=== PATIENT | male | born 1990 | race African-American/Black ===

== ENCOUNTER 2024-07-08 12:42 | Inpatient (IN) | payer OTHER, SELFPAY ==
[2024-07-08] VITALS (9 sets, daily range): BP systolic 115–151; BP diastolic 83–105; PULSE 86–126; RESP 15–19; TEMP 36.4; O2SAT 96–100
--- NOTE | ~2024-07-08 | XR_ITS ---
Supine and upright views of the abdomen Clinical history: Fecal impaction Findings: Bowel gas pattern is nonspecific. No evidence for obstruction or free air. No abnormal mass lesion or calcification is seen. Osseous structures are intact. Impression: No significant abnormality is seen. Reviewed, dictated and finalized at [facility]. SITE SPECIALIST Impression: No significant abnormality is seen.
--- NOTE | ~2024-07-08 | XR_ITS ---
CHEST RADIOGRAPH CLINICAL HISTORY: Epigastric pain . COMPARISON: None available TECHNIQUE: Single portable view of the chest. FINDINGS Elevation of the right hemidiaphragm with adjacent compressive atelectasis. The lungs are otherwise clear. Cardiac mediastinal silhouette is unremarkable. IMPRESSION: No focal infiltrate or effusion. Reviewed, dictated and finalized at location A. RITY INSPECTOR
--- NOTE | ~2024-07-08 | CT_ITS ---
CLINICAL INDICATION: Left-sided abdominal pain and nausea COMPARISON: None. TECHNIQUE: Multiple contiguous axial images of the abdomen and pelvis were performed following the ad ministration of with 100 mL Omnipaque-350 intravenous contrast The dose-length product (DLP) was 1560.34 mGy-cm. Automated exposure control and iterative reconstruction technique were employed. FINDINGS/OBSERVATIONS: Visualized lower thorax: Patchy groundglass opacification of the bilateral lung bases with a small right-sided pleural effusio n. The heart is of enlarged, without pericardial effusion. Liver: The liver is not enlarged measuring 15 cm in longitudinal dimension. Gallbladder and biliary system: The gallbladder is only minimally distended, and otherwise unremarkable. Pancreas: The pancreas enhances homogeneously without ductal dilatation. Spleen: The spleen enhances homogeneously and is not enlarged measuring 8 cm in longitudinal dimension. Kidneys: The bilateral kidneys enhance symmetrically without hydronephrosis or renal calculi. Adrenal glands: Unremarkable. Gastrointestinal tract: Significant fecal stasis distending the rectum and extending to the proximal sigmoid colon. Just proximal to the initial focus of dilated stool filled colon are several loops of air distended b owel, likely the source of patient's discomfort. No free air is identified. Appendix: The air-filled appendix is of normal caliber (axial series, image 143) Vasculature: The inferior vena cava is slit like, suggesting hypovolemia. The abdominal aorta is unremarkable. No aneurysmal dilatation or significant stenosis. Lymph nodes: No pathologically enlarged or morphologically suspicious lymph nodes within the retroperitoneum or at the root of the mesentery. Pelvic structures: The bladder is distended, and otherwise unremarkable. The prostate gland is not enlarged. Body wall and musculoskeletal: No significant degenerative disease within the lower thoracic or lumbosacral spine. IMPRESSION: Significant fecal stasis distending the rectum extending to the proximal sigmoid colon. Chest proximal to the initial focus of dilated stool filled colon are several loops of air distended bowel, likely the source of patient's discomfort. Reviewed, dictated and finalized at location A. AL CONTROL OFFICER IMPRESSION: Significant fecal stasis distending the rectum extending to the proximal sigmoi d colon. Chest proximal to the initial focus of dilated stool filled colon are several l oops of air distended bowel, likely the source of patient's discomfort.
--- NOTE | 2024-07-08 13:50 | ED.ABDPAIN ---
HPI - Abdominal Pain General Chief Complaint: Abdominal Pain <Priscilla Moraes APRN - Last Filed: 07/08/24 13:54> Stated Complaint: abd pain <Priscilla Moraes APRN - Last Filed: 07/08/24 13:54> Time Seen by Provider: 07/08/24 13:40 <Priscilla Moraes APRN - Last Filed: 07/08/24 13:54> Focused HPI: Patient is a 34-year-old male who presents to the ER with abdominal pain. He has a history of paraplegia and lives in a long term. Patient reports he has left upper and left lower quadrant abdominal pain that started yesterday. He reports his last bowel movement was yesterday and it was normal. Patient has history COPD, tracheostomy, and CHF. He denies any urinary symptoms, swelling, chest pain, shortness of breath. GENERAL: Well-appearing, well-nourished, and in no acute distress. HEAD: Normocephalic, atraumatic. CHEST: Clear to auscultation. ?No respiratory distress. HEART: Regular rate and rhythm.? NEURO: ?Alert and oriented x3. Patient screened in triage and initial orders placed.? ?Additional care and disposition to be based upon?diagnostic testing and treatment. <Priscilla Moraes APRN - Last Filed: 07/08/24 13:54> History of Present Illness HPI narrative: patient 34-year-old gentleman who presents emergency department with chief complaint of epigastric pain. Patient is resident of a local nursing facility is a paraplegic and has history of congestive heart failure. Patient also reports he has history of COPD patient reports since last night he has been having pain in the epigastric region the patient states that is not improved by anything but has slowly improved on its own since he has arrived to the emergency department. Patient denies chest pain denies diaphoresis denies shortness of breath. <Matt Kumar MD - Last Filed: 07/08/24 17:11> Related Data Home Medications: Home Medications Medication Instructions Recorded Confirmed acetaminophen 650 mg tablet 650 mg PO Q6H PRN Pain 07/09/24 07/09/24 amlodipine 5 mg tablet 5 mg PO DAILY 07/09/24 07/09/24 apixaban 5 mg tablet (Eliquis) 5 mg PO BID 07/09/24 07/09/24 atorvastatin 40 mg tablet 40 mg PO HS 07/09/24 07/09/24 carvedilol 25 mg tablet 25 mg PO Q12H 07/09/24 07/09/24 divalproex 500 mg tablet,delayed 500 mg PO Q12H 07/09/24 07/09/24 release risperidone 2 mg tablet 2 mg PO Q12H 07/09/24 07/09/24 tizanidine 4 mg tablet 4 mg PO Q8H PRN Muscle Spasm 07/09/24 07/09/24 <Priscilla Moraes APRN - Last Filed: 07/08/24 13:54> Allergies/Adverse Reactions: Allergies Allergy/AdvReac Type Severity Reaction Status Date / Time lisinopril Allergy Swelling Verified 07/09/24 00:30 of Lip/Tongue/Throat <Priscilla Moraes APRN - Last Filed: 07/08/24 13:54> Review of Systems Review of Systems: A 10 system review of systems was completed on the patient and is negative except for what is stated in the HPI. Nursing and ancillary documentation was reviewed. <Matt Kumar MD - Last Filed: 07/08/24 17:11> [facility] Family History Family History: Family History (Updated 07/09/24 @ 00:20 by Mirtha Judge RN) Mother Hypertension Diabetes mellitus Father Hypertension Sibling Hypertension <Priscilla Moraes APRN - Last Filed: 07/08/24 13:54> Social History Social History: Social History Smoking status: Former smoker Alcohol intake: never Substance use: never Do You Feel Safe in your Home?: Yes Lack of Transportation: No Lack of Food: Never True Current Housing: I Have Housing Concerned About Future Housing: No Difficulty Paying Gas/Electric Bills: No Difficulty Paying for Meds: No Currently Unemployed: No Education: Decline to Answer Difficulty w/ Childcare or Family Care: No Spiritual care concerns: No <Priscilla Moraes APRN - Last Filed: 07/08/24 13:54> Comments CHF, paraplegia, COPD <Matt Kumar MD - Last Filed: 07/08/24 17:11> Exam Narrative: GENERAL: Well-appearing, well-nourished, and in no acute distress. HEAD: Normocephalic, atraumatic. EYES: PERRLA and EOMI. ENT: Nares clear, no rhinorrhea or epistaxis. Mucous membranes moist. NECK: Supple. CHEST: Clear to auscultation. No respiratory distress. HEART: Regular rate and rhythm. No murmur heard. Normal peripheral pulses. ABDOMEN: Soft, nontender, nondistended, normal active bowel sounds. EXTREMITIES: Normal range of motion to upper extremities, paraplegic lower extremities. No edema. SKIN: Warm, dry, no rash. NEURO: No focal deficits. Alert and oriented x3. PSYCH: Normal mood and affect. <Matt Kumar MD - Last Filed: 07/08/24 17:11> Course Course Emergency Course: 19:00 - This patient was signed out to me by previous ED physician, Dr. Kumar pending CT abdomen pelvis results and anticipated admission. 21:21 - CT abdomen pelvis has not yet been read. My review does not demonstrate any obvious intra-abdominal process. I discussed the patient with hospitalist, Dr. James. Pending CT results, will admit. 22:10 - CT abdomen pelvis interpretation significantly delayed due to technical difficulties experience by the radiologist. CT demonstrates an increased stool burden but is not concerning for obstruction. I discussed the findings with Dr. James who accepts admission. <Mayco Escudero MD - Last Filed: 07/09/24 06:21> Vital Signs Vital signs: Vital Signs Temperature 97.6 F 07/08/24 12:47 Pulse Rate 100 07/08/24 12:47 Respiratory Rate 16 07/08/24 12:47 Blood Pressure 130/105 H 07/08/24 12:47 Pulse Oximetry 96 07/08/24 12:47 Temperature 97.5 F L 07/09/24 03:49 Pulse Rate 75 07/09/24 05:45 Respiratory Rate 18 07/09/24 03:49 Blood Pressure 123/78 07/09/24 03:49 Pulse Oximetry 99 07/09/24 03:49 Oxygen Delivery Room Air 07/09/24 03:44 <Priscilla Moraes APRN - Last Filed: 07/08/24 13:54> Vital Signs Temperature 97.6 F 07/08/24 12:47 Pulse Rate 100 07/08/24 12:47 Respiratory Rate 16 07/08/24 12:47 Blood Pressure 130/105 H 07/08/24 12:47 Pulse Oximetry 96 07/08/24 12:47 Temperature 97.5 F L 07/09/24 03:49 Pulse Rate 75 07/09/24 05:45 Respiratory Rate 18 07/09/24 03:49 Blood Pressure 123/78 07/09/24 03:49 Pulse Oximetry 99 07/09/24 03:49 Oxygen Delivery Room Air 07/09/24 03:44 <Matt Kumar MD - Last Filed: 07/08/24 17:11> Vital Signs Temperature 97.6 F 07/08/24 12:47 Pulse Rate 100 07/08/24 12:47 Respiratory Rate 16 07/08/24 12:47 Blood Pressure 130/105 H 07/08/24 12:47 Pulse Oximetry 96 07/08/24 12:47 Temperature 97.5 F L 07/09/24 03:49 Pulse Rate 75 07/09/24 05:45 Respiratory Rate 18 07/09/24 03:49 Blood Pressure 123/78 07/09/24 03:49 Pulse Oximetry 99 07/09/24 03:49 Oxygen Delivery Room Air 07/09/24 03:44 <Mayco Escudero MD - Last Filed: 07/09/24 06:21> MDM - Abdominal Pain MDM Narrative Medical decision making narrative: differential diagnosis includes ACS, CHF, renal failure NSTEMI, renal insufficiency EKG showed atrial fibrillation troponin was elevated at 0.101 creatinine is 1.4 <Matt Kumar MD - Last Filed: 07/08/24 17:11> Lab Data Result diagrams: 07/08/24 14:58 07/08/24 14:58 <Priscilla Moraes APRN - Last Filed: 07/08/24 13:54> Labs: Lab Results 07/08/24 07/08/24 07/08/24 Range/Units 14:52 14:57 14:58 WBC 8.9 (4.5-10.0) K/mm3 RBC 5.90 (4.6-6.20) M/mm3 Hgb 17.5 (14.0-18.0) g/dL Hct 52.5 H (42.0-52.0) % MCV 89.0 (80-100) fl MCH 29.7 (26-34) pg MCHC 33.3 (32-36) g/dl RDW 14.1 (11.5-14.5) % Plt Count 353 (150-375) k/mm3 MPV 11.9 H (7.4-10.4) fl Immature Gran % (Auto) 0.3 (0-0.5) % Neut % (Auto) 62.2 (45.5-73.1) % Lymph % (Auto) 27.8 (18.3-44.2) % [place] % (Auto) 7.8 (2.6-8.5) % Eos % (Auto) 1.6 (0-4.4) % Baso % (Auto) 0.3 (0.2-1.2) % Lymph # (Auto) 2.48 (0.9-3.2) K/mm3 [place] # (Auto) 0.7 H (0.1-0.6) K/mm3 Eos # (Auto) 0.1 (0-0.3) K/mm3 Baso # (Auto) 0.0 (0.0-0.1) K/mm3 Abs Immat Gran (auto) 0.03 (0.00-0.031) K/mm3 Absolute Neuts (auto) 5.5 (1.3-6.7) K/mm3 Absolute Nucleated RBC 0.000 (0.0-0.012) K/mm3 Nucleated RBC % 0.0 (0.0-0.2) % Sodium 140 (137-145) mmol/L Potassium 4.3 (3.4-5.0) mmol/L Chloride 110 H (98-107) mmol/L Carbon Dioxide 20 L (22-30) mmol/L Anion Gap 10 (4-12) mmol/L BUN 20 (9-20) mg/dL Creatinine 1.50 1.40 H (0.8-1.5) mg/dL Estim Creat Clear Calc Not Reportable Not Reportable Estimated GFR > 60 > 60 (59 - ) Glucose 93 (65-110) mg/dL Calcium 9.0 (8.4-10.2) mg/dL Total Bilirubin 0.8 (0.2-1.3) mg/dL AST 19 (17-59) U/L ALT 14 (6-50) U/L Alkaline Phosphatase 126 (38-126) U/L Troponin I 0.101 H* (0.000-0.034) ng/mL NT-Pro-B Natriuret Pep 5180 H (19.9-100) pg/mL Total Protein 8.0 (6.3-8.2) g/dL Albumin 4.0 (3.5-5.1) g/dL Lipase 48 (23-300) U/L Urine Color (Yellow) Urine Appearance (Clear) Urine pH (5.0-9.0) Ur Specific [place] (1.001-1.035) Urine Protein (Negative) mg/dL Urine Glucose (UA) (Negative) mg/dL Urine Ketones (Negative) mg/dL Ur Blood (Man) (Negative) Urine Nitrate (Negative) Urine Bilirubin (Negative) Urine Urobilinogen (<2.0) mg/dL Add Ur Microanalysis Leukocyte Esterase Rfl (Negative) SUZANNE/UL Urine RBC (0-2) /hpf Urine WBC (0-3) /hpf Ur Squamous Epith Cells (Few) /hpf Urine Bacteria /hpf Urine Casts Influenza A (RT-PCR) (Negative) Influenza B (RT-PCR) (Negative) RSV (RT-PCR) (Negative) SARS-CoV-2 RNA (RT-PCR) (Negative) 07/08/24 07/08/24 07/08/24 Range/Units 16:41 18:03 20:47 WBC (4.5-10.0) K/mm3 RBC (4.6-6.20) M/mm3 Hgb (14.0-18.0) g/dL Hct (42.0-52.0) % MCV (80-100) fl MCH (26-34) pg MCHC (32-36) g/dl RDW (11.5-14.5) % Plt Count (150-375) k/mm3 MPV (7.4-10.4) fl Immature Gran % (Auto) (0-0.5) % Neut % (Auto) (45.5-73.1) % Lymph % (Auto) (18.3-44.2) % [place] % (Auto) (2.6-8.5) % Eos % (Auto) (0-4.4) % Baso % (Auto) (0.2-1.2) % Lymph # (Auto) (0.9-3.2) K/mm3 [place] # (Auto) (0.1-0.6) K/mm3 Eos # (Auto) (0-0.3) K/mm3 Baso # (Auto) (0.0-0.1) K/mm3 Abs Immat Gran (auto) (0.00-0.031) K/mm3 Absolute Neuts (auto) (1.3-6.7) K/mm3 Absolute Nucleated RBC (0.0-0.012) K/mm3 Nucleated RBC % (0.0-0.2) % Sodium (137-145) mmol/L Potassium (3.4-5.0) mmol/L Chloride (98-107) mmol/L Carbon Dioxide (22-30) mmol/L Anion Gap (4-12) mmol/L BUN (9-20) mg/dL Creatinine (0.8-1.5) mg/dL Estim Creat Clear Calc Estimated GFR (59 - ) Glucose (65-110) mg/dL Calcium (8.4-10.2) mg/dL Total Bilirubin (0.2-1.3) mg/dL AST (17-59) U/L ALT (6-50) U/L Alkaline Phosphatase (38-126) U/L Troponin I 0.104 H* (0.000-0.034) ng/mL NT-Pro-B Natriuret Pep (19.9-100) pg/mL Total Protein (6.3-8.2) g/dL Albumin (3.5-5.1) g/dL Lipase (23-300) U/L Urine Color Yellow (Yellow) Urine Appearance Clear (Clear) Urine pH 5.5 (5.0-9.0) Ur Specific [place] > 1.045 H (1.001-1.035) Urine Protein 4+ H (Negative) mg/dL Urine Glucose (UA) Negative (Negative) mg/dL Urine Ketones Trace H (Negative) mg/dL Ur Blood (Man) Trace (Negative) Urine Nitrate Positive H (Negative) Urine Bilirubin Negative (Negative) Urine Urobilinogen 0.2 (<2.0) mg/dL Add Ur Microanalysis Reviewed Leukocyte Esterase Rfl Trace H (Negative) SUZANNE/UL Urine RBC 0-2 (0-2) /hpf Urine WBC 21-50 H (0-3) /hpf Ur Squamous Epith Cells None seen (Few) /hpf Urine Bacteria 4+ H /hpf Urine Casts 3-5 Influenza A (RT-PCR) Negative (Negative) Influenza B (RT-PCR) Negative (Negative) RSV (RT-PCR) Negative (Negative) SARS-CoV-2 RNA (RT-PCR) Negative (Negative) 07/08/24 Range/Units 21:18 WBC (4.5-10.0) K/mm3 RBC (4.6-6.20) M/mm3 Hgb (14.0-18.0) g/dL Hct (42.0-52.0) % MCV (80-100) fl MCH (26-34) pg MCHC (32-36) g/dl RDW (11.5-14.5) % Plt Count (150-375) k/mm3 MPV (7.4-10.4) fl Immature Gran % (Auto) (0-0.5) % Neut % (Auto) (45.5-73.1) % Lymph % (Auto) (18.3-44.2) % [place] % (Auto) (2.6-8.5) % Eos % (Auto) (0-4.4) % Baso % (Auto) (0.2-1.2) % Lymph # (Auto) (0.9-3.2) K/mm3 [place] # (Auto) (0.1-0.6) K/mm3 Eos # (Auto) (0-0.3) K/mm3 Baso # (Auto) (0.0-0.1) K/mm3 Abs Immat Gran (auto) (0.00-0.031) K/mm3 Absolute Neuts (auto) (1.3-6.7) K/mm3 Absolute Nucleated RBC (0.0-0.012) K/mm3 Nucleated RBC % (0.0-0.2) % Sodium (137-145) mmol/L Potassium (3.4-5.0) mmol/L Chloride (98-107) mmol/L Carbon Dioxide (22-30) mmol/L Anion Gap (4-12) mmol/L BUN (9-20) mg/dL Creatinine (0.8-1.5) mg/dL Estim Creat Clear Calc Estimated GFR (59 - ) Glucose (65-110) mg/dL Calcium (8.4-10.2) mg/dL Total Bilirubin (0.2-1.3) mg/dL AST (17-59) U/L ALT (6-50) U/L Alkaline Phosphatase (38-126) U/L Troponin I 0.090 H* (0.000-0.034) ng/mL NT-Pro-B Natriuret Pep (19.9-100) pg/mL Total Protein (6.3-8.2) g/dL Albumin (3.5-5.1) g/dL Lipase (23-300) U/L Urine Color (Yellow) Urine Appearance (Clear) Urine pH (5.0-9.0) Ur Specific [place] (1.001-1.035) Urine Protein (Negative) mg/dL Urine Glucose (UA) (Negative) mg/dL Urine Ketones (Negative) mg/dL Ur Blood (Man) (Negative) Urine Nitrate (Negative) Urine Bilirubin (Negative) Urine Urobilinogen (<2.0) mg/dL Add Ur Microanalysis Leukocyte Esterase Rfl (Negative) SUZANNE/UL Urine RBC (0-2) /hpf Urine WBC (0-3) /hpf Ur Squamous Epith Cells (Few) /hpf Urine Bacteria /hpf Urine Casts Influenza A (RT-PCR) (Negative) Influenza B (RT-PCR) (Negative) RSV (RT-PCR) (Negative) SARS-CoV-2 RNA (RT-PCR) (Negative) <Priscilla Moraes, RUNNING SPECIALIST - Last Filed: 07/08/24 13:54> Lab Results 07/08/24 07/08/24 07/08/24 Range/Units 14:52 14:57 14:58 WBC 8.9 (4.5-10.0) K/mm3 RBC 5.90 (4.6-6.20) M/mm3 Hgb 17.5 (14.0-18.0) g/dL Hct 52.5 H (42.0-52.0) % MCV 89.0 (80-100) fl MCH 29.7 (26-34) pg MCHC 33.3 (32-36) g/dl RDW 14.1 (11.5-14.5) % Plt Count 353 (150-375) k/mm3 MPV 11.9 H (7.4-10.4) fl Immature Gran % (Auto) 0.3 (0-0.5) % Neut % (Auto) 62.2 (45.5-73.1) % Lymph % (Auto) 27.8 (18.3-44.2) % [place] % (Auto) 7.8 (2.6-8.5) % Eos % (Auto) 1.6 (0-4.4) % Baso % (Auto) 0.3 (0.2-1.2) % Lymph # (Auto) 2.48 (0.9-3.2) K/mm3 [place] # (Auto) 0.7 H (0.1-0.6) K/mm3 Eos # (Auto) 0.1 (0-0.3) K/mm3 Baso # (Auto) 0.0 (0.0-0.1) K/mm3 Abs Immat Gran (auto) 0.03 (0.00-0.031) K/mm3 Absolute Neuts (auto) 5.5 (1.3-6.7) K/mm3 Absolute Nucleated RBC 0.000 (0.0-0.012) K/mm3 Nucleated RBC % 0.0 (0.0-0.2) % Sodium 140 (137-145) mmol/L Potassium 4.3 (3.4-5.0) mmol/L Chloride 110 H (98-107) mmol/L Carbon Dioxide 20 L (22-30) mmol/L Anion Gap 10 (4-12) mmol/L BUN 20 (9-20) mg/dL Creatinine 1.50 1.40 H (0.8-1.5) mg/dL Estim Creat Clear Calc Not Reportable Not Reportable Estimated GFR > 60 > 60 (59 - ) Glucose 93 (65-110) mg/dL Calcium 9.0 (8.4-10.2) mg/dL Total Bilirubin 0.8 (0.2-1.3) mg/dL AST 19 (17-59) U/L ALT 14 (6-50) U/L Alkaline Phosphatase 126 (38-126) U/L Troponin I 0.101 H* (0.000-0.034) ng/mL NT-Pro-B Natriuret Pep 5180 H (19.9-100) pg/mL Total Protein 8.0 (6.3-8.2) g/dL Albumin 4.0 (3.5-5.1) g/dL Lipase 48 (23-300) U/L Urine Color (Yellow) Urine Appearance (Clear) Urine pH (5.0-9.0) Ur Specific [place] (1.001-1.035) Urine Protein (Negative) mg/dL Urine Glucose (UA) (Negative) mg/dL Urine Ketones (Negative) mg/dL Ur Blood (Man) (Negative) Urine Nitrate (Negative) Urine Bilirubin (Negative) Urine Urobilinogen (<2.0) mg/dL Add Ur Microanalysis Leukocyte Esterase Rfl (Negative) SUZANNE/UL Urine RBC (0-2) /hpf Urine WBC (0-3) /hpf Ur Squamous Epith Cells (Few) /hpf Urine Bacteria /hpf Urine Casts Influenza A (RT-PCR) (Negative) Influenza B (RT-PCR) (Negative) RSV (RT-PCR) (Negative) SARS-CoV-2 RNA (RT-PCR) (Negative) 07/08/24 07/08/24 07/08/24 Range/Units 16:41 18:03 20:47 WBC (4.5-10.0) K/mm3 RBC (4.6-6.20) M/mm3 Hgb (14.0-18.0) g/dL Hct (42.0-52.0) % MCV (80-100) fl MCH (26-34) pg MCHC (32-36) g/dl RDW (11.5-14.5) % Plt Count (150-375) k/mm3 MPV (7.4-10.4) fl Immature Gran % (Auto) (0-0.5) % Neut % (Auto) (45.5-73.1) % Lymph % (Auto) (18.3-44.2) % [place] % (Auto) (2.6-8.5) % Eos % (Auto) (0-4.4) % Baso % (Auto) (0.2-1.2) % Lymph # (Auto) (0.9-3.2) K/mm3 [place] # (Auto) (0.1-0.6) K/mm3 Eos # (Auto) (0-0.3) K/mm3 Baso # (Auto) (0.0-0.1) K/mm3 Abs Immat Gran (auto) (0.00-0.031) K/mm3 Absolute Neuts (auto) (1.3-6.7) K/mm3 Absolute Nucleated RBC (0.0-0.012) K/mm3 Nucleated RBC % (0.0-0.2) % Sodium (137-145) mmol/L Potassium (3.4-5.0) mmol/L Chloride (98-107) mmol/L Carbon Dioxide (22-30) mmol/L Anion Gap (4-12) mmol/L BUN (9-20) mg/dL Creatinine (0.8-1.5) mg/dL Estim Creat Clear Calc Estimated GFR (59 - ) Glucose (65-110) mg/dL Calcium (8.4-10.2) mg/dL Total Bilirubin (0.2-1.3) mg/dL AST (17-59) U/L ALT (6-50) U/L Alkaline Phosphatase (38-126) U/L Troponin I 0.104 H* (0.000-0.034) ng/mL NT-Pro-B Natriuret Pep (19.9-100) pg/mL Total Protein (6.3-8.2) g/dL Albumin (3.5-5.1) g/dL Lipase (23-300) U/L Urine Color Yellow (Yellow) Urine Appearance Clear (Clear) Urine pH 5.5 (5.0-9.0) Ur Specific [place] > 1.045 H (1.001-1.035) Urine Protein 4+ H (Negative) mg/dL Urine Glucose (UA) Negative (Negative) mg/dL Urine Ketones Trace H (Negative) mg/dL Ur Blood (Man) Trace (Negative) Urine Nitrate Positive H (Negative) Urine Bilirubin Negative (Negative) Urine Urobilinogen 0.2 (<2.0) mg/dL Add Ur Microanalysis Reviewed Leukocyte Esterase Rfl Trace H (Negative) SUZANNE/UL Urine RBC 0-2 (0-2) /hpf Urine WBC 21-50 H (0-3) /hpf Ur Squamous Epith Cells None seen (Few) /hpf Urine Bacteria 4+ H /hpf Urine Casts 3-5 Influenza A (RT-PCR) Negative (Negative) Influenza B (RT-PCR) Negative (Negative) RSV (RT-PCR) Negative (Negative) SARS-CoV-2 RNA (RT-PCR) Negative (Negative) 07/08/24 Range/Units 21:18 WBC (4.5-10.0) K/mm3 RBC (4.6-6.20) M/mm3 Hgb (14.0-18.0) g/dL Hct (42.0-52.0) % MCV (80-100) fl MCH (26-34) pg MCHC (32-36) g/dl RDW (11.5-14.5) % Plt Count (150-375) k/mm3 MPV (7.4-10.4) fl Immature Gran % (Auto) (0-0.5) % Neut % (Auto) (45.5-73.1) % Lymph % (Auto) (18.3-44.2) % [place] % (Auto) (2.6-8.5) % Eos % (Auto) (0-4.4) % Baso % (Auto) (0.2-1.2) % Lymph # (Auto) (0.9-3.2) K/mm3 [place] # (Auto) (0.1-0.6) K/mm3 Eos # (Auto) (0-0.3) K/mm3 Baso # (Auto) (0.0-0.1) K/mm3 Abs Immat Gran (auto) (0.00-0.031) K/mm3 Absolute Neuts (auto) (1.3-6.7) K/mm3 Absolute Nucleated RBC (0.0-0.012) K/mm3 Nucleated RBC % (0.0-0.2) % Sodium (137-145) mmol/L Potassium (3.4-5.0) mmol/L Chloride (98-107) mmol/L Carbon Dioxide (22-30) mmol/L Anion Gap (4-12) mmol/L BUN (9-20) mg/dL Creatinine (0.8-1.5) mg/dL Estim Creat Clear Calc Estimated GFR (59 - ) Glucose (65-110) mg/dL Calcium (8.4-10.2) mg/dL Total Bilirubin (0.2-1.3) mg/dL AST (17-59) U/L ALT (6-50) U/L Alkaline Phosphatase (38-126) U/L Troponin I 0.090 H* (0.000-0.034) ng/mL NT-Pro-B Natriuret Pep (19.9-100) pg/mL Total Protein (6.3-8.2) g/dL Albumin (3.5-5.1) g/dL Lipase (23-300) U/L Urine Color (Yellow) Urine Appearance (Clear) Urine pH (5.0-9.0) Ur Specific [place] (1.001-1.035) Urine Protein (Negative) mg/dL Urine Glucose (UA) (Negative) mg/dL Urine Ketones (Negative) mg/dL Ur Blood (Man) (Negative) Urine Nitrate (Negative) Urine Bilirubin (Negative) Urine Urobilinogen (<2.0) mg/dL Add Ur Microanalysis Leukocyte Esterase Rfl (Negative) SUZANNE/UL Urine RBC (0-2) /hpf Urine WBC (0-3) /hpf Ur Squamous Epith Cells (Few) /hpf Urine Bacteria /hpf Urine Casts Influenza A (RT-PCR) (Negative) Influenza B (RT-PCR) (Negative) RSV (RT-PCR) (Negative) SARS-CoV-2 RNA (RT-PCR) (Negative) <Matt Kumar MD - Last Filed: 07/08/24 17:11> Lab Results 07/08/24 07/08/24 07/08/24 Range/Units 14:52 14:57 14:58 WBC 8.9 (4.5-10.0) K/mm3 RBC 5.90 (4.6-6.20) M/mm3 Hgb 17.5 (14.0-18.0) g/dL Hct 52.5 H (42.0-52.0) % MCV 89.0 (80-100) fl MCH 29.7 (26-34) pg MCHC 33.3 (32-36) g/dl RDW 14.1 (11.5-14.5) % Plt Count 353 (150-375) k/mm3 MPV 11.9 H (7.4-10.4) fl Immature Gran % (Auto) 0.3 (0-0.5) % Neut % (Auto) 62.2 (45.5-73.1) % Lymph % (Auto) 27.8 (18.3-44.2) % [place] % (Auto) 7.8 (2.6-8.5) % Eos % (Auto) 1.6 (0-4.4) % Baso % (Auto) 0.3 (0.2-1.2) % Lymph # (Auto) 2.48 (0.9-3.2) K/mm3 [place] # (Auto) 0.7 H (0.1-0.6) K/mm3 Eos # (Auto) 0.1 (0-0.3) K/mm3 Baso # (Auto) 0.0 (0.0-0.1) K/mm3 Abs Immat Gran (auto) 0.03 (0.00-0.031) K/mm3 Absolute Neuts (auto) 5.5 (1.3-6.7) K/mm3 Absolute Nucleated RBC 0.000 (0.0-0.012) K/mm3 Nucleated RBC % 0.0 (0.0-0.2) % Sodium 140 (137-145) mmol/L Potassium 4.3 (3.4-5.0) mmol/L Chloride 110 H (98-107) mmol/L Carbon Dioxide 20 L (22-30) mmol/L Anion Gap 10 (4-12) mmol/L BUN 20 (9-20) mg/dL Creatinine 1.50 1.40 H (0.8-1.5) mg/dL Estim Creat Clear Calc Not Reportable Not Reportable Estimated GFR > 60 > 60 (59 - ) Glucose 93 (65-110) mg/dL Calcium 9.0 (8.4-10.2) mg/dL Total Bilirubin 0.8 (0.2-1.3) mg/dL AST 19 (17-59) U/L ALT 14 (6-50) U/L Alkaline Phosphatase 126 (38-126) U/L Troponin I 0.101 H* (0.000-0.034) ng/mL NT-Pro-B Natriuret Pep 5180 H (19.9-100) pg/mL Total Protein 8.0 (6.3-8.2) g/dL Albumin 4.0 (3.5-5.1) g/dL Lipase 48 (23-300) U/L Urine Color (Yellow) Urine Appearance (Clear) Urine pH (5.0-9.0) Ur Specific [place] (1.001-1.035) Urine Protein (Negative) mg/dL Urine Glucose (UA) (Negative) mg/dL Urine Ketones (Negative) mg/dL Ur Blood (Man) (Negative) Urine Nitrate (Negative) Urine Bilirubin (Negative) Urine Urobilinogen (<2.0) mg/dL Add Ur Microanalysis Leukocyte Esterase Rfl (Negative) SUZANNE/UL Urine RBC (0-2) /hpf Urine WBC (0-3) /hpf Ur Squamous Epith Cells (Few) /hpf Urine Bacteria /hpf Urine Casts Influenza A (RT-PCR) (Negative) Influenza B (RT-PCR) (Negative) RSV (RT-PCR) (Negative) SARS-CoV-2 RNA (RT-PCR) (Negative) 07/08/24 07/08/24 07/08/24 Range/Units 16:41 18:03 20:47 WBC (4.5-10.0) K/mm3 RBC (4.6-6.20) M/mm3 Hgb (14.0-18.0) g/dL Hct (42.0-52.0) % MCV (80-100) fl MCH (26-34) pg MCHC (32-36) g/dl RDW (11.5-14.5) % Plt Count (150-375) k/mm3 MPV (7.4-10.4) fl Immature Gran % (Auto) (0-0.5) % Neut % (Auto) (45.5-73.1) % Lymph % (Auto) (18.3-44.2) % [place] % (Auto) (2.6-8.5) % Eos % (Auto) (0-4.4) % Baso % (Auto) (0.2-1.2) % Lymph # (Auto) (0.9-3.2) K/mm3 [place] # (Auto) (0.1-0.6) K/mm3 Eos # (Auto) (0-0.3) K/mm3 Baso # (Auto) (0.0-0.1) K/mm3 Abs Immat Gran (auto) (0.00-0.031) K/mm3 Absolute Neuts (auto) (1.3-6.7) K/mm3 Absolute Nucleated RBC (0.0-0.012) K/mm3 Nucleated RBC % (0.0-0.2) % Sodium (137-145) mmol/L Potassium (3.4-5.0) mmol/L Chloride (98-107) mmol/L Carbon Dioxide (22-30) mmol/L Anion Gap (4-12) mmol/L BUN (9-20) mg/dL Creatinine (0.8-1.5) mg/dL Estim Creat Clear Calc Estimated GFR (59 - ) Glucose (65-110) mg/dL Calcium (8.4-10.2) mg/dL Total Bilirubin (0.2-1.3) mg/dL AST (17-59) U/L ALT (6-50) U/L Alkaline Phosphatase (38-126) U/L Troponin I 0.104 H* (0.000-0.034) ng/mL NT-Pro-B Natriuret Pep (19.9-100) pg/mL Total Protein (6.3-8.2) g/dL Albumin (3.5-5.1) g/dL Lipase (23-300) U/L Urine Color Yellow (Yellow) Urine Appearance Clear (Clear) Urine pH 5.5 (5.0-9.0) Ur Specific [place] > 1.045 H (1.001-1.035) Urine Protein 4+ H (Negative) mg/dL Urine Glucose (UA) Negative (Negative) mg/dL Urine Ketones Trace H (Negative) mg/dL Ur Blood (Man) Trace (Negative) Urine Nitrate Positive H (Negative) Urine Bilirubin Negative (Negative) Urine Urobilinogen 0.2 (<2.0) mg/dL Add Ur Microanalysis Reviewed Leukocyte Esterase Rfl Trace H (Negative) SUZANNE/UL Urine RBC 0-2 (0-2) /hpf Urine WBC 21-50 H (0-3) /hpf Ur Squamous Epith Cells None seen (Few) /hpf Urine Bacteria 4+ H /hpf Urine Casts 3-5 Influenza A (RT-PCR) Negative (Negative) Influenza B (RT-PCR) Negative (Negative) RSV (RT-PCR) Negative (Negative) SARS-CoV-2 RNA (RT-PCR) Negative (Negative) 07/08/24 Range/Units 21:18 WBC (4.5-10.0) K/mm3 RBC (4.6-6.20) M/mm3 Hgb (14.0-18.0) g/dL Hct (42.0-52.0) % MCV (80-100) fl MCH (26-34) pg MCHC (32-36) g/dl RDW (11.5-14.5) % Plt Count (150-375) k/mm3 MPV (7.4-10.4) fl Immature Gran % (Auto) (0-0.5) % Neut % (Auto) (45.5-73.1) % Lymph % (Auto) (18.3-44.2) % [place] % (Auto) (2.6-8.5) % Eos % (Auto) (0-4.4) % Baso % (Auto) (0.2-1.2) % Lymph # (Auto) (0.9-3.2) K/mm3 [place] # (Auto) (0.1-0.6) K/mm3 Eos # (Auto) (0-0.3) K/mm3 Baso # (Auto) (0.0-0.1) K/mm3 Abs Immat Gran (auto) (0.00-0.031) K/mm3 Absolute Neuts (auto) (1.3-6.7) K/mm3 Absolute Nucleated RBC (0.0-0.012) K/mm3 Nucleated RBC % (0.0-0.2) % Sodium (137-145) mmol/L Potassium (3.4-5.0) mmol/L Chloride (98-107) mmol/L Carbon Dioxide (22-30) mmol/L Anion Gap (4-12) mmol/L BUN (9-20) mg/dL Creatinine (0.8-1.5) mg/dL Estim Creat Clear Calc Estimated GFR (59 - ) Glucose (65-110) mg/dL Calcium (8.4-10.2) mg/dL Total Bilirubin (0.2-1.3) mg/dL AST (17-59) U/L ALT (6-50) U/L Alkaline Phosphatase (38-126) U/L Troponin I 0.090 H* (0.000-0.034) ng/mL NT-Pro-B Natriuret Pep (19.9-100) pg/mL Total Protein (6.3-8.2) g/dL Albumin (3.5-5.1) g/dL Lipase (23-300) U/L Urine Color (Yellow) Urine Appearance (Clear) Urine pH (5.0-9.0) Ur Specific [place] (1.001-1.035) Urine Protein (Negative) mg/dL Urine Glucose (UA) (Negative) mg/dL Urine Ketones (Negative) mg/dL Ur Blood (Man) (Negative) Urine Nitrate (Negative) Urine Bilirubin (Negative) Urine Urobilinogen (<2.0) mg/dL Add Ur Microanalysis Leukocyte Esterase Rfl (Negative) SUZANNE/UL Urine RBC (0-2) /hpf Urine WBC (0-3) /hpf Ur Squamous Epith Cells (Few) /hpf Urine Bacteria /hpf Urine Casts Influenza A (RT-PCR) (Negative) Influenza B (RT-PCR) (Negative) RSV (RT-PCR) (Negative) SARS-CoV-2 RNA (RT-PCR) (Negative) <Mayco Escudero MD - Last Filed: 07/09/24 06:21> Imaging Data Radiologist's impression: ITS Impressions Chest X-Ray 07/08/24 17:13 IMPRESSION: No focal infiltrate or effusion. Abdomen/Pelvis CT 07/08/24 20:07 IMPRESSION: Significant fecal stasis distending the rectum extending to the proximal sigmoid colon. Chest proximal to the initial focus of dilated stool filled colon are several loops of air distended bowel, likely the source of patient's discomfort. <Priscilla Moraes APRN - Last Filed: 07/08/24 13:54> ITS Impressions Chest X-Ray 07/08/24 17:13 IMPRESSION: No focal infiltrate or effusion. Abdomen/Pelvis CT 07/08/24 20:07 IMPRESSION: Significant fecal stasis distending the rectum extending to the proximal sigmoid colon. Chest proximal to the initial focus of dilated stool filled colon are several loops of air distended bowel, likely the source of patient's discomfort. <Matt Kumar MD - Last Filed: 07/08/24 17:11> ITS Impressions Chest X-Ray 07/08/24 17:13 IMPRESSION: No focal infiltrate or effusion. Abdomen/Pelvis CT 07/08/24 20:07 IMPRESSION: Significant fecal stasis distending the rectum extending to the proximal sigmoid colon. Chest proximal to the initial focus of dilated stool filled colon are several loops of air distended bowel, likely the source of patient's discomfort. <Mayco Escudero MD - Last Filed: 07/09/24 06:21> ECG Data EKG #1: Attestation: I personally reviewed and interpreted this ECG as follows: <Mayco Escudero MD - Last Filed: 07/09/24 06:21> ECG completion date: 07/08/24 <Mayco Escudero MD - Last Filed: 07/09/24 06:21> ECG completion time: 16:44 <Mayco Escudero MD - Last Filed: 07/09/24 06:21> Prior ECG tracings: not available for review <Mayco Escudero MD - Last Filed: 07/09/24 06:21> Interpretation: AFib, rate 109, left axis deviation, patient no ST segment elevations concerning for ischemia, T-wave inversions in lead 1 and aVL with otherwise normal intervals QTC of 435. <Mayco Escudero MD - Last Filed: 07/09/24 06:21> EKG #2: Attestation: I personally reviewed and interpreted this ECG as follows: <Mayco Escudero MD - Last Filed: 07/09/24 06:21> ECG completion date: 07/08/24 <Mayco Escudero MD - Last Filed: 07/09/24 06:21> ECG completion time: 18:02 <Mayco Escudero MD - Last Filed: 07/09/24 06:21> Prior ECG tracings: available for review <Mayco Escudero MD - Last Filed: 07/09/24 06:21> Interpretation: AFib, rate 99, no ST segment elevations concerning for ischemia, T-wave inversions in lead 1 and aVL with otherwise normal intervals is QTC of 435. Compared to EKG done earlier, there are no significant changes. <Mayco Escudero MD - Last Filed: 07/09/24 06:21> EKG #3: Attestation: I personally reviewed and interpreted this ECG as follows: <Mayco Escudero MD - Last Filed: 07/09/24 06:21> ECG completion date: 07/08/24 <Mayco Escudero MD - Last Filed: 07/09/24 06:21> ECG completion time: 21:17 <Mayco Escudero MD - Last Filed: 07/09/24 06:21> Prior ECG tracings: available for review <Mayco Escudero MD - Last Filed: 07/09/24 06:21> Interpretation: AFib, rate 110, left axis deviation, no ST segment elevations concerning for ischemia, T-wave inversions in lead 1 and aVL. Otherwise normal intervals with QTC of 405. <Mayco Escudero MD - Last Filed: 07/09/24 06:21> Discharge Plan Discharge Clinical Impression: Elevated troponin, Acute epigastric pain, Constipation, A-fib <Priscilla Moraes APRN - Last Filed: 07/08/24 13:54> Patient Disposition: Still a Patient <Priscilla Moraes APRN - Last Filed: 07/08/24 13:54> Condition: Stable <Priscilla Moraes APRN - Last Filed: 07/08/24 13:54> Time of Disposition: 17:11 <Priscilla Moraes APRN - Last Filed: 07/08/24 13:54> 17:11 <Matt Kumar MD - Last Filed: 07/08/24 17:11> 17:11 <Mayco Escudero MD - Last Filed: 07/09/24 06:21> Sign Out Sign Out Data: Patient Sign Out occurred on 07/08/24 at 19:00. Patient's care was discussed, and care was transferred from Matt Kumar MD to Mayco Escudero MD. <Priscilla Moraes APRN - Last Filed: 07/08/24 13:54>
[2024-07-08 14:53] LABS: Estimated Glomerular Filt Rate > 60
[2024-07-08 15:04] LABS: Basophils Percent Auto 0.3 % (0.2-1.2); Eosinophils Absolute Auto 0.1 K/mm3 (0-0.3); Eosinophils Percent Auto 1.6 % (0-4.4); Hematocrit 52.5 % (42.0-52.0); Hemoglobin 17.5 g/dL (14.0-18.0); Immature Granulocyte Absolute 0.03 K/mm3 (0.00-0.031); Immature Granulocyte Percent A 0.3 % (0-0.5); Lymphocytes Absolute Auto 2.48 K/mm3 (0.9-3.2); Lymphocytes Percent Auto 27.8 % (18.3-44.2); Mean Corpuscular HGB Conc 33.3 g/dl (32-36); Mean Corpuscular Hemoglobin 29.7 pg (26-34); Mean Platelet Volume 11.9 fl (7.4-10.4); Monocytes Absolute Auto 0.7 K/mm3 (0.1-0.6); Monocytes Percent Auto 7.8 % (2.6-8.5); Neutrophils Absolute Auto 5.5 K/mm3 (1.3-6.7); Neutrophils Percent Auto 62.2 % (45.5-73.1); Platelet Count Result 353 k/mm3 (150-375); Red Cell Distribution Width 14.1 % (11.5-14.5); White Blood Count 8.9 K/mm3 (4.5-10.0)
[2024-07-08 15:17] LABS: Alanine Aminotransferase 14 U/L (6-50); Alkaline Phosphatase 126 U/L (38-126); Anion Gap 10 mmol/L (4-12); Aspartate Amino Transferase 19 U/L (17-59); Bilirubin,Total 0.8 mg/dL (0.2-1.3); Blood Urea Nitrogen 20 mg/dL (9-20); Carbon Dioxide 20 mmol/L (22-30); Chloride 110 mmol/L (98-107); Estimated Glomerular Filt Rate > 60; Glucose 93 mg/dL (65-110); Lipase 48 U/L (23-300); Potassium 4.3 mmol/L (3.4-5.0); Sodium 140 mmol/L (137-145)
[2024-07-08 15:31] LABS: Troponin I 0.101 ng/mL (0.000-0.034)
--- NOTE | 2024-07-08 15:32 | ECG_ITS ---
Test Date: 2024-07-08 16:44:22 Measurements Intervals Duncan Rate: 109 P: 0 FL: 0 QRS: -3 QRSD: 110 T: 165 QT: 345 QTc: 465 Interpretive Statements ATRIAL FIBRILLATION WITH RAPID VENTRICULAR RESPONSE INTRAVENTRICULAR CONDUCTION DELAY MINIMAL Q WAVES- HIGH LATERAL LEADS ST DEVIATION AND MODERATE T-WAVE ABNORMALITY, CONSIDER HIGH LATERAL ISCHEMIA BASELINE ARTIFACT- I, II, III, AVL, AVF ABNORMAL ECG No previous ECG available for comparison Electronically Signed On 07-08-2024 18:10:13 RAILROAD FIRER/FIREMAN by Jovani Rhoades D.O.
[2024-07-08] MEDS: DICYCLOMINE HCL 10 MG CAPSULE PO (16:39)
[2024-07-08] MEDS: ONDANSETRON HCL ODT 4 MG TABLET PO (16:39)
[2024-07-08 17:20] LABS: Influenza A QL RT-PCR Negative (Negative); Influenza B QL RT-PCR Negative (Negative); RSV RNA, RT-PCR Negative (Negative); SARS-CoV-2 RNA PCR Negative (Negative)
--- NOTE | 2024-07-08 17:49 | ECG_ITS ---
Test Date: 2024-07-08 18:02:46 Measurements Intervals Osprey Rate: 99 P: 0 CT: 0 QRS: -11 QRSD: 99 T: 162 QT: 338 QTc: 435 Interpretive Statements ATRIAL FIBRILLATION INTRAVENTRICULAR CONDUCTION DELAY DELAYED PRECORDIAL R/S TRANSITION ST DEVIATION AND MODERATE T-WAVE ABNORMALITY, CONSIDER HIGH LATERAL ISCHEMIA BASELINE ARTIFACT- I, II, III, AVR, AL, AVF ABNORMAL ECG Compared to ECG 07/08/2024 16:44:22 HEART RATE HAS DECREASED Electronically Signed On 07-08-2024 18:26:00 ASSISTANT OFFICE MANAGER by Jovani Rhoades D.O.
[2024-07-08 18:06] LABS: NT Pro B Type Natriuretic Pept 5180 pg/mL (19.9-100)
[2024-07-08 18:35] LABS: Troponin I 0.104 ng/mL (0.000-0.034)
--- NOTE | 2024-07-08 21:11 | ECG_ITS ---
Test Date: 2024-07-08 21:17:38 Measurements Intervals Venus Rate: 110 P: 0 [place]: 0 QRS: 6 QRSD: 109 T: 157 QT: 340 QTc: 461 Interpretive Statements ATRIAL FIBRILLATION WITH RAPID VENTRICULAR RESPONSE DELAYED PRECORDIAL R/S TRANSITION ST DEVIATION AND MODERATE T-WAVE ABNORMALITY, CONSIDER HIGH LATERAL ISCHEMIA BASELINE ARTIFACT- I, III, AVL, AVF ABNORMAL ECG Compared to ECG 07/08/2024 18:02:46 HEART RATE HAS INCREASED Electronically Signed On 07-09-2024 06:56:06 SLOT EDITOR by Jovani Rhoades D.O.
--- NOTE | 2024-07-08 21:16 | P.HP_ITS ---
H&P: HPI History of Present Illness Date/Time: 07/08/24 21:16 Chief Complaint: Abdominal pain Narrative: This is a 34-year-old male with past medical history significant for paraplegia, retirement resident, patient was brought to the emergency room for evaluation due to epigastric pain with nausea and vomiting. Preliminary workup was significant for CT of abdomen and pelvis with fecal stasis. Troponins x3 slightly elevated brain natriuretic peptide 5180. CHEST RADIOGRAPH CLINICAL HISTORY: Epigastric pain . COMPARISON: None available TECHNIQUE: Single portable view of the chest. FINDINGS Elevation of the right hemidiaphragm with adjacent compressive atelectasis. The lungs are otherwise clear. Cardiac mediastinal silhouette is unremarkable. IMPRESSION: No focal infiltrate or effusion. CLINICAL INDICATION: Left-sided abdominal pain and nausea COMPARISON: None. TECHNIQUE: Multiple contiguous axial images of the abdomen and pelvis were performed following the administration of with 100 mL Omnipaque-350 intravenous contrast The dose-length product (DLP) was 1560.34 mGy-cm. Automated exposure control and iterative reconstruction technique were employed. FINDINGS/OBSERVATIONS: Visualized lower thorax: Patchy groundglass opacification of the bilateral lung bases with a small right- sided pleural effusion. The heart is of enlarged, without pericardial effusion. Liver: The liver is not enlarged measuring 15 cm in longitudinal dimension. Gallbladder and biliary system: The gallbladder is only minimally distended, and otherwise unremarkable. Pancreas: The pancreas enhances homogeneously without ductal dilatation. Spleen: The spleen enhances homogeneously and is not enlarged measuring 8 cm in longitudinal dimension. Kidneys: The bilateral kidneys enhance symmetrically without hydronephrosis or renal calculi. Adrenal glands: Unremarkable. Gastrointestinal tract: Significant fecal stasis distending the rectum and extending to the proximal sigmoid colon. Just proximal to the initial focus of dilated stool filled colon are several loops of air distended bowel, likely the source of patient's discomfort. No free air is identified. Appendix: The air-filled appendix is of normal caliber (axial series, image 143) Vasculature: The inferior vena cava is slit like, suggesting hypovolemia. The abdominal aorta is unremarkable. No aneurysmal dilatation or significant stenosis. Lymph nodes: No pathologically enlarged or morphologically suspicious lymph nodes within the retroperitoneum or at the root of the mesentery. Pelvic structures: The bladder is distended, and otherwise unremarkable. The prostate gland is not enlarged. Body wall and musculoskeletal: No significant degenerative disease within the lower thoracic or lumbosacral spine. IMPRESSION: Significant fecal stasis distending the rectum extending to the proximal sigmoid colon. Chest proximal to the initial focus of dilated stool filled colon are several loops of air distended bowel, likely the source of patient's discomfort. Review of Systems Review of Systems: abdominal pain, nausea, vomiting PMFSH Family History Family History (Updated 07/09/24 @ 00:20 by Mirtha Judge RN) Mother Hypertension Diabetes mellitus Father Hypertension Sibling Hypertension Social History Social History Smoking status: Former smoker Alcohol intake: never Substance use: never Do You Feel Safe in your Home?: Yes Lack of Transportation: No Lack of Food: Never True Current Housing: I Have Housing Concerned About Future Housing: No Difficulty Paying Gas/Electric Bills: No Difficulty Paying for Meds: No Currently Unemployed: No Education: Decline to Answer Difficulty w/ Childcare or Family Care: No Spiritual care concerns: No Meds Home Medications and Allergies Home Medications Medication Instructions Recorded Confirmed Type acetaminophen 650 mg tablet 650 mg PO Q6H PRN Pain 07/09/24 07/09/24 History amlodipine 5 mg tablet 5 mg PO DAILY 07/09/24 07/09/24 History apixaban 5 mg tablet (Eliquis) 5 mg PO BID 07/09/24 07/09/24 History atorvastatin 40 mg tablet 40 mg PO HS 07/09/24 07/09/24 History carvedilol 25 mg tablet 25 mg PO Q12H 07/09/24 07/09/24 History divalproex 500 mg tablet,delayed 500 mg PO Q12H 07/09/24 07/09/24 History release risperidone 2 mg tablet 2 mg PO Q12H 07/09/24 07/09/24 History tizanidine 4 mg tablet 4 mg PO Q8H PRN Muscle Spasm 07/09/24 07/09/24 History Allergies Allergy/AdvReac Type Severity Reaction Status Date / Time lisinopril Allergy Swelling Verified 07/09/24 00:30 of Lip/Tongue/Throat Vital Signs Vital Signs - 24 hr 07/08/24 12:47 07/08/24 16:29 07/08/24 16:31 Temperature 97.6 F 97.6 F Pulse Rate 100 105 H 109 H Respiratory Rate 16 18 18 Blood Pressure 130/105 H 115/85 115/85 Pulse Oximetry 96 99 97 07/08/24 17:44 07/08/24 19:36 07/08/24 20:56 Temperature Pulse Rate 106 H 99 126 H Respiratory Rate 19 19 18 Blood Pressure 132/89 116/83 151/97 H Pulse Oximetry 100 100 98 07/08/24 16:28 Temperature Pulse Rate 126 H Respiratory Rate Blood Pressure Pulse Oximetry Exam Narrative: lying in stretcher Const: General: comfortable, no acute distress, well developed, alert, awake and obese Nutritional Appearance: obese Orientation/consciousness: patient oriented x3 HENMT: Head: normal to inspection, normocephalic and atraumatic Ears: heari ng grossly normal bilaterally Face/Nose/Sinus: normal facial exam Face and sinus: normal facial exam Eyes: General: appearance normal, both eyes and all related structures Pupils: Equal, round and reactive pupils present EOM: EOMs intact bilaterally Neck: Neck: full ROM, no lymphadenopathy and no JVD Thyroid: thyroid normal Lymphatic: no lymphadenopathy noted Resp: Effort & Inspection: normal respiratory effort and able to speak in complete sentences Auscultation: clear to auscultation bilaterally Cardio: Jugular venous distension: no JVD Rate: regular rate Rhythm: regular rhythm Heart sounds: S1 normal heart sound present and S2 normal heart sound present GI: GI Palp: Yes Soft to palpation and Yes No hepatosplenomegaly present : General: Yes deferred Skin: Rashes: no rashes Wounds: no wounds Neuro: General: patient oriented x3 and CN's II-XI intact bilaterally Cranial nerves: Yes CN's II-XII intact bilaterally and Yes Equal, round and reactive pupils present Cognition (Neuro): normal cognition Speech: normal speech Gait exam (Neuro): Normal gait present Motor exam (neuro): 5/5 motor strength present throughout Extrem: General: normal to inspection, full ROM, no joint enlargement and no pedal edema H&P: Results Labs Labs: Short CBC 07/08/24 Range/Units 14:58 WBC 8.9 (4.5-10.0) K/mm3 Hgb 17.5 (14.0-18.0) g/dL Hct 52.5 H (42.0-52.0) % Plt Count 353 (150-375) k/mm3 [facility] 07/08/24 07/08/24 14:52 14:58 Sodium 140 Potassium 4.3 Chloride 110 H Carbon Dioxide 20 L BUN 20 Creatinine 1.50 1.40 H Glucose 93 Calcium 9.0 Cardiac Enzymes 07/08/24 07/08/24 Range/Units 14:58 18:03 Troponin I 0.101 H* 0.104 H* (0.000-0.034) ng/mL Liver Function 07/08/24 Range/Units 14:58 Total Bilirubin 0.8 (0.2-1.3) mg/dL AST 19 (17-59) U/L ALT 14 (6-50) U/L Alkaline Phosphatase 126 (38-126) U/L Albumin 4.0 (3.5-5.1) g/dL Assessment and Plan Assessment and plan (1) Elevated troponin: Code(s): R79.89 - Other specified abnormal findings of blood chemistry Status: Acute Assessment and Plan: admit to IMU slightly abnormal troponin doubtful of acute coronary syndrome (2) Acute epigastric pain: Code(s): R10.13 - Epigastric pain Status: Acute Assessment and Plan: patient with large amount of stools present according to CT of abdomen and pelvis likely secondary to constipation (3) Constipation: Code(s): K59.00 - Constipation, unspecified Status: Acute Assessment and Plan: patient started on a bowel regimen soap rachel enemas (4) Obesity: Code(s): E66.9 - Obesity, unspecified Status: Acute Assessment and Plan: 1800 calorie restricted diet (5) UTI (urinary tract infection): Code(s): N39.0 - Urinary tract infection, site not specified Status: Acute Assessment and Plan: started on antibiotics (6) Paraplegia: Code(s): G82.20 - Paraplegia, unspecified Status: Acute Assessment and Plan: supportive care Hospitalist MIPS Advance Care Plan I have confirmed that the patient's Advanced Care Plan is present, code status is documented, or surrogate decision maker is listed in patient medical record.: Yes Medication Reconciliation I have utilized all available resources to obtain, update and review the patients current medications (includes all prescriptions, OTC, herbals, cannabis, and nutritional supplements).: Yes
[2024-07-08 21:17] LABS: Add Urine Microscopic? YES; Appearance Urine Clear (Clear); Bacteria Urine 4+ /hpf; Bilirubin Urine Negative (Negative); Blood Urine Trace (Negative); Color Urine Yellow (Yellow); Glucose Urine UA Negative (Negative); Ketones Urine Trace mg/dL (Negative); Leukocyte Esterase Ur Trace LEU/UL (Negative); Need Manual Microscopic Reviewed; Nitrate Urine Positive (Negative); Protein Urine 4+ mg/dL (Negative); RBC Urine 0-2 /hpf (0-2); Specific Grav Ur > 1.045 (1.001-1.035); Squamous Epithelial Cell Urine None Seen /hpf (Few); Urobilinogen Urine 0.2 mg/dL (<2.0); WBC Urine 21-50 /hpf (0-3); pH Urine 5.5 (5.0-9.0)
--- NOTE | 2024-07-08 22:36 | PC.NURSE ---
pt mother called and wanted an update. this RN checked with the pt to get consent so I could discuss his care with her. mother was called at this time and informed that the [facility]. pt mother requested she be called when he gets transferred back to the [facility] or with any updates pt mother, Za
--- NOTE | 2024-07-08 23:33 | PC.NURSE ---
This patient, Danie Jonas, was admitted to IMU Room 201-01. Patient/family oriented to hospital policies and general routines including ID bracelet, bed and alarms, visiting hours, pain management, procedures, bathroom and other care routines, personal items, smoking policy, room service/diet, and visiting hours. Information on how to activate the Rapid Response Team has been discussed. Patient/Family are encouraged to report perceived risks to care and to ask questions if they do not understand what they are told or what they should do.
[2024-07-09] VITALS (16 sets, daily range): BP systolic 123–151; BP diastolic 78–99; PULSE 52–90; RESP 16–24; TEMP 36.1–36.7; O2SAT 96–100; BMI 39.3
--- NOTE | 2024-07-09 | ECHO_ITS ---
Patient Info Name: Danie Jonas Age: 34 years : 1990 Gender: Male Ht: 75 in Wt: 307 lbs BSA: 2.76 m2 HR: 70 bpm BP: 132 / 98 mmHg Heart Rhythm: Sinus Rhythm Technical Quality: Fair Exam Date: 07/09/2024 8:35 AM Exam Location: Echo Lab Patient Status: Inpatient Admit Date: 07/08/2024 Staff Ordering Physician: Luiza James MD Button Maker And Installer: Mary Rubio RDCS Attending Provider: Luiza James MD Referring Physician: Jacob PECK; Exam Type: CA echo dop color flow w con Study Info Indications - elevated troponin Complete two-dimensional, color flow and Doppler transthoracic echocardiogram is performed with contrast to opacify the left ventricle and to improve the deliniation of the left ventricle endocardial borders. Summary 1. Left ventricular systolic function is normal, estimated at >70%. 2. There is severely increased left ventricular wall thickness. 3. The left ventricular diastolic function is grade II diastolic dysfunction. 4. Right ventricular chamber dimension is normal. 5. Right ventricular systolic function is normal. Left Ventricle Left ventricular chamber dimension is normal. Left ventricular systolic function is normal, estimated at >70%. There is severely increased left ventricular wall thickness. Left ventricular septal wall motion is normal. The left ventricular diastolic function is grade II diastolic dysfunction. Right Ventricle Right ventricular chamber dimension is normal. Right ventricular systolic function is normal. Left Atria Left atrial chamber dimension is normal. Right Atria Right atrial chamber dimension is normal. Aortic Valve The aortic valve is trileaflet. There is no aortic valve sclerosis. There is no aortic valve stenosis. There is no aortic valve regurgitation. Pulmonic Valve The pulmonic valve is normal. There is no pulmonic valve stenosis. There is no pulmonic regurgitation. Mitral Valve The mitral valve has normal leaflets. There is no mitral valve stenosis. There is no mitral valve regurgitation. Tricuspid Valve The tricuspid valve leaflets are normal. There is no significant tricuspid valve stenosis. There is no tricuspid valve regurgitation. Pericardium/Pleural The pericardium appears normal. There is no pericardial effusion. Inferior Vena Cava Normal inferior vena cava with >50% collapse upon inspiration consistent with normal right atrial pressure, 10 mmHg. Aorta The aortic root size at the sinus of Valsalva is normal. The prox ascending aorta size is normal. Left Ventricular Outflow Tract Name Value Normal LVOT 2D LVOT Diameter 2.24 cm LVOT Doppler LVOT Peak Gradient 1 mmHg LVOT Mean Gradient 1 mmHg LVOT VTI 10.18 cm LVOT VTI/AV VTI Ratio 0.70 LVOT Stroke Volume 40.07 ml LVOT CO 3.32 l/min LVOT CI 1.20 L/min/m2 Pulmonic Valve Name Value Normal PV 2D RVOT Diameter (2D) 3.38 cm 1.70-2.70 Mitral Valve Name Value Normal MV Doppler MV Decel Navarro 462.24 cm/s2 MV PHT 0 s MV Area (PHT) 7.14 cm2 4.00-5.00 MV Diastolic Function MV E Peak Velocity 49.13 cm/s MV A Peak Velocity 46.22 cm/s MV E/A 1.06 MV Decel Time 0 s MV Annular TDI MV E/e' (Septal) 6.57 <=8.00 MV E/e' (Lateral) 6.92 <=8.00 MV E/e' (Average) 6.74 Tricuspid Valve Name Value Normal TV Regurgitation Doppler TR Peak Velocity 148.93 cm/s TR Peak Gradient 6 mmHg Estimated PAP/RSVP RA Pressure 10 mmHg <=5 PA Systolic Pressure 19 mmHg <36 RV Systolic Pressure 19 mmHg <36 Aortic Valve Name Value Normal AV Doppler AV Peak Velocity 114.40 cm/s AV Peak Gradient 5 mmHg AV Mean Gradient 3 mmHg AV VTI 14.54 cm AV Area (Cont Eq VTI) 2.76 cm2 >=3.00 AV Area (Cont Eq Keith) 2.09 cm2 AV Regurgitation 2D LVOT Area 3.94 cm2 Ventricles Name Value Normal LV Dimensions 2D/MM IVS Diastolic Thickness (2D) 2.13 cm 0.60-1.00 LVID Diastole (2D) 4.47 cm 4.20-5.80 LVIW Diastolic Thickness (2D) 1.97 cm 0.60-1.00 LVID Systole (2D) 2.69 cm 2.50-4.00 LVOT Diameter 2.24 cm LV Mass (2D Cubed) 451.02 g 88.00-224.00 LV Mass Index (2D Cubed) 0.02 g/cm2 0.00-0.01 Relative Wall Thickness (2D) 0.88 LV Fractional Shortening/Ejection Fraction 2D/MM LV Fractional Shortening (2D) 40 % 25-43 LV EF (2D Teichkathyz) 71 % 52-72 LV Diastolic Volume (4C MOD) 244.62 ml LV EF (4C MOD) 58 % LV Diastolic Volume (2C MOD) 167.26 ml LV EF (2C MOD) 65 % LV Diastolic Volume (BP MOD) 206.05 ml 62.00-150.00 LV Diastolic Volume Index (BP MOD) 0.07 l/m2 0.03-0.07 LV Systolic Volume (BP MOD) 80.30 ml 21.00-61.00 LV Systolic Volume Index (BP MOD) 0.03 l/m2 0.01-0.03 LV EF (BP MOD) 61 % 52-72 LV Diastolic Length (4C) 10.79 cm LV Systolic Length (4C) 8.10 cm LV Stroke Volume (4C MOD) 141.54 ml Atria Name Value Normal LA Dimensions LA Volume (4C A-L) 72.97 ml LA Volume (BP A-L) 59.99 ml RA Dimensions RA Area (4C) 20.89 cm2 <=18.00 Report Signatures
[2024-07-09] MEDS: polyethylene glycoL 3350 17 GM POWD.PACK PO ×2 (00:04→09:55)
[2024-07-09] MEDS: polyethylene glycoL 3350 238 GM BOTTLE PO (00:16)
[2024-07-09] MEDS: DIVALPROEX SODIUM DR 250 MG TABEC 500 MG PO ×3 (02:05→20:49)
[2024-07-09] MEDS: PERFLUTREN LIPID MICROSPHERES 1.5 ML VIAL DILUTED TO 10 ML TOTAL VOLUME IV PUSH (08:55)
--- NOTE | 2024-07-09 09:20 | IVDEFINITY ---
Prior to administration of IV Definity the patient was educated on the risks and benefits of the imaging enhancing agent including potential adverse side effects. The patient verbalized understanding. Allergies were verified. No exclusion criteria were identified and at least one of the following inclusion criteria were met: 1) physician request, 2) patient technically difficult to image (per the [place] [employer] guidelines of two or more segments not discernable within the apical view), or 3) questionable left ventricular function. ?
[2024-07-09] MEDS: carvediloL 25 MG TABLET PO ×2 (09:52→20:49)
[2024-07-09] MEDS: APIXABAN 5 MG TABLET PO ×2 (09:52→20:50)
[2024-07-09] MEDS: amLODIPine BESYLATE 5 MG TABLET PO (09:52)
[2024-07-09] MEDS: risperiDONE 1 MG TABLET 2 MG PO ×2 (09:53→20:49)
--- NOTE | 2024-07-09 11:22 | P.PNIM_ITS ---
Progress Note: A&P Assessment and Plan (1) Acute epigastric pain: Code(s): R10.13 - Epigastric pain Status: Acute Assessment and Plan: Patient brought in from his skilled nursing for abdominal pain. CT abd/pelvis showing significant fecal stasis distending the rectum and extending into the proximal sigmoid colon. Also with several loops of air distended bowel just proximal to the large amount of stool. Bentyl and Zofran given in the ED. Patient given Miralax 238gm dose overnight. No n/v. Tolerating clear liquids. Soap suds enema ordered. Advance diet to full liquids. Schedule miralax. (2) A-fib: Qualifiers: Atrial fibrillation type: unspecified Qualified Code(s): I48.91 - Unspecified atrial fibrillation Code(s): I48.91 - Unspecified atrial fibrillation Status: Acute Assessment and Plan: Patient with known AFib. EKG showing AFib with RVR (109) with IVCD, minimal Q waves in the high lateral leads and ST-T wave changes in the high lateral leads. Repeat EKG showing similar findings. Echo showing EF >70% with severely increased LV wall thickness and grade III diastolic dysfxn. RV size and fxn normal. No significant valvular disease and PASP 19mmHg. Troponin elevated at 0.1 and flat on repeat. No complaints of chest pain. HR was elevated on admission to 120 range. Coreg resumed with benefit. Eliquis also resumed. Suspect mildly elevated Trop related to AFib with RVR. Monitor rate on tele (3) Elevated troponin: Code(s): R79.89 - Other specified abnormal findings of blood chemistry Status: Acute Assessment and Plan: As above (4) UTI (urinary tract infection): Code(s): N39.0 - Urinary tract infection, site not specified Status: Acute Assessment and Plan: UA is consistent with UTI. UCx collected. Rocephin started. UCx pending. Follow up on UCx results. (5) Paraplegia: Code(s): G82.20 - Paraplegia, unspecified Status: Acute Assessment and Plan: Continue routine skin care and frequent re-positioning to avoid pressure ulcers. (6) Constipation: Qualifiers: Constipation type: unspecified constipation type Qualified Code(s): K59.00 - Constipation, unspecified Code(s): K59.00 - Constipation, unspecified Status: Acute Assessment and Plan: As above. (7) Obesity: Code(s): E66.9 - Obesity, unspecified Status: Acute Assessment and Plan: Advance to low fat diet when able. Discuss benefits of weight loss. Plan DVT prophylaxis - Yuridia Code status - full Subjective Date/time seen: 07/09/24 11:22 Interval history: 34yo male with paraplegia, hx of trach, CHF, COPD and AFib here for epigastric pain. No BM since admission. No n/v. Abd pain better and tolerating clear liquid diet. Asking for more food. No CP or SOB. Chart review: patient was admitted to [facility] on 04/15/24. Exam Narrative: AF 97.6 132/96 70 24 98% ra Gen - NARD Neck - old trach site noted. Chest - clear anteriorly and in the flanks. CV - RRR S1/S2. 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 Psych - Nml mood and affect Skin - Warm and dry Objective Data Vital Signs Vital Signs: Vital Signs - 24 hr 07/08/24 12:47 07/08/24 16:29 07/08/24 16:31 Temperature 97.6 F 97.6 F Pulse Rate 100 105 H 109 H Respiratory Rate 16 18 18 Blood Pressure 130/105 H 115/85 115/85 Pulse Oximetry 96 99 97 Oxygen Delivery 07/08/24 17:44 07/08/24 19:36 07/08/24 20:56 Temperature Pulse Rate 106 H 99 126 H Respiratory Rate 19 19 18 Blood Pressure 132/89 116/83 151/97 H Pulse Oximetry 100 100 98 Oxygen Delivery 07/08/24 16:28 07/08/24 23:08 07/09/24 00:00 Temperature 98.0 F Pulse Rate 126 H 86 90 Respiratory Rate 15 20 Blood Pressure 145/97 H 151/99 H Pulse Oximetry 98 100 Oxygen Delivery 07/09/24 00:00 07/09/24 00:00 07/08/24 23:44 Temperature Pulse Rate 84 90 Respiratory Rate Blood Pressure Pulse Oximetry Oxygen Delivery Room Air 07/09/24 02:00 07/09/24 03:44 07/09/24 03:49 Temperature 97.5 F L Pulse Rate 79 80 Respiratory Rate 18 Blood Pressure 123/78 Pulse Oximetry 99 Oxygen Delivery Room Air 07/09/24 04:00 07/09/24 05:45 07/09/24 07:52 Temperature 97.6 F Pulse Rate 79 75 70 Respiratory Rate 24 H Blood Pressure 132/96 H Pulse Oximetry 98 Oxygen Delivery Intake/Output Intake/Output: Intake & Output 07/06/24 07/07/24 07/08/24 07/09/24 23:59 23:59 23:59 23:59 Intake Total 760 Output Total 300 Balance 460 Meds/Results Medications: Active Medications Generic Name Dose Route Start Last Admin Trade Name Freq PRN Reason Stop Dose Admin Acetaminophen 650 mg 07/09/24 01:47 Acetaminophen 325 Mg Tablet BY MOUTH Q6H PRN Pain 1-3 Amlodipine Besylate 5 mg 07/09/24 09:00 07/09/24 09:52 Amlodipine Besylate 5 Mg Tablet PO 5 mg DAILY WOOD Administration Apixaban 5 mg 07/09/24 09:00 07/09/24 09:52 Apixaban 5 Mg Tablet PO 5 mg Q12HR WOOD Administration Atorvastatin Calcium 40 mg 07/09/24 21:00 Atorvastatin 40 Mg Tablet PO HS WOOD Carvedilol 25 mg 07/09/24 09:00 07/09/24 09:52 Carvedilol 25 Mg Tablet PO 25 mg Q12HR WOOD Administration Divalproex Sodium 500 mg 07/09/24 09:00 07/09/24 09:[address] 250 Mg Tabec PO 500 mg Q12HR WOOD Administration Ceftriaxone Sodium 1 gm in 50 mls @ 100 mls/hr 07/09/24 08:00 Rocephin 1 Gm/Ns 50 Ml IVPB Q24H WOOD Polyethylene Glycol 17 gm 07/08/24 22:39 07/09/24 09:55 Polyethylene Glycol 3350 17 Gm Powd.Pack PO 17 gm QAM PRN Administration Constipation Risperidone 2 mg 07/09/24 09:00 07/09/24 09:53 Risperidone 1 Mg Tablet PO 2 mg Q12HR WOOD Administration Tizanidine HCl 4 mg 07/09/24 01:44 Tizanidine Hcl 4 Mg Tablet PO Q8H PRN Muscle Spasm Radiology Results: ITS Impressions Chest X-Ray 07/08/24 17:13 IMPRESSION: No focal infiltrate or effusion. Abdomen/Pelvis CT 07/08/24 20:07 IMPRESSION: Significant fecal stasis distending the rectum extending to the proximal sigmoid colon. Chest proximal to the initial focus of dilated stool filled colon are several loops of air distended bowel, likely the source of patient's discomfort. Labs Labs: Laboratory Results - last 24 hr 07/08/24 07/08/24 07/08/24 14:52 14:57 14:58 WBC 8.9 RBC 5.90 Hgb 17.5 Hct 52.5 H MCV 89.0 MCH 29.7 MCHC 33.3 RDW 14.1 Plt Count 353 MPV 11.9 H Immature Gran % (Auto) 0.3 Neut % (Auto) 62.2 Lymph % (Auto) 27.8 [place] % (Auto) 7.8 Eos % (Auto) 1.6 Baso % (Auto) 0.3 Lymph # (Auto) 2.48 [place] # (Auto) 0.7 H Eos # (Auto) 0.1 Baso # (Auto) 0.0 Abs Immat Gran (auto) 0.03 Absolute Neuts (auto) 5.5 Absolute Nucleated RBC 0.000 Nucleated RBC % 0.0 Sodium 140 Potassium 4.3 Chloride 110 H Carbon Dioxide 20 L Anion Gap 10 BUN 20 Creatinine 1.50 1.40 H Estim Creat Clear Calc Not Reportable Not Reportable Estimated GFR > 60 > 60 Glucose 93 Calcium 9.0 Total Bilirubin 0.8 AST 19 ALT 14 Alkaline Phosphatase 126 Troponin I 0.101 H* NT-Pro-B Natriuret Pep 5180 H Total Protein 8.0 Albumin 4.0 Lipase 48 Urine Color Urine Appearance Urine pH Ur Specific [place] Urine Protein Urine Glucose (UA) Urine Ketones Ur Blood (Man) Urine Nitrate Urine Bilirubin Urine Urobilinogen Add Ur Microanalysis Leukocyte Esterase Rfl Urine RBC Urine WBC Ur Squamous Epith Cells Urine Bacteria Urine Casts Influenza A (RT-PCR) Influenza B (RT-PCR) RSV (RT-PCR) SARS-CoV-2 RNA (RT-PCR) 07/08/24 07/08/24 07/08/24 16:41 18:03 20:47 WBC RBC Hgb Hct MCV MCH MCHC RDW Plt Count MPV Immature Gran % (Auto) Neut % (Auto) Lymph % (Auto) [place] % (Auto) Eos % (Auto) Baso % (Auto) Lymph # (Auto) [place] # (Auto) Eos # (Auto) Baso # (Auto) Abs Immat Gran (auto) Absolute Neuts (auto) Absolute Nucleated RBC Nucleated RBC % Sodium Potassium Chloride Carbon Dioxide Anion Gap BUN Creatinine Estim Creat Clear Calc Estimated GFR Glucose Calcium Total Bilirubin AST ALT Alkaline Phosphatase Troponin I 0.104 H* NT-Pro-B Natriuret Pep Total Protein Albumin Lipase Urine Color Yellow Urine Appearance Clear Urine pH 5.5 Ur Specific [place] > 1.045 H Urine Protein 4+ H Urine Glucose (UA) Negative Urine Ketones Trace H Ur Blood (Man) Trace Urine Nitrate Positive H Urine Bilirubin Negative Urine Urobilinogen 0.2 Add Ur Microanalysis Reviewed Leukocyte Esterase Rfl Trace H Urine RBC 0-2 Urine WBC 21-50 H Ur Squamous Epith Cells None seen Urine Bacteria 4+ H Urine Casts 3-5 Influenza A (RT-PCR) Negative Influenza B (RT-PCR) Negative RSV (RT-PCR) Negative SARS-CoV-2 RNA (RT-PCR) Negative 07/08/24 21:18 WBC RBC Hgb Hct MCV MCH MCHC RDW Plt Count MPV Immature Gran % (Auto) Neut % (Auto) Lymph % (Auto) [place] % (Auto) Eos % (Auto) Baso % (Auto) Lymph # (Auto) [place] # (Auto) Eos # (Auto) Baso # (Auto) Abs Immat Gran (auto) Absolute Neuts (auto) Absolute Nucleated RBC Nucleated RBC % Sodium Potassium Chloride Carbon Dioxide Anion Gap BUN Creatinine Estim Creat Clear Calc Estimated GFR Glucose Calcium Total Bilirubin AST ALT Alkaline Phosphatase Troponin I 0.090 H* NT-Pro-B Natriuret Pep Total Protein Albumin Lipase Urine Color Urine Appearance Urine pH Ur Specific [place] Urine Protein Urine Glucose (UA) Urine Ketones Ur Blood (Man) Urine Nitrate Urine Bilirubin Urine Urobilinogen Add Ur Microanalysis Leukocyte Esterase Rfl Urine RBC Urine WBC Ur Squamous Epith Cells Urine Bacteria Urine Casts Influenza A (RT-PCR) Influenza B (RT-PCR) RSV (RT-PCR) SARS-CoV-2 RNA (RT-PCR)
[2024-07-09 15:19] LABS: Basophils Percent Auto 0.2 % (0.2-1.2); Eosinophils Absolute Auto 0.2 K/mm3 (0-0.3); Eosinophils Percent Auto 1.9 % (0-4.4); Hematocrit 51.2 % (42.0-52.0); Hemoglobin 16.5 g/dL (14.0-18.0); Immature Granulocyte Absolute 0.04 K/mm3 (0.00-0.031); Immature Granulocyte Percent A 0.5 % (0-0.5); Lymphocytes Absolute Auto 1.84 K/mm3 (0.9-3.2); Lymphocytes Percent Auto 21.1 % (18.3-44.2); Mean Corpuscular HGB Conc 32.2 g/dl (32-36); Mean Corpuscular Hemoglobin 29.6 pg (26-34); Mean Corpuscular Volume 91.9 fl (80-100); Mean Platelet Volume 11.8 fl (7.4-10.4); Monocytes Absolute Auto 0.8 K/mm3 (0.1-0.6); Monocytes Percent Auto 8.9 % (2.6-8.5); Neutrophils Absolute Auto 5.9 K/mm3 (1.3-6.7); Neutrophils Percent Auto 67.4 % (45.5-73.1); Platelet Count Result 284 k/mm3 (150-375); Red Blood Count 5.57 M/mm3 (4.6-6.20); White Blood Count 8.7 K/mm3 (4.5-10.0)
[2024-07-09 15:35] LABS: Anion Gap 11 mmol/L (4-12); Blood Urea Nitrogen 20 mg/dL (9-20); Calcium 9.1 mg/dL (8.4-10.2); Carbon Dioxide 21 mmol/L (22-30); Chloride 103 mmol/L (98-107); Estimated CRCL calculation 108 ml/min; Estimated Glomerular Filt Rate > 60; Glucose 86 mg/dL (65-110); Potassium 4.4 mmol/L (3.4-5.0); Sodium 135 mmol/L (137-145)
--- NOTE | 2024-07-09 18:14 | PC.NURSE ---
pt transferred in to room 347 via bed, telemetry placed per MD order, oriented to new room and environment
[2024-07-09] MEDS: ATORVASTATIN 40 MG TABLET PO (20:50)
[2024-07-10] VITALS (10 sets, daily range): BP systolic 138–149; BP diastolic 79–94; PULSE 73–92; RESP 16–20; TEMP 36.2–36.6; O2SAT 98–100
[2024-07-10] MEDS: carvediloL 25 MG TABLET PO ×2 (08:45→20:26)
[2024-07-10] MEDS: risperiDONE 1 MG TABLET 2 MG PO ×2 (08:45→20:25)
[2024-07-10] MEDS: polyethylene glycoL 3350 17 GM POWD.PACK PO ×2 (08:45→17:08)
[2024-07-10] MEDS: DIVALPROEX SODIUM DR 250 MG TABEC 500 MG PO ×2 (08:45→20:26)
[2024-07-10] MEDS: amLODIPine BESYLATE 5 MG TABLET PO (08:45)
[2024-07-10] MEDS: APIXABAN 5 MG TABLET PO ×2 (08:45→20:26)
--- NOTE | 2024-07-10 11:04 | PC.NURSE ---
Patient off of unit to XRAY
--- NOTE | 2024-07-10 12:25 | P.PNIM_ITS ---
Progress Note: A&P Assessment and Plan (1) Acute epigastric pain: Code(s): R10.13 - Epigastric pain Status: Acute Assessment and Plan: Patient brought in from his assisted for abdominal pain. CT abd/pelvis showing significant fecal stasis distending the rectum and extending into the proximal sigmoid colon. Also with several loops of air distended bowel just proximal to the large amount of stool. Also with UTI. Suspect pain related to bowel distention from fecal impaction and/or UTI. Bentyl and Zofran given in the ED. Patient given Miralax 238gm dose x1 and soap suds enema x1. No n/v. Tolerating clear liquids. +BMs now. KUB showing normal bowel gas pattern Continue scheduled Miralax. Advance diet to regular (2) A-fib: Qualifiers: Atrial fibrillation type: unspecified Qualified Code(s): I48.91 - Unspecified atrial fibrillation Code(s): I48.91 - Unspecified atrial fibrillation Status: Acute Assessment and Plan: Patient with known AFib. EKG showing AFib with RVR (109) with IVCD, minimal Q waves in the high lateral leads and ST-T wave changes in the high lateral leads. Repeat EKG showing similar findings. Echo showing EF >70% with severely increased LV wall thickness and grade III diastolic dysfxn. RV size and fxn normal. No significant valvular disease and PASP 19mmHg. Troponin elevated at 0.1 and flat on repeat. No complaints of chest pain. HR was elevated on admission to 120 range. Coreg resumed with benefit. Eliquis also resumed. Suspect mildly elevated Trop related to AFib with RVR. Monitor rate on tele (3) Elevated troponin: Code(s): R79.89 - Other specified abnormal findings of blood chemistry Status: Acute Assessment and Plan: As above (4) UTI (urinary tract infection): Code(s): N39.0 - Urinary tract infection, site not specified Status: Acute Assessment and Plan: UA is consistent with UTI. UCx collected. Rocephin started. BCx pending UCx growing EColi. Follow up on UCx results. (5) Paraplegia: Code(s): G82.20 - Paraplegia, unspecified Status: Acute Assessment and Plan: Continue routine skin care and frequent re-positioning to avoid pressure ulcers. (6) Constipation: Qualifiers: Constipation type: unspecified constipation type Qualified Code(s): K59.00 - Constipation, unspecified Code(s): K59.00 - Constipation, unspecified Status: Acute Assessment and Plan: As above. Plan DVT prophylaxis - Eliquis Code status - full Subjective Date/time seen: 07/10/24 12:25 Interval history: 34yo male with paraplegia, hx of trach, CHF, COPD and AFib here for epigastric pain. Slept well. No CP or SOB. +Flatus. BM today. Exam Narrative: AF 97.8 149/85 85 18 98% ra Gen - NARD Neck - old trach site noted. Chest - distant breath sounds. nml RR CV - RRR S1/S2. 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 Psych - Nml mood and affect Skin - Warm and dry Objective Data Vital Signs Vital Signs: Vital Signs - 24 hr 07/09/24 14:00 07/09/24 16:00 07/09/24 16:00 Temperature 97.7 F Pulse Rate 84 78 75 Respiratory Rate 20 Blood Pressure 136/99 H Pulse Oximetry 99 Oxygen Delivery 07/09/24 17:55 07/09/24 18:30 07/09/24 20:00 Temperature 97 F L Pulse Rate 52 L 81 69 Respiratory Rate 18 Blood Pressure 143/91 H Pulse Oximetry 98 Oxygen Delivery 07/09/24 20:49 07/09/24 20:58 07/10/24 00:00 Temperature 97.6 F Pulse Rate 66 77 Respiratory Rate 16 Blood Pressure 138/94 H Pulse Oximetry 100 Oxygen Delivery Room Air 07/09/24 20:00 07/10/24 00:00 07/10/24 04:00 Temperature Pulse Rate 78 76 73 Respiratory Rate Blood Pressure Pulse Oximetry Oxygen Delivery 07/10/24 05:55 07/10/24 08:45 07/10/24 08:45 Temperature 97.8 F Pulse Rate 92 78 Respiratory Rate 18 Blood Pressure 149/85 H Pulse Oximetry 98 Oxygen Delivery Room Air 07/10/24 08:45 Temperature Pulse Rate 85 Respiratory Rate Blood Pressure Pulse Oximetry Oxygen Delivery Intake/Output Intake/Output: Intake & Output 07/07/24 07/08/24 07/09/2424 23:59 23:59 23:59 23:59 Intake Total 1300 590 Output Total 600 1600 Balance 700 -1010 Meds/Results Medications: Active Medications Generic Name Dose Route Start Last Admin Trade Name Freq PRN Reason Stop Dose Admin Acetaminophen 650 mg 07/09/24 01:47 Acetaminophen 325 Mg Tablet BY MOUTH Q6H PRN Pain 1-3 Amlodipine Besylate 5 mg 07/09/24 09:00 07/10/24 08:45 Amlodipine Besylate 5 Mg Tablet PO 5 mg DAILY WOOD Administration Apixaban 5 mg 07/09/24 09:00 07/10/24 08:45 Apixaban 5 Mg Tablet PO 5 mg Q12HR WOOD Administration Atorvastatin Calcium 40 mg 07/09/24 21:00 07/09/24 20:50 Atorvastatin 40 Mg Tablet PO 40 mg HS WOOD Administration Carvedilol 25 mg 07/09/24 09:00 07/10/24 08:45 Carvedilol 25 Mg Tablet PO 25 mg Q12HR WOOD Administration Divalproex Sodium 500 mg 07/09/24 09:00 07/10/24 08:[address] 250 Mg Tabec PO 500 mg Q12HR WOOD Administration Ceftriaxone Sodium 1 gm in 50 mls @ 100 mls/hr 07/09/24 08:00 07/10/24 08:44 Rocephin 1 Gm/Ns 50 Ml IVPB 100 mls/hr Q24H WOOD Administration Polyethylene Glycol 17 gm 07/08/24 22:39 07/09/24 09:55 Polyethylene Glycol 3350 17 Gm Powd.Pack PO 17 gm QAM PRN Administration Constipation Polyethylene Glycol 17 gm 07/09/24 17:00 07/10/24 08:45 Polyethylene Glycol 3350 17 Gm Powd.Pack PO 17 gm BID WOOD Administration Risperidone 2 mg 07/09/24 09:00 07/10/24 08:45 Risperidone 1 Mg Tablet PO 2 mg Q12HR WOOD Administration Tizanidine HCl 4 mg 07/09/24 01:44 Tizanidine Hcl 4 Mg Tablet PO Q8H PRN Muscle Spasm Radiology Results: ITS Impressions Chest X-Ray 07/08/24 17:13 IMPRESSION: No focal infiltrate or effusion. Abdomen/Pelvis CT 07/08/24 20:07 IMPRESSION: Significant fecal stasis distending the rectum extending to the proximal sigmoid colon. Chest proximal to the initial focus of dilated stool filled colon are several loops of air distended bowel, likely the source of patient's discomfort. Abdomen X-Ray 07/10/24 11:38 Impression: No significant abnormality is seen. Labs Labs: Laboratory Results - last 24 hr 07/09/24 15:06 WBC 8.7 RBC 5.57 Hgb 16.5 Hct 51.2 MCV 91.9 MCH 29.6 MCHC 32.2 RDW 14.0 Plt Count 284 MPV 11.8 H Immature Gran % (Auto) 0.5 Neut % (Auto) 67.4 Lymph % (Auto) 21.1 [place] % (Auto) 8.9 H Eos % (Auto) 1.9 Baso % (Auto) 0.2 Lymph # (Auto) 1.84 [place] # (Auto) 0.8 H Eos # (Auto) 0.2 Baso # (Auto) 0.0 Abs Immat Gran (auto) 0.04 H Absolute Neuts (auto) 5.9 Absolute Nucleated RBC 0.000 Nucleated RBC % 0.0 Sodium 135 L Potassium 4.4 Chloride 103 Carbon Dioxide 21 L Anion Gap 11 BUN 20 Creatinine 1.30 Estim Creat Clear Calc 108 Estimated GFR > 60 Glucose 86 Calcium 9.1
[2024-07-10] MEDS: ATORVASTATIN 40 MG TABLET PO (20:26)
[2024-07-11] VITALS (8 sets, daily range): BP systolic 134–140; BP diastolic 86–93; PULSE 75–89; RESP 18–20; TEMP 36.2–36.7; O2SAT 97–100; BMI 39.2
--- NOTE | 2024-07-11 07:15 | PC.NURSE ---
Refused IV placement by ultrasound.
[2024-07-11] MEDS: amLODIPine BESYLATE 5 MG TABLET PO (08:59)
[2024-07-11] MEDS: carvediloL 25 MG TABLET PO (08:59)
[2024-07-11] MEDS: polyethylene glycoL 3350 17 GM POWD.PACK PO (08:59)
[2024-07-11] MEDS: APIXABAN 5 MG TABLET PO (09:00)
[2024-07-11] MEDS: DIVALPROEX SODIUM DR 250 MG TABEC 500 MG PO (09:00)
[2024-07-11] MEDS: risperiDONE 1 MG TABLET 2 MG PO (09:00)
[2024-07-11] MEDS: CEPHALEXIN 500 MG CAPSULE PO (12:42)
--- NOTE | 2024-07-11 13:17 | P.DS_ITS ---
DS: Admitting Diagnosis Discharge Date 07/11/24 Admitting Diagnosis Abdominal pain DS: Discharge Diagnosis Discharge Diagnosis (1) Acute epigastric pain: Code(s): R10.13 - Epigastric pain Status: Acute (2) A-fib: Qualifiers: Atrial fibrillation type: unspecified Qualified Code(s): I48.91 - Unspecified atrial fibrillation Code(s): I48.91 - Unspecified atrial fibrillation Status: Acute (3) Elevated troponin: Code(s): R79.89 - Other specified abnormal findings of blood chemistry Status: Acute (4) UTI (urinary tract infection): Code(s): N39.0 - Urinary tract infection, site not specified Status: Acute (5) Paraplegia: Code(s): G82.20 - Paraplegia, unspecified Status: Acute (6) Constipation: Qualifiers: Constipation type: unspecified constipation type Qualified Code(s): K59.00 - Constipation, unspecified Code(s): K59.00 - Constipation, unspecified Status: Acute DS: Summary Hospital Course Reason for hospitalization: 34yo male with paraplegia, hx of trach, CHF, COPD and AFib here for epigastric pain. Please see H&P for details. Hospital Course: Patient brought in from his skilled nursing for abdominal pain. CT abd/pelvis showing significant fecal stasis distending the rectum and extending into the proximal sigmoid colon. Also with several loops of air distended bowel just proximal to the large amount of stool. UA was consistent with UTI. UCx collected. Rocephin started. BCx NGTD. UCx growing EColi sensitive to Rocephin. Suspect pain related to bowel distention from fecal impaction and/or UTI. Bentyl and Zofran given in the ED. Patient given Miralax 238gm dose x1 and soap suds enema x1. He was started on scheduled Miralax. No n/v. He tolerated clear liquids and diet was able to be advanced. +BMs now. KUB showing normal bowel g as pattern. Patient with known AFib. EKG showing AFib with RVR (109) with IVCD, minimal Q waves in the high lateral leads and ST-T wave changes in the high lateral leads. Repeat EKG showing similar findings. Echo showing EF >70% with severely increased LV wall thickness and grade III diastolic dysfxn. RV size and fxn normal. No significant valvular disease and PASP 19mmHg. Troponin elevated at 0.1 and flat on repeat. No complaints of chest pain. HR was elevated on admission to 120 range. Coreg resumed with benefit. Eliquis also resumed. Suspect mildly elevated Trop related to AFib with RVR. He overall did well and was able to be discharged on 07/11/24. Status at Discharge Cognitive/behavioral status at discharge: stable Time Spent with Patient Time attestation: Total time spent providing and/or coordinating discharge services: 34 minutes Time spent: Greater than 30 minutes Exam Narrative: AF 97.4 134/93 82 18 100% ra Gen - NARD Neck - old trach site noted. Chest - clear anteriorly CV - RRR S1/S2. 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 Record for the doctor's review. Take precautions to avoid falls. Contact the doctor if the patient has any type of trauma or other worrisome symptoms. Avoid NSAIDs (ibuprofen, naproxen, Aleve). Tylenol is safe to take. Follow-up with the provider at the facility. Thank you for using [facility] for your health care needs. Patient Instructions: Antibiotic Form, Apixaban (By mouth), Heart Failure (DC) Stand Alone Forms: General Discharge Information Follow-up/Referrals: UNKNOWN,DOCTOR [Primary Care Provider] - Other Discharge Medications: New polyethylene glycol 3350 [Miralax] 17 gram Powder In Packet 17 g PO DAILY Qty: 30 0RF cephalexin 500 mg Capsule 500 mg PO Q12HR Qty: 9 0RF Continued atorvastatin 40 mg tablet 40 mg PO HS carvedilol 25 mg tablet 25 mg PO Q12H tizanidine 4 mg tablet 4 mg PO Q8H PRN (Reason: Muscle Spasm) amlodipine 5 mg tablet 5 mg PO DAILY divalproex 500 mg tablet,delayed release (DR/EC) 500 mg PO Q12H acetaminophen 650 mg Tablet 650 mg PO Q6H PRN (Reason: Pain) risperidone 2 mg tablet 2 mg PO Q12H Eliquis 5 mg tablet 5 mg PO BID Date of admission: 07/10/24 13:25 Primary Care Provider: UNKNOWN,DOCTOR Admitting Provider: Luiza James V. Attending physician on admission: Luiza James V. Condition: Stable Hospitalist MIPS Heart Failure (Exclusion) Patient has history of Heart Transplant or Left Ventricular Assistive Device?: No IF YES, STOP HERE Heart Failure (Qualifier) Patient has current or prior documentation of LVEF less than or equal to 40%, or mod/servere depressed LVSF?: No IF NO, STOP HERE
--- NOTE | 2024-07-11 14:20 | PC.NURSE ---
Telephone report given to Baron Bermudez RN.
--- NOTE | 2024-07-18 09:01 | PC.NURSE ---
Blood cx are negative. Dr. Olivier khalil.
== END 2024-07-11 16:10 | DRG 201 ==
LOC: ANHED 19:00 → ANHIMU 22:55 → ANH3MED 07-09 18:04
PROVIDERS: Emergency Medicine; Registered Nurse; Admitting Provider Internal Medicine; Emergency Provider Preventive Medicine Aerospace Medicine; Visit Provider Internal Medicine
DX: I48.91 Unspecified atrial fibrillation (principal); N39.0 Urinary tract infection, site not specified; B96.20 Unspecified Escherichia coli [E. coli] as the cause of diseases classified elsewhere; G82.20 Paraplegia, unspecified; K59.00 Constipation, unspecified; J44.9 Chronic obstructive pulmonary disease, unspecified; R79.89 Other specified abnormal findings of blood chemistry; E66.9 Obesity, unspecified; Z68.39 Body mass index [BMI] 39.0-39.9, adult
CPT/HCPCS: 36415; 71045; 74018; 74177; 80048; 80053; 81001; 83690; 83880; 84484; 85025; 87040; 87086; 87186; 87637; 93005; 96365; 96375; 99285; A9270; C8929; G0378; G0379; J0696; Q9957; Q9967

== ENCOUNTER 2024-08-26 15:58 | Emergency (ER) | payer OTHER, SELFPAY ==
[2024-08-26] VITALS (15 sets, daily range): BP systolic 143–176; BP diastolic 93–128; PULSE 72–91; RESP 12–22; TEMP 36.6; O2SAT 98–100
--- NOTE | ~2024-08-26 | XR_ITS ---
XR chest 1V portable Ordering provider: Damian Monaco MD History: 34 years Male with . HTN . Comparison: July 08, 2024 FINDINGS: MEDIASTINUM: The cardiac silhouette is slightly enlarged. Congestive ramy. LUNGS: No effusions or pneumothorax. Bibasilar opacification. Bilateral interstitial thickening sugge stive of pneumonitis. OTHER: No free air under the diaphragm. IMPRESSION: Bilateral basal pneumonia. Interstitial thickening bilaterally suggestive of pulmonary edema versus pneumonitis. Reviewed, dictated and finalized at location A. [facility]ICIAN IMPRESSION: Bilateral basal pneumonia. Interstitial thickening bilaterally suggestive of pulmonary edema versus pneumo nitis.
--- NOTE | 2024-08-26 16:23 | ECG_ITS ---
Test Date: 2024-08-26 16:43:52 Measurements Intervals [place] Rate: 83 P: 60 TN: 191 QRS: -1 QRSD: 121 T: 119 QT: 393 QTc: 463 Interpretive Statements SINUS RHYTHM WITH OCCASIONAL SUPRAVENTRICULAR PREMATURE COMPLEXES POSSIBLE LEFT ATRIAL ENLARGEMENT [-0.1mV P-WAVE IN V1/V2] ST AND T-WAVE ABNORMALITY, CONSIDER LATERAL ISCHEMIA ABNORMAL ECG Electronically Signed On 08-26-2024 17:28:40 ARCHITECTURAL ASSOCIATE by Juan Antonio Briones M.D.
[2024-08-26 17:14] LABS: Basophils Percent Auto 0.3 % (0.2-1.2); Eosinophils Absolute Auto 0.1 K/mm3 (0-0.3); Eosinophils Percent Auto 1.6 % (0-4.4); Hematocrit 47.4 % (42.0-52.0); Hemoglobin 15.5 g/dL (14.0-18.0); Immature Granulocyte Absolute 0.01 K/mm3 (0.00-0.031); Immature Granulocyte Percent A 0.1 % (0-0.5); Lymphocytes Absolute Auto 1.98 K/mm3 (0.9-3.2); Lymphocytes Percent Auto 25.6 % (18.3-44.2); Mean Corpuscular HGB Conc 32.7 g/dl (32-36); Mean Corpuscular Hemoglobin 29.2 pg (26-34); Mean Corpuscular Volume 89.3 fl (80-100); Monocytes Absolute Auto 0.6 K/mm3 (0.1-0.6); Monocytes Percent Auto 7.5 % (2.6-8.5); Neutrophils Percent Auto 64.9 % (45.5-73.1); Platelet Count Result 247 k/mm3 (150-375); Red Blood Count 5.31 M/mm3 (4.6-6.20); Red Cell Distribution Width 14.2 % (11.5-14.5); White Blood Count 7.7 K/mm3 (4.5-10.0)
[2024-08-26 17:28] LABS: Alanine Aminotransferase 13 U/L (6-50); Albumin Level 3.7 g/dL (3.5-5.1); Alkaline Phosphatase 117 U/L (38-126); Anion Gap 4 mmol/L (4-12); Aspartate Amino Transferase 18 U/L (17-59); Bilirubin,Total 0.6 mg/dL (0.2-1.3); Blood Urea Nitrogen 17 mg/dL (9-20); Calcium 8.6 mg/dL (8.4-10.2); Carbon Dioxide 24 mmol/L (22-30); Chloride 110 mmol/L (98-107); Estimated Glomerular Filt Rate > 60; Glucose 82 mg/dL (65-110); Potassium 3.7 mmol/L (3.4-5.0); Sodium 138 mmol/L (137-145)
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
[2024-08-26] MEDS: hydrALAZINE HCL 20 MG/ML VIAL 10 MG IV PUSH (18:51)
--- NOTE | 2024-08-26 19:30 | PC.NURSE ---
attempting to call NH to find out what home patient is at.
--- NOTE | 2024-08-26 19:33 | PC.NURSE ---
Patient is from [facility].
[2024-08-26] MEDS: amLODIPine BESYLATE 5 MG TABLET PO (19:41)
--- NOTE | 2024-08-26 21:20 | PC.NURSE ---
patient cleaned and new chucks placed under patient.
[2024-08-27] VITALS (11 sets, daily range): BP systolic 163–170; BP diastolic 98–127; PULSE 80–97; RESP 13–20; TEMP 36.4; O2SAT 97
[2024-08-27] MEDS: HYDROcodone/acetaminophen (*CRX) 5-325 MG TABLET 1 TAB PO (06:43)
[2024-08-27] MEDS: hydrALAZINE HCL 20 MG/ML VIAL 10 MG IV PUSH (08:04)
== END 2024-08-27 08:21 | disposition home or self-care (01) ==
PROVIDERS: Emergency Provider Family Medicine
DX: I13.0 Hypertensive heart and chronic kidney disease with heart failure and stage 1 through stage 4 chronic kidney disease, or unspecified chronic kidney disease (principal); G82.20 Paraplegia, unspecified; K21.9 Gastro-esophageal reflux disease without esophagitis; N18.9 Chronic kidney disease, unspecified; I69.354 Hemiplegia and hemiparesis following cerebral infarction affecting left non-dominant side; I48.91 Unspecified atrial fibrillation; I50.22 Chronic systolic (congestive) heart failure
CPT/HCPCS: 36415; 71045; 80053; 85025; 93005; 96374; 96376; 99284; A9270; J0360

== ENCOUNTER 2024-08-27 20:36 | Inpatient (IN) | payer OTHER, SELFPAY ==
[2024-08-27] VITALS (12 sets, daily range): BP systolic 137–158; BP diastolic 94–113; PULSE 83–103; RESP 18–101; TEMP 36.9; O2SAT 97–100
--- NOTE | ~2024-08-27 | CT_ITS ---
CTA chest PE abdomen pel Ordering provider: Matt Kumar MD History: . chest pain, weakness, elevated troponin, . Comparison: None. Technique: CT angiogram chest was performed following timed intravenous injection of contrast. Thin s lice axial images and reformatted coronal images were obtained. Three dimensional reformatted images of the chest were also obtained using a [employer] workstation. Also, CT of the abdomen and pelvis was pe rformed with IV contrast. . Automated exposure control and iterative reconstruction technique were e mployed. The dose-length product was 2755.04 mGy-cm. 100 mL Omnipaque 350 was given IV. FINDINGS: CHEST: --PULMONARY ARTERIES: No pulmonary embolus. --VISUALIZED THORACIC INLET: Normal. --MEDIASTINUM: Aorta/coronary arteries: The thoracic aorta is normal. Heart/other: The heart is slightly enlarged. Lymph nodes: No mediastinal or hilar adenopathy. --LUNGS: No pulmonary nodules or masses. No effusions. No pneumothorax. Pneumonia in the right lower lobe is s een. --MUSCULOSKELETAL: Bones: Normal spine. Superficial soft tissues: The superficial soft tissues are normal. ABDOMEN/PELVIS: --MUSCULOSKELETAL: Superficial soft tissues: Normal Spine: Normal.. Old fracture with ossification is seen adjacent to the left acetabulum. --UPPER ABDOMINAL ORGANS: Liver: Normal. Gallbladder: Normal. Spleen: Normal. Small soft tissue density seen adjacent to the spleen medially most likely an enlarge d splenule. Stomach/duodenum: Normal. Pancreas: Normal. Adrenals: Normal. Kidneys: Scarring in the right kidney upper pole and the left kidney lower pole.. --PELVIC ORGANS: The bladder is underfilled with thickened wall. Evaluation for cystitis advised. No bladder stones. --BOWEL AND MESENTERY: Colon: No evidence of diverticulitis. Fecal material is seen in the rectum.. Normal appendix. Small Bowel: Normal. No obstruction. Peritoneum/mesentery: No free air or free fluid. No mesenteric lymphadenopathy. --RETROPERITONEUM: Normal aorta. No retroperitoneal lymphadenopathy. IMPRESSION: CHEST: 1. No pulmonary embolism. 2. No evidence of aortic dissection. 3. Right basal pneumonia. ABDOMEN/PELVIS: 1. No acute abdominal process with no evidence of appendicitis, diverticulitis or intestinal obstruc tion. Reviewed, dictated and finalized at location A. GRAM MACHINE OPERATOR IMPRESSION: CHEST: 1. No pulmonary embolism. 2. No evidence of aortic dissection. 3. Right basal pneumonia. ABDOMEN/PELVIS: 1. No acute abdominal process with no evidence of appendicitis, diverticulitis or intestinal obstruction.
--- NOTE | ~2024-08-27 | XR_ITS ---
XR chest 1V portable Ordering provider: Matt Kumar MD History: 34 years Male with . cough . Comparison: 08/26/2024 FINDINGS: MEDIASTINUM: The cardiac silhouette is slightly enlarged. Congestive ramy. LUNGS: No effusions or pneumothorax. Opacification the left lung base seen. Bilateral interstitial ch anges are noted. OTHER: No free air under the diaphragm. IMPRESSION: Cardiomegaly with cardiac decompensation and pulmonary edema. Superimposed pneumonitis is marked excl uded. Left basilar atelectasis versus pneumonia. Reviewed, dictated and finalized at location A. L ENGINEERING PROJECT DESIGNER IMPRESSION: Cardiomegaly with cardiac decompensation and pulmonary edema. Superimposed pneu monitis is marked excluded. Left basilar atelectasis versus pneumonia.
--- NOTE | ~2024-08-27 | MR_ITS ---
EXAMINATION: MR brain/brain stem wo con DATE: 08/28/2024 14:15 INDICATION: Stroke TECHNIQUE: Magnetic resonance imaging (MRI) of the brain and brainstem was performed without intraven ous contrast. Sequences included sagittal and axial T1-weighted SE, axial diffusion-weighted FS SE, a xial 3D SWAN, axial T2-weighted FLAIR, and axial T2-weighted FSE. Apparent diffusion coefficient (ADC ) maps were created. COMPARISON: Head CT dated 08/27/2024 FINDINGS: Small regions of encephalomalacia, the largest in the left parietal lobe with a couple additional sma ller regions in the right frontal and parietal lobes consistent with chronic infarcts. There is also a small old lacunar infarct at the right basal ganglia. There are no areas of restricted diffusion to suggest acute infarction. There are multiple small foci of susceptibility artifact most numerous in the irwin and bilateral thalami and basal ganglia consistent with sequela of chronic microhemorrhage m ost likely related to hypertension. No abnormal intracranial mass lesion. There are a few additional scattered foci of nonspecific increased T2-weighted signal intensity in the cerebral white matter, pr edominantly involving the deep and periventricular white matter. The ventricles are symmetric and nor mal in size. There are no abnormal extra-axial fluid collections. Flow voids are seen in the cerebral arteries on the T2-weighted sequences consistent with their expected patency. Visualized orbits and soft tissues are unremarkable. IMPRESSION: 1. Small old infarcts at the right basal ganglia, right frontal and parietal lobes and left parietal lobe. No acute intracranial process. 2. Multiple scattered small foci of susceptibility artifact consistent with chronic microhemorrhage t he majority in the irwin and bilateral basal ganglia and thalami most likely related to chronic hypert ension. Reviewed, dictated and finalized at location A. HOUSE SUPERVISOR IMPRESSION: 1. Small old infarcts at the right basal ganglia, right frontal and parietal lo bes and left parietal lobe. No acute intracranial process. 2. Multiple scattered small foci of susceptibility artifact consistent with chr onic microhemorrhage the majority in the irwin and bilateral basal ganglia and t halami most likely related to chronic hypertension.
--- NOTE | ~2024-08-27 | CT_ITS ---
CT brain wo con Ordering provider: Matt Kumar MD History: 34 years Male with . headache . Comparison: October 31, 2015 Technique: CT of the head without contrast. Radiation reduction technique utilized. The dose-length product was 756.67 mGy-cm. FINDINGS: BRAIN PARENCHYMA AND CSF SPACES: Hypodensity seen in the left parietal area with linear densities are a. No midline shift, mass effect or hemorrhage. The brain parenchyma and CSF spaces are otherwise no rmal. VISUALIZED PARANASAL SINUSES: Well aerated. MASTOIDS: Well aerated. BONES: On the fracture in the medial wall of the left orbit. The bones appear intact. SOFT TISSUES: Visualized nasopharynx is normal. Superficial soft tissues are normal. IMPRESSION: Hypodensity in the left parietal area with linear increased densities which is highly suggestive of a n infarct with vascular calcifications. Bleeding is less likely. Low-grade mass cannot be excluded al though less likely. MRI evaluation is advised. Reviewed, dictated and finalized at location A. ND BUNCHER FINE WIRE IMPRESSION: Hypodensity in the left parietal area with linear increased densities which is highly suggestive of an infarct with vascular calcifications. Bleeding is less likely. Low-grade mass cannot be excluded although less likely. MRI evaluation is advised.
--- NOTE | 2024-08-27 20:50 | ECG_ITS ---
Test Date: 2024-08-27 20:58:11 Measurements Intervals [place] Rate: 85 P: 49 MA: 212 QRS: -5 QRSD: 107 T: 132 QT: 372 QTc: 443 Interpretive Statements SINUS RHYTHM WITH FIRST DEGREE AV BLOCK ST DEVIATION AND MODERATE T-WAVE ABNORMALITY, CONSIDER LATERAL ISCHEMIA [-0.1+ mV T WAVE IN I/aVL/V5/V6] ABNORMAL ECG Electronically Signed On 08-28-2024 08:59:59 RESPIRATORY PRACTITIONER by Juan Antonio Briones M.D.
[2024-08-27 21:00] LABS: Basophils Percent Auto 0.3 % (0.2-1.2); Eosinophils Absolute Auto 0.2 K/mm3 (0-0.3); Hematocrit 48.7 % (42.0-52.0); Hemoglobin 16.5 g/dL (14.0-18.0); Immature Granulocyte Absolute 0.02 K/mm3 (0.00-0.031); Immature Granulocyte Percent A 0.2 % (0-0.5); Lymphocytes Absolute Auto 1.61 K/mm3 (0.9-3.2); Lymphocytes Percent Auto 18.6 % (18.3-44.2); Mean Corpuscular HGB Conc 33.9 g/dl (32-36); Mean Corpuscular Hemoglobin 29.6 pg (26-34); Mean Corpuscular Volume 87.4 fl (80-100); Mean Platelet Volume 12.2 fl (7.4-10.4); Monocytes Absolute Auto 0.7 K/mm3 (0.1-0.6); Monocytes Percent Auto 7.9 % (2.6-8.5); Neutrophils Absolute Auto 6.2 K/mm3 (1.3-6.7); Platelet Count Result 245 k/mm3 (150-375); Red Blood Count 5.57 M/mm3 (4.6-6.20); Red Cell Distribution Width 14.2 % (11.5-14.5); White Blood Count 8.7 K/mm3 (4.5-10.0)
[2024-08-27 21:10] LABS: Lactic Acid Reflex 0.9 mmol/L (0.7-2.0)
[2024-08-27 21:12] LABS: Alanine Aminotransferase 14 U/L (6-50); Alkaline Phosphatase 115 U/L (38-126); Anion Gap 5 mmol/L (4-12); Aspartate Amino Transferase 20 U/L (17-59); Bilirubin,Total 0.8 mg/dL (0.2-1.3); Blood Urea Nitrogen 19 mg/dL (9-20); Carbon Dioxide 23 mmol/L (22-30); Chloride 108 mmol/L (98-107); Estimated CRCL calculation 127 ml/min; Estimated Glomerular Filt Rate > 60; Glucose 112 mg/dL (65-110); Lipase 39 U/L (23-300); Magnesium 1.7 mg/dL (1.6-2.3); Potassium 3.5 mmol/L (3.4-5.0); Sodium 136 mmol/L (137-145)
[2024-08-27 21:25] LABS: INR 1.2
[2024-08-27 21:26] LABS: Partial Thromboplastin Time 37.8 Seconds (22.3-36.8); Troponin I 0.117 ng/mL (0.000-0.034)
[2024-08-27 21:32] LABS: Procalcitonin 0.1 ng/mL
[2024-08-27 21:37] LABS: Influenza A QL RT-PCR Negative (Negative); Influenza B QL RT-PCR Negative (Negative); RSV RNA, RT-PCR Negative (Negative); SARS-CoV-2 RNA PCR Negative (Negative)
[2024-08-27 21:37] LABS: Add Urine Microscopic? YES; Appearance Urine Clear (Clear); Bacteria Urine None Seen /hpf; Bilirubin Urine Negative (Negative); Blood Urine Negative (Negative); Color Urine Yellow (Yellow); Glucose Urine UA Negative (Negative); Ketones Urine Trace mg/dL (Negative); Leukocyte Esterase Ur Negative LEU/UL (Negative); Need Manual Microscopic Reviewed; Nitrate Urine Negative (Negative); Protein Urine 4+ mg/dL (Negative); RBC Urine 0-2 /hpf (0-2); Specific Grav Ur 1.021 (1.001-1.035); Squamous Epithelial Cell Urine None Seen /hpf (Few); WBC Urine 0-5 /hpf (0-3); pH Urine 5.5 (5.0-9.0)
--- NOTE | 2024-08-27 21:43 | PC.NURSE ---
Patient in CT at this time.
[2024-08-27 21:56] LABS: NT Pro B Type Natriuretic Pept 439 pg/mL (19.9-100)
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
[2024-08-27] MEDS: CEFEPIME 2 GM/NS 50 ML 2 GM/50 ML BAG IVPB (23:17)
[2024-08-27] MEDS: VANCOMYCIN 1,250 MG/NS 250 ML 1,250 MG/250 ML BAG 166.67 MG IVPB (23:51)
[2024-08-28] VITALS (36 sets, daily range): BP systolic 136–173; BP diastolic 68–101; PULSE 71–96; RESP 15–37; TEMP 36.2–36.6; O2SAT 96–100; BMI 39.1
[2024-08-28 00:40] LABS: MRSA (PCR) NOT DETECTED (NOT DETECTE)
--- NOTE | 2024-08-28 00:58 | ECG_ITS ---
Test Date: 2024-08-28 01:12:55 Measurements Intervals Cameron Rate: 88 P: 61 GA: 201 QRS: 0 QRSD: 108 T: 121 QT: 368 QTc: 445 Interpretive Statements SINUS RHYTHM WITH OCCASIONAL SUPRAVENTRICULAR PREMATURE COMPLEXES MODERATE T-WAVE ABNORMALITY, CONSIDER LATERAL ISCHEMIA [-0.1+ mV T WAVE IN I/aVL/V5/V6] ABNORMAL ECG Electronically Signed On 08-28-2024 09:03:11 SPORTS FITNESS AND WELLNESS DIRECTOR by Juan Antonio Briones M.D.
[2024-08-28] MEDS: VANCOMYCIN 1,250 MG/NS 250 ML 1,250 MG/250 ML BAG 166.67 MG IVPB (01:28)
--- NOTE | 2024-08-28 02:53 | PC.NURSE ---
0250 Antoni, patients caregiver and nurse at [facility] calls to get update on patient. This RN informed her of patients admission diagnosis as well as his plan of care, his meds he received for his symptoms. Call back number for [place] is [phone].
--- NOTE | 2024-08-28 07:33 | P.PNIM_ITS ---
Progress Note: A&P Assessment and Plan (1) Pneumonia: Code(s): J18.9 - Pneumonia, unspecified organism Status: Acute Assessment and Plan: * Chest x-ray shown cardiomegaly with cardiac decompensation and pulmonary edema, left basilar atelectasis versus pneumonia * CTA of chest/abdomen/pelvis was negative for PE or aortic dissection, shown a right basal pneumonia, no acute abdominopelvic process seen * Started on Vancomycin and Cefepime * MRSA was negative * Blood cultures obtained and pending * Vancomycin was discontinued * procal 0.1, WBC 8.7 * Respiratory panel negative for Influenza A and B, RSV, COVID * Will check mycoplasma, urine strep, urine legionella * Sputum culture ordered * Continue Duonebs * Oxygen ordered as needed to keep O2 saturation >92%, patient currently on room air and tachypneic (2) Abnormal head CT: Code(s): R93.0 - Abnormal findings on diagnostic imaging of skull and head, not elsewhere classified Status: Acute Assessment and Plan: * Head CT revealed a hypodensity in the left parietal area with linear increased densities which is highly suggestive of an infarct with vascular calcifications, low grade mass cannot be excluded--recommending MRI * MRI of the brain and brain stem without contrast ordered (3) Elevated troponin: Code(s): R79.89 - Other specified abnormal findings of blood chemistry Status: Acute Assessment and Plan: * Troponin 0.117>0.095 * Likely demand ischemia * continue to monitor for now * Can go to regular med/surg floor, IMU cancelled (4) Chronic systolic (congestive) heart failure: Code(s): I50.22 - Chronic systolic (congestive) heart failure Status: Acute Assessment and Plan: * Last echo reviewed from 07/09/24 revealed normal LV systolic function with an estimated EF of >70%, grade II diastolic dysfunction, severely increased left ventricular wall thickness * CXR- showing cardiomegaly * Continue Coreg * ProBNP 439 (5) A-fib: Qualifiers: Atrial fibrillation type: unspecified Qualified Code(s): I48.91 - Unspecified atrial fibrillation Code(s): I48.91 - Unspecified atrial fibrillation Status: Acute Assessment and Plan: * Continue Eliquis * Continue carvedilol (6) Essential hypertension: Code(s): I10 - Essential (primary) hypertension Status: Acute Assessment and Plan: * Blood pressure ranging 136/87-173/91 * Continue amlodipine (7) Gastro-esophageal reflux disease without esophagitis: Code(s): K21.9 - Gastro-esophageal reflux disease without esophagitis Status: Acute Assessment and Plan: * start protonix (8) COPD (chronic obstructive pulmonary disease): Code(s): J44.9 - Chronic obstructive pulmonary disease, unspecified Status: Acute Assessment and Plan: * continue Duoneb treatments (9) Paraplegia: Code(s): G82.20 - Paraplegia, unspecified Status: Acute Assessment and Plan: * Patient is wheelchair-bound (10) Obesity: Code(s): E66.9 - Obesity, unspecified Status: Acute Assessment and Plan: * heart healthy diet * 1800 calorie restricted diet Time Spent With Patient Time with patient: Greater than 35 minutes Subjective Date/time seen: 08/28/24 07:33 Interval history: Interval history: This is a 34-year-old male with a significant past medical history of stroke with left-sided weakness, paraplegia, congestive heart failure, hypertension, chronic kidney disease, COPD,A-fib, obesity who presented to the hospital with nausea, vomiting, and chest discomfort. He was seen in the ED yesterday and was sent back to the [place] [facility] and was diagnosed with Pneumonia. He was started on Keflex at that time. Work up in the hospital included a chest x-ray that shown cardiomegaly with cardiac decompensation and pulmonary edema, left basilar atelectasis versus pneumonia. Head CT shown hypodensity in the left parietal area with linear increased densities which is highly suggestive of an infarct with vascular calcifications. CTA of the Chest/abdomen/pelvis was negative for PE or aortic dissection, right basal pneumonia, no acute abdominal process. Initial labs shown a normal WBC count of 8.7, Na+ 136, Troponin 0.117>0.095, proBNP 439, procalcitonin 0.1. UA shown 4+ urine protein, trace ketones, otherwise negative. MRSA negative. Respiratory panel negative for influenza A and B, RSV, and COVID. Blood cultures obtained and pending. EKG showing NSR with first degree AV block with a rate of 85, QTc 443. Patient was started on Cefepime and Vancomycin in the ER. Vancomycin was discontinued due to negative MRSA. Subjective: Patient denies any fever, chills, nausea, vomiting, diarrhea, abdominal pain, chest pain or shortness of breath. Patient endorses headache and overall not feeling well. Labs and imaging reviewed. Review of Systems Review of Systems: All systems reviewed & are unremarkable except as noted in HPI and below Constitutional: Constitutional: Reports as per HPI and Reports no additional constitutional complaints Eyes: Eyes: Reports as per HPI and Reports no additional eye complaints ENT: Reports system reviewed and no additional complaints, except as documented and Reports as per HPI Cardiovascular: Cardiovascular: Reports as per HPI and Reports no additional cardiovascular complaints Respiratory: Respiratory: Reports as per HPI and Reports no additional respiratory complaints Gastrointestinal: Gastrointestinal: Reports as per HPI and Reports no additional gastrointestinal complaints Genitourinary: Genitourinary: Reports no additional male genitourinary complaints and Reports as per HPI Musculoskeletal: Musculoskeletal: Reports no additional musculoskeletal complaints and Reports as per HPI Integumentary/Breasts: Skin/Breast: Reports system reviewed and no additional complaints, except as docu and Reports as per HPI Neurologic: Reports system reviewed and no additional complaints, except as documented and Reports as per HPI Psychiatric: Psychiatric: Reports no additional psychiatric complaints and Reports as per HPI Exam Narrative: General: In no acute distress, well nourished Head: atraumatic, no encephalopathy Eyes: PERRLA, sclera clear ENT: moist mucous membranes, nasal passages clear Neck: supple, no JVD, no adenopathy, trachea midline Cardiac: Normal S1 and S2. No murmur, gallops or friction rubs, peripheral pulses intact. Respiratory: Lungs clear with diminished breath sound bilateral bases, no adventitious lung sounds, currently on room air Gastrointestinal: soft, non-distended, non-tender, normoactive bowel sounds. : voiding without difficulty--straight cath as needed Extremities: paraplegic and left sided weakness. Gross motor ability in left hand, ROM in right UE normal, foot drop bilaterally, pedal edema Skin: clean, dry, intact. No wounds or lesions. Neuro: Alert and oriented x4, cranial nerves intact, no neuro deficits. Psych: normal mood, normal affect, interactive Objective Data Vital Signs Vital Signs: Vital Signs - 24 hr 08/27/24 20:33 08/27/24 20:42 08/27/24 20:43 Temperature 98.4 F Pulse Rate 89 98 Respiratory Rate 25 H 25 H Blood Pressure Pulse Oximetry 100 Oxygen Delivery Room Air 08/27/24 20:46 08/27/24 21:51 08/27/24 21:51 Temperature Pulse Rate 92 96 Respiratory Rate 25 H 22 H 25 H Blood Pressure 152/113 H 158/96 H 158/96 H Pulse Oximetry 99 97 Oxygen Delivery 08/27/24 21:52 08/27/24 22:00 08/27/24 22:18 Temperature Pulse Rate 86 86 103 H Respiratory Rate 21 H 23 H 37 H Blood Pressure Pulse Oximetry 98 Oxygen Delivery 08/27/24 22:30 08/27/24 22:53 08/27/24 23:15 Temperature Pulse Rate 97 88 83 Respiratory Rate 40 H 20 18 Blood Pressure Pulse Oximetry 97 Oxygen Delivery 08/27/24 23:30 08/28/24 00:06 08/28/24 00:31 Temperature Pulse Rate 83 75 84 Respiratory Rate 101 H 19 18 Blood Pressure 137/94 H Pulse Oximetry Oxygen Delivery 08/28/24 00:42 08/28/24 00:45 08/28/24 01:00 Temperature Pulse Rate 79 78 77 Respiratory Rate 17 20 21 H Blood Pressure 157/68 H Pulse Oximetry Oxygen Delivery 08/28/24 01:02 08/28/24 01:15 08/28/24 01:22 Temperature Pulse Rate 77 87 95 Respiratory Rate 18 23 H 23 H Blood Pressure 173/91 H 162/84 H Pulse Oximetry Oxygen Delivery 08/28/24 01:30 08/28/24 02:02 08/28/24 02:21 Temperature Pulse Rate 96 86 Respiratory Rate 31 H 27 H Blood Pressure 166/90 H Pulse Oximetry 100 Oxygen Delivery 08/28/24 02:31 08/28/24 02:45 08/28/24 03:00 Temperature Pulse Rate 73 71 71 Respiratory Rate 19 16 17 Blood Pressure Pulse Oximetry Oxygen Delivery 08/28/24 03:02 08/28/24 03:17 08/28/24 03:32 Temperature Pulse Rate 78 83 71 Respiratory Rate 18 20 18 Blood Pressure 136/87 Pulse Oximetry Oxygen Delivery 08/28/24 03:45 08/28/24 04:00 08/28/24 04:01 Temperature Pulse Rate 73 76 82 Respiratory Rate 22 H 20 19 Blood Pressure 138/93 H Pulse Oximetry 98 Oxygen Delivery 08/28/24 04:45 08/28/24 05:09 08/28/24 05:15 Temperature Pulse Rate 84 82 86 Respiratory Rate 21 H 17 18 Blood Pressure Pulse Oximetry 97 98 Oxygen Delivery 08/28/24 05:38 08/28/24 05:45 Temperature Pulse Rate 85 90 Respiratory Rate 19 37 H Blood Pressure Pulse Oximetry 96 97 Oxygen Delivery Intake/Output Intake/Output: Intake & Output 08/25/24 08/26/24 08/27/24 08/28/24 23:59 23:59 23:59 23:59 Intake Total 50 500 Output Total 75 300 Balance -25 200 Meds/Results Medications: Active Medications Generic Name Dose Route Start Last Admin Trade Name Freq PRN Reason Stop Dose Admin Cefepime HCl 2 gm in 50 mls @ 100 mls/hr 08/28/24 09:00 Maxipime 2 Gm/Ns 50 Ml IVPB Q12HR WOOD Vancomycin HCl 1,500 mg in 500 mls @ 250 mls/hr 08/28/24 12:00 Vancomycin 1,500 Mg/Ns 500 Ml IVPB Q12H WOOD Radiology Results: ITS Impressions Chest X-Ray 08/27/24 21:25 IMPRESSION: Cardiomegaly with cardiac decompensation and pulmonary edema. Superimposed pneumonitis is marked excluded. Left basilar atelectasis versus pneumonia. Head CT 08/27/24 21:54 IMPRESSION: Hypodensity in the left parietal area with linear increased densities which is highly suggestive of an infarct with vascular calcifications. Bleeding is less likely. Low-grade mass cannot be excluded although less likely. MRI evaluation is advised. Chest/Abdomen/Pelvis CTA 08/27/24 22:02 IMPRESSION: CHEST: 1. No pulmonary embolism. 2. No evidence of aortic dissection. 3. Right basal pneumonia. ABDOMEN/PELVIS: 1. No acute abdominal process with no evidence of appendicitis, diverticulitis or intestinal obstruction. Labs Labs: Laboratory Results - last 24 hr 08/27/24 08/27/24 08/27/24 20:54 20:55 21:22 WBC 8.7 RBC 5.57 Hgb 16.5 Hct 48.7 MCV 87.4 MCH 29.6 MCHC 33.9 RDW 14.2 Plt Count 245 MPV 12.2 H Immature Gran % (Auto) 0.2 Neut % (Auto) 71.0 Lymph % (Auto) 18.6 [place] % (Auto) 7.9 Eos % (Auto) 2.0 Baso % (Auto) 0.3 Lymph # (Auto) 1.61 [place] # (Auto) 0.7 H Eos # (Auto) 0.2 Baso # (Auto) 0.0 Abs Immat Gran (auto) 0.02 Absolute Neuts (auto) 6.2 Absolute Nucleated RBC 0.000 Nucleated RBC % 0.0 PT 15.0 H INR 1.2 APTT 37.8 H Sodium 136 L Potassium 3.5 Chloride 108 H Carbon Dioxide 23 Anion Gap 5 BUN 19 Creatinine 1.10 Estim Creat Clear Calc 127 Estimated GFR > 60 Glucose 112 H Lactic Acid 0.9 Calcium 9.0 Magnesium 1.7 Total Bilirubin 0.8 AST 20 ALT 14 Alkaline Phosphatase 115 Troponin I 0.117 H* NT-Pro-B Natriuret Pep 439 H Total Protein 8.0 Albumin 4.0 Lipase 39 Procalcitonin 0.1 Urine Color Yellow Urine Appearance Clear Urine pH 5.5 Ur Specific [place] 1.021 Urine Protein 4+ H Urine Glucose (UA) Negative Urine Ketones Trace H Ur Blood (Man) Negative Urine Nitrate Negative Urine Bilirubin Negative Urine Urobilinogen 1.0 Add Ur Microanalysis Reviewed Leukocyte Esterase Rfl Negative Urine RBC 0-2 Urine WBC 0-5 Ur Squamous Epith Cells None seen Urine Bacteria None seen Urine Casts 3-5 Nasal MRSA (PCR) Influenza A (RT-PCR) Negative Influenza B (RT-PCR) Negative RSV (RT-PCR) Negative SARS-CoV-2 RNA (RT-PCR) Negative 08/27/24 08/28/24 23:16 01:09 WBC RBC Hgb Hct MCV MCH MCHC RDW Plt Count MPV Immature Gran % (Auto) Neut % (Auto) Lymph % (Auto) [place] % (Auto) Eos % (Auto) Baso % (Auto) Lymph # (Auto) [place] # (Auto) Eos # (Auto) Baso # (Auto) Abs Immat Gran (auto) Absolute Neuts (auto) Absolute Nucleated RBC Nucleated RBC % PT INR APTT Sodium Potassium Chloride Carbon Dioxide Anion Gap BUN Creatinine Estim Creat Clear Calc Estimated GFR Glucose Lactic Acid Calcium Magnesium Total Bilirubin AST ALT Alkaline Phosphatase Troponin I 0.110 H* NT-Pro-B Natriuret Pep Total Protein Albumin Lipase Procalcitonin Urine Color Urine Appearance Urine pH Ur Specific [place] Urine Protein Urine Glucose (UA) Urine Ketones Ur Blood (Man) Urine Nitrate Urine Bilirubin Urine Urobilinogen Add Ur Microanalysis Leukocyte Esterase Rfl Urine RBC Urine WBC Ur Squamous Epith Cells Urine Bacteria Urine Casts Nasal MRSA (PCR) Not detected Influenza A (RT-PCR) Influenza B (RT-PCR) RSV (RT-PCR) SARS-CoV-2 RNA (RT-PCR) Imaging Radiologist's impression: XR chest 1V portable Ordering provider: Matt Kumar MD History: 34 years Male with . cough . Comparison: 08/26/2024 FINDINGS: MEDIASTINUM: The cardiac silhouette is slightly enlarged. Congestive ramy. LUNGS: No effusions or pneumothorax. Opacification the left lung base seen. Bilateral interstitial changes are noted. OTHER: No free air under the diaphragm. IMPRESSION: Cardiomegaly with cardiac decompensation and pulmonary edema. Superimposed pneumonitis is marked excluded. Left basilar atelectasis versus pneumonia. Reviewed, dictated and finalized at location A. [facility] TYPE DISK QUALITY CONTROL CT brain wo con Ordering provider: Matt Kumar MD History: 34 years Male with . headache . Comparison: October 31, 2015 Technique: CT of the head without contrast. Radiation reduction technique utilized. The dose-length product was 756.67 mGy-cm. FINDINGS: BRAIN PARENCHYMA AND CSF SPACES: Hypodensity seen in the left parietal area with linear densities area. No midline shift, mass effect or hemorrhage. The brain parenchyma and CSF spaces are otherwise normal. VISUALIZED PARANASAL SINUSES: Well aerated. MASTOIDS: Well aerated. BONES: On the fracture in the medial wall of the left orbit. The bones appear intact. SOFT TISSUES: Visualized nasopharynx is normal. Superficial soft tissues are normal. IMPRESSION: Hypodensity in the left parietal area with linear increased densities which is highly suggestive of an infarct with vascular calcifications. Bleeding is less likely. Low-grade mass cannot be excluded although less likely. MRI evaluation is advised. Reviewed, dictated and finalized at location A. [employer] TYPE DISK QUALITY CONTROL CTA chest PE abdomen pel Ordering provider: Matt Kumar MD History: . chest pain, weakness, elevated troponin, . Comparison: None. Technique: CT angiogram chest was performed following timed intravenous injection of contrast. Thin slice axial images and reformatted coronal images were obtained. Three dimensional reformatted images of the chest were also obtained using a [employer] workstation. Also, CT of the abdomen and pelvis was performed with IV contrast. . Automated exposure control and iterative reconstruction technique were employed. The dose-length product was 2755.04 mGy- cm. 100 mL Omnipaque 350 was given IV. FINDINGS: CHEST: --PULMONARY ARTERIES: No pulmonary embolus. --VISUALIZED THORACIC INLET: Normal. --MEDIASTINUM: Aorta/coronary arteries: The thoracic aorta is normal. Heart/other: The heart is slightly enlarged. Lymph nodes: No mediastinal or hilar adenopathy. --LUNGS: No pulmonary nodules or masses. No effusions. No pneumothorax. Pneumonia in the right lower lobe is seen. --MUSCULOSKELETAL: Bones: Normal spine. Superficial soft tissues: The superficial soft tissues are normal. ABDOMEN/PELVIS: --MUSCULOSKELETAL: Superficial soft tissues: Normal Spine: Normal.. Old fracture with ossification is seen adjacent to the left acetabulum. --UPPER ABDOMINAL ORGANS: Liver: Normal. Gallbladder: Normal. Spleen: Normal. Small soft tissue density seen adjacent to the spleen medially most likely an enlarged splenule. Stomach/duodenum: Normal. Pancreas: Normal. Adrenals: Normal. Kidneys: Scarring in the right kidney upper pole and the left kidney lower pole.. --PELVIC ORGANS: The bladder is underfilled with thickened wall. Evaluation for cystitis advised. No bladder stones. --BOWEL AND MESENTERY: Colon: No evidence of diverticulitis. Fecal material is seen in the rectum.. Normal appendix. Small Bowel: Normal. No obstruction. Peritoneum/mesentery: No free air or free fluid. No mesenteric lymphadenopathy. --RETROPERITONEUM: Normal aorta. No retroperitoneal lymphadenopathy. IMPRESSION: CHEST: 1. No pulmonary embolism. 2. No evidence of aortic dissection. 3. Right basal pneumonia. ABDOMEN/PELVIS: 1. No acute abdominal process with no evidence of appendicitis, diverticulitis or intestinal obstruction. Reviewed, dictated and finalized at location A. [facility] TYPE DISK QUALITY CONTROL
[2024-08-28 08:33] LABS: Basophils Percent Auto 0.2 % (0.2-1.2); Eosinophils Absolute Auto 0.1 K/mm3 (0-0.3); Eosinophils Percent Auto 1.7 % (0-4.4); Hemoglobin 16.5 g/dL (14.0-18.0); Immature Granulocyte Absolute 0.02 K/mm3 (0.00-0.031); Immature Granulocyte Percent A 0.2 % (0-0.5); Lymphocytes Absolute Auto 1.18 K/mm3 (0.9-3.2); Lymphocytes Percent Auto 14.3 % (18.3-44.2); Mean Corpuscular HGB Conc 33.7 g/dl (32-36); Mean Corpuscular Hemoglobin 29.8 pg (26-34); Mean Corpuscular Volume 88.6 fl (80-100); Mean Platelet Volume 12.2 fl (7.4-10.4); Monocytes Absolute Auto 0.7 K/mm3 (0.1-0.6); Neutrophils Absolute Auto 6.1 K/mm3 (1.3-6.7); Neutrophils Percent Auto 74.6 % (45.5-73.1); Platelet Count Result 229 k/mm3 (150-375); Red Blood Count 5.53 M/mm3 (4.6-6.20); Red Cell Distribution Width 14.4 % (11.5-14.5); White Blood Count 8.2 K/mm3 (4.5-10.0)
[2024-08-28 08:46] LABS: Magnesium 1.8 mg/dL (1.6-2.3)
[2024-08-28 08:48] LABS: Alanine Aminotransferase 14 U/L (6-50); Albumin Level 3.8 g/dL (3.5-5.1); Alkaline Phosphatase 113 U/L (38-126); Anion Gap 5 mmol/L (4-12); Aspartate Amino Transferase 20 U/L (17-59); Blood Urea Nitrogen 19 mg/dL (9-20); Carbon Dioxide 23 mmol/L (22-30); Chloride 109 mmol/L (98-107); Estimated CRCL calculation 127 ml/min; Estimated Glomerular Filt Rate > 60; Glucose 91 mg/dL (65-110); Sodium 137 mmol/L (137-145)
[2024-08-28 08:59] LABS: Troponin I 0.095 ng/mL (0.000-0.034)
[2024-08-28] MEDS: PANTOPRAZOLE 40 MG TABLET PO (10:01)
[2024-08-28] MEDS: CEFEPIME 2 GM/NS 50 ML 2 GM/50 ML BAG IVPB ×2 (10:01→20:30)
[2024-08-28] MEDS: polyethylene glycoL 3350 17 GM POWD.PACK PO (10:01)
[2024-08-28] MEDS: ENOXAPARIN 40 MG/0.4 ML SYRINGE SUB-Q (10:02)
[2024-08-28] MEDS: amLODIPine BESYLATE 5 MG TABLET PO (10:02)
[2024-08-28] MEDS: DIVALPROEX SODIUM DR 250 MG TABEC 500 MG PO ×2 (10:02→20:29)
[2024-08-28] MEDS: carvediloL 25 MG TABLET PO ×2 (10:03→20:29)
[2024-08-28] MEDS: APIXABAN 5 MG TABLET PO ×2 (10:03→20:29)
--- NOTE | 2024-08-28 11:39 | PC.NURSE ---
This patient, Danie Jonas, was admitted to [facility] Surg Room 321-01. Patient/family oriented to hospital policies and general routines including ID bracelet, bed and alarms, visiting hours, pain management, procedures, bathroom and other care routines, personal items, smoking policy, room service/diet, and visiting hours. Information on how to activate the Rapid Response Team has been discussed. Patient/Family are encouraged to report perceived risks to care and to ask questions if they do not understand what they are told or what they should do.
[2024-08-28] MEDS: ACETAMINOPHEN 325 MG TABLET 650 MG PO (19:00)
[2024-08-28] MEDS: ATORVASTATIN 40 MG TABLET PO (20:29)
[2024-08-29 06:00] VITALS: BP 145/94; PULSE 73; RESP 16; TEMP 36.2; O2SAT 100
[2024-08-29 07:04] LABS: Basophils Percent Auto 0.4 % (0.2-1.2); Eosinophils Absolute Auto 0.2 K/mm3 (0-0.3); Eosinophils Percent Auto 3.2 % (0-4.4); Hematocrit 47.8 % (42.0-52.0); Hemoglobin 15.1 g/dL (14.0-18.0); Immature Granulocyte Absolute 0.01 K/mm3 (0.00-0.031); Immature Granulocyte Percent A 0.1 % (0-0.5); Lymphocytes Absolute Auto 1.23 K/mm3 (0.9-3.2); Lymphocytes Percent Auto 17.3 % (18.3-44.2); Mean Corpuscular HGB Conc 31.6 g/dl (32-36); Mean Corpuscular Hemoglobin 28.9 pg (26-34); Mean Corpuscular Volume 91.6 fl (80-100); Mean Platelet Volume 12.5 fl (7.4-10.4); Monocytes Absolute Auto 0.7 K/mm3 (0.1-0.6); Monocytes Percent Auto 9.7 % (2.6-8.5); Neutrophils Absolute Auto 4.9 K/mm3 (1.3-6.7); Neutrophils Percent Auto 69.3 % (45.5-73.1); Platelet Count Result 219 k/mm3 (150-375); Red Blood Count 5.22 M/mm3 (4.6-6.20); Red Cell Distribution Width 14.3 % (11.5-14.5); White Blood Count 7.1 K/mm3 (4.5-10.0)
[2024-08-29 07:39] LABS: Alanine Aminotransferase 13 U/L (6-50); Albumin Level 3.5 g/dL (3.5-5.1); Alkaline Phosphatase 100 U/L (38-126); Anion Gap 5 mmol/L (4-12); Aspartate Amino Transferase 17 U/L (17-59); Blood Urea Nitrogen 20 mg/dL (9-20); Calcium 9.1 mg/dL (8.4-10.2); Carbon Dioxide 22 mmol/L (22-30); Chloride 110 mmol/L (98-107); Estimated CRCL calculation 127 ml/min; Estimated Glomerular Filt Rate > 60; Glucose 84 mg/dL (65-110); Potassium 4.2 mmol/L (3.4-5.0); Sodium 137 mmol/L (137-145)
[2024-08-29] MEDS: PANTOPRAZOLE 40 MG TABLET PO (09:22)
[2024-08-29] MEDS: amLODIPine BESYLATE 5 MG TABLET PO ×2 (09:22→11:13)
[2024-08-29] MEDS: carvediloL 25 MG TABLET PO ×2 (09:22→21:31)
[2024-08-29] MEDS: CEFEPIME 2 GM/NS 50 ML 2 GM/50 ML BAG IVPB ×2 (09:22→21:31)
[2024-08-29] MEDS: APIXABAN 5 MG TABLET PO ×2 (09:22→21:31)
[2024-08-29] MEDS: DIVALPROEX SODIUM DR 250 MG TABEC 500 MG PO ×2 (09:22→21:31)
[2024-08-29] MEDS: polyethylene glycoL 3350 17 GM POWD.PACK PO (09:23)
[2024-08-29] MEDS: ENOXAPARIN 40 MG/0.4 ML SYRINGE SUB-Q (09:23)
--- NOTE | 2024-08-29 10:18 | P.PNIM_ITS ---
Progress Note: A&P Assessment and Plan (1) Pneumonia: Code(s): J18.9 - Pneumonia, unspecified organism Status: Acute Assessment and Plan: * Chest x-ray shown cardiomegaly with cardiac decompensation and pulmonary edema, left basilar atelectasis versus pneumonia * CTA of chest/abdomen/pelvis was negative for PE or aortic dissection, shown a right basal pneumonia, no acute abdominopelvic process seen * Started on Vancomycin and Cefepime * MRSA was negative * Blood cultures obtained and pending * Vancomycin was discontinued * procal 0.1, WBC 8.7 * Respiratory panel negative for Influenza A and B, RSV, COVID * Will check mycoplasma, urine strep, urine legionella * Sputum culture ordered * Continue Duonebs * Oxygen ordered as needed to keep O2 saturation >92%, patient currently on room air and tachypneic 08/29 * continue Cefepime (2) Abnormal head CT: Code(s): R93.0 - Abnormal findings on diagnostic imaging of skull and head, not elsewhere classified Status: Acute Assessment and Plan: * Head CT revealed a hypodensity in the left parietal area with linear increased densities which is highly suggestive of an infarct with vascular calcifications, low grade mass cannot be excluded--recommending MRI * MRI of the brain and brain stem without contrast ordered 08/29 * Showed small old infarcts at the right basal ganglia, right frontal and parietal lobes and left parietal lobe, no acute intracranial process, multiple scattered small foci of artifact consistent with chronic microhemorrhage the majority in the [place] and bilateral basal ganglia and the thalami most likely related to chronic hypertension (3) Elevated troponin: Code(s): R79.89 - Other specified abnormal findings of blood chemistry Status: Acute Assessment and Plan: * Troponin 0.117>0.095 * Likely demand ischemia * continue to monitor for now * Can go to regular med/surg floor, IMU cancelled (4) Chronic systolic (congestive) heart failure: Code(s): I50.22 - Chronic systolic (congestive) heart failure Status: Acute Assessment and Plan: * Last echo reviewed from 07/09/24 revealed normal LV systolic function with an estimated EF of >70%, grade II diastolic dysfunction, severely increased left ventricular wall thickness * CXR- showing cardiomegaly * Continue Coreg * ProBNP 439 (5) A-fib: Qualifiers: Atrial fibrillation type: unspecified Qualified Code(s): I48.91 - Unspecified atrial fibrillation Code(s): I48.91 - Unspecified atrial fibrillation Status: Acute Assessment and Plan: * Continue Eliquis * Continue carvedilol (6) Essential hypertension: Code(s): I10 - Essential (primary) hypertension Status: Acute Assessment and Plan: * Blood pressure ranging 136/87-173/91 * continue Coreg * Start amlodipine 5 mg daily (7) Gastro-esophageal reflux disease without esophagitis: Code(s): K21.9 - Gastro-esophageal reflux disease without esophagitis Status: Acute Assessment and Plan: * start protonix (8) COPD (chronic obstructive pulmonary disease): Code(s): J44.9 - Chronic obstructive pulmonary disease, unspecified Status: Acute Assessment and Plan: * continue Duoneb treatments (9) Paraplegia: Code(s): G82.20 - Paraplegia, unspecified Status: Acute Assessment and Plan: * Patient is wheelchair-bound (10) Obesity: Code(s): E66.9 - Obesity, unspecified Status: Acute Assessment and Plan: * heart healthy diet * 1800 calorie restricted diet Time Spent With Patient Time with patient: 15 - 25 minutes Subjective Date/time seen: 08/29/24 10:18 Interval history: Interval history: This is a 34-year-old male with a significant past medical history of stroke with left-sided weakness, paraplegia, congestive heart failure, hypertension, chronic kidney disease, COPD,A-fib, obesity who presented to the hospital with nausea, vomiting, and chest discomfort. He was seen in the ED yesterday and was sent back to the shelter and was diagnosed with Pneumonia. He was started on Keflex at that time. Work up in the hospital included a chest x-ray that shown cardiomegaly with cardiac decompensation and pulmonary edema, left basilar atelectasis versus pneumonia. Head CT shown hypodensity in the left parietal area with linear increased densities which is highly suggestive of an infarct with vascular calcifications. CTA of the Chest/abdomen/pelvis was negative for PE or aortic dissection, right basal pneumonia, no acute abdominal process. Initial labs shown a normal WBC count of 8.7, Na+ 136, Troponin 0.117>0.095, proBNP 439, procalcitonin 0.1. UA shown 4+ urine protein, trace ketones, otherwise negative. MRSA negative. Respiratory panel negative for influenza A and B, RSV, and COVID. Blood cultures obtained and pending. EKG showing NSR with first degree AV block with a rate of 85, QTc 443. Patient was started on Cefepime and Vancomycin in the ER. Vancomycin was discontinued due to negative MRSA. Subjective: Patient denies any new complaints today. He states he is feeling better than when he first came in. Labs reviewed. Review of Systems Review of Systems: All systems reviewed & are unremarkable except as noted in HPI and below Constitutional: Constitutional: Reports as per HPI and Reports no additional constitutional complaints Eyes: Eyes: Reports as per HPI and Reports no additional eye complaints ENT: Reports system reviewed and no additional complaints, except as documented and Reports as per HPI Cardiovascular: Cardiovascular: Reports as per HPI and Reports no additional cardiovascular complaints Respiratory: Respiratory: Reports as per HPI and Reports no additional respiratory complaints Gastrointestinal: Gastrointestinal: Reports as per HPI and Reports no additional gastrointestinal complaints Genitourinary: Genitourinary: Reports no additional male genitourinary complaints and Reports as per HPI Musculoskeletal: Musculoskeletal: Reports no additional musculoskeletal complaints and Reports as per HPI Integumentary/Breasts: Skin/Breast: Reports system reviewed and no additional complaints, except as docu and Reports as per HPI Neurologic: Reports system reviewed and no additional complaints, except as documented and Reports as per HPI Psychiatric: Psychiatric: Reports no additional psychiatric complaints and Reports as per HPI Exam Narrative: General: In no acute distress, well nourished Cardiac: Normal S1 and S2. No murmur, gallops or friction rubs, peripheral pulses intact. Respiratory: Lungs clear with diminished breath sound bilateral bases, no adventitious lung sounds, currently on room air Gastrointestinal: soft, non-distended, non-tender, normoactive bowel sounds. : voiding without difficulty--straight cath as needed Extremities: paraplegic and left sided weakness. Gross motor ability in left hand, ROM in right UE normal, foot drop bilaterally, pedal edema Neuro: alert and oriented x3 Objective Data Vital Signs Vital Signs: Vital Signs - 24 hr 08/28/24 10:59 08/28/24 12:00 08/28/24 14:00 Temperature 97.9 F 97.7 F Pulse Rate 80 80 87 Respiratory Rate 16 16 20 Blood Pressure 164/101 H 150/98 H Pulse Oximetry 98 98 98 Oxygen Delivery Room Air 08/28/24 20:29 08/28/24 20:30 08/28/24 21:16 Temperature 97.2 F L Pulse Rate 72 86 86 Respiratory Rate 16 16 Blood Pressure 142/96 H Pulse Oximetry 99 99 Oxygen Delivery Room Air 08/29/24 06:00 Temperature 97.2 F L Pulse Rate 73 Respiratory Rate 16 Blood Pressure 145/94 H Pulse Oximetry 100 Oxygen Delivery Intake/Output Intake/Output: Intake & Output 08/26/24 08/27/24 08/28/24 08/29/24 23:59 23:59 23:59 23:59 Intake Total 50 1580 0 Output Total 75 300 550 Balance -25 1280 -550 Meds/Results Medications: Active Medications Generic Name Dose Route Start Last Admin Trade Name Freq PRN Reason Stop Dose Admin Acetaminophen 650 mg 08/28/24 08:13 08/28/24 19:00 Acetaminophen 325 Mg Tablet PO 650 mg Q4H PRN Administration Mild Pain (1-3) or Fever Amlodipine Besylate 5 mg 08/28/24 09:00 08/29/24 09:22 Amlodipine Besylate 5 Mg Tablet PO 5 mg DAILY WOOD Administration Amlodipine Besylate 5 mg 08/29/24 10:20 Amlodipine Besylate 5 Mg Tablet PO DAILY WOOD Apixaban 5 mg 08/28/24 09:00 08/29/24 09:22 Apixaban 5 Mg Tablet PO 5 mg Q12HR WOOD Administration Atorvastatin Calcium 40 mg 08/28/24 21:00 08/28/24 20:29 Atorvastatin 40 Mg Tablet PO 40 mg HS WOOD Administration Bisacodyl 10 mg 08/28/24 08:13 Bisacodyl 10 Mg Suppository RECTAL ONCE PRN Constipation Bisacodyl 5 mg 08/28/24 08:13 Bisacodyl 5 Mg Tablet Ec PO DAILY PRN Constipation Carvedilol 25 mg 08/28/24 09:00 08/29/24 09:22 Carvedilol 25 Mg Tablet PO 25 mg Q12H WOOD Administration Divalproex Sodium 500 mg 08/28/24 09:00 08/29/24 09:[address] 250 Mg Tabec PO 500 mg Q12H WOOD Administration Enoxaparin Sodium 40 mg 08/28/24 09:00 08/29/24 09:23 Enoxaparin 40 Mg/0.4 Ml Syringe SUB-Q 40 mg DAILY WOOD Administration Cefepime HCl 2 gm in 50 mls @ 100 mls/hr 08/28/24 09:00 08/29/24 09:22 Maxipime 2 Gm/Ns 50 Ml IVPB 100 mls/hr Q12HR WOOD Administration Ondansetron HCl 4 mg 08/28/24 08:13 Ondansetron Inj 4 Mg/2 Ml Vial IV PUSH Q6H PRN Nausea And Vomiting Pantoprazole Sodium 40 mg 08/28/24 09:00 08/29/24 09:22 Pantoprazole 40 Mg Tablet PO 40 mg QAM WOOD Administration Polyethylene Glycol 17 gm 08/28/24 09:00 08/29/24 09:23 Polyethylene Glycol 3350 17 Gm Powd.Pack PO 17 gm DAILY WOOD Administration Tizanidine HCl 4 mg 08/28/24 08:28 Tizanidine Hcl 4 Mg Tablet PO Q8H PRN Muscle Spasm Radiology Results: ITS Impressions Chest X-Ray 08/27/24 21:25 IMPRESSION: Cardiomegaly with cardiac decompensation and pulmonary edema. Superimposed pneumonitis is marked excluded. Left basilar atelectasis versus pneumonia. Head CT 08/27/24 21:54 IMPRESSION: Hypodensity in the left parietal area with linear increased densities which is highly suggestive of an infarct with vascular calcifications. Bleeding is less likely. Low-grade mass cannot be excluded although less likely. MRI evaluation is advised. Chest/Abdomen/Pelvis CTA 08/27/24 22:02 IMPRESSION: CHEST: 1. No pulmonary embolism. 2. No evidence of aortic dissection. 3. Right basal pneumonia. ABDOMEN/PELVIS: 1. No acute abdominal process with no evidence of appendicitis, diverticulitis or intestinal obstruction. Brain MRI 08/28/24 14:17 IMPRESSION: 1. Small old infarcts at the right basal ganglia, right frontal and parietal lobes and left parietal lobe. No acute intracranial process. 2. Multiple scattered small foci of susceptibility artifact consistent with chronic microhemorrhage the majority in the irwin and bilateral basal ganglia and thalami most likely related to chronic hypertension. Labs Labs: Laboratory Results - last 24 hr 08/29/24 06:45 WBC 7.1 RBC 5.22 Hgb 15.1 Hct 47.8 MCV 91.6 MCH 28.9 MCHC 31.6 L RDW 14.3 Plt Count 219 MPV 12.5 H Immature Gran % (Auto) 0.1 Neut % (Auto) 69.3 Lymph % (Auto) 17.3 L [place] % (Auto) 9.7 H Eos % (Auto) 3.2 Baso % (Auto) 0.4 Lymph # (Auto) 1.23 [place] # (Auto) 0.7 H Eos # (Auto) 0.2 Baso # (Auto) 0.0 Abs Immat Gran (auto) 0.01 Absolute Neuts (auto) 4.9 Absolute Nucleated RBC 0.000 Nucleated RBC % 0.0 Sodium 137 Potassium 4.2 Chloride 110 H Carbon Dioxide 22 Anion Gap 5 BUN 20 Creatinine 1.10 Estim Creat Clear Calc 127 Estimated GFR > 60 Glucose 84 Calcium 9.1 Total Bilirubin 1.0 AST 17 ALT 13 Alkaline Phosphatase 100 Total Protein 6.0 L Albumin 3.5
[2024-08-29 14:00] VITALS: BP 140/86; PULSE 79; RESP 20; TEMP 36.9; O2SAT 95
[2024-08-29 21:13] VITALS: BP 133/95; PULSE 66; RESP 18; TEMP 36.7; O2SAT 100
[2024-08-29 21:31] VITALS: PULSE 66
[2024-08-29] MEDS: ATORVASTATIN 40 MG TABLET PO (21:31)
[2024-08-30] VITALS (7 sets, daily range): BP systolic 115–150; BP diastolic 83–97; PULSE 64–74; RESP 18–20; TEMP 36.4–36.8; O2SAT 98–100
[2024-08-30 07:32] LABS: Basophils Percent Auto 0.5 % (0.2-1.2); Eosinophils Absolute Auto 0.2 K/mm3 (0-0.3); Eosinophils Percent Auto 2.6 % (0-4.4); Hematocrit 46.2 % (42.0-52.0); Hemoglobin 14.9 g/dL (14.0-18.0); Immature Granulocyte Absolute 0.03 K/mm3 (0.00-0.031); Immature Granulocyte Percent A 0.5 % (0-0.5); Lymphocytes Percent Auto 20.5 % (18.3-44.2); Mean Corpuscular HGB Conc 32.3 g/dl (32-36); Mean Corpuscular Hemoglobin 29.3 pg (26-34); Mean Corpuscular Volume 90.8 fl (80-100); Monocytes Absolute Auto 0.5 K/mm3 (0.1-0.6); Monocytes Percent Auto 8.7 % (2.6-8.5); Neutrophils Absolute Auto 3.9 K/mm3 (1.3-6.7); Neutrophils Percent Auto 67.2 % (45.5-73.1); Platelet Count Result 177 k/mm3 (150-375); Red Blood Count 5.09 M/mm3 (4.6-6.20); Red Cell Distribution Width 14.2 % (11.5-14.5); White Blood Count 5.8 K/mm3 (4.5-10.0)
[2024-08-30 07:55] LABS: Alanine Aminotransferase 12 U/L (6-50); Albumin Level 3.4 g/dL (3.5-5.1); Alkaline Phosphatase 99 U/L (38-126); Anion Gap 4 mmol/L (4-12); Aspartate Amino Transferase 17 U/L (17-59); Bilirubin,Total 0.9 mg/dL (0.2-1.3); Blood Urea Nitrogen 17 mg/dL (9-20); Carbon Dioxide 21 mmol/L (22-30); Chloride 112 mmol/L (98-107); Estimated CRCL calculation 127 ml/min; Estimated Glomerular Filt Rate > 60; Glucose 80 mg/dL (65-110); Potassium 4.2 mmol/L (3.4-5.0); Sodium 137 mmol/L (137-145)
[2024-08-30] MEDS: PANTOPRAZOLE 40 MG TABLET PO (09:00)
[2024-08-30] MEDS: APIXABAN 5 MG TABLET PO ×2 (09:00→20:34)
[2024-08-30] MEDS: DIVALPROEX SODIUM DR 250 MG TABEC 500 MG PO ×2 (09:00→20:34)
[2024-08-30] MEDS: CEFEPIME 2 GM/NS 50 ML 2 GM/50 ML BAG IVPB (09:00)
[2024-08-30] MEDS: carvediloL 25 MG TABLET PO ×2 (09:00→20:34)
[2024-08-30] MEDS: amLODIPine BESYLATE 5 MG TABLET PO (09:00)
[2024-08-30] MEDS: polyethylene glycoL 3350 17 GM POWD.PACK PO (09:01)
[2024-08-30] MEDS: ENOXAPARIN 40 MG/0.4 ML SYRINGE SUB-Q (09:01)
--- NOTE | 2024-08-30 09:17 | PM.DS ---
DS: Admitting Diagnosis Discharge Date 08/30/24 Admitting Diagnosis Pneumonia Essential hypertension A fib CKD GERD COPD Paraplegia Obesity DS: Discharge Diagnosis Discharge Diagnosis (1) Pneumonia: Code(s): J18.9 - Pneumonia, unspecified organism Status: Acute (2) Abnormal head CT: Code(s): R93.0 - Abnormal findings on diagnostic imaging of skull and head, not elsewhere classified Status: Acute (3) Elevated troponin: Code(s): R79.89 - Other specified abnormal findings of blood chemistry Status: Acute (4) Chronic systolic (congestive) heart failure: Code(s): I50.22 - Chronic systolic (congestive) heart failure Status: Acute (5) A-fib: Qualifiers: Atrial fibrillation type: unspecified Qualified Code(s): I48.91 - Unspecified atrial fibrillation Code(s): I48.91 - Unspecified atrial fibrillation Status: Acute (6) Essential hypertension: Code(s): I10 - Essential (primary) hypertension Status: Acute (7) Gastro-esophageal reflux disease without esophagitis: Code(s): K21.9 - Gastro-esophageal reflux disease without esophagitis Status: Acute (8) COPD (chronic obstructive pulmonary disease): Code(s): J44.9 - Chronic obstructive pulmonary disease, unspecified Status: Acute (9) Paraplegia: Code(s): G82.20 - Paraplegia, unspecified Status: Acute (10) Obesity: Code(s): E66.9 - Obesity, unspecified Status: Acute DS: Summary Hospital Course Reason for hospitalization: Pneumonia Essential hypertension A fib CKD GERD COPD Paraplegia Obesity Hospital Course: This is a 34-year-old male with a significant past medical history of stroke with left-sided weakness, paraplegia, congestive heart failure, hypertension, chronic kidney disease, COPD,A-fib, obesity who presented to the hospital with nausea, vomiting, and chest discomfort. He was seen in the ED yesterday and was sent back to the intermediate and was diagnosed with Pneumonia. He was started on Keflex at that time. Work up in the hospital included a chest x-ray that shown cardiomegaly with cardiac decompensation and pulmonary edema, left basilar atelectasis versus pneumonia. Head CT shown hypodensity in the left parietal area with linear increased densities which is highly suggestive of an infarct with vascular calcifications. CTA of the Chest/abdomen/pelvis was negative for PE or aortic dissection, right basal pneumonia, no acute abdominal process. Initial labs shown a normal WBC count of 8.7, Na+ 136, Troponin 0.117>0.095, proBNP 439, procalcitonin 0.1. UA shown 4+ urine protein, trace ketones, otherwise negative. MRSA negative. Respiratory panel negative for influenza A and B, RSV, and COVID. Blood cultures obtained and pending. EKG showing NSR with first degree AV block with a rate of 85, QTc 443. Patient was started on Cefepime and Vancomycin in the ER. Vancomycin was discontinued due to negative MRSA. Brain MRI showed small old infarcts at the right basal ganglia, right frontal and parietal lobes and left parietal lobe, no acute intracranial process, multiple scattered small foci of susceptibility artifact consistent with chronic microhemorrhage the majority in the [place]win and bilateral basal ganglia and thalami most likely related to chronic hypertension. his echocardiogram shows grade 2 diastolic dysfunction with normal LV systolic function. he was started on 20 mg of Lasix daily. It also looked like he was not taking his nifedipine 60 mg daily and a prescription for this was sent with him. His vital signs are stable, he is afebrile, he is currently on room air. We transitioned his antibiotic over to Levaquin. He will need to finish the full course and then follow up with his primary care physician in 1 week. Final diagnosis: Pneumonia , acute on chronic congestive heart failure Status at Discharge Cognitive/behavioral status at discharge: Alert and oriented x3 Functional status at discharge: wheelchair bound Overall status at discharge: patient is progressing back to baseline Time Spent with Patient Time attestation: Total time spent providing and/or coordinating discharge services: Time spent: Greater than 30 minutes Exam Narrative: General: In no acute distress, well nourished Cardiac: Normal S1 and S2. No murmur, gallops or friction rubs, peripheral pulses intact. Respiratory: Lungs clear with diminished breath sound bilateral bases, no adventitious lung sounds, currently on room air Gastrointestinal: soft, non-distended, non-tender, normoactive bowel sounds. : voiding without difficulty--straight cath as needed Extremities: paraplegic and left sided weakness. Gross motor ability in left hand, ROM in right UE normal, foot drop bilaterally, pedal edema Neuro: alert and oriented x3 DS: Data Data Completed and Pending Completed studies during hospitalization: Brain MRI Chest/Abdomen/Pelvis CTA Head CT Chest X-ray x2 Pending studies at discharge: Blood cultures Labs on day of discharge: Labs from last 24 hours 08/30/24 06:41 WBC 5.8 RBC 5.09 Hgb 14.9 Hct 46.2 MCV 90.8 MCH 29.3 MCHC 32.3 RDW 14.2 Plt Count 177 MPV 13.0 H Immature Gran % (Auto) 0.5 Neut % (Auto) 67.2 Lymph % (Auto) 20.5 [place] % (Auto) 8.7 H Eos % (Auto) 2.6 Baso % (Auto) 0.5 Lymph # (Auto) 1.20 [place] # (Auto) 0.5 Eos # (Auto) 0.2 Baso # (Auto) 0.0 Abs Immat Gran (auto) 0.03 Absolute Neuts (auto) 3.9 Absolute Nucleated RBC 0.000 Nucleated RBC % 0.0 Sodium 137 Potassium 4.2 Chloride 112 H Carbon Dioxide 21 L Anion Gap 4 BUN 17 Creatinine 1.10 Estim Creat Clear Calc 127 Estimated GFR > 60 Glucose 80 Calcium 9.0 Total Bilirubin 0.9 AST 17 ALT 12 Alkaline Phosphatase 99 Total Protein 6.0 L Albumin 3.4 L Preliminary micro results at discharge 08/27/24 23:10 Blood Culture - Preliminary Blood 08/27/24 23:14 Blood Culture - Preliminary Blood Procedures/Treatments: None Discharge Plan Discharge Attending physician on discharge: Greg Rodriges Consulting providers: Arnoldo Choi Discharging Clinician: Margaret Andres Anticipated Discharge Date/Time: 08/30/24 09:00 Patient Disposition: NH Detention/Asst Living Activity: as tolerated Diet: as tolerated and heart healthy Discharge Instructions: Finish all your antibiotics as directed Follow up with primary care doctor in 1 week your blood pressures were noted to be Patient Instructions: Antibiotic Form Patient Language: Citizen Of [place] Stand Alone Forms: General Discharge Information Follow-up/Referrals: PHYSICIAN,OUTSIDE SALES PROFESSIONAL [Primary Care Provider] - 1 Week Discharge Medications: New levofloxacin 750 mg tablet 750 mg PO DAILY Qty: 5 0RF Continued atorvastatin 40 mg tablet 40 mg PO HS carvedilol 25 mg tablet 25 mg PO Q12H tizanidine 4 mg tablet 4 mg PO Q8H PRN (Reason: Muscle Spasm) divalproex 500 mg tablet,delayed release (DR/EC) 500 mg PO Q12H risperidone 2 mg tablet 2 mg PO Q12H Eliquis 5 mg tablet 5 mg PO BID polyethylene glycol 3350 [Miralax] 17 gram Powder In Packet 17 g PO DAILY Qty: 30 0RF sertraline 50 mg tablet Changed nifedipine 60 mg tablet extended release 24hr 60 mg PO DAILY Qty: 30 0RF Discontinued amlodipine 5 mg tablet 5 mg PO DAILY acetaminophen 650 mg Tablet 650 mg PO Q6H PRN (Reason: Pain) cephalexin 500 mg Capsule 500 mg PO Q12HR Qty: 9 0RF Date of admission: 08/29/24 11:26 Primary Care Provider: PHYSICIAN,OUTSIDE SALES PROFESSIONAL Admitting Provider: Luiza James V. Attending physician on admission: Margaret Andres Condition: Improved
[2024-08-30] MEDS: levoFLOXacin 750 MG TABLET PO (11:27)
[2024-08-30] MEDS: FUROSEMIDE 20 MG TABLET PO (11:27)
--- NOTE | 2024-08-30 17:40 | PC.NURSE ---
RN gave report to [place] at [facility] [place] at [phone]
[2024-08-30] MEDS: ATORVASTATIN 40 MG TABLET PO (20:34)
[2024-08-30] MEDS: ACETAMINOPHEN 325 MG TABLET 650 MG PO (20:46)
--- NOTE | 2024-08-30 22:41 | PC.NURSE ---
Nan RN told me in report that she gave report on the pt and she removed his IV and he was ready for discharge we were just waiting for an ambulance. EMS arrived for the pt and his discharge packet stated the pt was going to [facility] [place] but the transfer sheet said he was going to [facility] [place] so there was some confusion as to where he was supposed to go. I called [facility] [place] and they confirmed that the pt did not come from their facility. I then called [facility] [place] and they confirmed the pt came from their facility and they will be taking him back. Report was given to nurse Stewart at [facility] who was familiar with the pt. Pt left on a stretcher via EMS at approx [phone].
== END 2024-08-30 22:37 | DRG 139 ==
LOC: ANHED 23:03 → ANHIMU 08-28 07:08 → ANH3MEDSUR 08-29 11:51 → ANHIMU 08-29 11:53
PROVIDERS: Nurse Practitioner Acute Care; Admitting Provider Internal Medicine; Emergency Provider Emergency Medicine; Visit Provider General Practice
DX: J18.9 Pneumonia, unspecified organism (principal); J44.0 Chronic obstructive pulmonary disease with (acute) lower respiratory infection; N18.9 Chronic kidney disease, unspecified; I13.0 Hypertensive heart and chronic kidney disease with heart failure and stage 1 through stage 4 chronic kidney disease, or unspecified chronic kidney disease; I50.32 Chronic diastolic (congestive) heart failure; F43.10 Post-traumatic stress disorder, unspecified; F60.2 Antisocial personality disorder; F06.34 Mood disorder due to known physiological condition with mixed features; I48.91 Unspecified atrial fibrillation; G82.20 Paraplegia, unspecified; K21.9 Gastro-esophageal reflux disease without esophagitis; I24.89 Other forms of acute ischemic heart disease; I69.354 Hemiplegia and hemiparesis following cerebral infarction affecting left non-dominant side; Z68.39 Body mass index [BMI] 39.0-39.9, adult; E66.9 Obesity, unspecified; Z99.3 Dependence on wheelchair
CPT/HCPCS: 36415; 70450; 70551; 71045; 71275; 74177; 80053; 81001; 82565; 83605; 83690; 83735; 83880; 84145; 84484; 85025; 85610; 85730; 87040; 87637; 87641; 93005; 96365; 96366; 96367; 96372; 99285; A9270; G0378; G0379; J0692; J1650; J3370; Q9967

== ENCOUNTER 2025-01-16 02:52 | Observation (INO) | payer OTHER, SELFPAY ==
[2025-01-16] VITALS (16 sets, daily range): BP systolic 138–181; BP diastolic 89–156; PULSE 73–85; RESP 16–25; TEMP 36.4–37.4; O2SAT 95–100; BMI 38.9
--- NOTE | ~2025-01-16 | XR_ITS ---
XR chest 1V portable Ordering provider: Heather Martinez History: 34 years Male with . chest pain . Comparison: August 27, 2024 FINDINGS: MEDIASTINUM: The cardiac silhouette is moderately enlarged. Congestive ramy. LUNGS: No effusions or pneumothorax. Infiltrate is seen in the perihilar areas and left lower lobes. OTHER: No free air under the diaphragm. IMPRESSION: Highly suggestive of cardiomegaly with cardiac decompensation and pulmonary edema. Superimposed pneum onia is not excluded. Reviewed, dictated and finalized at location A. IMPRESSION: Highly suggestive of cardiomegaly with cardiac decompensation and pulmonary dorian ma. Superimposed pneumonia is not excluded.
--- NOTE | ~2025-01-16 | US_ITS ---
EXAMINATION: US venous doppler [facility] DATE: 01/16/2025 13:45 INDICATION: Swelling TECHNIQUE: Grayscale ultrasound images without and with compression and Doppler ultrasound images of the bilateral lower extremity veins were obtained. COMPARISON: None. FINDINGS: The visualized portions of right common femoral vein, profunda (deep) femoral vein, femoral vein, pop liteal vein, peroneal veins, posterior tibial veins, and greater saphenous vein outflow are patent. The visualized portions of left common femoral vein, profunda femoral vein, femoral vein, popliteal v ein and greater saphenous vein outflow are patent. Noncompressibility and absence of flow is identified within the peroneal and posterior tibial veins c onsistent with acute thrombus. IMPRESSION: No deep venous thrombosis within the right lower extremity. Noncompressibility and absence of flow within the left peroneal and posterior tibial veins, as detail ed above. Reviewed, dictated and finalized at location A. IMPRESSION: No deep venous thrombosis within the right lower extremity. Noncompressibility and absence of flow within the left peroneal and posterior t ibial veins, as detailed above.
--- NOTE | ~2025-01-16 | CT_ITS ---
EXAMINATION: CTA chest abdomen pelvis DATE: 01/16/2025 14:20 CDT INDICATION: Chest pain/epigastric pain with elevated troponin TECHNIQUE: Computed tomographic angiography (CTA) of the chest was performed, along with multiple con tiguous axial images of the abdomen and pelvis with 100 mL Omnipaque-350 intravenous contrast. The do se-length product was 1868.45 mGy-cm. Maximum intensity projection 3D-reconstructions of the aorta an d other arteries were constructed by the technologist on a separate workstation. FINDINGS/OBSERVATIONS: PULMONARY ARTERIES: No filling defect is identified within the main or proximal pulmonary artery. The main pulmonary artery is not enlarged. THORACIC AORTA: No aneurysmal dilatation or dissection is present. The great vessels are intact LUNGS: Bibasilar atelectasis, with a small right-sided pleural effusion. MEDIASTINUM: No morphologically suspicious or pathologically enlarged lymph nodes are identified with in the mediastinum or bilateral axilla. BONES OF THE CHEST: No acute fracture. No significant degenerative disease. No lytic or blastic lesions. HEART: The heart is enlarged, without pericardial effusion. LIVER: The liver demonstrates homogeneously decreased enhancement consistent with fatty infiltration, and is nonenlarged. GALLBLADDER AND BILIARY SYSTEM: The gallbladder is nonvisualized, presumably surgically absent. PANCREAS: The pancreas enhances homogeneously without ductal dilatation. SPLEEN: The spleen enhances homogeneously and is enlarged measuring 14 cm in longitudinal dimension. KIDNEYS: The bilateral kidneys enhance symmetrically without hydronephrosis or renal calculi. ADRENAL GLANDS: Unremarkable. GASTROINTESTINAL TRACT: Retained gastric contents within the stomach which is minimally distended. Fecal stasis within the colon. APPENDIX: The air-filled appendix is of normal caliber (axial series, images 180 through 223) VASCULATURE: Unremarkable. LYMPH NODES: No pathologically enlarged or morphologically suspicious lymph nodes within the retroperitoneum or at the root of the mesentery. PELVIC STRUCTURES: The bladder is minimally distended, and otherwise unremarkable. The prostate gland is not enlarged. BODY WALL AND MUSCULOSKELETAL: No significant degenerative disease within the lower thoracic or lumbosacral spine. IMPRESSION: No pulmonary embolus. No aortic dissection. Retained gastric contents within the stomach which is minimally distended. Bibasilar atelectasis. Fatty infiltration of the liver, which is not enlarged. Splenomegaly. Reviewed, dictated and finalized at location A.
--- NOTE | 2025-01-16 03:03 | ECG_ITS ---
Test Date: 2025-01-16 03:02:23 Measurements Intervals [place] Rate: 79 P: 52 ND: 221 QRS: -9 QRSD: 110 T: 136 QT: 365 QTc: 420 Interpretive Statements SINUS RHYTHM WITH FIRST DEGREE AV BLOCK; POOR BASELINE ARTIFACT MAY AFFECT INTERPRETATION POSSIBLE LEFT ATRIAL ENLARGEMENT [-0.1mV P-WAVE IN V1/V2] ST DEVIATION AND MODERATE T-WAVE ABNORMALITY, CONSIDER LATERAL ISCHEMIA [-0.1+ mV T-WAVE IN I/aVL/V5/V6] Compared to ECG 08/28/2024 01:12:55 NO SIGNIFICANT CHANGE Electronically Signed On 01-16-2025 10:49:53 CDT by Tate Danielson M.D.
--- OUTSIDE RECORDS SUMMARY | 2025-01-16 03:06 | XMS_ITS | Encounter Summary ---
Author Organization [facility] Address [address] [facility] [place] [address] Care Team Providers Care Occupational Therapy Supervisor Name Role Phone Unavailable Primary Care Provider Unavailabl e Encounter Details Date Type Department Care Team (Late st Contact Info) Description 12/26/2021 Lab Requisition [facility] [address] [place] [address] Unknown, Provider Social History Tobacco Use Types Packs/Day Years Used Date Smoking Tobacco: Some Days Smokeless Tobacco: Never Alcohol Use Standard Drinks/Week Comments Yes 15 (1 standard drink = 0.6 oz pu re alcohol) Sex and Gender Information Value Date Recorded Sex Assigned at Not on file 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 Answer Date of Assessment Author No 12/06/2021 4:24 PM Leander Paz RN * Is person blind or have serious difficulty seeing? Answer Date of Assessment Author No 12/06/2021 4:24 PM Leander Paz RN * Does person have serious difficulty walking/climbing stairs? Answer Date of Assessment Author Yes 12/06/2021 4:24 PM Leander Paz RN * Does person have difficulty dressing/bathing? Answer Date of Assessment Author Yes 12/06/2021 4:24 PM Leander Paz RN * Does person have difficulty doing errands alone? Answer Date of Assessment Author Yes 12/06/2021 4:24 PM Leander Paz RN documented as of this encounter Mental Status * Does person have difficulty concentrating/remembering/making decisions? Answer Entry Date Author Yes 12/06/2021 4:24 PM CDT Leander Ramey RN documented in this encounter Plan of Treatment Not on file documented as of this encounter Procedures Procedure Name Priority Date/Time Associated Diagnosis Comments RETIC COUNT STAT 12/26/2021 4:05 AM CDT COMPREHENSIVE METABOLIC PANEL STAT 12/26/2021 4:05 AM CDT PHOSPHORUS BLOOD STAT 12/26/2021 4:05 AM CDT documented in this encounter Results * PHOSPHORUS BLOOD (12/26/2021 4:05 AM CDT) Phosphorus 4.6 2.3 - 4.7 mg/dL 12/26/2021 10:00 AM CDT [facility] Blood BLOOD SPECIMEN / Unknown Venipuncture / Unknown 12/26/2021 4:05 AM CDT 12/26/2021 8:46 AM CDT us Provider Unknown LAB - CHEMISTRY ORDERABLES Pia l Result Performing Organization Address City/State/[facility] Co de Phone Number [facility] [address] [place] [address] * (ABNORMAL) COMPREHENSIVE METABOLIC PANEL (12/26/2021 4:05 AM CDT) Glucose 71 70 - 105 mg/dL 12/26/2021 10:00 AM CDT [facility] Sodium 138 136 - 145 mmol/L 12/26/2021 10:00 AM CDT [facility] Potassium 4.5 3.5 - 5.1 mmol/L 12/26/2021 10:00 AM CDT [facility] Chloride 102 98 - 107 mmol/L 12/26/2021 10:00 AM CDT [facility] CO2 25 23 - 31 mmol/L 12/26/2021 10:00 AM CDT [facility] Calcium 8.4 8.4 - 10.4 mg/dL 12/26/2021 10:00 AM CDT [facility] Anion Gap 11 8 - 18 mmol/L 12/26/2021 10:00 AM CDT [facility] BUN 20 8.9 - 20.6 mg/dL 12/26/2021 10:00 AM T [facility] Creatinine 0.85 0.72 - 1.25 mg/dL 12/26/2021 10:00 AM T [facility] Alkaline Phosphatase 112 40 - 150 U/L 12/26/2021 10:00 AM T [facility] ALT 23 0 - 61 U/L 12/26/2021 10:00 AM [facility] AST 17 5 - 34 U/L 12/26/2021 10:00 AM [facility] Protein Total 5.4(L) 6.4 - 8.3 gm/dL 12/26/2021 10:00 AM [facility] Albumin 2.8(L) 3.5 - 5.2 gm/dL 12/26/2021 10:00 AM [facility] Bilirubin Total 0.5 0.2 - 1.2 mg/dL 12/26/2021 10:00 AM [facility] eGFR by CKD-EPI >90 >=90 mL/min/1.7 3 m2 12/26/2021 10:00 AM [facility] Blood BLOOD SPECIMEN / Unknown Venipuncture / Unknown 12/26/2021 4:05 AM CDT 12/26/2021 8:46 AM CDT [facility] - 12/26/2021 10:00 AM CDT eGFR result was calculated using the updated CKD-EPI Creatinine Equations (2020). Prior to go live 2021 the eGFR was calculated using the MDRD calculation. Please note Reference Range change. us Provider Unknown LAB - CHEMISTRY ORDERABLES Pia l Result [facility] [address] [place] [address] * (ABNORMAL) RETIC COUNT (12/26/2021 4:05 AM CDT) Reticulocyte Count 3.60(H) 0.5 - 1.7 % 12/26/2021 9:35 AM [facility] Reticulocyte Absolute 0.1098(H) 0.0041 - 0.0971 x10E6/uL 12/26/2021 9:35 AM CDT [facility] Reticulocyte Immature Fractionated 19.3(H) 0.9 - 14.3 % 12/26/2021 9:35 AM CDT [facility] Hemoglobin Retic 32.0 27.8 - 36.8 pg 12/26/2021 9:35 AM CDT [facility] Blood BLOOD SPECIMEN / Unknown Venipuncture / Unknown 12/26/2021 4:05 AM CDT 12/26/2021 8:46 AM CDT us Provider Unknown LAB - HEMATOLOGY ORDERABLES Fin al Result Performing Organization Address City/State/[facility] Co de Phone Number [facility] [address] [place] [address] documented in this encounter Visit Diagnoses Not on filedocumented in this encounter
--- OUTSIDE RECORDS SUMMARY | 2025-01-16 03:06 | XMS_ITS | Encounter Summary ---
Author Organization [facility] Address [address] [place] [address] Care Team Providers Care Tire Classifier Name Role Phone Unavailable Primary Care Provider Unavailabl e Encounter Details Date Type Department Care Team (Late st Contact Info) Description 11/26/2021 Lab Requisition [facility] [address] [place] [address] [place] [address] [place] [address] Social History Tobacco Use Types Packs/Day Years Used Date Smoking Tobacco: Some Days Smokeless Tobacco: Never Alcohol Use Standard Drinks/Week Comments Yes 15 (1 standard drink = 0.6 oz pu re alcohol) Sex and Gender Information Value Date Recorded Sex Assigned at Not on file 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 Answer Date of Assessment Author No 07/11/2018 4:24 PM Laurita Painter RN * Is person blind or have serious difficulty seeing? Answer Date of Assessment Author No 07/11/2018 4:24 PM Laurita Painter RN * Does person have serious difficulty walking/climbing stairs? Answer Date of Assessment Author No 07/11/2018 4:24 PM Laurita Painter RN * Does person have difficulty dressing/bathing? Answer Date of Assessment Author No 07/11/2018 4:24 PM Laurita Painter RN * Does person have difficulty doing errands alone? Answer Date of Assessment Author No 07/11/2018 4:24 PM Laurita Painter RN documented as of this encounter Mental Status * Does person have difficulty concentrating/remembering/making decisions? Answer Entry Date Author No 07/11/2018 4:24 PM Laurita Painter RN documented in this encounter Plan of Treatment Not on file documented as of this encounter Procedures Procedure Name Priority Date/Time Associated Diagnosis Comments PT-INR STAT 11/26/2021 4:03 AM CDT COMPREHENSIVE METABOLIC PANEL STAT 11/26/2021 4:03 AM CDT CBC W AUTO DIFFERENTIAL STAT 11/26/2021 4:02 AM CDT documented in this encounter Results * (ABNORMAL) PT-INR (11/26/2021 4:03 AM CDT) PT 19.8(H) 12.1 - 14.8 sec 11/26/2021 9:40 AM CDT [facility] INR 1.7(H) 0.9 - 1.1 11/26/2021 9:40 AM CDT [facility] Blood BLOOD SPECIMEN / Unknown Venipuncture / Unknown 11/26/2021 4:03 AM CDT 11/26/2021 9:14 AM CDT Narrative [facility] - 11/26/2021 9:40 AM CDT Conventional Warfarin Anticoagulant Therapy: INR Reference Range: 2.0-3.0 Intensive Warfarin Anticoagulant Therapy: INR Reference Range: 2.5-3.5 us Orville Rodriguez MD LAB - COAGULATION ORDERABLES Fin al Result [facility] [address] [place] [address] * (ABNORMAL) COMPREHENSIVE METABOLIC PANEL (11/26/2021 4:03 AM CDT) Glucose 96 70 - 105 mg/dL 11/26/2021 9:48 AM CDT [facility] Sodium 153(H) 136 - 145 mmol/L 11/26/2021 9:48 AM CDT [facility] Potassium 4.5 3.5 - 5.1 mmol/L 11/26/2021 9:48 AM CDT [facility] Chloride 121(H) 98 - 107 mmol/L 11/26/2021 9:48 AM CDT [facility] CO2 21(L) 23 - 31 mmol/L 11/26/2021 9:48 AM CDT [facility] Calcium 7.8(L) 8.4 - 10.4 mg/dL 11/26/2021 9:48 AM CDT [facility] Anion Gap 11 8 - 18 mmol/L 11/26/2021 9:48 AM CDT [facility] BUN 53(H) 8.9 - 20.6 mg/dL 11/26/2021 9:48 AM CDT [facility] Creatinine 1.69(H) 0.72 - 1.25 mg/dL 11/26/2021 9:48 AM T [facility] Alkaline Phosphatase 74 40 - 150 U/L 11/26/2021 9:48 AM CDT [facility] ALT 16 0 - 61 U/L 11/26/2021 9:48 AM CDT [facility] AST 25 5 - 34 U/L 11/26/2021 9:48 AM T [facility] Protein Total 5.0(L) 6.4 - 8.3 gm/dL 11/26/2021 9:48 AM T [facility] Albumin 2.2(L) 3.5 - 5.2 gm/dL 11/26/2021 9:48 AM T [facility] Bilirubin Total 0.9 0.2 - 1.2 mg/dL 11/26/2021 9:48 AM T [facility] eGFR by CKD-EPI 55(L) >=90 mL/min/1.7 3 m2 11/26/2021 9:48 AM [facility] Blood BLOOD SPECIMEN / Unknown Venipuncture / Unknown 11/26/2021 4:03 AM CDT 11/26/2021 9:14 AM CDT Narrative [facility] - 11/26/2021 9:48 AM CDT eGFR result was calculated using the updated CKD-EPI Creatinine Equations (2020). Prior to go live 2021 the eGFR was calculated using the MDRD calculation. Please note Reference Range change. us Orville Rodriguez MD LAB - CHEMISTRY ORDERABLES Final Result [facility] [address] [place], [place] [id number] * (ABNORMAL) CBC WITH DIFFERENTIAL (11/26/2021 4:02 AM CDT) WBC 15.1(H) 4.4 - 10.7 x10E9/L 11/26/2021 9:33 AM CDT [facility] WBC Corrected 11/26/2021 9:33 AM CDT [facility] RBC 3.08(L) 3.80 - 5.40 x10E12/L 11/26/2021 9:33 AM CDT [facility] Hemoglobin 9.2(L) 12.0 - 17.6 gm/dL 11/26/2021 9:33 AM CDT [facility] Hematocrit 31.9(L) 35.2 - 51.7 % 11/26/2021 9:33 AM CDT [facility] MCV 103.6(H) 80.7 - 98.3 fl 11/26/2021 9:33 AM CDT [facility] MCH 29.9 26.7 - 34.0 pg 11/26/2021 9:33 AM CDT [facility] MCHC 28.8(L) 30.8 - 35.9 gm/dL 11/26/2021 9:33 AM CDT [facility] Platelet Count 180 153 - 416 x10E9/L 11/26/2021 9:33 AM CDT [facility] RDW-CV 21.7(H) 12.1 - 14.9 % 11/26/2021 9:33 AM CDT [facility] MPV 14.3(H) 9.4 - 12.9 fl 11/26/2021 9:33 AM CDT [facility] Neutrophils % 85.1(H) 44.0 - 73.0 % 11/26/2021 9:33 AM CDT [facility] Lymphocytes % 6.5(L) 20.0 - 43.0 % 11/26/2021 9:33 AM CDT [facility] Monocytes % 4.7(L) 5.0 - 13.0 % 11/26/2021 9:33 AM CDT [facility] Eosinophils % 2.9 0.0 - 6.0 % 11/26/2021 9:33 AM CDT [facility] Basophils % 0.3 0.0 - 2.0 % 11/26/2021 9:33 AM CDT [facility] Immature Granulocytes 0.5 0 - 1 % 11/26/2021 9:33 AM CDT [facility] Neutrophil Absolute 12.82(H) 2.01 - 7.14 x10E9/L 11/26/2021 9:33 AM CDT [facility] Lymphocytes Absolute 0.98(L) 1.07 - 3.94 x10E9/L 11/26/2021 9:33 AM CDT [facility] Monocytes Absolute 0.70 0.26 - 1.07 x10E9/L 11/26/2021 9:33 AM CDT [facility] Eosinophils Absolute 0.43 0 - 0.47 x10E9/L 11/26/2021 9:33 AM CDT [facility] Basophils Absolute 0.04 0 - 0.08 x10E9/L 11/26/2021 9:33 AM CDT [facility] Immature Granulocytes Absolute 0.08(H) 0.00 - 0.06 x10E9/L 11/26/2021 9:33 AM CDT [facility] nRBC Auto 0 /100 WBC 11/26/2021 9:33 AM T [facility] Blood BLOOD SPECIMEN / Unknown Venipuncture / Unknown 11/26/2021 4:02 AM CDT 11/26/2021 9:14 AM CDT us Orville Rodriguez MD LAB - HEMATOLOGY ORDERABLES Pia fenton Result [facility] [address] [place] [address] documented in this encounter Visit Diagnoses Not on filedocumented in this encounter
--- OUTSIDE RECORDS SUMMARY | 2025-01-16 03:06 | XMS_ITS | Encounter Summary ---
Author Organization [facility] Address [address] [facility] [place] [address] Care Team Providers Care Ui Developer With Angular Js Name Role Phone Unavailable Primary Care Provider Unavailabl e Encounter Details Date Type Department Care Team (Late st Contact Info) Description 01/02/2022 Lab Requisition [facility] [address] [place] [address] [place] [address] [place] [address] Social History Tobacco Use Types Packs/Day Years Used Date Smoking Tobacco: Some Days Smokeless Tobacco: Never Alcohol Use Standard Drinks/Week Comments Yes 15 (1 standard drink = 0.6 oz pu re alcohol) Sex and Gender Information Value Date Recorded Sex Assigned at Not on file 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 Answer Date of Assessment Author No 12/06/2021 4:24 PM Leander Paz, JONI * Is person blind or have serious difficulty seeing? Answer Date of Assessment Author No 12/06/2021 4:24 PM Leander Paz RN * Does person have serious difficulty walking/climbing stairs? Answer Date of Assessment Author Yes 12/06/2021 4:24 PM Leander Paz, JONI * Does person have difficulty dressing/bathing? Answer Date of Assessment Author Yes 12/06/2021 4:24 PM Leander Paz, JONI * Does person have difficulty doing errands alone? Answer Date of Assessment Author Yes 12/06/2021 4:24 PM CDT Leander Ramey, RN documented as of this encounter Mental Status * Does person have difficulty concentrating/remembering/making decisions? Answer Entry Date Author Yes 12/06/2021 4:24 PM CDT Leander Ramey, RN documented in this encounter Plan of Treatment Not on file documented as of this encounter Procedures Procedure Name Priority Date/Time Associated Diagnosis Comments CBC W AUTO DIFFERENTIAL STAT 01/02/2022 4:24 AM CDT COMPREHENSIVE METABOLIC PANEL STAT 01/02/2022 4:24 AM CDT PHOSPHORUS BLOOD STAT 01/02/2022 4:24 AM CDT documented in this encounter Results * PHOSPHORUS BLOOD (01/02/2022 4:24 AM CDT) Phosphorus 4.6 2.3 - 4.7 mg/dL 01/02/2022 11:44 AM CDT [facility] Blood BLOOD SPECIMEN / Unknown Venipuncture / Unknown 01/02/2022 4:24 AM CDT 01/02/2022 10:20 AM CDT Thomas Espinal MD LAB - CHEMISTRY ORDERABLES Fi nal Result Performing Organization Address [facility]/State/[facility] Co de Phone Number [facility] [address] [place] [address] * (ABNORMAL) CBC WITH DIFFERENTIAL (01/02/2022 4:24 AM CDT) WBC 8.1 4.4 - 10.7 x10E9/L 01/02/2022 10:59 AM CDT [facility] WBC Corrected 01/02/2022 10:59 AM CDT [facility] RBC 3.16(L) 3.80 - 5.40 x10E12/L 01/02/2022 10:59 AM CDT [facility] Hemoglobin 9.6(L) 12.0 - 17.6 gm/dL 01/02/2022 10:59 AM CDT [facility] Hematocrit 31.3(L) 35.2 - 51.7 % 01/02/2022 10:59 AM [facility] MCV 99.1(H) 80.7 - 98.3 fl 01/02/2022 10:59 AM [facility] MCH 30.4 26.7 - 34.0 pg 01/02/2022 10:59 AM [facility] MCHC 30.7(L) 30.8 - 35.9 gm/dL 01/02/2022 10:59 AM [facility] Platelet Count 237 153 - 416 x10E9/L 01/02/2022 10:59 AM [facility] RDW-CV 15.8(H) 12.1 - 14.9 % 01/02/2022 10:59 AM [facility] MPV 12.2 9.4 - 12.9 fl 01/02/2022 10:59 AM [facility] Neutrophils % 75.9(H) 44.0 - 73.0 % 01/02/2022 10:59 AM [facility] Lymphocytes % 12.2(L) 20.0 - 43.0 % 01/02/2022 10:59 AM [facility] Monocytes % 8.2 5.0 - 13.0 % 01/02/2022 10:59 AM [facility] Eosinophils % 3.0 0.0 - 6.0 % 01/02/2022 10:59 AM [facility] Basophils % 0.5 0.0 - 2.0 % 01/02/2022 10:59 AM [facility] Immature Granulocytes 0.2 0 - 1 % 01/02/2022 10:59 AM [facility] Neutrophil Absolute 6.17 2.01 - 7.14 x10E9/L 01/02/2022 10:59 AM [facility] Lymphocytes Absolute 0.99(L) 1.07 - 3.94 x10E9/L 01/02/2022 10:59 AM [facility] Monocytes Absolute 0.67 0.26 - 1.07 x10E9/L 01/02/2022 10:59 AM [facility] Eosinophils Absolute 0.24 0 - 0.47 x10E9/L 01/02/2022 10:59 AM CDT [facility] Basophils Absolute 0.04 0 - 0.08 x10E9/L 01/02/2022 10:59 AM CDT [facility] Immature Granulocytes Absolute 0.02 0.00 - 0.06 x10E9/L 01/02/2022 10:59 AM CDT [facility] nRBC Auto 0 /100 WBC 01/02/2022 10:59 AM CDT [facility] Blood BLOOD SPECIMEN / Unknown Venipuncture / Unknown 01/02/2022 4:24 AM CDT 01/02/2022 10:20 AM CDT us Thomas Espinal MD LAB - HEMATOLOGY ORDERABLES F inal Result [facility] [address] [place] [address] * (ABNORMAL) COMPREHENSIVE METABOLIC PANEL (01/02/2022 4:24 AM CDT) [facility] Signature Glucose 79 70 - 105 mg/dL 01/02/2022 11:44 AM CDT [facility] Sodium 137 136 - 145 mmol/L 01/02/2022 11:44 AM CDT [facility] Potassium 3.5 3.5 - 5.1 mmol/L 01/02/2022 11:44 AM CDT [facility] Chloride 100 98 - 107 mmol/L 01/02/2022 11:44 AM CDT [facility] CO2 29 23 - 31 mmol/L 01/02/2022 11:44 AM CDT [facility] Calcium 8.0(L) 8.4 - 10.4 mg/dL 01/02/2022 11:44 [facility] Anion Gap 8 8 - 18 mmol/L 01/02/2022 11:44 AM CDT [facility] BUN 10 8.9 - 20.6 mg/dL 01/02/2022 11:44 AM CDT [facility] Creatinine 0.76 0.72 - 1.25 mg/dL 01/02/2022 11:44 AM CDT [facility] Alkaline Phosphatase 92 40 - 150 U/L 01/02/2022 11:44 AM CDT [facility] ALT 24 0 - 61 U/L 01/02/2022 11:44 AM CDT [facility] AST 24 5 - 34 U/L 01/02/2022 11:44 AM CDT [facility] Protein Total 4.8(L) 6.4 - 8.3 gm/dL 01/02/2022 11:44 AM CDT [facility] Albumin 2.5(L) 3.5 - 5.2 gm/dL 01/02/2022 11:44 AM CDT [facility] Bilirubin Total 0.9 0.2 - 1.2 mg/dL 01/02/2022 11:44 AM CDT [facility] eGFR by CKD-EPI >90 >=90 mL/min/1.7 3 m2 01/02/2022 11:44 AM CDT [facility] Blood BLOOD SPECIMEN / Unknown Venipuncture / Unknown 01/02/2022 4:24 AM CDT 01/02/2022 10:20 AM CDT Narrative [facility] - 01/02/2022 11:44 AM CDT eGFR result was calculated using the updated CKD-EPI Creatinine Equations (2020). Prior to go live 2021 the eGFR was calculated using the MDRD calculation. Please note Reference Range change. us Thomas Espinal MD LAB - CHEMISTRY ORDERABLES Fi nal Result [facility] [address] [place] [address] documented in this encounter Visit Diagnoses Not on filedocumented in this encounter
--- OUTSIDE RECORDS SUMMARY | 2025-01-16 03:06 | XMS_ITS | Encounter Summary ---
Author Organization [facility] Address [address] [facility] [place] [address] Care Team Providers Care Pizza Hut Assistant Name Role Phone Unavailable Primary Care Provider Unavailabl e Encounter Details Date Type Department Care Team (Late st Contact Info) Description 12/10/2021 Lab Requisition [facility] [address] [place] [address] Unknown, Provider Social History Tobacco Use Types Packs/Day Years Used Date Smoking Tobacco: Some Days Smokeless Tobacco: Never Alcohol Use Standard Drinks/Week Comments Yes 15 (1 standard drink = 0.6 oz pu re alcohol) Sex and Gender Information Value Date Recorded Sex Assigned at Not on file 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 Gender Identity Not on file Sexual Orientation [...] Procedure Name Priority Date/Time Associated Diagnosis Comments RENAL FUNCTION PANEL STAT 12/10/2021 3:05 AM CDT documented in this encounter Results * (ABNORMAL) RENAL FUNCTION PANEL (12/10/2021 3:05 AM CDT) [facility] Glucose 85 70 - 105 mg/dL 12/10/2021 8:57 AM CDT [facility] Sodium 139 136 - 145 mmol/L 12/10/2021 8:57 AM CDT [facility] Potassium 4.6 3.5 - 5.1 mmol/L 12/10/2021 8:57 AM CDT [facility] Chloride 108(H) 98 - 107 mmol/L 12/10/2021 8:57 AM CDT [facility] CO2 19(L) 23 - 31 mmol/L 12/10/2021 8:57 AM CDT [facility] Calcium 7.8(L) 8.4 - 10.4 mg/dL 12/10/2021 8:57 AM CDT [facility] Anion Gap 12 8 - 18 mmol/L 12/10/2021 8:57 AM CDT [facility] BUN 33(H) 8.9 - 20.6 mg/dL 12/10/2021 8:57 AM CDT [facility] Creatinine 1.06 0.72 - 1.25 mg/dL 12/10/2021 8:57 AM CDT [facility] Albumin 2.5(L) 3.5 - 5.2 gm/dL 12/10/2021 8:57 AM CDT [facility] Phosphorus 3.0 2.3 - 4.7 mg/dL 12/10/2021 8:57 AM CDT [facility] eGFR by CKD-EPI >90 >=90 mL/min/1.7 3 m2 12/10/2021 8:57 AM CDT [facility] Blood BLOOD SPECIMEN / Unknown Venipuncture / Unknown 12/10/2021 3:05 AM CDT 12/10/2021 8:10 AM CDT Narrative [facility] - 12/10/2021 8:57 AM CDT eGFR result was calculated using the updated CKD-EPI Creatinine Equations (2020). Prior to go live 2021 the eGFR was calculated using the MDRD calculation. Please note Reference Range change. us Provider Unknown LAB - CHEMISTRY ORDERABLES Pia fenton Result Performing Organization Address City/State/[facility] Co de Phone Number [facility] [address] [place] [address] documented in this encounter Visit Diagnoses Not on filedocumented in this encounter
--- OUTSIDE RECORDS SUMMARY | 2025-01-16 03:06 | XMS_ITS | Encounter Summary ---
Author Organization [facility] Address [address] [place] [address] Care Team Providers Care Counselor Manager Name Role Phone Unavailable Primary Care Provider Unavailabl e Encounter Details Date Type Department Care Team (Late st Contact Info) Description 12/30/2021 Lab Requisition [facility] [address] [place] [address] Unknown, Provider Social History Tobacco Use Types Packs/Day Years Used Date Smoking Tobacco: Some Days Smokeless Tobacco: Never Alcohol Use Standard Drinks/Week Comments Yes 15 (1 standard drink = 0.6 oz pu re alcohol) Sex and Gender Information Value Date Recorded Sex Assigned at Not on file 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 Gender Identity Not on file Sexual Orientation [...] Diagnosis Comments CBC W AUTO DIFFERENTIAL STAT 12/30/2021 3:45 AM CDT RENAL FUNCTION PANEL STAT 12/30/2021 3:45 AM CDT documented in this encounter Results * (ABNORMAL) RENAL FUNCTION PANEL (12/30/2021 3:45 AM CDT) Glucose 86 70 - 105 mg/dL 12/30/2021 10:39 AM CDT [facility] Sodium 137 136 - 145 mmol/L 12/30/2021 10:39 AM CDT [facility] Potassium 3.7 3.5 - 5.1 mmol/L 12/30/2021 10:39 AM CDT [facility] Chloride 99 98 - 107 mmol/L 12/30/2021 10:39 AM CDT [facility] CO2 27 23 - 31 mmol/L 12/30/2021 10:39 AM CDT [facility] Calcium 8.2(L) 8.4 - 10.4 mg/dL 12/30/2021 10:39 AM CDT [facility] Anion Gap 11 8 - 18 mmol/L 12/30/2021 10:39 AM CDT [facility] BUN 16 8.9 - 20.6 mg/dL 12/30/2021 10:39 AM CDT [facility] Creatinine 0.81 0.72 - 1.25 mg/dL 12/30/2021 10:39 AM CDT [facility] Albumin 2.7(L) 3.5 - 5.2 gm/dL 12/30/2021 10:39 AM CDT [facility] Phosphorus 5.1(H) 2.3 - 4.7 mg/dL 12/30/2021 10:39 AM CDT [facility] eGFR by CKD-EPI >90 >=90 mL/min/1.7 3 m2 12/30/2021 10:39 AM CDT [facility] Blood BLOOD SPECIMEN / Unknown Venipuncture / Unknown 12/30/2021 3:45 AM CDT 12/30/2021 9:33 AM CDT [facility] - 12/30/2021 10:39 AM CDT eGFR result was calculated using the updated CKD-EPI Creatinine Equations (2020). Prior to go live 2021 the eGFR was calculated using the MDRD calculation. Please note Reference Range change. us Provider Unknown LAB - CHEMISTRY ORDERABLES Pia fenton Result [facility] [address] [place] [address] * (ABNORMAL) CBC WITH DIFFERENTIAL (12/30/2021 3:45 AM CDT) [facility] WBC 8.8 4.4 - 10.7 x10E9/L 12/30/2021 10:25 AM CDT [facility] WBC Corrected 12/30/2021 10:25 AM CDT [facility] RBC 3.26(L) 3.80 - 5.40 x10E12/L 12/30/2021 10:25 AM CDT [facility] Hemoglobin 10.0(L) 12.0 - 17.6 gm/dL 12/30/2021 10:25 AM CDT [facility] Hematocrit 32.3(L) 35.2 - 51.7 % 12/30/2021 10:25 AM CDT [facility] MCV 99.1(H) 80.7 - 98.3 fl 12/30/2021 10:25 AM CDT [facility] MCH 30.7 26.7 - 34.0 pg 12/30/2021 10:25 AM CDT [facility] MCHC 31.0 30.8 - 35.9 gm/dL 12/30/2021 10:25 AM CDT [facility] Platelet Count 257 153 - 416 x10E9/L 12/30/2021 10:25 AM CDT [facility] RDW-CV 16.8(H) 12.1 - 14.9 % 12/30/2021 10:25 AM CDT [facility] MPV 12.2 9.4 - 12.9 fl 12/30/2021 10:25 AM CDT [facility] Neutrophils % 78.4(H) 44.0 - 73.0 % 12/30/2021 10:25 AM CDT [facility] Lymphocytes % 8.4(L) 20.0 - 43.0 % 12/30/2021 10:25 AM CDT [facility] Monocytes % 9.6 5.0 - 13.0 % 12/30/2021 10:25 AM CDT [facility] Eosinophils % 3.0 0.0 - 6.0 % 12/30/2021 10:25 AM CDT [facility] Basophils % 0.3 0.0 - 2.0 % 12/30/2021 10:25 AM CDT [facility] Immature Granulocytes 0.3 0 - 1 % 12/30/2021 10:25 AM CDT [facility] Neutrophil Absolute 6.89 2.01 - 7.14 x10E9/L 12/30/2021 10:25 AM CDT [facility] Lymphocytes Absolute 0.74(L) 1.07 - 3.94 x10E9/L 12/30/2021 10:25 AM CDT [facility] Monocytes Absolute 0.84 0.26 - 1.07 x10E9/L 12/30/2021 10:25 AM CDT [facility] Eosinophils Absolute 0.26 0 - 0.47 x10E9/L 12/30/2021 10:25 AM CDT [facility] Basophils Absolute 0.03 0 - 0.08 x10E9/L 12/30/2021 10:25 AM CDT [facility] Immature Granulocytes Absolute 0.03 0.00 - 0.06 x10E9/L 12/30/2021 10:25 AM CDT [facility] nRBC Auto 0 /100 WBC 12/30/2021 10:25 AM T [facility] Blood BLOOD SPECIMEN / Unknown Venipuncture / Unknown 12/30/2021 3:45 AM CDT 12/30/2021 9:33 AM CDT us Provider Unknown LAB - HEMATOLOGY ORDERABLES Fin al Result Performing Organization Address City/State/[facility] Co de Phone Number [facility] [address] [place], [place] [phone] documented in this encounter Visit Diagnoses Not on filedocumented in this encounter
--- OUTSIDE RECORDS SUMMARY | 2025-01-16 03:06 | XMS_ITS | Encounter Summary ---
Author Organization [facility] Address [address] [place] [address] Care Team Providers Care Embroidery Machine Operator Name Role Phone Unavailable Primary Care Provider Unavailabl e Encounter Details Date Type Department Care Team (Late st Contact Info) Description 12/19/2021 Lab Requisition [facility] [address] [place] [address] Unknown, Provider Social History Tobacco Use Types Packs/Day Years Used Date Smoking Tobacco: Some Days Smokeless Tobacco: Never Alcohol Use Standard Drinks/Week Comments Yes 15 (1 standard drink = 0.6 oz pu re alcohol) Sex and Gender Information Value Date Recorded Sex Assigned at Not on file 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 Gender Identity Not on file Sexual Orientation [...] Date/Time Associated Diagnosis Comments RETIC COUNT STAT 12/19/2021 3:00 AM CDT COMPREHENSIVE METABOLIC PANEL STAT 12/19/2021 3:00 AM CDT PHOSPHORUS BLOOD STAT 12/19/2021 3:00 AM CDT documented in this encounter Results * PHOSPHORUS BLOOD (12/19/2021 3:00 AM CDT) Pathologist [facility] Phosphorus 3.6 2.3 - 4.7 mg/dL 12/19/2021 2:00 PM CDT [facility] Blood BLOOD SPECIMEN / Unknown Venipuncture / Unknown 12/19/2021 3:00 AM CDT 12/19/2021 1:40 PM CDT us Provider Unknown LAB - CHEMISTRY ORDERABLES Pia l Result Performing Organization Address City/State/[facility] Co de Phone Number [facility] [address] [place] [address] * (ABNORMAL) COMPREHENSIVE METABOLIC PANEL (12/19/2021 3:00 AM CDT) Pathologist [facility] Glucose 101 70 - 105 mg/dL 12/19/2021 9:54 AM CDT [facility] Sodium 141 136 - 145 mmol/L 12/19/2021 9:54 AM CDT [facility] Potassium 4.6 3.5 - 5.1 mmol/L 12/19/2021 9:54 AM CDT [facility] Chloride 107 98 - 107 mmol/L 12/19/2021 9:54 AM CDT [facility] CO2 22(L) 23 - 31 mmol/L 12/19/2021 9:54 AM CDT [facility] Calcium 7.8(L) 8.4 - 10.4 mg/dL 12/19/2021 9:54 AM CDT [facility] Anion Gap 12 8 - 18 mmol/L 12/19/2021 9:54 AM CDT [facility] BUN 29(H) 8.9 - 20.6 mg/dL 12/19/2021 9:54 AM CDT [facility] Creatinine 0.81 0.72 - 1.25 mg/dL 12/19/2021 9:54 AM CDT [facility] Alkaline Phosphatase 94 40 - 150 U/L 12/19/2021 9:54 AM CDT [facility] ALT 18 0 - 61 U/L 12/19/2021 9:54 AM CDT [facility] AST 15 5 - 34 U/L 12/19/2021 9:54 AM CDT [facility] Protein Total 5.0(L) 6.4 - 8.3 gm/dL 12/19/2021 9:54 AM CDT [facility] Albumin 2.5(L) 3.5 - 5.2 gm/dL 12/19/2021 9:54 AM CDT [facility] Bilirubin Total 0.8 0.2 - 1.2 mg/dL 12/19/2021 9:54 AM CDT [facility] eGFR by CKD-EPI >90 >=90 mL/min/1.7 3 m2 12/19/2021 9:54 AM CDT [facility] Blood BLOOD SPECIMEN / Unknown Venipuncture / Unknown 12/19/2021 3:00 AM CDT 12/19/2021 9:16 AM CDT [facility] - 12/19/2021 9:54 AM CDT eGFR result was calculated using the updated CKD-EPI Creatinine Equations (2020). Prior to go live 2021 the eGFR was calculated using the MDRD calculation. Please note Reference Range change. us Provider Unknown LAB - CHEMISTRY ORDERABLES Pia l Result [facility] [address] [place] [address] * (ABNORMAL) RETIC COUNT (12/19/2021 3:00 AM CDT) Reticulocyte Count 2.81(H) 0.5 - 1.7 % 12/19/2021 9:31 AM CDT [facility] Reticulocyte Absolute 0.0835 0.0041 - 0.0971 x10E6/uL 12/19/2021 9:31 AM CDT [facility] Reticulocyte Immature Fractionated 24.1(H) 0.9 - 14.3 % 12/19/2021 9:31 AM CDT [facility] Hemoglobin Retic 32.2 27.8 - 36.8 pg 12/19/2021 9:31 AM CDT [facility] Blood BLOOD SPECIMEN / Unknown Venipuncture / Unknown 12/19/2021 3:00 AM CDT 12/19/2021 9:16 AM CDT us Provider Unknown LAB - HEMATOLOGY ORDERABLES Fin al Result Performing Organization Address City/State/[facility] Co de Phone Number [facility] [address] [place], [place] [phone] documented in this encounter Visit Diagnoses Not on filedocumented in this encounter
--- OUTSIDE RECORDS SUMMARY | 2025-01-16 03:06 | XMS_ITS | Encounter Summary ---
Author Organization [facility] Address [address] [facility] [place] [address] Care Team Providers Care Tool And Die Maker Level Five Name Role Phone Unavailable Primary Care Provider Unavailabl e Encounter Details Date Type Department Care Team (Late st Contact Info) Description 12/05/2021 Lab Requisition [facility] [address] [place] [address] Abhi Barajas MD [address] [place] [address] Social History Tobacco Use Types Packs/Day Years Used Date Smoking Tobacco: Some Days Smokeless Tobacco: Never Alcohol Use Standard Drinks/Week Comments Yes 15 (1 standard drink = 0.6 oz pu re alcohol) Sex and Gender Information Value Date Recorded Sex Assigned at Not on file 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 Gender Identity Not on file Sexual Orientation [...] Diagnosis Comments CBC W AUTO DIFFERENTIAL STAT 12/05/2021 4:00 AM CDT COMPREHENSIVE METABOLIC PANEL STAT 12/05/2021 4:00 AM CDT VANCOMYCIN LEVEL RANDOM STAT 12/05/2021 4:00 AM CDT documented in this encounter Results * (ABNORMAL) CBC WITH DIFFERENTIAL (12/05/2021 4:00 AM CDT) WBC 18.0(H) 4.4 - 10.7 x10E9/L 12/05/2021 9:08 AM CDT [facility] WBC Corrected 12/05/2021 9:08 AM CDT [facility] RBC 3.30(L) 3.80 - 5.40 x10E12/L 12/05/2021 9:08 AM CDT [facility] Hemoglobin 9.9(L) 12.0 - 17.6 gm/dL 12/05/2021 9:08 AM CDT [facility] Hematocrit 34.1(L) 35.2 - 51.7 % 12/05/2021 9:08 AM CDT [facility] MCV 103.3(H) 80.7 - 98.3 fl 12/05/2021 9:08 AM CDT [facility] MCH 30.0 26.7 - 34.0 pg 12/05/2021 9:08 AM CDT [facility] MCHC 29.0(L) 30.8 - 35.9 gm/dL 12/05/2021 9:08 AM CDT [facility] Platelet Count 185 153 - 416 x10E9/L 12/05/2021 9:08 AM CDT [facility] RDW-CV 20.3(H) 12.1 - 14.9 % 12/05/2021 9:08 AM [facility] Neutrophils % 86.4(H) 44.0 - 73.0 % 12/05/2021 9:08 AM [facility] Lymphocytes % 5.6(L) 20.0 - 43.0 % 12/05/2021 9:08 AM [facility] Monocytes % 6.1 5.0 - 13.0 % 12/05/2021 9:08 AM [facility] Eosinophils % 0.7 0.0 - 6.0 % 12/05/2021 9:08 AM [facility] Basophils % 0.3 0.0 - 2.0 % 12/05/2021 9:08 AM [facility] Immature Granulocytes 0.9 0 - 1 % 12/05/2021 9:08 AM [facility] Neutrophil Absolute 15.57(H) 2.01 - 7.14 x10E9/L 12/05/2021 9:08 AM [facility] Lymphocytes Absolute 1.00(L) 1.07 - 3.94 x10E9/L 12/05/2021 9:08 AM [facility] Monocytes Absolute 1.09(H) 0.26 - 1.07 x10E9/L 12/05/2021 9:08 AM [facility] Eosinophils Absolute 0.13 0 - 0.47 x10E9/L 12/05/2021 9:08 AM [facility] Basophils Absolute 0.05 0 - 0.08 x10E9/L 12/05/2021 9:08 AM [facility] Immature Granulocytes Absolute 0.17(H) 0.00 - 0.06 x10E9/L 12/05/2021 9:08 AM [facility] nRBC Auto 0 /100 WBC 12/05/2021 9:08 AM [facility] Blood BLOOD SPECIMEN / Unknown Venipuncture / Unknown 12/05/2021 4:00 AM CDT 12/05/2021 8:48 AM T Abhi Barajas MD LAB - HEMATOLOGY ORDERABLES Pia eliceo Result [facility] [address] [place] [address] * (ABNORMAL) COMPREHENSIVE METABOLIC PANEL (12/05/2021 4:00 AM CDT) Glucose 95 70 - 105 mg/dL 12/05/2021 9:27 AM CDT [facility] Sodium 145 136 - 145 mmol/L 12/05/2021 9:27 AM CDT [facility] Potassium 4.2 3.5 - 5.1 mmol/L 12/05/2021 9:27 AM CDT [facility] Chloride 117(H) 98 - 107 mmol/L 12/05/2021 9:[facility] CO2 21(L) 23 - 31 mmol/L 12/05/2021 9:27 AM CDT [facility] Calcium 7.4(L) 8.4 - 10.4 mg/dL 12/05/2021 9:27 AM [facility] Anion Gap 7(L) 8 - 18 mmol/L 12/05/2021 9:27 AM CDT [facility] BUN 50(H) 8.9 - 20.6 mg/dL 12/05/2021 9:27 AM CDT [facility] Creatinine 1.19 0.72 - 1.25 mg/dL 12/05/2021 9:27 AM [facility] Alkaline Phosphatase 84 40 - 150 U/L 12/05/2021 9:27 AM CDT [facility] ALT 18 0 - 61 U/L 12/05/2021 9:27 AM CDT [facility] AST 15 5 - 34 U/L 12/05/2021 9:27 AM [facility] Protein Total 4.4(L) 6.4 - 8.3 gm/dL 12/05/2021 9:27 AM CDT [facility] Albumin 2.1(L) 3.5 - 5.2 gm/dL 12/05/2021 9:27 AM [facility] Bilirubin Total 0.8 0.2 - 1.2 mg/dL 12/05/2021 9:27 AM [facility] eGFR by CKD-EPI 83(L) >=90 mL/min/1.7 3 m2 12/05/2021 9:27 AM CDT [facility] Blood BLOOD SPECIMEN / Unknown Venipuncture / Unknown 12/05/2021 4:00 AM CDT 12/05/2021 8:48 AM CDT Narrative [facility] - 12/05/2021 9:27 AM CDT eGFR result was calculated using the updated CKD-EPI Creatinine Equations (2020). Prior to go live 2021 the eGFR was calculated using the MDRD calculation. Please note Reference Range change. Abhi Barajas MD LAB - CHEMISTRY ORDERABLES Final Result Performing Organization Address City/[facility]/ZIP Co de Phone Number [facility] [address] [place], [place] [phone] * VANCOMYCIN LEVEL RANDOM (12/05/2021 4:00 AM CDT) Vancomycin Random 16.6 ug/mL 12/05/2021 9:27 AM CDT [facility] Blood BLOOD SPECIMEN / Unknown Venipuncture / Unknown 12/05/2021 4:00 AM CDT 12/05/2021 8:48 AM CDT Narrative [facility] - 12/05/2021 9:27 AM CDT No reference range available for random Vancomycin levels. All results interpreted by ordering physician. Abhi Barajas MD LAB - CHEMISTRY ORDERABLES Final Result Performing Organization Address City/[facility]/ZIP Co de Phone Number [facility] [address] [place], [place] [phone] documented in this encounter Visit Diagnoses Not on filedocumented in this encounter
--- OUTSIDE RECORDS SUMMARY | 2025-01-16 03:06 | XMS_ITS | Encounter Summary ---
Author Organization [facility] Address [address] [place] [address] Care Team Providers Care Public Service Administrator Name Role Phone Unavailable Primary Care Provider Unavailabl e Encounter Details Date Type Department Care Team (Late st Contact Info) Description 12/25/2021 Lab Requisition [facility] [address] [place] [address] [place] [address] [facility] [address] [place], [place] [phone] Social History Tobacco Use Types Packs/Day Years Used Date Smoking Tobacco: Some Days Smokeless Tobacco: Never Alcohol Use Standard Drinks/Week Comments Yes 15 (1 standard drink = 0.6 oz pu re alcohol) Sex and Gender Information Value Date Recorded Sex Assigned at Not on file 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 Gender Identity Not on file Sexual Orientation [...] Procedure Name Priority Date/Time Associated Diagnosis Comments BASIC METABOLIC PANEL (CALCIUM TOTAL) STAT 12/25/2021 3:24 AM CDT documented in this encounter Results * (ABNORMAL) BASIC METABOLIC PANEL (CALCIUM TOTAL) (12/25/2021 3:24 AM CDT) [facility] Glucose 84 70 - 105 mg/dL 12/25/2021 8:45 AM CDT [facility] Sodium 137 136 - 145 mmol/L 12/25/2021 8:45 AM CDT [facility] Potassium 4.6 3.5 - 5.1 mmol/L 12/25/2021 8:45 AM CDT [facility] Chloride 104 98 - 107 mmol/L 12/25/2021 8:45 AM CDT [facility] CO2 27 23 - 31 mmol/L 12/25/2021 8:45 AM CDT [facility] Calcium 8.2(L) 8.4 - 10.4 mg/dL 12/25/2021 8:45 AM CDT [facility] Anion Gap 6(L) 8 - 18 mmol/L 12/25/2021 8:45 AM CDT [facility] BUN 21(H) 8.9 - 20.6 mg/dL 12/25/2021 8:45 AM CDT [facility] Creatinine 0.81 0.72 - 1.25 mg/dL 12/25/2021 8:45 AM CDT [facility] eGFR by CKD-EPI >90 >=90 mL/min/1.7 3 m2 12/25/2021 8:45 AM CDT [facility] Blood BLOOD SPECIMEN / Unknown Venipuncture / Unknown 12/25/2021 3:24 AM CDT 12/25/2021 8:07 AM CDT [facility] - 12/25/2021 8:45 AM CDT eGFR result was calculated using the updated CKD-EPI Creatinine Equations (2020). Prior to go live 2021 the eGFR was calculated using the MDRD calculation. Please note Reference Range change. us Mejia [place] MD LAB - CHEMISTRY ORDERABLES Final Result [facility] [address] [place], [place] [phone] documented in this encounter Visit Diagnoses Not on filedocumented in this encounter
--- OUTSIDE RECORDS SUMMARY | 2025-01-16 03:06 | XMS_ITS | Encounter Summary ---
Author Organization [facility] Address [address] [place] [address] Care Team Providers Care Geoscience Technician Name Role Phone Unavailable Primary Care Provider Unavailabl e Encounter Details Date Type Department Care Team (Late st Contact Info) Description 01/06/2022 Lab Requisition [facility] [address] [place] [address] [place] [address] [place] [address] Social History Tobacco Use Types Packs/Day Years Used Date Smoking Tobacco: Some Days Smokeless Tobacco: Never Alcohol Use Standard Drinks/Week Comments Yes 15 (1 standard drink = 0.6 oz pu re alcohol) Sex and Gender Information Value Date Recorded Sex Assigned at Not on file 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 Gender Identity Not on file Sexual Orientation [...] Diagnosis Comments CBC W AUTO DIFFERENTIAL STAT 01/06/2022 2:58 AM CDT COMPREHENSIVE METABOLIC PANEL STAT 01/06/2022 2:58 AM CDT documented in this encounter Results * (ABNORMAL) CBC WITH DIFFERENTIAL (01/06/2022 2:58 AM CDT) WBC 7.7 4.4 - 10.7 x10E9/L 01/06/2022 9:48 AM CDT [facility] WBC Corrected 01/06/2022 9:48 AM CDT [facility] RBC 3.33(L) 3.80 - 5.40 x10E12/L 01/06/2022 9:48 AM CDT [facility] Hemoglobin 9.9(L) 12.0 - 17.6 gm/dL 01/06/2022 9:48 AM CDT [facility] Hematocrit 32.5(L) 35.2 - 51.7 % 01/06/2022 9:48 AM CDT [facility] MCV 97.6 80.7 - 98.3 fl 01/06/2022 9:48 AM CDT [facility] MCH 29.7 26.7 - 34.0 pg 01/06/2022 9:48 AM CDT [facility] MCHC 30.5(L) 30.8 - 35.9 gm/dL 01/06/2022 9:48 AM CDT [facility] Platelet Count 265 153 - 416 x10E9/L 01/06/2022 9:48 AM CDT [facility] RDW-CV 15.2(H) 12.1 - 14.9 % 01/06/2022 9:48 AM CDT [facility] MPV 11.8 9.4 - 12.9 fl 01/06/2022 9:48 AM CDT [facility] Neutrophils % 74.9(H) 44.0 - 73.0 % 01/06/2022 9:48 AM CDT [facility] Lymphocytes % 11.3(L) 20.0 - 43.0 % 01/06/2022 9:48 AM CDT [facility] Monocytes % 9.0 5.0 - 13.0 % 01/06/2022 9:48 AM CDT [facility] Eosinophils % 3.9 0.0 - 6.0 % 01/06/2022 9:48 AM CDT [facility] Basophils % 0.5 0.0 - 2.0 % 01/06/2022 9:48 AM CDT [facility] Immature Granulocytes 0.4 0 - 1 % 01/06/2022 9:48 AM CDT [facility] Neutrophil Absolute 5.75 2.01 - 7.14 x10E9/L 01/06/2022 9:48 AM CDT [facility] Lymphocytes Absolute 0.87(L) 1.07 - 3.94 x10E9/L 01/06/2022 9:48 AM CDT [facility] Monocytes Absolute 0.69 0.26 - 1.07 x10E9/L 01/06/2022 9:48 AM CDT [facility] Eosinophils Absolute 0.30 0 - 0.47 x10E9/L 01/06/2022 9:48 AM CDT [facility] Basophils Absolute 0.04 0 - 0.08 x10E9/L 01/06/2022 9:48 AM T [facility] Immature Granulocytes Absolute 0.03 0.00 - 0.06 x10E9/L 01/06/2022 9:48 AM CDT [facility] nRBC Auto 0 /100 WBC 01/06/2022 9:[address] [facility] Blood BLOOD SPECIMEN / Unknown Venipuncture / Unknown 01/06/2022 2:58 AM CDT 01/06/2022 9:30 AM CDT us Thomas Espinal MD LAB - HEMATOLOGY ORDERABLES F inal Result Performing Organization Address City/State/[facility] Co de Phone Number [facility] [address] [place] [address] * (ABNORMAL) COMPREHENSIVE METABOLIC PANEL (01/06/2022 2:58 AM CDT) [facility] Glucose 85 70 - 105 mg/dL 01/06/2022 10:[address] [facility] Sodium 139 136 - 145 mmol/L 01/06/2022 10:[address] [facility] Potassium 3.5 3.5 - 5.1 mmol/L 01/06/2022 10:[address] [facility] Chloride 101 98 - 107 mmol/L 01/06/2022 10:[address] [facility] CO2 27 23 - 31 mmol/L 01/06/2022 10:[address] [facility] Calcium 8.0(L) 8.4 - 10.4 mg/dL 01/06/2022 10:[address] [facility] Anion Gap 11 8 - 18 mmol/L 01/06/2022 10:[address] [facility] BUN 7(L) 8.9 - 20.6 mg/dL 01/06/2022 10:[address] [facility] Creatinine 0.73 0.72 - 1.25 mg/dL 01/06/2022 10:[address] [facility] Alkaline Phosphatase 92 40 - 150 U/L 01/06/2022 10:[address] [facility] ALT 23 0 - 61 U/L 01/06/2022 10:[address] [facility] AST 20 5 - 34 U/L 01/06/2022 10:[address] [facility] Protein Total 4.9(L) 6.4 - 8.3 gm/dL 01/06/2022 10:[address] [facility] Albumin 2.6(L) 3.5 - 5.2 gm/dL 01/06/2022 10:[address] [facility] Bilirubin Total 0.7 0.2 - 1.2 mg/dL 01/06/2022 10:[address] [facility] eGFR by CKD-EPI >90 >=90 mL/min/1.7 3 m2 01/06/2022 10:[address] [facility] Blood BLOOD SPECIMEN / Unknown Venipuncture / Unknown 01/06/2022 2:58 AM CDT 01/06/2022 9:30 AM CDT Narrative [facility] - 01/06/2022 10:17 AM CDT eGFR result was calculated using the updated CKD-EPI Creatinine Equations (2020). Prior to go live 2021 the eGFR was calculated using the MDRD calculation. Please note Reference Range change. us Thomas Espinal MD LAB - CHEMISTRY ORDERABLES [facility] Result [facility] [address] [place], [place] [id number] documented in this encounter Visit Diagnoses Not on filedocumented in this encounter
--- OUTSIDE RECORDS SUMMARY | 2025-01-16 03:06 | XMS_ITS | Encounter Summary ---
Author Organization [facility] Address [address] [facility] [place] [address] Care Team Providers Care Switch Operators Supervisor Name Role Phone Unavailable Primary Care Provider Unavailabl e Encounter Details Date Type Department Care Team (Late st Contact Info) Description 12/11/2021 Lab Requisition [facility] [address] [place], [place] [id number] Abhi Barajas MD [address] [place] [address] Social History Tobacco Use Types Packs/Day Years Used Date Smoking Tobacco: Some Days Smokeless Tobacco: Never Alcohol Use Standard Drinks/Week Comments Yes 15 (1 standard drink = 0.6 oz pu re alcohol) Sex and Gender Information Value Date Recorded Sex Assigned at Not on file 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 Answer Date of Assessment Author No 12/06/2021 4:24 PM Leander Paz, JONI * Is person blind or have serious difficulty seeing? Answer Date of Assessment Author No 12/06/2021 4:24 PM Leander Paz, JONI * Does person have serious difficulty walking/climbing stairs? Answer Date of Assessment Author Yes 12/06/2021 4:24 PM Leander Paz, JONI * Does person have difficulty dressing/bathing? Answer Date of Assessment Author Yes 12/06/2021 4:24 PM Leander Paz, RN * Does person have difficulty doing [...] Procedure Name Priority Date/Time Associated Diagnosis Comments URINE MICROSCOPIC ONLY REFLEX TO CULTURE Routine 12/11/2021 10:06 AM CDT URINALYSIS REFLEX MICROSCOPIC REFLEX CULTURE STAT 12/11/2021 10:06 AM CDT CULTURE URINE Routine 12/11/2021 10:06 AM CDT documented in this encounter Results * CULTURE URINE (12/11/2021 10:06 AM CDT) Culture Urine No growth (<100 CFU/mL) HARSH 12/13/2021 1:[address] [facility] Urine URINE SPECIMEN OBTAINED BY CLEAN CATCH PROCEDURE / Unknown Collection / Unknown 12/11/2021 10:06 AM CDT 12/11/2021 12:28 PM CDT Abhi Barajas MD LAB - MICROBIOLOGY ORDERABLES Fi nal Result [facility] [address] [phone] * (ABNORMAL) URINE MICROSCOPIC ONLY REFLEX TO CULTURE (12/11/2021 10:06 AM CDT) Reflex Status Culture to follow 12/11/2021 1:16 PM CDT [facility] RBC UA 11-20(A) 0 - 5 # /hpf 12/11/2021 1:16 PM CDT [facility] WBC UA >100(A) 0 - 5 # /hpf 12/11/2021 1:16 PM CDT [facility] Bacteria UA Trace(A) None Seen 12/11/2021 1:16 PM CDT [facility] Squamous Epithelial Cells 3-5 0 - 5 /hpf 12/11/2021 1:16 PM CDT [facility] Mucus UA 3+ /LPF 12/11/2021 1:16 PM CDT [facility] Hyaline Casts 11-20(A) 0 - 2 /LPF 12/11/2021 1:16 PM CDT [facility] Urine URINE SPECIMEN OBTAINED BY CLEAN CATCH PROCEDURE / Unknown Collection / Unknown 12/11/2021 10:06 AM CDT 12/11/2021 12:28 PM CDT Narrative [facility] - 12/11/2021 1:16 PM CDT us Abhi Barajas MD LAB - URINALYSIS ORDERABLES Pia fenton Result [facility] [address] [place], [place] [id number] * (ABNORMAL) URINALYSIS REFLEX MICROSCOPIC REFLEX CULTURE (12/11/2021 10:06 AM CDT) Color UA Yellow Straw, Yellow 12/11/2021 1:15 PM CDT [facility] Clarity UA Cloudy(A) Clear 12/11/2021 1:15 PM CDT [facility] Glucose UA Negative Negative 12/11/2021 1:15 PM CDT [facility] Bilirubin UA Negative Negative 12/11/2021 1:15 PM CDT [facility] Ketone UA Negative Negative 12/11/2021 1:15 PM CDT [facility] Specific Edward UA 1.016 1.005 - 1.030 12/11/2021 1:15 PM CDT [facility] Blood UA 2+(A) Negative 12/11/2021 1:15 PM CDT [facility] pH UA 6.0 5.0 - 8.0 pH 12/11/2021 1:15 PM CDT [facility] Protein UA 2+(A) Negative 12/11/2021 1:15 PM CDT [facility] Urobilinogen UA Negative Negative mg/dL 12/11/2021 1:15 PM CDT [facility] Nitrite UA Negative Negative 12/11/2021 1:15 PM CDT [facility] Leukocyte UA 3+(A) Negative 12/11/2021 1:15 PM CDT [facility] Urine Microscopy Urine microscopy to follow 12/11/2021 1:15 PM CDT [facility] Reflex Status Culture to follow 12/11/2021 1:15 PM CDT [facility] Urine URINE SPECIMEN OBTAINED BY CLEAN CATCH PROCEDURE / Unknown Collection / Unknown 12/11/2021 10:06 AM CDT 12/11/2021 12:28 PM CDT Narrative [facility] - 12/11/2021 1:15 PM CDT us Abhi Barajas MD LAB - URINALYSIS ORDERABLES Pia fenton Result Performing Organization Address City/State/[facility] Co de Phone Number [facility] [address] [place] [address] documented in this encounter Visit Diagnoses Not on filedocumented in this encounter
--- OUTSIDE RECORDS SUMMARY | 2025-01-16 03:06 | XMS_ITS ---
Author Organization [facility] Care Team Providers Care Human Resources Safety Manager Name Role Phone Scooter Johnston Unavailable Unavailable VersluIra rodriguez Unavailable Unavailable Habib, Joey Unavailable Unavailable Fahim, Magid Unavailable Unavailable Sylvain, Chely Unavailable Unavailable Hussain, Jesse S Unavailable Unavailable Ozyz, Corrina Unavailable Unavailable Allergies and adverse reactions Code CodeSystem Substance Reaction Severity StartDate Concern Status Pork Intolerance Unknown 09/18/2022 acti ve Care Team Name Role Address Phone Organization Dates Scooter Johnston PCP [address] [facility] [address], [place], [address], [facility] (Office): : [employer] 09/18/2022 - 01/01/2024 Ira Versluys [address], [place], [address], [place] (Office): : [employer] 09/18/2022 - 01/01/2024 Joey Habib [address] [place], [address], [place] (Office): : : [employer] [employer] 09/18/2022 - 01/01/2024 Morteza Boaz [address], [place], [address], [facility] (Office): : [employer] 09/18/2022 - 01/01/2024 Jennifer Narayan [address] [facility], [place], [place], [facility], [facility] (Office): [phone] (Fax): [employer] [employer] 09/18/2022 - 01/01/2024 Jesse Zach Hussain [address] [facility], [place], [address], [facility] (Office): : : [employer] [employer] 09/18/2022 - 01/01/2024 Corrina Preciado [address] [facility], [place], [address], [facility] (Office): : [employer] 09/18/2022 - 01/01/2024 Immunizations Immunization Status Vaccine Details Vaccine Code CodeSystem Date Notes Influenza completed Influenza, high-dose, split virus, quadrivalent, injectable, preservative free Given Left Deltoid 197 CVX created date: 07/07/2023 consent date: 07/07/2023 administer ed date: 08/11/2023 Educated by GEORGE Prescott/W raymundo on 07/07/2023 Influenza completed Influenza, high-dose, split virus, quadrivalent, injectable, preservative free 197 CVX created date: 09/18/2022 administer ed date: 08/19/2022 SARS-COV-2 (COVID-19) completed SARS-COV-2 (COVID-19) vaccine, UNSPECIFIED Step 2 of Multi-step with next step required 213 CVX created date: 09/18/2022 administer ed date: 12/02/2021 SARS-COV-2 (COVID-19) completed SARS-COV-2 (COVID-19) vaccine, UNSPECIFIED Step 1 of Multi-step with next step required 213 CVX created date: 09/18/2022 administer ed date: 09/02/2021 COVID-19 Pfizer Booster completed SARS-COV-2 (COVID-19) vaccine, mRNA, spike protein, LNP, preservative free, 30 mcg/0.3mL dose 208 CVX created date: 09/18/2022 administer ed date: 08/19/2022 PCV20 cancelled Pneumococcal conjugate vaccine 20-valent (PCV20), polysaccharide [id number] conjugate, adjuvant, preservative free 216 CVX created date: 11/05/2022 consent date: 11/05/2022 TB 1 Step Mantoux (PPD) new tuberculin skin test; purified protein derivative solution, intradermal 96 CVX created date: 07/30/2023 consent date: 07/30/2023 Educated by Leticia Santana LPN Infection/W ound on 07/30/2023 SARS-COV-2 Booster (COVID-19 Booster) completed SARS-COV-2 (COVID-19) vaccine, mRNA, spike protein, LNP, preservative free, 100 mcg/0.5mL dose or 50 mcg/0.25mL dose lotNumber: [id number] expiry: 01/03/2024 Mfg: moderna Given 0.5 ml Left Deltoid intramuscularly 207 CVX created date: 07/24/2023 consent date: 07/24/2023 administer ed date: 07/27/2023 Educated by Leticia Santana LPN Infection/W ound on 07/24/2023 Moderna Spikevax Covid 19 Vaccine completed SARS-COV-2 (COVID-19) vaccine, mRNA, spike protein, LNP, preservative free, 100 mcg/0.5mL dose or 50 mcg/0.25mL dose lotNumber: [id number] expiry: 01/03/2024 Mfg: SpikeVax 23-24 Given 0.5 ml intramuscularly 207 CVX created date: 08/11/2023 consent date: 08/11/2023 administer ed date: 07/27/2023 Educated by Leticia Santana LPN Infection/W ound on 08/11/2023 Mental Status Section Date Assessment Total Score Description 12/31/2023 CAM 0 No delirium ind icated 12/16/2023 BIMS 15 cognitively int act CAM 0 No delirium ind icated PHQ-9 10 moderate depres damian Problems Problem # Description Date of onset Resolved Date Code CodeSystem Concern Status 1 ABNORMAL POSTURE 08/12/[address] active 2 CONTRACTURE, LEFT KNEE 08/12/[address] active 3 CONTRACTURE, RIGHT KNEE 08/12/[address] active 4 WEAKNESS 08/12/[address] active 5 PRESSURE ULCER OF SACR[place] REGION, STAGE 4 11/11/19 23 10/13/[address] completed 6 ACUTE EMBOLISM AND THROMBOSIS OF UNSPECIFIED DEEP VEINS OF LEFT LOWER EXTREMITY 09/18/[address] active 7 ANEMIA, UNSPECIFIED 09/18/[address] active 8 ANXIETY DISORDER, UNSPECIFIED 09/18/[address] active 9 ATHEROSCLEROTIC HEART DISEASE OF [place] CORONARY ARTERY WITHOUT ANGINA PECTORIS 09/18/[address] active 10 CEREBRAL INFARCTION, UNSPECIFIED 09/18/[address] active 11 CHRONIC OBSTRUCTIVE PULMONARY DISEASE, UNSPECIFIED 09/18/[address] active 12 CHRONIC SYSTOLIC (CONGESTIVE) HEART FAILURE 09/18/[address] active 13 ESSENTIAL (PRIMARY) HYPERTENSION 09/18/[address] active 14 GASTRO-ESOPHAGEAL REFLUX DISEASE WITHOUT ESOPHAGITIS 09/18/[address] active 15 HEMIPLEGIA AND HEMIPARESIS FOLLOWING CEREBRAL INFARCTION AFFECTING RIGHT DOMINANT SIDE 09/18/[address] active 16 MAJOR DEPRESSIVE DISORDER, RECURRENT, UNSPECIFIED 09/18/[address] active 17 NEUROMUSCULAR DYSFUNCTION OF [place], UNSPECIFIED 09/18/[address] active 18 OSTEOMYELITIS OF [place], SACRAL AND SACROCOCCYGEAL REGION 09/18/19 23 10/13/[address] completed 19 PRESSURE ULCER OF UNSPECIFIED SITE, UNSTAGEABLE 09/18/19 23 10/29/[address] completed 20 SCHIZOAFFECTIVE DISORDER, UNSPECIFIED 09/18/[address] active Reason for Referral No Reasons for Referral Entered Social History Social History Observation Description Start Date End Date Code Code System Current Smoking Status Tobacco smoking consumption unknown 764566883 SNOMED CT Sex Assigned At Male 1990 74641-5 [facility] Gender Identity Vital Signs Code Code System Vitals Name Values and Units Timing Information 46614-5 [facility] Pain Level Value=0.0 12/31/2023 79554-9 [facility] O2 % BldC Oximetry Value=96.0 Units= % 12/31/2023 89683-7 [facility] Weight Jopvc=602.5 Units=Lbs 8462-4 [facility] Blood Pressure-Diastolic Value=88 Un its=mmHg 12/17/2023 8480-6 [facility] Blood Pressure-Systolic Xlans=047 Un its=mmHg 12/17/2023 8310-5 [facility] Body Temperature Value=97.2 Units= F 12/17/2023 9279-1 [facility] Respiratory Rate Value=24.0 Units=/m in 12/17/2023 8867-4 [facility] Heart rate Value=84.0 Units=/min 2339-0 [facility] Blood Sugar Wgftf=458.0 Units=mg/dL 10/14/2023 8302-2 [facility] Height Value=75.0 Units=Inches 10/28/2022
--- OUTSIDE RECORDS SUMMARY | 2025-01-16 03:06 | XMS_ITS | Encounter Summary ---
Author Organization [facility] Address [address] [place] [address] Care Team Providers Care Mud Mixer Name Role Phone Unavailable Primary Care Provider Unavailabl e Encounter Details Date Type Department Care Team (Late st Contact Info) Description 11/27/2021 Lab Requisition [facility] [address] [place] [address] [place] [address] [place] [address] Social History Tobacco Use Types Packs/Day Years Used Date Smoking Tobacco: Some Days Smokeless Tobacco: Never Alcohol Use Standard Drinks/Week Comments Yes 15 (1 standard drink = 0.6 oz pu re alcohol) Sex and Gender Information Value Date Recorded Sex Assigned at Not on file Legal Sex Male 5:34 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 Gender Identity Not on file Sexual Orientation [...] Comments BASIC METABOLIC PANEL (CALCIUM TOTAL) STAT 11/27/2021 2:40 AM CDT URINALYSIS REFLEX TO MICROSCOPIC NO CULTURE STAT 11/26/2021 12:00 PM CDT URINE MICROSCOPIC ONLY STAT 11/26/2021 12:00 PM CDT documented in this encounter Results * (ABNORMAL) BASIC METABOLIC PANEL (CALCIUM TOTAL) (11/27/2021 2:40 AM CDT) Glucose 94 70 - 105 mg/dL 11/27/2021 9:04 AM T [facility] Sodium 152(H) 136 - 145 mmol/L 11/27/2021 9:04 AM CDT [facility] Potassium 4.6 3.5 - 5.1 mmol/L 11/27/2021 9:04 AM T [facility] Chloride 120(H) 98 - 107 mmol/L 11/27/2021 9:04 AM T [facility] CO2 20(L) 23 - 31 mmol/L 11/27/2021 9:04 AM T [facility] Calcium 7.6(L) 8.4 - 10.4 mg/dL 11/27/2021 9:04 AM CDT [facility] Anion Gap 12 8 - 18 mmol/L 11/27/2021 9:04 AM CDT [facility] BUN 54(H) 8.9 - 20.6 mg/dL 11/27/2021 9:04 AM CDT [facility] Creatinine 1.68(H) 0.72 - 1.25 mg/dL 11/27/2021 9:04 AM [facility] eGFR by CKD-EPI 55(L) >=90 mL/min/1.7 3 m2 11/27/2021 9:04 AM CDT [facility] Blood BLOOD SPECIMEN / Unknown Venipuncture / Unknown 11/27/2021 2:40 AM CDT 11/27/2021 8:27 AM CDT Narrative [facility] - 11/27/2021 9:04 AM CDT eGFR result was calculated using the updated CKD-EPI Creatinine Equations (2020). Prior to go live 2021 the eGFR was calculated using the MDRD calculation. Please note Reference Range change. Orville Rodriguez MD LAB - CHEMISTRY ORDERABLES Final Result Performing Organization Address [facility]/ZIP Co de Phone Number [facility] [address] [place] [phone] * (ABNORMAL) URINE MICROSCOPIC ONLY (11/26/2021 12:00 PM CDT) RBC UA 3-5 0 - 5 # /hpf 11/27/2021 8:53 AM CDT [facility] WBC UA 21-50(A) 0 - 5 # /hpf 11/27/2021 8:53 AM T [facility] Hyaline Casts 3-5(A) 0 - 2 /LPF 11/27/2021 8:53 AM CDT [facility] Bacteria UA Trace(A) None Seen 11/27/2021 8:53 AM CDT [facility] Squamous Epithelial Cells 0-2 0 - 5 /hpf 11/27/2021 8:53 AM CDT [facility] Mucus UA 1+ /LPF 11/27/2021 8:53 AM CDT [facility] Urine URINE SPECIMEN OBTAINED BY CLEAN CATCH PROCEDURE / Unknown Collection / Unknown 11/26/2021 12:00 PM CDT 11/27/2021 8:27 AM CDT Narrative [facility] - 11/27/2021 8:53 AM CDT Orville Rodriguez MD LAB - URINALYSIS ORDERABLES Pia l Result Performing Organization Address City/[facility]/ZIP Co de Phone Number [facility] [address] [place] [address] * (ABNORMAL) URINALYSIS REFLEX TO MICROSCOPIC NO CULTURE (11/26/2021 12:00 PM CDT) Color UA Yellow Straw, Yellow 11/27/2021 8:52 AM CDT [facility] Clarity UA Slt Cloudy(A) Clear 11/27/2021 8:52 AM CDT [facility] Glucose UA Negative Negative 11/27/2021 8:52 AM CDT [facility] Bilirubin UA Negative Negative 11/27/2021 8:52 AM CDT [facility] Ketone UA Negative Negative 11/27/2021 8:52 AM CDT [facility] Specific [place] UA 1.016 1.005 - 1.030 11/27/2021 8:52 AM CDT [facility] Blood UA 1+(A) Negative 11/27/2021 8:52 AM CDT [facility] pH UA 7.0 5.0 - 8.0 pH 11/27/2021 8:52 AM CDT [facility] Protein UA 1+(A) Negative 11/27/2021 8:52 AM CDT [facility] Urobilinogen UA Negative Negative mg/dL 11/27/2021 8:52 AM CDT [facility] Nitrite UA Negative Negative 11/27/2021 8:52 AM CDT [facility] Leukocyte UA 1+(A) Negative 11/27/2021 8:52 AM CDT [facility] Urine Microscopy Urine microscopy to follow 11/27/2021 8:52 AM CDT [facility] Urine URINE SPECIMEN OBTAINED BY CLEAN CATCH PROCEDURE / Unknown Collection / Unknown 11/26/2021 12:00 PM CDT 11/27/2021 8:27 AM CDT Narrative [facility] - 11/27/2021 8:52 AM CDT us Orville Rodriguez MD LAB - URINALYSIS ORDERABLES Pia eliceo Result [facility] [address] [place] [address] documented in this encounter Visit Diagnoses Not on filedocumented in this encounter
--- OUTSIDE RECORDS SUMMARY | 2025-01-16 03:06 | XMS_ITS | Encounter Summary ---
Author Organization [facility] Address [address] [place] [address] Care Team Providers Care Green Chain Offbearer Name Role Phone Unavailable Primary Care Provider Unavailabl e Encounter Details Date Type Department Care Team (Late st Contact Info) Description 11/29/[address] 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 Gender Identity Not on file Sexual Orientation [...] Procedure Name Priority Date/Time Associated Diagnosis Comments COMPREHENSIVE METABOLIC PANEL STAT 11/29/2021 2:32 AM CDT documented in this encounter Results * (ABNORMAL) COMPREHENSIVE METABOLIC PANEL (11/29/2021 2:32 AM CDT) Glucose 104 70 - 105 mg/dL 11/29/2021 8:58 AM CDT [facility] Sodium 149(H) 136 - 145 mmol/L 11/29/2021 8:58 AM CDT [facility] Potassium 4.5 3.5 - 5.1 mmol/L 11/29/2021 8:58 AM CDT [facility] Chloride 118(H) 98 - 107 mmol/L 11/29/2021 8:58 AM CDT [facility] CO2 20(L) 23 - 31 mmol/L 11/29/2021 8:58 AM CDT [facility] Calcium 7.3(L) 8.4 - 10.4 mg/dL 11/29/2021 8:58 AM CDT [facility] Anion Gap 11 8 - 18 mmol/L 11/29/2021 8:58 AM CDT [facility] BUN 61(H) 8.9 - 20.6 mg/dL 11/29/2021 8:58 AM CDT [facility] Creatinine 1.80(H) 0.72 - 1.25 mg/dL 11/29/2021 8:58 AM CDT [facility] Alkaline Phosphatase 145 40 - 150 U/L 11/29/2021 8:58 AM CDT [facility] ALT 24 0 - 61 U/L 11/29/2021 8:58 AM CDT [facility] AST 30 5 - 34 U/L 11/29/2021 8:58 AM CDT [facility] Protein Total 4.8(L) 6.4 - 8.3 gm/dL 11/29/2021 8:[address] [facility] Albumin 2.2(L) 3.5 - 5.2 gm/dL 11/29/2021 8:[address] [facility] Bilirubin Total 0.9 0.2 - 1.2 mg/dL 11/29/2021 8:[address] [facility] eGFR by CKD-EPI 51(L) >=90 mL/min/1.7 3 m2 11/29/2021 8:[address] [facility] Blood BLOOD SPECIMEN / Unknown Venipuncture / Unknown 11/29/2021 2:32 AM CDT 11/29/2021 8:[address] [facility] - 11/29/2021 8:58 AM CDT eGFR result was calculated using the updated CKD-EPI Creatinine Equations (2020). Prior to go live 2021 the eGFR was calculated using the MDRD calculation. Please note Reference Range change. us Minh Escobar MD LAB - CHEMISTRY ORDERABLE S Final Result [facility] [address] [place] [address] documented in this encounter Visit Diagnoses Not on filedocumented in this encounter
--- OUTSIDE RECORDS SUMMARY | 2025-01-16 03:06 | XMS_ITS | Encounter Summary ---
Author Organization [facility] Address [address] [place] [address] Care Team Providers Care Health Information Director Name Role Phone Unavailable Primary Care Provider Unavailabl e Encounter Details Date Type Department Care Team (Late st Contact Info) Description 11/28/2021 Lab Requisition [facility] [address] [place] [address] [place] [id number] [place] [address] Social History Tobacco Use Types Packs/Day Years Used Date Smoking Tobacco: Some Days Smokeless Tobacco: Never Alcohol Use Standard Drinks/Week Comments Yes 15 (1 standard drink = 0.6 oz pu re alcohol) Sex and Gender Information Value Date Recorded Sex Assigned at Not on file 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 Gender Identity Not on file Sexual Orientation [...] Diagnosis Comments CBC W AUTO DIFFERENTIAL STAT 11/28/2021 3:36 AM CDT COMPREHENSIVE METABOLIC PANEL STAT 11/28/2021 3:36 AM CDT documented in this encounter Results * (ABNORMAL) CBC WITH DIFFERENTIAL (11/28/2021 3:36 AM CDT) WBC 13.3(H) 4.4 - 10.7 x10E9/L 11/28/2021 9:07 AM CDT [facility] WBC Corrected 11/28/2021 9:07 AM CDT [facility] RBC 2.86(L) 3.80 - 5.40 x10E12/L 11/28/2021 9:07 AM CDT [facility] Hemoglobin 8.5(L) 12.0 - 17.6 gm/dL 11/28/2021 9:07 AM CDT [facility] Hematocrit 29.8(L) 35.2 - 51.7 % 11/28/2021 9:07 AM CDT [facility] MCV 104.2(H) 80.7 - 98.3 fl 11/28/2021 9:07 AM CDT [facility] MCH 29.7 26.7 - 34.0 pg 11/28/2021 9:07 AM CDT [facility] MCHC 28.5(L) 30.8 - 35.9 gm/dL 11/28/2021 9:07 AM CDT [facility] Platelet Count 173 153 - 416 x10E9/L 11/28/2021 9:07 AM CDT [facility] RDW-CV 21.1(H) 12.1 - 14.9 % 11/28/2021 9:07 AM CDT [facility] MPV 14.4(H) 9.4 - 12.9 fl 11/28/2021 9:07 AM [facility] Neutrophils % 81.0(H) 44.0 - 73.0 % 11/28/2021 9:07 AM [facility] Lymphocytes % 10.0(L) 20.0 - 43.0 % 11/28/2021 9:07 AM [facility] Monocytes % 5.6 5.0 - 13.0 % 11/28/2021 9:07 AM [facility] Eosinophils % 2.4 0.0 - 6.0 % 11/28/2021 9:07 AM [facility] Basophils % 0.2 0.0 - 2.0 % 11/28/2021 9:07 AM [facility] Immature Granulocytes 0.8 0 - 1 % 11/28/2021 9:07 AM [facility] Neutrophil Absolute 10.77(H) 2.01 - 7.14 x10E9/L 11/28/2021 9:07 AM [facility] Lymphocytes Absolute 1.33 1.07 - 3.94 x10E9/L 11/28/2021 9:07 AM [facility] Monocytes Absolute 0.75 0.26 - 1.07 x10E9/L 11/28/2021 9:07 AM [facility] Eosinophils Absolute 0.32 0 - 0.47 x10E9/L 11/28/2021 9:07 AM [facility] Basophils Absolute 0.03 0 - 0.08 x10E9/L 11/28/2021 9:07 AM [facility] Immature Granulocytes Absolute 0.10(H) 0.00 - 0.06 x10E9/L 11/28/2021 9:07 AM [facility] nRBC Auto 0 /100 WBC 11/28/2021 9:07 AM [facility] Blood BLOOD SPECIMEN / Unknown Venipuncture / Unknown 11/28/2021 3:36 AM CDT 11/28/2021 8:44 AM CDT us Orville Rodriguez MD LAB - HEMATOLOGY ORDERABLES Pia eliceo Result [facility] [address] [place] [address] * (ABNORMAL) COMPREHENSIVE METABOLIC PANEL (11/28/2021 3:36 AM CDT) [facility] Signature Glucose 97 70 - 105 mg/dL 11/28/2021 9:33 AM CDT [facility] Sodium 149(H) 136 - 145 mmol/L 11/28/2021 9:33 AM CDT [facility] Potassium 4.4 3.5 - 5.1 mmol/L 11/28/2021 9:33 AM CDT [facility] Chloride 119(H) 98 - 107 mmol/L 11/28/2021 9:33 AM CDT [facility] CO2 21(L) 23 - 31 mmol/L 11/28/2021 9:33 AM CDT [facility] Calcium 7.4(L) 8.4 - 10.4 mg/dL 11/28/2021 9:33 AM CDT [facility] Anion Gap 9 8 - 18 mmol/L 11/28/2021 9:33 AM CDT [facility] BUN 58(H) 8.9 - 20.6 mg/dL 11/28/2021 9:33 AM CDT [facility] Creatinine 1.74(H) 0.72 - 1.25 mg/dL 11/28/2021 9:33 AM CDT [facility] Alkaline Phosphatase 166(H) 40 - 150 U/L 11/28/2021 9:33 AM CDT [facility] ALT 23 0 - 61 U/L 11/28/2021 9:33 AM CDT [facility] AST 24 5 - 34 U/L 11/28/2021 9:33 AM CDT [facility] Protein Total 4.9(L) 6.4 - 8.3 gm/dL 11/28/2021 9:33 AM CDT [facility] Albumin 2.3(L) 3.5 - 5.2 gm/dL 11/28/2021 9:33 AM CDT [facility] Bilirubin Total 0.8 0.2 - 1.2 mg/dL 11/28/2021 9:33 AM CDT [facility] eGFR by CKD-EPI 53(L) >=90 mL/min/1.7 3 m2 11/28/2021 9:33 AM CDT [facility] Blood BLOOD SPECIMEN / Unknown Venipuncture / Unknown 11/28/2021 3:36 AM CDT 11/28/2021 8:44 AM CDT Narrative [facility] - 11/28/2021 9:33 AM CDT eGFR result was calculated using the updated CKD-EPI Creatinine Equations (2020). Prior to go live 2021 the eGFR was calculated using the MDRD calculation. Please note Reference Range change. us Orville Rodriguez MD LAB - CHEMISTRY ORDERABLES Final Result [facility] [address] [place] [address] documented in this encounter Visit Diagnoses Not on filedocumented in this encounter
--- OUTSIDE RECORDS SUMMARY | 2025-01-16 03:06 | XMS_ITS | Encounter Summary ---
Author Organization [facility] Address [address] [place] [address] Care Team Providers Care Stock Cutter Name Role Phone Unavailable Primary Care Provider Unavailabl e Encounter Details Date Type Department Care Team (Late st Contact Info) Description 12/12/2021 Lab Requisition [facility] [address] [place] [address] Unknown, Provider Social History Tobacco Use Types Packs/Day Years Used Date Smoking Tobacco: Some Days Smokeless Tobacco: Never Alcohol Use Standard Drinks/Week Comments Yes 15 (1 standard drink = 0.6 oz pu re alcohol) Sex and Gender Information Value Date Recorded Sex Assigned at Not on file 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 Sex Male 5:34 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 Gender Identity Not on file Sexual Orientation [...] Associated Diagnosis Comments COMPREHENSIVE METABOLIC PANEL STAT 12/12/2021 2:30 AM CDT PHOSPHORUS BLOOD Routine 12/12/2021 2:30 AM CDT documented in this encounter Results * PHOSPHORUS BLOOD (12/12/2021 2:30 AM CDT) Phosphorus 3.5 2.3 - 4.7 mg/dL 12/12/2021 11:59 AM CDT [facility] Blood BLOOD SPECIMEN / Unknown Venipuncture / Unknown 12/12/2021 2:30 AM CDT 12/12/2021 11:13 AM CDT us Provider Unknown LAB - CHEMISTRY ORDERABLES Pia l Result [facility] [address] [place] [address] * (ABNORMAL) COMPREHENSIVE METABOLIC PANEL (12/12/2021 2:30 AM CDT) Glucose 95 70 - 105 mg/dL 12/12/2021 11:30 AM CDT [facility] Sodium 141 136 - 145 mmol/L 12/12/2021 11:30 AM CDT [facility] Potassium 3.9 3.5 - 5.1 mmol/L 12/12/2021 11:30 AM CDT [facility] Chloride 110(H) 98 - 107 mmol/L 12/12/2021 11:30 AM CDT [facility] CO2 19(L) 23 - 31 mmol/L 12/12/2021 11:30 AM CDT [facility] Calcium 7.4(L) 8.4 - 10.4 mg/dL 12/12/2021 11:30 AM CDT [facility] Anion Gap 12 8 - 18 mmol/L 12/12/2021 11:30 AM CDT [facility] BUN 38(H) 8.9 - 20.6 mg/dL 12/12/2021 11:30 AM CDT [facility] Creatinine 1.10 0.72 - 1.25 mg/dL 12/12/2021 11:30 AM CDT [facility] Alkaline Phosphatase 84 40 - 150 U/L 12/12/2021 11:30 AM CDT [facility] ALT 31 0 - 61 U/L 12/12/2021 11:30 AM CDT [facility] AST 22 5 - 34 U/L 12/12/2021 11:30 AM CDT [facility] Protein Total 4.4(L) 6.4 - 8.3 gm/dL 12/12/2021 11:30 AM CDT [facility] Albumin 2.2(L) 3.5 - 5.2 gm/dL 12/12/2021 11:30 AM CDT [facility] Bilirubin Total 0.5 0.2 - 1.2 mg/dL 12/12/2021 11:30 AM CDT [facility] eGFR by CKD-EPI >90 >=90 mL/min/1.7 3 m2 12/12/2021 11:30 AM CDT [facility] Blood BLOOD SPECIMEN / Unknown Venipuncture / Unknown 12/12/2021 2:30 AM CDT 12/12/2021 10:44 AM CDT Narrative [facility] - 12/12/2021 11:30 AM CDT eGFR result was calculated using the updated CKD-EPI Creatinine Equations (2020). Prior to go live 2021 the eGFR was calculated using the MDRD calculation. Please note Reference Range change. us Provider Unknown LAB - CHEMISTRY ORDERABLES Pia l Result [facility] [address] [place] [address] documented in this encounter Visit Diagnoses Not on filedocumented in this encounter
--- OUTSIDE RECORDS SUMMARY | 2025-01-16 03:06 | XMS_ITS | Encounter Summary ---
Author Organization [facility] Address [address] [place] [address] Care Team Providers Care Dehorner Name Role Phone Unavailable Primary Care Provider Unavailabl e Encounter Details Date Type Department Care Team (Late st Contact Info) Description 12/02/2021 Lab Requisition [facility] [address] [place] [address] [place] [address] [place] [address] Social History Tobacco Use Types Packs/Day Years Used Date Smoking Tobacco: Some Days Smokeless Tobacco: Never Alcohol Use Standard Drinks/Week Comments Yes 15 (1 standard drink = 0.6 oz pu re alcohol) Sex and Gender Information Value Date Recorded Sex Assigned at Not on file 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 Gender Identity Not on file Sexual Orientation [...] Diagnosis Comments CBC W AUTO DIFFERENTIAL STAT 12/02/2021 2:18 AM CDT COMPREHENSIVE METABOLIC PANEL STAT 12/02/2021 2:18 AM CDT documented in this encounter Results * (ABNORMAL) COMPREHENSIVE METABOLIC PANEL (12/02/2021 2:18 AM CDT) Glucose 85 70 - 105 mg/dL 12/02/2021 10:47 AM CDT [facility] Sodium 147(H) 136 - 145 mmol/L 12/02/2021 10:47 AM CDT [facility] Potassium 4.1 3.5 - 5.1 mmol/L 12/02/2021 10:47 AM CDT [facility] Chloride 115(H) 98 - 107 mmol/L 12/02/2021 10:47 AM CDT [facility] CO2 20(L) 23 - 31 mmol/L 12/02/2021 10:47 AM CDT [facility] Calcium 7.6(L) 8.4 - 10.4 mg/dL 12/02/2021 10:47 AM CDT [facility] Anion Gap 12 8 - 18 mmol/L 12/02/2021 10:47 AM CDT [facility] BUN 64(H) 8.9 - 20.6 mg/dL 12/02/2021 10:47 AM CDT [facility] Creatinine 1.74(H) 0.72 - 1.25 mg/dL 12/02/2021 10:47 AM CDT [facility] Alkaline Phosphatase 99 40 - 150 U/L 12/02/2021 10:47 AM CDT [facility] ALT 23 0 - 61 U/L 12/02/2021 10:47 AM CDT [facility] AST 16 5 - 34 U/L 12/02/2021 10:47 AM CDT [facility] Protein Total 4.7(L) 6.4 - 8.3 gm/dL 12/02/2021 10:47 AM CDT [facility] Albumin 2.2(L) 3.5 - 5.2 gm/dL 12/02/2021 10:47 AM CDT [facility] Bilirubin Total 0.9 0.2 - 1.2 mg/dL 12/02/2021 10:47 AM CDT [facility] eGFR by CKD-EPI 53(L) >=90 mL/min/1.7 3 m2 12/02/2021 10:47 AM CDT [facility] Blood BLOOD SPECIMEN / Unknown Venipuncture / Unknown 12/02/2021 2:18 AM CDT 12/02/2021 9:04 AM CDT [facility] - 12/02/2021 10:47 AM CDT eGFR result was calculated using the updated CKD-EPI Creatinine Equations (2020). Prior to go live 2021 the eGFR was calculated using the MDRD calculation. Please note Reference Range change. us Orville Rodriguez MD LAB - CHEMISTRY ORDERABLES Final Result [facility] [address] [place] [address] * (ABNORMAL) CBC WITH DIFFERENTIAL (12/02/2021 2:18 AM CDT) WBC 11.6(H) 4.4 - 10.7 x10E9/L 12/02/2021 10:28 AM CDT [facility] WBC Corrected 12/02/2021 10:28 AM CDT [facility] RBC 3.21(L) 3.80 - 5.40 x10E12/L 12/02/2021 10:28 AM CDT [facility] Hemoglobin 9.5(L) 12.0 - 17.6 gm/dL 12/02/2021 10:28 AM CDT [facility] Hematocrit 33.2(L) 35.2 - 51.7 % 12/02/2021 10:[facility] MCV 103.4(H) 80.7 - 98.3 fl 12/02/2021 10:28 AM CDT [facility] MCH 29.6 26.7 - 34.0 pg 12/02/2021 10:[facility] MCHC 28.6(L) 30.8 - 35.9 gm/dL 12/02/2021 10:28 AM [facility] Platelet Count 152(L) 153 - 416 x10E9/L 12/02/2021 10:28 AM [facility] RDW-CV 20.7(H) 12.1 - 14.9 % 12/02/2021 10:28 AM [facility] Neutrophils % 84.1(H) 44.0 - 73.0 % 12/02/2021 10:28 AM [facility] Lymphocytes % 6.3(L) 20.0 - 43.0 % 12/02/2021 10:28 AM [facility] Monocytes % 6.1 5.0 - 13.0 % 12/02/2021 10:28 AM [facility] Eosinophils % 2.5 0.0 - 6.0 % 12/02/2021 10:28 AM [facility] Basophils % 0.6 0.0 - 2.0 % 12/02/2021 10:28 AM [facility] Immature Granulocytes 0.4 0 - 1 % 12/02/2021 10:28 AM [facility] Neutrophil Absolute 9.73(H) 2.01 - 7.14 x10E9/L 12/02/2021 10:28 AM [facility] Lymphocytes Absolute 0.73(L) 1.07 - 3.94 x10E9/L 12/02/2021 10:28 AM [facility] Monocytes Absolute 0.70 0.26 - 1.07 x10E9/L 12/02/2021 10:28 AM [facility] Eosinophils Absolute 0.29 0 - 0.47 x10E9/L 12/02/2021 10:28 AM [facility] Basophils Absolute 0.07 0 - 0.08 x10E9/L 12/02/2021 10:28 AM [facility] Immature Granulocytes Absolute 0.05 0.00 - 0.06 x10E9/L 12/02/2021 10:28 AM CDT [facility] nRBC Auto 0 /100 WBC 12/02/2021 10:28 AM CDT [facility] Blood BLOOD SPECIMEN / Unknown Venipuncture / Unknown 12/02/2021 2:18 AM CDT 12/02/2021 9:04 AM CDT us Orville Rodriguez MD LAB - HEMATOLOGY ORDERABLES Pia fenton Result [facility] [address] [place] [address] documented in this encounter Visit Diagnoses Not on filedocumented in this encounter
--- OUTSIDE RECORDS SUMMARY | 2025-01-16 03:06 | XMS_ITS | Encounter Summary ---
Author Organization [facility] Address [address] [place] [address] Care Team Providers Care General Technician Name Role Phone Unavailable Primary Care Provider Unavailabl e Encounter Details Date Type Department Care Team (Late st Contact Info) Description 12/03/2021 Lab Requisition [facility] [address] [place] [address] [place] [address] [place] [address] Social History Tobacco Use Types Packs/Day Years Used Date Smoking Tobacco: Some Days Smokeless Tobacco: Never Alcohol Use Standard Drinks/Week Comments Yes 15 (1 standard drink = 0.6 oz pu re alcohol) Sex and Gender Information Value Date Recorded Sex Assigned at Not on file 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 Gender Identity Not on file Sexual Orientation [...] of Assessment Author No 07/11/2018 4:24 PM STARTING GATE DRIVER Brooker dt, Laurita L., RN * Does person have difficulty doing [...] Associated Diagnosis Comments COMPREHENSIVE METABOLIC PANEL STAT 12/03/2021 4:27 AM CDT documented in this encounter Results * (ABNORMAL) COMPREHENSIVE METABOLIC PANEL (12/03/2021 4:27 AM CDT) Glucose 102 70 - 105 mg/dL 12/03/2021 9:00 AM CDT [facility] Sodium 145 136 - 145 mmol/L 12/03/2021 9:00 AM CDT [facility] Potassium 4.0 3.5 - 5.1 mmol/L 12/03/2021 9:00 AM CDT [facility] Chloride 117(H) 98 - 107 mmol/L 12/03/2021 9:00 AM CDT [facility] CO2 19(L) 23 - 31 mmol/L 12/03/2021 9:00 AM CDT [facility] Calcium 7.5(L) 8.4 - 10.4 mg/dL 12/03/2021 9:00 AM CDT [facility] Anion Gap 9 8 - 18 mmol/L 12/03/2021 9:00 AM CDT [facility] BUN 59(H) 8.9 - 20.6 mg/dL 12/03/2021 9:00 AM CDT [facility] Creatinine 1.55(H) 0.72 - 1.25 mg/dL 12/03/2021 9:00 AM CDT [facility] Alkaline Phosphatase 95 40 - 150 U/L 12/03/2021 9:00 AM CDT [facility] ALT 20 0 - 61 U/L 12/03/2021 9:00 AM CDT [facility] AST 15 5 - 34 U/L 12/03/2021 9:00 AM CDT [facility] Protein Total 4.6(L) 6.4 - 8.3 gm/dL 12/03/2021 9:00 AM CDT [facility] Albumin 2.2(L) 3.5 - 5.2 gm/dL 12/03/2021 9:00 AM CDT [facility] Bilirubin Total 0.7 0.2 - 1.2 mg/dL 12/03/2021 9:00 AM CDT [facility] eGFR by CKD-EPI 61(L) >=90 mL/min/1.7 3 m2 12/03/2021 9:00 AM CDT [facility] Blood BLOOD SPECIMEN / Unknown Venipuncture / Unknown 12/03/2021 4:27 AM CDT 12/03/2021 8:25 AM CDT Narrative [facility] - 12/03/2021 9:00 AM CDT eGFR result was calculated using the updated CKD-EPI Creatinine Equations (2020). Prior to go live 2021 the eGFR was calculated using the MDRD calculation. Please note Reference Range change. us Thomas Espinal MD LAB - CHEMISTRY ORDERABLES Fi nal Result [facility] [address] [place] [address] documented in this encounter Visit Diagnoses Not on filedocumented in this encounter
--- OUTSIDE RECORDS SUMMARY | 2025-01-16 03:06 | XMS_ITS | Encounter Summary ---
Author Organization [facility] Address [address] [place] [address] Care Team Providers Care Perfume Compounder Name Role Phone Unavailable Primary Care Provider Unavailabl e Encounter Details Date Type Department Care Team (Late st Contact Info) Description 12/04/2021 Lab Requisition [facility] [address] [place] [address] Abhi Barajas MD [address] [place] [address] Social History Tobacco Use Types Packs/Day Years Used Date Smoking Tobacco: Some Days Smokeless Tobacco: Never Alcohol Use Standard Drinks/Week Comments Yes 15 (1 standard drink = 0.6 oz pu re alcohol) Sex and Gender Information Value Date Recorded Sex Assigned at Not on file 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 All results interpreted by ordering physician. Abhi Barajas MD LAB - CHEMISTRY ORDERABLES Final Result Performing Organization Address City/State/[facility] Co de Phone Number [facility] [id number], [place] [id number] documented in this encounter Visit Diagnoses Not on filedocumented in this encounter
--- OUTSIDE RECORDS SUMMARY | 2025-01-16 03:07 | XMS_ITS | Encounter Summary ---
Author Organization [facility] Address [address] [facility] [place] [address] Care Team Providers Care Licensed Tax Consultant Name Role Phone Unavailable Primary Care Provider Unavailabl e Encounter Details Date Type Department Care Team (Late st Contact Info) Description 02/14/2022 Lab Requisition [facility] [address] [place] [address] Tato Price MD [address] [place], [place] [id number] Social History Tobacco Use Types Packs/Day Years Used Date Smoking Tobacco: Some Days Smokeless Tobacco: Never Alcohol Use Standard Drinks/Week Comments Yes 15 (1 standard drink = 0.6 oz pu re alcohol) Sex and Gender Information Value Date Recorded Sex Assigned at Not on file 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 Gender Identity Not on file Sexual Orientation [...] Procedure Name Priority Date/Time Associated Diagnosis Comments ERYTHROCYTE SEDIMENTATION RATE STAT 02/14/2022 5:55 AM CDT RETIC COUNT STAT 02/14/2022 5:55 AM CDT CBC W/O DIFFERENTIAL STAT 02/14/2022 5:55 AM CDT documented in this encounter Results * (ABNORMAL) CBC W/O DIFFERENTIAL (02/14/2022 5:55 AM CDT) [facility] Signature WBC 10.9(H) 4.4 - 10.7 x10E9/L 02/14/2022 8:32 AM CDT [facility] RBC 2.56(L) 3.80 - 5.40 x10E12/L 02/14/2022 8:32 AM CDT [facility] Hemoglobin 7.4(L) 12.0 - 17.6 gm/dL 02/14/2022 8:32 AM CDT [facility] Hematocrit 24.4(L) 35.2 - 51.7 % 02/14/2022 8:32 AM CDT [facility] MCV 95.3 80.7 - 98.3 fl 02/14/2022 8:32 AM CDT [facility] MCH 28.9 26.7 - 34.0 pg 02/14/2022 8:32 AM CDT [facility] MCHC 30.3(L) 30.8 - 35.9 gm/dL 02/14/2022 8:32 AM CDT [facility] Platelet Count 290 153 - 416 x10E9/L 02/14/2022 8:32 AM CDT [facility] RDW-CV 16.0(H) 12.1 - 14.9 % 02/14/2022 8:32 AM CDT [facility] MPV 11.5 9.4 - 12.9 fl 02/14/2022 8:32 AM CDT [facility] Blood BLOOD SPECIMEN / Unknown Venipuncture / Unknown 02/14/2022 5:55 AM CDT 02/14/2022 8:19 AM CDT Tato Price MD LAB - HEMATOLOGY ORDERABLES F inal Result Performing Organization Address [facility] Co de Phone Number [facility] [address] [place], [place] [id number] * RETIC COUNT (02/14/2022 5:55 AM CDT) Reticulocyte Count 0.70 0.5 - 1.7 % 02/14/2022 8:32 AM CDT [facility] Reticulocyte Absolute 0.0183 0.0041 - 0.0971 x10E6/uL 02/14/2022 8:32 AM CDT [facility] Reticulocyte Immature Fractionated 6.1 0.9 - 14.3 % 02/14/2022 8:32 AM CDT [facility] Hemoglobin Retic 30.5 27.8 - 36.8 pg 02/14/2022 8:32 AM T [facility] Blood BLOOD SPECIMEN / Unknown Venipuncture / Unknown 02/14/2022 5:55 AM CDT 02/14/2022 8:13 AM CDT Tato Price MD LAB - HEMATOLOGY ORDERABLES F inal Result Performing Organization Address City/[facility] Co de Phone Number [facility] [address] [place] [phone] * (ABNORMAL) ERYTHROCYTE SEDIMENTATION RATE (02/14/2022 5:55 AM CDT) Erythrocyte Sedimentation Rate Automated 47(H) 0 - 15 MM/HR 02/14/2022 8:41 AM CDT [facility] Blood BLOOD SPECIMEN / Unknown Venipuncture / Unknown 02/14/2022 5:55 AM CDT 02/14/2022 8:04 AM CDT us Tato Price MD LAB - HEMATOLOGY ORDERABLES F inal Result Performing Organization Address City/State/[facility] Co de Phone Number [facility] [address] [place] [address] documented in this encounter Visit Diagnoses Not on filedocumented in this encounter
--- OUTSIDE RECORDS SUMMARY | 2025-01-16 03:07 | XMS_ITS | Encounter Summary ---
Author Organization [facility] Address [address] [facility] [place] [address] Care Team Providers Care Thread Roller Name Role Phone Unavailable Primary Care Provider Unavailabl e Encounter Details Date Type Department Care Team (Late st Contact Info) Description 02/12/2022 Lab Requisition 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 INR >14.0(HH) 0.9 - 1.1 02/12/2022 9:07 AM CDT [facility] Blood BLOOD SPECIMEN / Unknown Venipuncture / Unknown 02/12/2022 3:55 AM CDT 02/12/2022 7:54 AM CDT Narrative [facility] - 02/12/2022 9:07 AM CDT Specimen ran twice. Conventional Warfarin Anticoagulant Therapy: INR Reference Range: 2.0-3.0 Intensive Warfarin Anticoagulant Therapy: INR Reference Range: 2.5-3.5 Tato Price MD LAB - COAGULATION ORDERABLES Edited Result - Final [facility] [address] [place], [place] [id number] documented in this encounter Visit Diagnoses Not on filedocumented in this encounter
--- OUTSIDE RECORDS SUMMARY | 2025-01-16 03:07 | XMS_ITS | Encounter Summary ---
Author Organization [facility] Address [address] [facility] [place] [address] Care Team Providers Care Weekday Babysitter Name Role Phone Unavailable Primary Care Provider Unavailabl e Encounter Details Date Type Department Care Team (Late st Contact Info) Description 01/23/2022 Lab Requisition [facility] [address] [place] [address] [place] [address] [place] [address] Social History Tobacco Use Types Packs/Day Years Used Date Smoking Tobacco: Some Days Smokeless Tobacco: Never Alcohol Use Standard Drinks/Week Comments Yes 15 (1 standard drink = 0.6 oz pu re alcohol) Sex and Gender Information Value Date Recorded Sex Assigned at Not on file 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 Gender Identity Not on file Sexual Orientation [...] Diagnosis Comments CBC W AUTO DIFFERENTIAL STAT 01/23/2022 4:10 AM CDT COMPREHENSIVE METABOLIC PANEL STAT 01/23/2022 4:10 AM CDT PHOSPHORUS BLOOD STAT 01/23/2022 4:10 AM CDT documented in this encounter Results * (ABNORMAL) CBC WITH DIFFERENTIAL (01/23/2022 4:10 AM CDT) WBC 17.4(H) 4.4 - 10.7 x10E9/L 01/23/2022 9:28 AM CDT [facility] WBC Corrected 01/23/2022 9:28 AM CDT [facility] RBC 3.16(L) 3.80 - 5.40 x10E12/L 01/23/2022 9:28 AM CDT [facility] Hemoglobin 9.4(L) 12.0 - 17.6 gm/dL 01/23/2022 9:28 AM CDT [facility] Hematocrit 29.6(L) 35.2 - 51.7 % 01/23/2022 9:28 AM CDT [facility] MCV 93.7 80.7 - 98.3 fl 01/23/2022 9:28 AM CDT [facility] MCH 29.7 26.7 - 34.0 pg 01/23/2022 9:28 AM CDT [facility] MCHC 31.8 30.8 - 35.9 gm/dL 01/23/2022 9:28 AM CDT [facility] Platelet Count 392 153 - 416 x10E9/L 01/23/2022 9:28 AM CDT [facility] RDW-CV 15.1(H) 12.1 - 14.9 % 01/23/2022 [facility] MPV 11.5 9.4 - 12.9 fl 01/23/2022 9:28 AM T [facility] Neutrophils % 85.8(H) 44.0 - 73.0 % 01/23/2022 9:28 AM [facility] Lymphocytes % 5.1(L) 20.0 - 43.0 % 01/23/2022 9:28 AM [facility] Monocytes % 6.6 5.0 - 13.0 % 01/23/2022 9:28 AM [facility] Eosinophils % 1.6 0.0 - 6.0 % 01/23/2022 9:28 AM [facility] Basophils % 0.2 0.0 - 2.0 % 01/23/2022 9:28 AM [facility] Immature Granulocytes 0.7 0 - 1 % 01/23/2022 9:28 AM [facility] Neutrophil Absolute 14.89(H) 2.01 - 7.14 x10E9/L 01/23/2022 9:28 AM [facility] Lymphocytes Absolute 0.89(L) 1.07 - 3.94 x10E9/L 01/23/2022 9:28 AM [facility] Monocytes Absolute 1.15(H) 0.26 - 1.07 x10E9/L 01/23/2022 9:28 AM [facility] Eosinophils Absolute 0.28 0 - 0.47 x10E9/L 01/23/2022 9:28 AM [facility] Basophils Absolute 0.03 0 - 0.08 x10E9/L 01/23/2022 9:28 AM [facility] Immature Granulocytes Absolute 0.12(H) 0.00 - 0.06 x10E9/L 01/23/2022 9:28 AM [facility] nRBC Auto 0 /100 WBC 01/23/2022 9:28 AM [facility] Blood BLOOD SPECIMEN / Unknown Venipuncture / Unknown 01/23/2022 4:10 AM CDT 01/23/2022 9:10 AM CDT us Thomas A Kylie MD LAB - HEMATOLOGY ORDERABLES F inal Result Performing Organization Address City/[facility]/ZIP Co de Phone Number [facility] [address] [place] [address] * PHOSPHORUS BLOOD (01/23/2022 4:10 AM CDT) Phosphorus 4.1 2.3 - 4.7 mg/dL 01/23/2022 9:57 AM T [facility] Blood BLOOD SPECIMEN / Unknown Venipuncture / Unknown 01/23/2022 4:10 AM CDT 01/23/2022 9:10 AM CDT Thomas Espinal MD LAB - CHEMISTRY ORDERABLES Fi nal Result Performing Organization Address [facility] Co de Phone Number [facility] [address] [place], [place] [phone] * (ABNORMAL) COMPREHENSIVE METABOLIC PANEL (01/23/2022 4:10 AM CDT) Glucose 90 70 - 105 mg/dL 01/23/2022 9:57 AM T [facility] Sodium 134(L) 136 - 145 mmol/L 01/23/2022 9:57 AM CDT [facility] Potassium 3.3(L) 3.5 - 5.1 mmol/L 01/23/2022 9:57 AM [facility] Chloride 98 98 - 107 mmol/L 01/23/2022 9:57 AM CDT [facility] CO2 24 23 - 31 mmol/L 01/23/2022 9:57 AM CDT [facility] Calcium 8.2(L) 8.4 - 10.4 mg/dL 01/23/2022 9:57 AM CDT [facility] Anion Gap 12 8 - 18 mmol/L 01/23/2022 9:57 AM CDT [facility] BUN 20 8.9 - 20.6 mg/dL 01/23/2022 9:[facility] Creatinine 1.71(H) 0.72 - 1.25 mg/dL 01/23/2022 9:57 AM [facility] Alkaline Phosphatase 88 40 - 150 U/L 01/23/2022 9:57 AM CDT [facility] ALT 15 0 - 61 U/L 01/23/2022 9:57 AM CDT [facility] AST 17 5 - 34 U/L 01/23/2022 9:57 AM CDT [facility] Protein Total 5.0(L) 6.4 - 8.3 gm/dL 01/23/2022 9:57 AM CDT [facility] Albumin 2.5(L) 3.5 - 5.2 gm/dL 01/23/2022 9:57 AM CDT [facility] Bilirubin Total 0.9 0.2 - 1.2 mg/dL 01/23/2022 9:57 AM CDT [facility] eGFR by CKD-EPI 54(L) >=90 mL/min/1.7 3 m2 01/23/2022 9:57 AM CDT [facility] Blood BLOOD SPECIMEN / Unknown Venipuncture / Unknown 01/23/2022 4:10 AM CDT 01/23/2022 9:10 AM CDT us Thomas Espinal MD LAB - CHEMISTRY ORDERABLES Fi nal Result Performing Organization Address City/State/[facility] Co de Phone Number [facility] [address] [place] [address] documented in this encounter Visit Diagnoses Not on filedocumented in this encounter
--- OUTSIDE RECORDS SUMMARY | 2025-01-16 03:07 | XMS_ITS | Referral Summary ---
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 Active metoprolol tartrate (LOPRESSOR) 50 mg immediate release tablet Take 1 tablet (50 mg total) by mouth 2 (two) times a day 2 Active NIFEdipine XL 60 mg 24 hr tablet Take 1 tablet (60 mg total) by mouth daily 2 Active omeprazole (PriLOSEC) 20 mg capsule Take 40 mg by mouth daily 2 Active polyvinyl alcohol (LIQUIFILM TEARS) 1.4 % ophthalmic solution Administer 1 drop into both eyes 3 (three) times a day 2 Active potassium chloride (KLOR-CON) 20 mEq packet Take 20 mEq by mouth 2 (two) times a day 2 Active QUEtiapine (SEROquel) 100 mg tablet Take 100 mg by mouth nightly 2 Active apixaban (ELIQUIS) 5 mg tablet Take 1 tablet (5 mg total) by mouth 2 (two) times a day Active escitalopram (LEXAPRO) 10 mg tablet Take 1 tablet (10 mg total) by mouth daily 2 Active furosemide (LASIX) 40 mg tablet Take 1 tablet (40 mg total) by mouth 3 (three) times a day 2 Active ferrous sulfate 325 mg (65 mg of elemental iron) tabletIndicatio ns:Iron Deficiency Anemia Take 65 mg of elemental iron by mouth 2 (two) times a day Active docusate sodium (COLACE) 100 mg capsuleIndicati ons:constipatio n Take 1 capsule (100 mg total) by mouth nightly Active mirtazapine (REMERON) 7.5 mg tablet nightly 2 Active ascorbic acid (VITAMIN C) 500 mg tablet,chewable daily Acti ve cholecalciferol (VITAMIN D-3) 5,000 unit tablet as directed Every Thursday Active zinc 50 mg tablet Take by mouth daily Active acetaminophen (TYLENOL) 325 mg tabletIndicatio ns:Fever,Pain Take 2 tablets (650 mg total) by mouth every 4 (four) hours as needed for pain, headaches or fever 30 tablet 2 Active Active Problems Problem Noted Date Diagnosed Date Sepsis, due to unspecified o rganism, unspecified whether acute organ dysfunction present 08/20/2022 Urinary tract infection asso ciated with indwelling urethral catheter 08/20/2022 History of CVA (cerebrovascular accident) 2021 Primary hypertension 08/20/2022 Paroxysmal atrial fibrillation 08/20/2022 Pressure injury of sacral region, stage 4 2021 Pressure injury of deep tissue of left hip 08/20 Social History Tobacco Use Types Packs/Day Years Used Date Smoking Tobacco: Never Smokeless Tobacco: Never Tobacco Cessation:Counseling Given: Not Answered Social Connection and Isolation Panel [NHANES] A nswer Date Recorded In a typical week, how many times do you talk on the phone with family, friends, or neighbors? Twice a week 08/21/2022 How often do you get together with friends or re latives? Once a week 08/21/2022 How often do you attend mu-ism or zoroastrian serv ices? Never 08/21/2022 Do you belong to any clubs o r organizations such as mu-ism groups, unions, fraternal or athletic groups, or school groups? No 08/21/2022 How often do you attend meet ings of the clubs or organizations you belong to? Never 08/21/2022 Are you , , di vorced, , never , or living with a partner? Never 08/21/2022 Overall Financial Resource Strain (CARDIA) Answe r Date Recorded How hard is it for you to pa y for the very basics like food, housing, medical care, and heating? Not hard at all 08/21/2022 Hunger Vital Sign Answer Date Recorded Within the past 12 months, y ou worried that your food would run out before you got the money to buy more. Never true 08/21/20 22 Within the past 12 months, t he food you bought just didn't last and you didn't have money to get more. Never true 08/21/2022 PRAPARE - Transportation Answer Date Re corded In the past 12 months, has l ack of transportation kept you from medical appointments or from getting medications? No 08/01 In the past 12 months, has l ack of transportation kept you from meetings, work, or from getting things needed for daily living? No 08/21/2022 Housing Stability Vital Sign Answer En e Recorded In the last 12 months, was t here a time when you were not able to pay the mortgage or rent on time? No 08/21/2022 In the last 12 months, how many places have you lived? 1 08/21/2022 In the last 12 months, was t here a time when you did not have a steady place to sleep or slept in a longterm (including now)? No 08/21/2022 Personal Safety Answer Date Recorded Have you ever been in or are you currently in a harmful physical or emotional relationship or is someone making you feel afraid or unsafe? 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 Gender Identity Not on file Sexual Orientation Not on file Last Filed Vital Signs Vital Sign Reading Time Taken Comments Blood Pressure 173/111 03/23/2024 1:10 PM CDT Pulse 95 03/23/2024 1:10 PM CDT Temperature 36.7 C (98 F) 03/22/2024 11:35 PM CDT Respiratory Rate 16 03/23/2024 1:10 PM CDT Oxygen Saturation 99% 03/23/2024 1:10 PM CDT Inhaled Oxygen Concentration - - Weight 136.1 kg (300 lb) 03/22/2024 11:35 PM CDT Height 177.8 cm (5' 10 ) 03/22/2024 11:35 PM CDT Body Mass Index 43.05 03/22/2024 11:35 PM CDT Plan of Treatment Not on file Insurance [employer] [facility] [employer] [facility] Advance Directives For more information, please contact: [phone] Documents on File Type Date Recorded 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
--- OUTSIDE RECORDS SUMMARY | 2025-01-16 03:07 | XMS_ITS | Encounter Summary ---
Author Organization [facility] Address [address] [facility] [place] [address] Care Team Providers Care Shear Operator Automatic Name Role Phone Unavailable Primary Care Provider Unavailabl e Encounter Details Date Type Department Care Team (Late st Contact Info) Description 01/20/2022 Lab Requisition [facility] [address] [place] [address] [place] [address] [place] [address] Social History Tobacco Use Types Packs/Day Years Used Date Smoking Tobacco: Some Days Smokeless Tobacco: Never Alcohol Use Standard Drinks/Week Comments Yes 15 (1 standard drink = 0.6 oz pu re alcohol) Sex and Gender Information Value Date Recorded Sex Assigned at Not on file 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 Gender Identity Not on file Sexual Orientation [...] Diagnosis Comments CBC W AUTO DIFFERENTIAL STAT 01/20/2022 4:00 AM CDT COMPREHENSIVE METABOLIC PANEL STAT 01/20/2022 4:00 AM CDT documented in this encounter Results * (ABNORMAL) COMPREHENSIVE METABOLIC PANEL (01/20/2022 4:00 AM CDT) Glucose 92 70 - 105 mg/dL 01/20/2022 11:04 AM CDT [facility] Sodium 135(L) 136 - 145 mmol/L 01/20/2022 11:04 AM CDT [facility] Potassium 3.1(L) 3.5 - 5.1 mmol/L 01/20/2022 11:04 AM CDT [facility] Chloride 99 98 - 107 mmol/L 01/20/2022 11:04 AM CDT [facility] CO2 25 23 - 31 mmol/L 01/20/2022 11:04 AM CDT [facility] Calcium 8.1(L) 8.4 - 10.4 mg/dL 01/20/2022 11:04 AM CDT [facility] Anion Gap 11 8 - 18 mmol/L 01/20/2022 11:04 AM CDT [facility] BUN 13 8.9 - 20.6 mg/dL 01/20/2022 11:04 AM CDT [facility] Creatinine 1.24 0.72 - 1.25 mg/dL 01/20/2022 11:04 AM CDT [facility] Alkaline Phosphatase 81 40 - 150 U/L 01/20/2022 11:04 AM CDT [facility] ALT 18 0 - 61 U/L 01/20/2022 11:04 AM CDT [facility] AST 20 5 - 34 U/L 01/20/2022 11:04 AM CDT [facility] Protein Total 4.8(L) 6.4 - 8.3 gm/dL 01/20/2022 11:04 AM CDT [facility] Albumin 2.4(L) 3.5 - 5.2 gm/dL 01/20/2022 11:04 AM CDT [facility] Bilirubin Total 0.6 0.2 - 1.2 mg/dL 01/20/2022 11:04 AM CDT [facility] eGFR by CKD-EPI 79(L) >=90 mL/min/1.7 3 m2 01/20/2022 11:04 AM CDT [facility] Blood BLOOD SPECIMEN / Unknown Venipuncture / Unknown 01/20/2022 4:00 AM CDT 01/20/2022 9:36 AM CDT us Thomas Espinal MD LAB - CHEMISTRY ORDERABLES Fi formerly [facility] Result [facility] [address] [place] [address] * (ABNORMAL) CBC WITH DIFFERENTIAL (01/20/2022 4:00 AM CDT) WBC 15.2(H) 4.4 - 10.7 x10E9/L 01/20/2022 10:26 AM CDT [facility] WBC Corrected 01/20/2022 10:26 AM CDT [facility] RBC 3.10(L) 3.80 - 5.40 x10E12/L 01/20/2022 10:26 AM CDT [facility] Hemoglobin 9.0(L) 12.0 - 17.6 gm/dL 01/20/2022 10:26 AM CDT [facility] Hematocrit 29.1(L) 35.2 - 51.7 % 01/20/2022 10:26 AM CDT [facility] MCV 93.9 80.7 - 98.3 fl 01/20/2022 10:26 AM CDT [facility] MCH 29.0 26.7 - 34.0 pg 01/20/2022 10:26 AM CDT [facility] MCHC 30.9 30.8 - 35.9 gm/dL 01/20/2022 10:26 AM CDT [facility] Platelet Count 376 153 - 416 x10E9/L 01/20/2022 10:26 AM [facility] RDW-CV 14.9 12.1 - 14.9 % 01/20/2022 10:26 AM [facility] MPV 11.6 9.4 - 12.9 fl 01/20/2022 10:26 AM [facility] Neutrophils % 85.7(H) 44.0 - 73.0 % 01/20/2022 10:26 AM [facility] Lymphocytes % 6.0(L) 20.0 - 43.0 % 01/20/2022 10:26 AM [facility] Monocytes % 6.3 5.0 - 13.0 % 01/20/2022 10:26 AM [facility] Eosinophils % 1.1 0.0 - 6.0 % 01/20/2022 10:26 AM [facility] Basophils % 0.3 0.0 - 2.0 % 01/20/2022 10:26 AM [facility] Immature Granulocytes 0.6 0 - 1 % 01/20/2022 10:26 AM [facility] Neutrophil Absolute 12.99(H) 2.01 - 7.14 x10E9/L 01/20/2022 10:26 AM [facility] Lymphocytes Absolute 0.91(L) 1.07 - 3.94 x10E9/L 01/20/2022 10:26 AM [facility] Monocytes Absolute 0.96 0.26 - 1.07 x10E9/L 01/20/2022 10:26 AM [facility] Eosinophils Absolute 0.16 0 - 0.47 x10E9/L 01/20/2022 10:26 AM [facility] Basophils Absolute 0.04 0 - 0.08 x10E9/L 01/20/2022 10:26 AM [facility] Immature Granulocytes Absolute 0.09(H) 0.00 - 0.06 x10E9/L 01/20/2022 10:26 AM [facility] nRBC Auto 0 /100 WBC 01/20/2022 10:26 AM [facility] Blood BLOOD SPECIMEN / Unknown Venipuncture / Unknown 01/20/2022 4:00 AM CDT 01/20/2022 9:36 AM CDT Thomas Toby Espinal MD LAB - HEMATOLOGY ORDERABLES F inal Result [facility] [address] [place] [address] documented in this encounter Visit Diagnoses Not on filedocumented in this encounter
--- OUTSIDE RECORDS SUMMARY | 2025-01-16 03:07 | XMS_ITS | Clinical Summary ---
Author Organization [facility] [employer] Address [address] [place] [address] Care Team Providers Care Courtesy Van Driver Name Role Phone Unavailable Primary Care Provider Unavailabl e Source Comments [facility] [employer],non-owned Affiliates and Associated Physician Practices is amultiple site organization consisting of ambulatory clinics and hospital sitesin [place], [place], [place] and [place]. This disclosure is being madepursuant to the Care Everywhere program and may not contain all information available regarding this patient. Last updated 18.[facility] [employer] Allergies Active Allergy Reactions Criticality Noted Date Comments Lisinopril Angioedema High 07/11/2018 Reports lip and throat swelling Medications * Be aware that medications may not be up to date on this document. Alwaysverify current medications with the patient. carvedilol (COREG) 25 MG tablet Take 1 tablet by mouth 2 times daily with morning and evening meal 60 tablet 3 07/14/2018 Active atorvastatin (LIPITOR) 40 MG tablet Take 1 tablet by mouth at bedtime 30 tablet 3 07/14/2018 Active apixaban (ELIQUIS) 5 MG tablet Take 1 (one) tablet by mouth 2 times daily Active divalproex DR (Depakote) 500 MG tablet Take 1 (one) tablet by mouth 2 times daily 04/04/2024 Active amLODIPine (Norvasc) 5 MG tablet Take 1 (one) tablet by mouth once daily 04/05/2024 Active risperiDONE (RisperDAL) 2 MG tablet Take 1 (one) tablet by mouth 2 times daily 04/06/2024 Active tiZANidine (Zanaflex) 4 MG tablet Take 1 (one) tablet by mouth every 8 hours as needed for Muscle Spasms 04/14/2024 Active Active Problems Problem Noted Date Diagnosed Date Weakness 03/30/2024 Hypertensive emergency 07/10/2018 Social History Tobacco Use Types Packs/Day Years Used Date Smoking Tobacco: Some Days Smokeless Tobacco: Never Tobacco Cessation:Counseling Given: Yes Alcohol Use Standard Drinks/Week Comments Yes 15 (1 standard drink = 0.6 oz pu re alcohol) AUDIT-C Answer Date Recorded Q1: How often do you have a drink containing alc ohol? 2-4 times a month 03/31/2024 Q2: How many drinks containi ng alcohol do you have on a typical day when you are drinking? 3 or 4 03/31/2024 Q3: How often do you have si x or more drinks on one occasion? Patient declined 03/31/2024 Hunger Vital Sign Answer Date Recorded Within the past 12 months, y ou worried that your food would run out before you got the money to buy more. Never true 03/31/20 24 Within the past 12 months, t he food you bought just didn't last and you didn't have money to get more. Never true 03/31/2024 Sex and Gender Information Value Date Recorded Sex Assigned at Not on file Legal Sex Male 5:34 AM [employer] Gender Identity Not on file Sexual Orientation Not on file Last Filed Vital Signs Vital Sign Reading Time Taken Comments Blood Pressure 150/99 04/15/2024 11:45 AM CDT Pulse 83 04/15/2024 11:45 AM CDT Temperature 36.7 C (98 F) 04/15/2024 11:45 AM CDT Respiratory Rate 18 04/15/2024 11:4 5 AM CDT Oxygen Saturation 99% 04/15/2024 7:19 AM CDT Inhaled Oxygen Concentration - - Weight 158.7 kg (349 lb 14.4 oz) 2023 11:16 PM CDT Height 190.5 cm (6' 3 ) 03/30/2024 11:1 6 PM CDT Body Mass Index 43.73 03/30/2024 11:16 PM CDT Plan of Treatment Health Maintenance Due Date Last Done Comments HIV SCREENING 01/26/2004 HEPATITIS C SCREENING 01/21/2007 DTAP/TDAP/TD VACCINES (1 - Tdap) 01/26/2008 HEPATITIS B VACCINE (1 of 3 - 19+ 3-dose series) 01/26/2008 PNEUMOCOCCAL VACCINE (1 of 2 - PCV) 01/26/2008 COVID-19 VACCINE ( season) 2024 07/27/2023, 08/19/2022, 12/02/2021, Additional history exists DEPRESSION SCREENING 08/31/2024 INFLUENZA VACCINE (Season Ended) 2025 08/11/2023, 08/19/2022, 06/04/2022 ZOSTER VACCINE (1 of 2) 2039 HIB VACCINE Aged Out No longer eligi ble based on patient's age to complete this topic HPV VACCINE Aged Out No longer eligi ble based on patient's age to complete this topic MENINGOCOCCAL (Group B) VACCINE SHARED DECISION-MAKING Aged Out No longer eligible based on patient's age to complete this topic MENINGOCOCCAL GROUPS A/C/Y/W VACCINE Aged Out No longer eligible based on patient's age to complete this topic [facility] Advance Directives * Full Code (Latest Code Status on File) Date Activated Date Inactivated Comments 03/30/2024 11:41 PM 04/15/2024 3:43 PM * Full Code Date Activated Date Inactivated Comments 07/11/2018 7:29 PM 07/15/2018 1:04 AM * Full Code Date Activated Date Inactivated Comments 07/10/2018 11:52 PM 07/11/2018 7:29 PM
--- OUTSIDE RECORDS SUMMARY | 2025-01-16 03:07 | XMS_ITS | Data Portability ---
Author Organization [facility] Address [address] [place] [address] Assessment No assessment recorded. Plan of Treatment Reminders Order Date Submit Date Provider Last Modified By Organization Details Last Modified Time Details Appointments None recorded . Lab None recorded . Referral None recorded . Procedures None recorded . Surgeries None recorded . Imaging None recorded . Medication Orders aspirin 81 mg tablet,d elayed release 2020 021 [id number] [address] [place], [address], 11:19:28 carvedil ol 25 mg tablet 2020 021 [facility] #[id number], [address] [place], [address], 11:19:29 chlortha lidone 25 mg tablet 2020 021 [facility] #97647, [address] [place], [address], 11:19:29 losartan 25 mg tablet 2020 021 [facility] #[id number], [address] [place], [address], 11:19:29 bumetani de 1 mg tablet 2020 021 [facility] #74097, [address] [place], [address], 1 11:19:30 atorvast atin 40 mg tablet 2020 021 [facility] #52011, [address] [place], [address], 1 11:19:30 chlortha lidone 25 mg tablet 2019 020 [facility] #52246, [address], [place], [id number], 0 15:16:45 carvedil ol 25 mg tablet 2019 020 [facility] #59661, [address], [place], [id number], 0 15:16:54 aspirin 81 mg tablet,d elayed release 2019 020 [facility] #78555, [address], [place], [id number], 0 15:16:56 atorvast atin 40 mg tablet 2019 020 [facility], [address], [place], [id number], 0 15:16:47 losartan 100 mg tablet 2019 020 [email or web address] #74622, [address], [place], [id number], 1 10:41:00 carvedil ol 25 mg tablet 2018 019 [facility] #25522, [address], [place], [id number], 9 10:32:21 chlortha lidone 25 mg tablet 2018 019 [facility] #95132, [address], [place], [id number], 9 10:32:21 atorvast atin 40 mg tablet 2018 019 [facility] #11224, [address], [place], [id number], 9 10:32:21 losartan 100 mg tablet 2018 [email or web address] #15650, [address], [place], [id number], 10:41:00 Patient TargetsNo targets recorded. Patient Instructions Encounter Date Encounter Id Patient Instructions Last Modified By Organization Details Last Modified Time 07/04/2019 [id number] learning about high blood pressure [facility] Not available 07/04/2019 10:32:15 02/11/2021 [id number] leg and ankle edema: care instructions [facility] Not available 02/11/2021 11:19:23 learning about high blood pressure [facility] Not available 02/11/2021 11:19:23 Reason for Referral None Reported. Results Created Date Observation Date Name Description Value Unit Range Abnormal Flag Note LastModifiedBy Organization Detail LastModifiedTime 02/03/20 21 02/01/2021 US, abdom en No observ ation record ed. [facility] (One Call Scheduling) [address] [place], [address], 02/04/2021 10:05:14 09/19/19 22 09/18/2021 CT, abdom en + pelvi s, w/ contr ast No observ ation record ed. [email or web address] [address] [place], [address], 09/24/2021 16:05:13 10/22/19 22 10/22/2021 CT, abdom en + pelvi s, w/ contr ast No observ ation record ed. [email or web address] [facility] [address] [place], [address], 10/25/2021 11:09:44 10/23/19 22 10/23/2021 XR, abdom en No observ ation record ed. [address] [place], [address], 10/25/2021 11:10:01 10/23/19 22 10/23/2021 XR, chest No observ ation record ed. [address] [place], [address], 10/25/2021 11:10:13 10/26/19 22 10/26/2021 CT, head, w/o contr ast No observ ation record ed. [address] [place], [address], 10/28/2021 16:22:21 10/27/19 22 10/27/2021 CT, head, w/o contr ast No observ ation record ed. [address] [place], [address], 10/28/2021 16:22:33 10/27/19 22 10/27/2021 CT, neck, soft tissu e, w/o contr ast No observ ation record ed. [address] [place], [address], 10/28/2021 16:22:57 10/27/19 22 10/27/2021 XR, abdom en No observ ation record ed. [address] [place], [address], 10/28/2021 16:23:15 10/28/19 22 10/27/2021 XR, abdom en No observ ation record ed. [address] [facility] Referral Fax Line [address] [facility] [address], [place], [address], 10/28/2021 16:23:33 10/28/19 22 10/27/2021 CT, neck, soft tissu e, w/o contr ast No observ ation record ed. [address] [facility] Referral Fax Line [address] [facility] [address], [place], [address], 10/28/2021 16:23:57 10/28/19 22 10/28/2021 XR, chest No observ ation record ed. [address] [place], [address], 10/28/2021 16:24:09 10/28/19 22 10/28/2021 XR, chest No observ ation record ed. [facility] [address] [place], [address], 10/29/2021 12:24:53 10/30/19 22 10/29/2021 XR, chest No observ ation record ed. [facility] [address] [place], [address], 10/29/2021 18:29:12 10/30/19 22 10/29/2021 XR, chest No observ ation record ed. [facility] Vascular Referral Fax Line [address] [facility] [address], [place], [address], 10/29/2021 18:30:05 11/02/19 22 10/31/2021 XR, chest No observ ation record ed. [facility] [address] [place], [address], 11/01/2021 18:08:20 11/02/19 22 11/01/2021 CT, chest + abdom en + pelvi s, w/o contr ast No observ ation record ed. [facility] [address] [place], [address], 11/01/2021 18:11:36 11/06/19 22 11/05/2021 XR, abdom en No observ ation record ed. [address] [place], [address], 11/08/2021 10:54:19 11/06/19 22 11/05/2021 XR, abdom en No observ ation record ed. [address] [facility] Referral Fax Line [address] [facility] [address], [place], [address], 11/08/2021 10:54:39 11/07/19 22 11/06/2021 XR, chest No observ ation record ed. [address] [place], [address], 11/08/2021 10:54:50 11/09/19 22 11/08/2021 XR, chest No observ ation record ed. [facility] [address] [place], [address], 11/08/2021 18:00:57 11/14/19 22 11/13/2021 XR, abdom en No observ ation record ed. [address] [place], [address], 11/19/2021 10:06:45 11/14/19 22 11/13/2021 XR, chest No observ ation record ed. [address] [place], [address], 11/19/2021 10:07:01 11/14/19 22 11/13/2021 XR, abdom en No observ ation record ed. [facility]ascular Referral Fax Line [address] [facility] [address], [place], [address], 11/13/2021 18:40:41 11/16/19 22 11/15/2021 XR, chest No observ ation record ed. [address] [place], [address], 11/19/2021 10:12:41 04/11/20 22 04/10/2022 XR, chest No observ ation record ed. [email or web address] [address] [facility] [place], [address], 04/14/2022 13:08:19 04/11/20 22 04/11/2022 XR, chest No observ ation record ed. [email or web address] [facility] [address] [place], [address], 04/14/2022 10:29:42 04/11/20 22 04/11/2022 CT, angio gram, chest , w/ contr ast No observ ation record ed. [email or web address] [address] [place], [address], 04/14/2022 13:09:08 06/29/20 22 06/29/2022 XR, abdom en No observ ation record ed. [email or web address] [facility] [address] [place], [address], 07/01/2022 13:09:33 06/29/20 22 06/29/2022 CT, abdom en + pelvi s, w/o contr ast No observ ation record ed. [email or web address] [facility] [address] [place], [address], 07/01/2022 13:07:57 06/29/20 22 06/29/2022 XR, abdom en No observ ation record ed. [email or web address] [facility] [address] [place], [address], 07/01/2022 13:07:34 06/29/20 22 06/29/2022 XR, abdom en No observ ation record ed. [email or web address] Orders [address] [place], [address], 06/30/2022 17:40:10 06/30/20 22 06/30/2022 XR, chest No observ ation record ed. [email or web address] [facility] Add On Lab Orders [address] [place], [address], 07/01/2022 13:01:43 07/01/20 22 07/01/2022 imagi ng/di agnos tic resul t No observ ation record ed. [address] [facility] On Lab Orders [address] [place], [address], 07/02/2022 09:48:38 Result Notes None recorded. Problems Name Problem SNOMED Code Status Onset Date Resolution Date Notes Provider Name and Address Organization Details Recorded Time Hypertensive disorder 18520724 Active 2017 Royce Cr MA [facility], [facility] 8 11:13:01 Problem Notes None recorded. Procedures Surgical History None recorded. Imaging Results Imaging Date Name Status LastModified by [facility] Details LastModified Time 02/01/2021 US, abdomen completed [facility] (One Call Scheduling) [address] [place], [address], 02/04/2021 10:05:14 09/18/2021 CT, abdomen + pelvis, w/ contrast completed [facility] [address] [place], [address], 09/24/2021 16:05:13 10/22/2021 CT, abdomen + pelvis, w/ contrast completed [address] [place], [address], 10/25/2021 11:09:44 10/23/2021 XR, abdomen completed [address] [place], [address], 10/25/2021 11:10:01 10/23/2021 XR, chest completed [address] [place], [address], 10/25/2021 11:10:13 10/26/2021 CT, head, w/o contrast completed [email or web address] [place], [address], 10/28/2021 16:22:21 10/27/2021 CT, head, w/o contrast completed [email or web address] [place], [address], 10/28/2021 16:22:33 10/27/2021 CT, neck, soft tissue, w/o contrast completed [email or web address] [place], [address], 10/28/2021 16:22:57 10/27/2021 XR, abdomen completed [email or web address] [facility] [address] [place], [address], 10/28/2021 16:23:15 10/27/2021 XR, abdomen completed [email or web address] [facility] Hear t And Vascular Referral Fax Line [address] [facility] [address], [place], [address], 10/28/2021 16:23:33 10/27/2021 CT, neck, soft tissue, w/o contrast completed [email or web address] [facility] Vascular Referral Fax Line [address] [facility] [address], [place], [address], 10/28/2021 16:23:57 10/28/2021 XR, chest completed [email or web address] [facility] [address] [place], [address], 10/28/2021 16:24:09 10/28/2021 XR, chest completed [facility] [address] [place], [address], 10/29/2021 12:24:53 10/29/2021 XR, chest completed [facility] [address] [place], [address], 10/29/2021 18:29:12 10/29/2021 XR, chest completed [facility] Vascular Referral Fax Line [address], [place], [address], 10/29/2021 18:30:05 10/31/2021 XR, chest completed [facility] [address] [place], [address], 11/01/2021 18:08:20 11/01/2021 CT, chest + abdomen + pelvis, w/o contrast completed [facility] [address] [place], [address], 11/01/2021 18:11:36 11/05/2021 XR, abdomen completed [email or web address] [facility] [address] [place], [address], 11/08/2021 10:54:19 11/05/2021 XR, abdomen completed [email or web address] [facility] Hear t And Vascular Referral Fax Line [address] [address], [place], [address], 11/08/2021 10:54:39 11/06/2021 XR, chest completed [email or web address] [facility] [address] [place], [address], 11/08/2021 10:54:50 11/08/2021 XR, chest completed [facility] [address] [place], [address], 11/08/2021 18:00:57 11/13/2021 XR, abdomen completed [email or web address] [facility] [address] [place], [address], 11/19/2021 10:06:45 11/13/2021 XR, chest completed [email or web address] [facility] [address] [place], [address], 11/19/2021 10:07:01 11/13/2021 XR, abdomen completed [facility] Hear t And Vascular Referral Fax Line [address], [place], [address], 11/13/2021 18:40:41 11/15/2021 XR, chest completed [email or web address] [facility] [address] [place], [address], 11/19/2021 10:12:41 04/10/2022 XR, chest completed [email or web address] [facility] [address] [place], [address], 04/14/2022 13:08:19 04/11/2022 XR, chest completed [email or web address] [facility] [address] [place], [address], 04/14/2022 10:29:42 04/11/2022 CT, angiogram, chest, w/ contrast completed [email or web address] [facility] [address] [place], [address], 04/14/2022 13:09:08 06/29/2022 XR, abdomen completed [email or web address] [facility] [address] [place], [address], 07/01/2022 13:09:33 06/29/2022 CT, abdomen + pelvis, w/o contrast completed [email or web address] [facility] [address] [place], [address], 07/01/2022 13:07:57 06/29/2022 XR, abdomen completed [email or web address] [address] [place], [address], 07/01/2022 13:07:34 06/29/2022 XR, abdomen completed [email or web address] [facility] [address] [place], [address], 06/30/2022 17:40:10 06/30/2022 XR, chest completed [email or web address] [address] [place], [address], 07/01/2022 13:01:43 07/01/2022 imaging/diagn ostic result completed [email or web address] [facility] [address] [place], [address], 07/02/2022 09:48:38 Procedure Notes None recorded. Medical Equipment None Reported. Allergies No known drug allergies Medications Name Sig Start Date Stop Date Status Note LastModified by Organization Details LastModified Time losartan 50 mg tablet 09/28 completed Not Available Not Available Not Available atorvastat in 40 mg tablet TAKE 1 TABLET EVERY DAY BY ORAL ROUTE AT DINNER active Not Available Not Available No t Available carvedilol 25 mg tablet TAKE 1 TABLET BY MOUTH TWICE A DAY DIRECTED active Not Available Not Available No t Available carvedilol 6.25 mg tablet Take 1 tablet twice a day by oral route as directed for 30 days. 08/09 completed Not Available Not Available Not Available trazodone 50 mg tablet Take 1 tablet every day by oral route at bedtime for 30 days. 02/01 completed Not Available Not Available Not Available lisinopril 20 mg tablet Take 1 tablet every day by oral route as directed for 30 days. 08/09 completed Not Available Not Available Not Available isosorbide mononitrat e ER 30 mg tablet,ext ended release 24 hr 10/15 completed Not Available Not Available Not Available olanzapine 10 mg tablet 02/11 completed Not Available Not Available Not Available chlorthali done 25 mg tablet TAKE 1 TABLET EVERY DAY BY ORAL ROUTE DIRECTED FOR 30 DAYS. active Not Available Not Available No t Available divalproex 500 mg tablet,del ayed release TAKE 1 TABLET BY MOUTH TWICE DAILY AROUND THE CLOCK active needs appt prior to ref Not Available Not Available Not Available Reglan 10 mg tablet Take 1 tablet twice a day by oral route as directed for 10 days. 2021 active Not Available Not Available Not Avai lable aspirin 81 mg tablet,del ayed release TAKE 1 TABLET BY MOUTH EVERY DAY DIRECTED active Not Available Not Available No t Available spironolac tone 25 mg tablet active Not Available Not Available Not Available isosorbide mononitrat e ER 60 mg tablet,ext ended release 24 hr Take 1 tablet every day by oral route as directed for 30 days. 08/09 completed Not Available Not Available Not Available amlodipine 10 mg tablet Take 1 tablet every day by oral route as directed for 30 days. 08/09 completed Not Available Not Available Not Available hydralazin e 100 mg tablet 08/09 completed Not Available Not Available Not Available losartan 25 mg tablet TAKE 1 TABLET EVERY DAY BY ORAL ROUTE DIRECTED FOR 30 DAYS. 2021 active Not Available Not Available Not Avai lable bumetanide 1 mg tablet TAKE 1 TABLET EVERY DAY BY ORAL ROUTE NEEDED active Not Available Not Available No t Available hydralazin e 50 mg tablet Take 1 tablet 3 times a day by oral route as directed for 30 days. 08/09 completed Not Available Not Available Not Available lisinopril 40 mg tablet 08/09 completed Not Available Not Available Not Available losartan 100 mg tablet TAKE 1 TABLET BY MOUTH EVERY DAY DIRECTED 02/11 completed Not Available Not Available Not Available loratadine 10 mg tablet TAKE 1 TABLET BY MOUTH EVERY DAY active Not Available Not Available No t Available hydroxyzin e pamoate 25 mg capsule 09/28 completed Not Available Not Available Not Available Bactrim DS 800 mg-160 mg tablet Take 1 tablet every 12 hours by oral route with meals for 5 days. 2021 active Not Available Not Available Not Avai lable lactulose 10 gram/15 mL oral solution Take 15 mL every day by oral route as needed for 10 days. 2021 active Not Available Not Available Not Avai lable Vitals Date Recorded Body height Body mass index (BMI) Body weight Body temperature Oxygen saturation Oxygen saturation in Arterial blood by Pulse oximetry Heart rate Systolic blood pressure Diastolic blood pressure Provider Name and Address Organization Details Last Updated DateTime 9 182.25 cm 39.7 kg/m2 625230. 66 g 98.2 [degF] 97 % 97 % 78 /min 116 mm[Hg] 66 mm[Hg] Royce Cr MA [facility] 9 10:18:04 Date Recorded Body height Body mass index (BMI) Body weight Body temperature Oxygen saturation Oxygen saturation in Arterial blood by Pulse oximetry Heart rate Systolic blood pressure Diastolic blood pressure Provider Name and Address Organization Details Last Updated DateTime 1 184.79 cm 37.8 kg/m2 301538. 11 g 98.3 [degF] 98 % 98 % 93 /min 154 mm[Hg] 130 mm[Hg] Royce Cr MA [facility] 1 10:46:40 Date Recorded Body height Body mass index (BMI) Body weight Body temperature Oxygen saturation Oxygen saturation in Arterial blood by Pulse oximetry Heart rate Systolic blood pressure Diastolic blood pressure Provider Name and Address Organization Details Last Updated DateTime 2 184.79 cm 31.1 kg/m2 204599. 9 g 98 [degF] 97 % 97 % 76 /min 92 mm[Hg] 60 mm[Hg] Royce Cr MA [facility] 2 13:16:09 Social History Question Answer Notes LastModified by [facility] Details LastModified Time Tobacco Smoking Status Never Smoker Royce Cr MA null, [facility] 10/15/2017 11:10:35 What Was The Date Of Your Most Recent Tobacco Screening? 10/15/2017 Information n ot available 03/24/2019 Sex: Unknown Functional Status Question Answer Note LastModified by [facility] Details LastModified Time What is your level of alcohol consumption? Occasional [email or web address] Information not available 10/15/2017 Mental Status None recorded. Family History Relationship Description Onset Age of this Age Resolved Age Notes LastModified by Organization Details LastModified Time Brother Hypertensive disorder [email or web address] Not available 10/15 11:10:22 Father Hypertensive disorder [email or web address] Not available 10/15 11:10:22 Mother Hypertensive disorder [email or web address] Not available 10/15 11:10:22 Sister Hypertensive disorder [email or web address] Not available 10/15 11:10:22 Medical History Condition Response High Blood Pressure Y Past Encounters Encounter ID Performer Location Encounter Start Date Encounter Closed Date Diagnosis/Indication Diagnosis SNOMED-CT Code Diagnosis ICD10 Code Diagnosis Note [id number] MD Meka King (Adult Med) [address] [place] [phone] 10/15/2017 10:43:29 10/15/2017 12:48:25 Hypertensive heart disease 89134188 I11.9 Low salt diet, due to low blood pressure, will adjust the medication s. Family his tory of diabetes mellitus type 2 413694744 Z83.3 Chronic sy stolic heart failure 563885890 I50.22 [id number] MD Meka King (Adult Med) [address] [place] [id number] 08/09/2018 16:11:58 08/09/2018 18:07:26 Ischemic stroke 503243490 I63.9 Left hemiparesis 9462358 00 G81.90 Essential hypertension 93205106 I10 Low salt diet. Discussed with patient, he expressed the joing the GYM. Will increase losartan to 100 mg /day. Insomnia 720685452 G47.0 0 Hypertensi ve heart disease 02489012 I11.9 Low salt diet, due to low blood pressure, will adjust the medication s. Seasonal a llergic rhinitis 491765567 J30.2 [id number] MD Meka King (Adult Med) [address] [place] [id number] 09/28/2018 16:40:41 09/28/2018 17:47:19 Seizure disorder 183165163 G40.256 [id number] MD Meka King (Adult Med) [address] [place] [id number] 02/01/2019 09:57:53 02/01/2019 10:39:33 Essential hypertension 21086062 I10 Low salt diet. Discussed with patient, he expressed the joing the GYM. Will increase losartan to 100 mg /day. Seizure disorder 0078174 02 G40.909 Stable. Hypertensi ve heart disease 73960916 I11.9 Low salt diet, due to low blood pressure, will adjust the medication s. Dyslipidemia 077403123 E 78.5 Low saturated fat diet. [id number] MD Meka King (Adult Med) [address] [place] [id number] 07/04/2019 09:42:45 07/05/2019 09:34:20 Essential hypertension 43294450 I10 Low salt diet. Discussed with patient, he expressed the joing the GYM. Will increase losartan to 100 mg /day. Dyslipidemia 212182866 E 78.5 Low saturated fat diet. Hypertensi ve heart disease 71570930 I11.9 Low salt diet, due to low blood pressure, will adjust the medication s. History of cerebrovascular accident 318282105 Z86.73 So far is able to manage his daily life independen y. [id number] MD Meka King (Adult Med) [address] [place] [id number] 02/06/2020 08:22:25 02/06/2020 15:30:27 [id number] MD Meka King (Adult Med) [address] [place] [id number] 02/06/2020 14:10:36 02/07/2020 13:12:05 Hypertensive disorder 24843518 I10 advised him to be on low salt diet, and take medication s as prescribed , Dyslipidemia 997284123 E 78.5 Low saturated fat diet. Hypertensi ve heart disease 90402364 I11.9 Low salt diet, due to low blood pressure, will adjust the medication s. Essential hypertension 33438800 I10 Low salt diet. Discussed with patient, he expressed the joing the GYM. Will increase losartan to 100 mg /day. [id number] MD Meka King (Adult Med) [address] [place] [id number] 02/11/2021 10:02:08 02/12/2021 10:43:03 Edema of lower extremity 534646922 R60.0 Wants refill bumetanide , Essential hypertension 91007505 I10 Low salt diet. Discussed with patient, he expressed the joing the GYM. Will increase losartan to 100 mg /day. Hypertensi ve heart disease 93092367 I11.9 Low salt diet, due to low blood pressure, will adjust the medication s. Dyslipidemia 035897535 E 78.5 Low saturated fat diet. Low animal fat diet. [id number] Sofia Wong MD [facility] (Adult Med) [address] [place] [phone] 10/10/2021 12:16:33 10/11/2021 11:18:02 Hypertensive disorder 17952892 I10 advised him to be on low salt diet, and take medication s as prescribed , Bilateral feet edema 829 852735 R60.0 But theres no edema of feet today, skin copped some times, he soaked with asent salt . Health Concerns Section Related Observation LastModified by Organization Detai ls LastModified Time None Recorded Concern Status LastModified by Organization Details LastModified Time None Recorded Advance Directives Directive None Recorded Payers Encounter Date Sequence Insurance Name Policy Number Policy Wyatt Covered Member ID Wyatt Member ID Guarantor Name 07/04/2019 1 [facility] (MEDICAID HMO) [place] [id number] Danie Jonas 02/06/2020 1 [facility] (MEDICAID HMO) [place] [id number] Danie Jonas 02/06/2020 1 [facility] (MEDICAID HMO) [place] [id number] Danie Jonas 02/11/2021 1 [employer] [place] ON [place] AFTER 2020 (MEDICAID REPLACEMENT - HMO) Danie Jonas [id number] Danie Jonas 10/10/2021 1 [employer] [place] ([place]ICAID REPLACEMENT - HMO) Danie Jonas [id number] Danie Jonas Notes Date Note Type Note Provider Name and Address Organization Details Recorded Time 07/04/2019 text/html F/U , no special complaints. Declines the annual flu shot. History of hypertension. Sofia Wong MD Attn: Accounting,[address] [facility], [place], [address], [place] 07/04/2019 10:32:19 02/06/2020 text/html Phone visit, NKD A, history of hypertension, needs refill of medications, NKDA, will re-schedule appointment after the coronavirus pandemic is over, hre agreed. Sofia Wong MD Attn: Accounting,[address] [facility], [place], [address], [facility] - [place] 02/06/2020 15:16:23 02/11/2021 text/html Office visit, ra n out of medications, will refill . NKDA. Sofia Wong MD Attn: Accounting,[address] [facility], [place], [address], [facility] [place] 02/11/2021 11:19:53 10/10/2021 text/html Office visit, history of CVA and hypertension, has enouhgh medications, NKDA. 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
--- OUTSIDE RECORDS SUMMARY | 2025-01-16 03:07 | XMS_ITS | Encounter Summary ---
Author Organization [facility] Address [address] [address] Care Team Providers Care Case Specialist Name Role Phone Unavailable Primary Care Provider Unavailabl e Encounter Details Date Type Department Care Team (Late st Contact Info) Description 02/11/2022 Lab Requisition [facility] [address] [place] [address] Tato Price MD [address] [place], [place] [id number] Social History Tobacco Use Types Packs/Day Years Used Date Smoking Tobacco: Some Days Smokeless Tobacco: Never Alcohol Use Standard Drinks/Week Comments Yes 15 (1 standard drink = 0.6 oz pu re alcohol) Sex and Gender Information Value Date Recorded Sex Assigned at Not on file 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 Answer Entry Date Author Yes 12/06/2021 4:24 PM Leander Paz, RN documented in this encounter Plan of Treatment Not on file documented as of this encounter Visit Diagnoses Not on filedocumented in this encounter
--- OUTSIDE RECORDS SUMMARY | 2025-01-16 03:07 | XMS_ITS | Encounter Summary ---
Author Organization [facility] Address [address] [place] [address] Care Team Providers Care Claims Counsel Name Role Phone Unavailable Primary Care Provider Unavailabl e Encounter Details Date Type Department Care Team (Late st Contact Info) Description 02/06/[address] 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 WBC Corrected 02/06/2022 11:31 AM CDT [facility] RBC 3.67(L) 3.80 - 5.40 x10E12/L 02/06/2022 11:[address] [facility] Hemoglobin 10.5(L) 12.0 - 17.6 gm/dL 02/06/2022 11:[address] [facility] Hematocrit 36.2 35.2 - 51.7 % 02/06/2022 11:[address] [facility] MCV 98.6(H) 80.7 - 98.3 fl 02/06/2022 11:[address] [facility] MCH 28.6 26.7 - 34.0 pg 02/06/2022 11:31 AM CDT [facility] MCHC 29.0(L) 30.8 - 35.9 gm/dL 02/06/2022 11:31 AM CDT [facility] Platelet Count 427(H) 153 - 416 x10E9/L 02/06/2022 11:[address] [facility] RDW-CV 15.9(H) 12.1 - 14.9 % 02/06/2022 11:[address] [facility] MPV 11.0 9.4 - 12.9 fl 02/06/2022 11:31 AM [facility] Neutrophils % 88.7(H) 44.0 - 73.0 % 02/06/2022 11:31 AM [facility] Lymphocytes % 4.7(L) 20.0 - 43.0 % 02/06/2022 11:31 AM [facility] Monocytes % 4.8(L) 5.0 - 13.0 % 02/06/2022 11:[address] [facility] Eosinophils % 0.8 0.0 - 6.0 % 02/06/2022 11:31 AM [facility] Basophils % 0.3 0.0 - 2.0 % 02/06/2022 11:[address] [facility] Immature Granulocytes 0.7 0 - 1 % 02/06/2022 11:31 AM [facility] Neutrophil Absolute 16.76(H) 2.01 - 7.14 x10E9/L 02/06/2022 11:31 AM [facility] Lymphocytes Absolute 0.88(L) 1.07 - 3.94 x10E9/L 02/06/2022 11:31 AM [facility] Monocytes Absolute 0.91 0.26 - 1.07 x10E9/L 02/06/2022 11:31 AM [facility] Eosinophils Absolute 0.16 0 - 0.47 x10E9/L 02/06/2022 11:31 AM [facility] Basophils Absolute 0.06 0 - 0.08 x10E9/L 02/06/2022 11:31 AM [facility] Immature Granulocytes Absolute 0.14(H) 0.00 - 0.06 x10E9/L 02/06/2022 11:31 AM [facility] nRBC Auto 0 /100 WBC 02/06/2022 11:31 AM [facility] Blood BLOOD SPECIMEN / Unknown Venipuncture / Unknown 02/06/2022 5:00 AM CDT 02/06/2022 11:06 AM CDT us Thomas Espinal MD LAB - HEMATOLOGY ORDERABLES F inal Result Performing Organization Address City/State/[facility] Co de Phone Number [facility] [address] [place] [address] * (ABNORMAL) COMPREHENSIVE METABOLIC PANEL (02/06/2022 5:00 AM CDT) [facility] Signature Glucose 83 70 - 105 mg/dL 02/06/2022 11:[address] [facility] Sodium 134(L) 136 - 145 mmol/L 02/06/2022 11:[address] [facility] Potassium 4.2 3.5 - 5.1 mmol/L 02/06/2022 11:[address] [facility] Chloride 99 98 - 107 mmol/L 02/06/2022 11:[address] [facility] CO2 21(L) 23 - 31 mmol/L 02/06/2022 11:[address] [facility] Calcium 8.3(L) 8.4 - 10.4 mg/dL 02/06/2022 11:[address] [facility] Anion Gap 14 8 - 18 mmol/L 02/06/2022 11:[address] [facility] BUN 38(H) 8.9 - 20.6 mg/dL 02/06/2022 11:[address] [facility] Creatinine 2.35(H) 0.72 - 1.25 mg/dL 02/06/2022 11:[address] [facility] Alkaline Phosphatase 142 40 - 150 U/L 02/06/2022 11:[address] [facility] ALT 21 0 - 61 U/L 02/06/2022 11:[address] [facility] AST 39(H) 5 - 34 U/L 02/06/2022 11:[address] [facility] Protein Total 5.8(L) 6.4 - 8.3 gm/dL 02/06/2022 11:[address] [facility] Albumin 2.4(L) 3.5 - 5.2 gm/dL 02/06/2022 11:[address] [facility] Bilirubin Total 0.6 0.2 - 1.2 mg/dL 02/06/2022 11:[address] [facility] eGFR by CKD-EPI 37(L) >=90 mL/min/1.7 3 m2 02/06/2022 11:[address] [facility] Blood BLOOD SPECIMEN / Unknown Venipuncture / Unknown 02/06/2022 5:00 AM CDT 02/06/2022 11:[address] [facility] - 02/06/2022 11:50 AM CDT Slight hemolysis. us Thomas Espinal MD LAB - CHEMISTRY ORDERABLES Fi nal Result [facility] [address] [place] [address] documented in this encounter Visit Diagnoses Not on filedocumented in this encounter
--- OUTSIDE RECORDS SUMMARY | 2025-01-16 03:07 | XMS_ITS | Encounter Summary ---
Author Organization [facility] Address [address] [place] [address] Care Team Providers Care Test Engineering Intern Name Role Phone Unavailable Primary Care Provider Unavailabl e Encounter Details Date Type Department Care Team (Late st Contact Info) Description 01/09/2022 Lab Requisition [facility] [address] [place] [address] [place] [address] [place] [address] Social History Tobacco Use Types Packs/Day Years Used Date Smoking Tobacco: Some Days Smokeless Tobacco: Never Alcohol Use Standard Drinks/Week Comments Yes 15 (1 standard drink = 0.6 oz pu re alcohol) Sex and Gender Information Value Date Recorded Sex Assigned at Not on file 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 Gender Identity Not on file Sexual Orientation [...] Diagnosis Comments CBC W AUTO DIFFERENTIAL STAT 01/09/2022 5:29 AM CDT COMPREHENSIVE METABOLIC PANEL STAT 01/09/2022 5:29 AM CDT PHOSPHORUS BLOOD STAT 01/09/2022 5:29 AM CDT documented in this encounter Results * (ABNORMAL) CBC WITH DIFFERENTIAL (01/09/2022 5:29 AM CDT) WBC 7.1 4.4 - 10.7 x10E9/L 01/09/2022 10:03 AM CDT [facility] WBC Corrected 01/09/2022 10:03 AM CDT [facility] RBC 3.22(L) 3.80 - 5.40 x10E12/L 01/09/2022 10:03 AM CDT [facility] Hemoglobin 9.7(L) 12.0 - 17.6 gm/dL 01/09/2022 10:03 AM CDT [facility] Hematocrit 31.4(L) 35.2 - 51.7 % 01/09/2022 10:03 AM CDT [facility] MCV 97.5 80.7 - 98.3 fl 01/09/2022 10:03 AM CDT [facility] MCH 30.1 26.7 - 34.0 pg 01/09/2022 10:03 AM CDT [facility] MCHC 30.9 30.8 - 35.9 gm/dL 01/09/2022 10:03 AM CDT [facility] Platelet Count 277 153 - 416 x10E9/L 01/09/2022 10:03 AM CDT [facility] RDW-CV 15.3(H) 12.1 - 14.9 % 01/09/2022 10:03 AM [facility] MPV 12.4 9.4 - 12.9 fl 01/09/2022 10:03 AM [facility] Neutrophils % 74.4(H) 44.0 - 73.0 % 01/09/2022 10:03 AM [facility] Lymphocytes % 11.5(L) 20.0 - 43.0 % 01/09/2022 10:03 AM [facility] Monocytes % 9.1 5.0 - 13.0 % 01/09/2022 10:03 AM [facility] Eosinophils % 3.5 0.0 - 6.0 % 01/09/2022 10:03 AM [facility] Basophils % 0.7 0.0 - 2.0 % 01/09/2022 10:03 AM [facility] Immature Granulocytes 0.8 0 - 1 % 01/09/2022 10:03 AM [facility] Neutrophil Absolute 5.25 2.01 - 7.14 x10E9/L 01/09/2022 10:03 AM [facility] Lymphocytes Absolute 0.81(L) 1.07 - 3.94 x10E9/L 01/09/2022 10:03 AM [facility] Monocytes Absolute 0.64 0.26 - 1.07 x10E9/L 01/09/2022 10:03 AM [facility] Eosinophils Absolute 0.25 0 - 0.47 x10E9/L 01/09/2022 10:03 AM [facility] Basophils Absolute 0.05 0 - 0.08 x10E9/L 01/09/2022 10:03 AM [facility] Immature Granulocytes Absolute 0.06 0.00 - 0.06 x10E9/L 01/09/2022 10:03 AM [facility] nRBC Auto 0 /100 WBC 01/09/2022 10:03 AM [facility] Blood BLOOD SPECIMEN / Unknown Venipuncture / Unknown 01/09/2022 5:29 AM CDT 01/09/2022 9:28 AM T us Thomas Espinal MD LAB - HEMATOLOGY ORDERABLES F inal Result Performing Organization Address City/[facility]/ZIP Co de Phone Number [facility] [address] [place] [address] * PHOSPHORUS BLOOD (01/09/2022 5:29 AM CDT) Pathologist [facility] Phosphorus 4.0 2.3 - 4.7 mg/dL 01/09/2022 10:39 AM CDT [facility] Blood BLOOD SPECIMEN / Unknown Venipuncture / Unknown 01/09/2022 5:29 AM CDT 01/09/2022 9:28 AM CDT us Thomas Espinal MD LAB - CHEMISTRY ORDERABLES Fi nal Result Performing Organization Address [facility] Co de Phone Number [facility] [address] [place] [id number] * (ABNORMAL) COMPREHENSIVE METABOLIC PANEL (01/09/2022 5:29 AM CDT) Pathologist [facility] Glucose 88 70 - 105 mg/dL 01/09/2022 10:39 AM CDT [facility] Sodium 138 136 - 145 mmol/L 01/09/2022 10:39 AM CDT [facility] Potassium 3.4(L) 3.5 - 5.1 mmol/L 01/09/2022 10:39 AM CDT [facility] Chloride 101 98 - 107 mmol/L 01/09/2022 10:39 AM CDT [facility] CO2 27 23 - 31 mmol/L 01/09/2022 10:39 AM CDT [facility] Calcium 7.9(L) 8.4 - 10.4 mg/dL 01/09/2022 10:39 AM CDT [facility] Anion Gap 10 8 - 18 mmol/L 01/09/2022 10:39 AM CDT [facility] BUN 7(L) 8.9 - 20.6 mg/dL 01/09/2022 10:39 AM CDT [facility] Creatinine 0.76 0.72 - 1.25 mg/dL 01/09/2022 10:39 AM CDT [facility] Alkaline Phosphatase 87 40 - 150 U/L 01/09/2022 10:39 AM CDT [facility] ALT 23 0 - 61 U/L 01/09/2022 10:39 AM CDT [facility] AST 25 5 - 34 U/L 01/09/2022 10:39 AM CDT [facility] Protein Total 5.0(L) 6.4 - 8.3 gm/dL 01/09/2022 10:39 AM CDT [facility] Albumin 2.6(L) 3.5 - 5.2 gm/dL 01/09/2022 10:39 AM CDT [facility] Bilirubin Total 0.7 0.2 - 1.2 mg/dL 01/09/2022 10:39 AM T [facility] eGFR by CKD-EPI >90 >=90 mL/min/1.7 3 m2 01/09/2022 10:39 AM T [facility] Blood BLOOD SPECIMEN / Unknown Venipuncture / Unknown 01/09/2022 5:29 AM CDT 01/09/2022 9:28 AM CDT Thomas Espinal MD LAB - CHEMISTRY ORDERABLES Fi nal Result [facility] [address] [place] [address] documented in this encounter Visit Diagnoses Not on filedocumented in this encounter
--- OUTSIDE RECORDS SUMMARY | 2025-01-16 03:07 | XMS_ITS | CONTINUITY OF CARE DOCUMENT ---
Author Name daniel sanchez Address Unknown Organization [facility] Address [address] [place] [address] Phone [phone] Care Team Providers Care Certified Adaptive Physical Educator Name Role Phone Navjot DALTON, Suzi Unavailable Suzi Morfin MD Unavailable WANDER GARCIA MD Unavailable [phone] PROBLEMS Condition Status Date Provider Notes CHF active Jaimie Mahmood Cardiomyopathy active Jaimie Mahmood Hypertension active Jaimie Mahmood INSURANCE PROVIDERS Payer name Policy type / Coverage type Arlen red democrat ID [employer] [facility] Medicaid [id number]
--- OUTSIDE RECORDS SUMMARY | 2025-01-16 03:07 | XMS_ITS | Encounter Summary ---
Author Organization [facility] Address [address] [place] [address] Care Team Providers Care Vendor Management Specialist Name Role Phone Unavailable Primary Care Provider Unavailabl e Encounter Details Date Type Department Care Team (Late st Contact Info) Description 02/10/2022 Lab Requisition [facility] [address] [place] [address] [place] [address] [place] [address] Social History Tobacco Use Types Packs/Day Years Used Date Smoking Tobacco: Some Days Smokeless Tobacco: Never Alcohol Use Standard Drinks/Week Comments Yes 15 (1 standard drink = 0.6 oz pu re alcohol) Sex and Gender Information Value Date Recorded Sex Assigned at Not on file 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 Gender Identity Not on file Sexual Orientation [...] Diagnosis Comments CBC W AUTO DIFFERENTIAL STAT 02/10/2022 5:10 AM CDT COMPREHENSIVE METABOLIC PANEL STAT 02/10/2022 5:10 AM CDT documented in this encounter Results * (ABNORMAL) CBC WITH DIFFERENTIAL (02/10/2022 5:10 AM CDT) WBC 21.6(H) 4.4 - 10.7 x10E9/L 02/10/2022 10:04 AM CDT [facility] WBC Corrected 02/10/2022 10:04 AM CDT [facility] RBC 3.48(L) 3.80 - 5.40 x10E12/L 02/10/2022 10:04 AM CDT [facility] Hemoglobin 9.8(L) 12.0 - 17.6 gm/dL 02/10/2022 10:04 AM CDT [facility] Hematocrit 32.9(L) 35.2 - 51.7 % 02/10/2022 10:04 AM CDT [facility] MCV 94.5 80.7 - 98.3 fl 02/10/2022 10:04 AM CDT [facility] MCH 28.2 26.7 - 34.0 pg 02/10/2022 10:04 AM CDT [facility] MCHC 29.8(L) 30.8 - 35.9 gm/dL 02/10/2022 10:04 AM CDT [facility] Platelet Count 404 153 - 416 x10E9/L 02/10/2022 10:04 AM CDT [facility] RDW-CV 15.9(H) 12.1 - 14.9 % 02/10/2022 10:04 AM CDT [facility] MPV 11.3 9.4 - 12.9 fl 02/10/2022 10:04 AM CDT [facility] Neutrophils % 89.8(H) 44.0 - 73.0 % 02/10/2022 10:04 AM T [facility] Lymphocytes % 4.1(L) 20.0 - 43.0 % 02/10/2022 10:04 AM [facility] Monocytes % 4.0(L) 5.0 - 13.0 % 02/10/2022 10:04 AM CDT [facility] Eosinophils % 1.3 0.0 - 6.0 % 02/10/2022 10:04 AM T [facility] Basophils % 0.2 0.0 - 2.0 % 02/10/2022 10:04 AM T [facility] Immature Granulocytes 0.6 0 - 1 % 02/10/2022 10:04 AM T [facility] Neutrophil Absolute 19.41(H) 2.01 - 7.14 x10E9/L 02/10/2022 10:04 AM [facility] Lymphocytes Absolute 0.89(L) 1.07 - 3.94 x10E9/L 02/10/2022 10:04 AM T [facility] Monocytes Absolute 0.86 0.26 - 1.07 x10E9/L 02/10/2022 10:04 AM T [facility] Eosinophils Absolute 0.28 0 - 0.47 x10E9/L 02/10/2022 10:04 AM [facility] Basophils Absolute 0.04 0 - 0.08 x10E9/L 02/10/2022 10:04 AM [facility] Immature Granulocytes Absolute 0.14(H) 0.00 - 0.06 x10E9/L 02/10/2022 10:04 AM [facility] nRBC Auto 0 /100 WBC 02/10/2022 10:04 AM [facility] Blood BLOOD SPECIMEN / Unknown Venipuncture / Unknown 02/10/2022 5:10 AM CDT 02/10/2022 9:52 AM CDT us Thomas Espinal MD LAB - HEMATOLOGY ORDERABLES F inal Result [facility] [address] [place] [address] * (ABNORMAL) COMPREHENSIVE METABOLIC PANEL (02/10/2022 5:10 AM CDT) Glucose 75 70 - 105 mg/dL 02/10/2022 10:14 AM CDT [facility] Sodium 138 136 - 145 mmol/L 02/10/2022 10:14 AM CDT [facility] Potassium 3.9 3.5 - 5.1 mmol/L 02/10/2022 10:14 AM CDT [facility] Chloride 105 98 - 107 mmol/L 02/10/2022 10:14 AM CDT [facility] CO2 23 23 - 31 mmol/L 02/10/2022 10:14 AM CDT [facility] Calcium 8.2(L) 8.4 - 10.4 mg/dL 02/10/2022 10:14 AM CDT [facility] Anion Gap 10 8 - 18 mmol/L 02/10/2022 10:14 AM CDT [facility] BUN 28(H) 8.9 - 20.6 mg/dL 02/10/2022 10:14 AM CDT [facility] Creatinine 1.60(H) 0.72 - 1.25 mg/dL 02/10/2022 10:14 AM CDT [facility] Alkaline Phosphatase 110 40 - 150 U/L 02/10/2022 10:14 AM CDT [facility] ALT 22 0 - 61 U/L 02/10/2022 10:14 AM CDT [facility] AST 21 5 - 34 U/L 02/10[facility]22 [facility] Protein Total 5.4(L) 6.4 - 8.3 gm/dL 02/10/2022 10:14 AM CDT [facility] Albumin 2.6(L) 3.5 - 5.2 gm/dL 02/10/2022 10:14 AM CDT [facility] Bilirubin Total 0.5 0.2 - 1.2 mg/dL 02/10/2022 10:14 [facility] eGFR by CKD-EPI 58(L) >=90 mL/min/1.7 3 m2 02/10/2022 10:14 AM [facility] Blood BLOOD SPECIMEN / Unknown Venipuncture / Unknown 02/10/2022 5:10 AM CDT 02/10/2022 9:52 AM CDT us Thomas Espinal MD LAB - CHEMISTRY ORDERABLES Fi nal Result Performing Organization Address City/State/[facility] Co de Phone Number [facility] [address] [place] [address] documented in this encounter Visit Diagnoses Not on filedocumented in this encounter
--- OUTSIDE RECORDS SUMMARY | 2025-01-16 03:07 | XMS_ITS ---
Author Organization [facility] Care Team Providers Care Internal Affairs Investigator Name Role Phone Nguyen Reeves Unavailable Unavailable VersIra ty Unavailable Unavailable Habib, Joey Unavailable Unavailable Ampadu, Amrik Unavailable Unavailable Ampadu, Jacquelin Unavailable Unavailable Willi Murray Unavailable Unavai pawan Sandra, Magid Unavailable Unavailable Corrina Preciado Unavailable Unavailable Allergies and adverse reactions Code CodeSystem Substance Reaction Severity StartDate Concern Status Pork Intolerance Skin reacti on - finding (code- [id number], SNOMED CT) Moderate 07/08/2022 active Care Team Name Role Address Phone Organization Dates Magisaiah Venegasm PCP [address], [address], [place] (Office): [facility] [place] 07/08/2022 - 09/18/2022 Nguyen Reeves [address], [address], [place]Office): [facility] [place] [facility] 07/08/2022 - 09/18/2022 Ira Martines [address] [place], [address], [place] (Office): : [facility] [place] 07/08/2022 - 09/18/2022 [place] , [address], [place] (Office): : [facility] 07/08/2022 - 09/18/[address], [address], [place] (Office): : [facility] [place] [facility] 07/08/2022 - 09/18/[address], [address], [place]Office): : [facility] [place] 07/08/2022 - 09/18/2022 Willi Mckeon [address] [place] [address], [address], [place] (Office): : [facility] [place] [facility] 07/08/2022 - 09/18/2022 Corrina Preciado [address] [facility] [address], [address], [place] (Office): : [facility] 07/08/2022 - 09/18/2022 Immunizations Immunization Status Vaccine Details Vaccine Code CodeSystem Date Notes Influenza completed Influenza, high-dose, split virus, quadrivalent, injectable, preservative free 197 CVX created date: 08/14/2022 administere d date: 06/04/2022 COVID-19 Pfizer Booster completed SARS-COV-2 (COVID-19) vaccine, mRNA, spike protein, LNP, preservative free, 30 mcg/0.3mL dose Mfg: Pfizer BiValent Booster Given 0.3 Right Deltoid intramuscularly 208 CVX created date: 08/20/2022 consent date: 08/20/2022 administere d date: 08/19/2022 COVID Dose 1 completed SARS-COV-2 (COVID-19) vaccine, mRNA, spike protein, LNP, preservative free, 30 mcg/0.3mL dose 208 CVX created date: 08/14/2022 administere d date: 09/02/2021 COVID Dose 2 completed SARS-COV-2 (COVID-19) vaccine, mRNA, spike protein, LNP, preservative free, 30 mcg/0.3mL dose 208 CVX created date: 08/14/2022 administere d date: 12/02/2021 Mental Status Section Date Assessment Total Score Description 09/18/2022 BIMS 12 moderate cognit jeff impairment CAM 0 No delirium ind icated PHQ-9 14 moderate depres damian 08/20/2022 CAM 0 No delirium ind icated Problems Problem # Description Date of onset Resolved Date Code CodeSystem Concern Status 1 PRESSURE ULCER OF UNSPECIFIED SITE, UNSTAGEABLE 07/11/[address] active 2 ACUTE EMBOLISM AND THROMBOSIS OF UNSPECIFIED DEEP VEINS OF LEFT LOWER EXTREMITY 07/09/[address] active 3 ANEMIA, UNSPECIFIED 07/09/[address] active 4 ANXIETY DISORDER, UNSPECIFIED 07/09/[address] active 5 ATHEROSCLEROTIC HEART DISEASE OF [place] CORONARY ARTERY WITHOUT ANGINA PECTORIS 07/09/[id number] active 6 CEREBRAL INFARCTION, UNSPECIFIED 07/09/[address] active 7 CHRONIC OBSTRUCTIVE PULMONARY DISEASE, UNSPECIFIED 07/09/[address] active 8 CHRONIC SYSTOLIC (CONGESTIVE) HEART FAILURE 07/09/[address] active 9 ESSENTIAL (PRIMARY) HYPERTENSION 07/09/[address] active 10 GASTRO-ESOPHAGEAL REFLUX DISEASE WITHOUT ESOPHAGITIS 07/09/[address] active 11 HEMIPLEGIA AND HEMIPARESIS FOLLOWING CEREBRAL INFARCTION AFFECTING RIGHT DOMINANT SIDE 07/09/[address] active 12 MAJOR DEPRESSIVE DISORDER, RECURRENT, UNSPECIFIED 07/09/[address] active 13 NEUROMUSCULAR DYSFUNCTION OF BLADDER, UNSPECIFIED 07/09/[address] active 14 OSTEOMYELITIS OF VERTEBRA, SACRAL AND SACROCOCCYGEAL REGION 07/09/[address] active 15 SCHIZOAFFECTIVE DISORDER, UNSPECIFIED 07/09/[address] active Reason for Referral No Reasons for Referral Entered Social History Social History Observation Description Start Date End Date Code Code System Current Smoking Status Tobacco smoking consumption unknown 246399134 SNOMED CT Sex Assigned At Male 1990 90028-1 [facility] Gender Identity Vital Signs Code Code System Vitals Name Values and Units Timing Information 8310-5 [facility] Body Temperature Value=97.9 Units= F 09/18/2022 40047-7 [facility] O2 % BldC Oximetry Value=98.0 Units= % 09/18/2022 73438-2 [facility] Pain Level Value=0.0 09/18/2022 9279-1 [facility] Respiratory Rate Value=18.0 Units=/m in 09/18/2022 8462-4 [facility] Blood Pressure-Diastolic Value=72 Un its=mmHg 09/18/2022 8480-6 [facility] Blood Pressure-Systolic Eiblt=413 Un its=mmHg 09/18/2022 8867-4 [facility] Heart rate Value=78.0 Units=/min 99154-2 [facility] Weight Ipufw=490.1 Units=Lbs 8302-2 [facility] Height Value=72.0 Units=Inches 07/09/2022
--- OUTSIDE RECORDS SUMMARY | 2025-01-16 03:07 | XMS_ITS | Encounter Summary ---
Author Organization [facility] Address [address] [place] [address] Care Team Providers Care Dehydration Plant Operator Name Role Phone Unavailable Primary Care Provider Unavailabl e Encounter Details Date Type Department Care Team (Late st Contact Info) Description 02/03/2022 Lab Requisition [facility] [address] [place] [address] [place] [address] [place] [address] Social History Tobacco Use Types Packs/Day Years Used Date Smoking Tobacco: Some Days Smokeless Tobacco: Never Alcohol Use Standard Drinks/Week Comments Yes 15 (1 standard drink = 0.6 oz pu re alcohol) Sex and Gender Information Value Date Recorded Sex Assigned at Not on file 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6 gm/dL 02/03/2022 10:50 AM CDT [facility] Hematocrit 33.4(L) 35.2 - 51.7 % 02/03/2022 10:50 AM CDT [facility] MCV 94.9 80.7 - 98.3 fl 02/03/2022 10:50 AM CDT [facility] MCH 29.5 26.7 - 34.0 pg 02/03/2022 10:50 AM CDT [facility] MCHC 31.1 30.8 - 35.9 gm/dL 02/03/2022 10:50 AM CDT [facility] Platelet Count 320 153 - 416 x10E9/L 02/03/2022 10:50 AM CDT [facility] RDW-CV 16.0(H) 12.1 - 14.9 % 02/03/2022 10:50 AM CDT [facility] MPV 11.5 9.4 - 12.9 fl 02/03/2022 10:50 AM CDT [facility] Neutrophils % 88.7(H) 44.0 - 73.0 % 02/03/2022 10:50 AM CDT [facility] Lymphocytes % 4.1(L) 20.0 - 43.0 % 02/03/2022 10:50 AM CDT [facility] Monocytes % 5.5 5.0 - 13.0 % 02/03/2022 10:50 AM CDT [facility] Eosinophils % 0.8 0.0 - 6.0 % 02/03/2022 10:50 AM CDT [facility] Basophils % 0.2 0.0 - 2.0 % 02/03/2022 10:50 AM CDT [facility] Immature Granulocytes 0.7 0 - 1 % 02/03/2022 10:50 AM CDT [facility] Neutrophil Absolute 14.81(H) 2.01 - 7.14 x10E9/L 02/03/2022 10:50 AM CDT [facility] Lymphocytes Absolute 0.68(L) 1.07 - 3.94 x10E9/L 02/03/2022 10:50 AM CDT [facility] Monocytes Absolute 0.91 0.26 - 1.07 x10E9/L 02/03/2022 10:50 AM CDT [facility] Eosinophils Absolute 0.13 0 - 0.47 x10E9/L 02/03/2022 10:50 AM CDT [facility] Basophils Absolute 0.03 0 - 0.08 x10E9/L 02/03/2022 10:50 AM T [facility] Immature Granulocytes Absolute 0.12(H) 0.00 - 0.06 x10E9/L 02/03/2022 10:50 AM CDT [facility] nRBC Auto 0 /100 WBC 02/03/2022 10:50 AM T [facility] Blood BLOOD SPECIMEN / Unknown Venipuncture / Unknown 02/03/2022 3:20 AM CDT 02/03/2022 9:23 AM CDT us Thomas Espinal MD LAB - HEMATOLOGY ORDERABLES F inal Result [facility] [address] [place] [address] * (ABNORMAL) COMPREHENSIVE METABOLIC PANEL (02/03/2022 3:20 AM CDT) [facility] Glucose 87 70 - 105 mg/dL 02/03/2022 11:16 AM CDT [facility] Sodium 132(L) 136 - 145 mmol/L 02/03/2022 11:16 AM CDT [facility] Potassium 4.1 3.5 - 5.1 mmol/L 02/03/2022 11:16 AM CDT [facility] Chloride 99 98 - 107 mmol/L 02/03/2022 11:16 AM CDT [facility] CO2 20(L) 23 - 31 mmol/L 02/03/2022 11:16 AM [facility] Calcium 8.3(L) 8.4 - 10.4 mg/dL 02/03/2022 11:16 AM [facility] Anion Gap 13 8 - 18 mmol/L 02/03/2022 11:16 AM [facility] BUN 35(H) 8.9 - 20.6 mg/dL 02/03/2022 11:16 AM [facility] Creatinine 2.92(H) 0.72 - 1.25 mg/dL 02/03/2022 11:16 AM [facility] Alkaline Phosphatase 108 40 - 150 U/L 02/03/2022 11:16 AM CDT [facility] ALT 21 0 - 61 U/L 02/03/2022 11:16 AM [facility] AST 42(H) 5 - 34 U/L 02/03/2022 11:16 AM [facility] Protein Total 5.7(L) 6.4 - 8.3 gm/dL 02/03/2022 11:16 AM CDT [facility] Albumin 2.6(L) 3.5 - 5.2 gm/dL 02/03/2022 11:[facility] Bilirubin Total 0.5 0.2 - 1.2 mg/dL 02/03/2022 11:16 AM [facility] eGFR by CKD-EPI 28(L) >=90 mL/min/1.7 3 m2 02/03/2022 11:16 AM CDT [facility] Blood BLOOD SPECIMEN / Unknown Venipuncture / Unknown 02/03/2022 3:20 AM CDT 02/03/2022 9:23 AM CDT Thomas Espinal MD LAB - CHEMISTRY ORDERABLES Fi nal Result Performing Organization Address City/State/[facility] Co de Phone Number [facility] [address] [place] [address] documented in this encounter Visit Diagnoses Not on filedocumented in this encounter
--- OUTSIDE RECORDS SUMMARY | 2025-01-16 03:07 | XMS_ITS | Encounter Summary ---
Author Organization [facility] Address [address] [place] [address] Care Team Providers Care Lining Scrubber Name Role Phone Unavailable Primary Care Provider Unavailabl e Encounter Details Date Type Department Care Team (Late st Contact Info) Description 01/24/2022 Lab Requisition [facility] [address] [place] [address] Abhi Barajas MD [address] [place] [address] Social History Tobacco Use Types Packs/Day Years Used Date Smoking Tobacco: Some Days Smokeless Tobacco: Never Alcohol Use Standard Drinks/Week Comments Yes 15 (1 standard drink = 0.6 oz pu re alcohol) Sex and Gender Information Value Date Recorded Sex Assigned at Not on file 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 Gender Identity Not on file Sexual Orientation [...] URINE MICROSCOPIC ONLY REFLEX TO CULTURE Routine 01/24/2022 5:44 AM CDT URINALYSIS REFLEX MICROSCOPIC REFLEX CULTURE STAT 01/24/2022 5:44 AM CDT CULTURE URINE Routine 01/24/2022 5:44 AM CDT CBC W AUTO DIFFERENTIAL STAT 01/24/2022 5:44 AM CDT documented in this encounter Results * (ABNORMAL) CULTURE URINE (01/24/2022 5:44 AM CDT) Culture Urine >100,000 CFU/mL Pseudomonas aeruginosa(A) HARSH 01/26/2022 3:13 AM CDT [facility] Urine URINE SPECIMEN OBTAINED BY CLEAN CATCH PROCEDURE / Unknown Collection / Unknown 01/24/2022 5:44 AM CDT 01/24/2022 8:00 AM CDT Narrative [facility] - 01/26/2022 3:13 AM CDT Organism Antibiotic Method Susceptibility Pseudomonas aeruginosa Amikacin HARSH <=2 ug/mL: Susceptible Pseudomonas aeruginosa Cefepime HARSH 2 ug/mL: Susceptible Pseudomonas aeruginosa Ceftazidime HARSH 4 ug/mL: Susceptible Pseudomonas aeruginosa Ciprofloxacin HARSH <=0.25 ug/mL: Susceptible Pseudomonas aeruginosa Gentamicin HARSH <=1 ug/mL: Susceptible Pseudomonas aeruginosa Meropenem HARSH <=0.25 ug/mL: Susceptible Pseudomonas aeruginosa Piperacillin-tazobactam HARSH 8 ug/mL: Susceptible Pseudomonas aeruginosa Tobramycin HARSH <=1 ug/mL: Susceptible Abhi Barajas MD LAB - MICROBIOLOGY ORDERABLES Fi nal Result Performing Organization Address City/State/[facility] Co de Phone Number [facility] [address] [place] [address], [facility] [phone] * (ABNORMAL) URINE MICROSCOPIC ONLY REFLEX TO CULTURE (01/24/2022 5:44 AM CDT) Reflex Status Culture to follow 01/24/2022 8:41 AM CDT [facility] RBC UA 21-50(A) 0 - 5 # /hpf 01/24/2022 8:41 AM CDT [facility] WBC UA >100(A) 0 - 5 # /hpf 01/24/2022 8:41 AM CDT [facility] Bacteria UA Trace(A) None Seen 01/24/2022 8:41 AM CDT [facility] Squamous Epithelial Cells 0-2 0 - 5 /hpf 01/24/2022 8:41 AM CDT [facility] Mucus UA 1+ /LPF 01/24/2022 8:41 AM CDT [facility] Calcium Oxalate Crystals Occasional( A) None seen /HPF 01/24/2022 8:41 AM CDT [facility] Urine URINE SPECIMEN OBTAINED BY CLEAN CATCH PROCEDURE / Unknown Collection / Unknown 01/24/2022 5:44 AM CDT 01/24/2022 8:00 AM CDT Narrative [facility] - 01/24/2022 8:41 AM CDT Abhi Barajas MD LAB - URINALYSIS ORDERABLES Pia l Result Performing Organization Address City/[facility]/ZIP Co de Phone Number [facility] [address] [place] [address] * (ABNORMAL) CBC WITH DIFFERENTIAL (01/24/2022 5:44 AM CDT) WBC 20.9(H) 4.4 - 10.7 x10E9/L 01/24/2022 8:34 AM CDT [facility] WBC Corrected 01/24/2022 8:34 AM CDT [facility] RBC 3.35(L) 3.80 - 5.40 x10E12/L 01/24/2022 8:34 AM CDT [facility] Hemoglobin 9.9(L) 12.0 - 17.6 gm/dL 01/24/2022 8:34 AM CDT [facility] Hematocrit 31.4(L) 35.2 - 51.7 % 01/24/2022 8:34 AM CDT [facility] MCV 93.7 80.7 - 98.3 fl 01/24/2022 8:34 AM CDT [facility] MCH 29.6 26.7 - 34.0 pg 01/24/2022 8:34 AM CDT [facility] MCHC 31.5 30.8 - 35.9 gm/dL 01/24/2022 8:34 AM CDT [facility] Platelet Count 411 153 - 416 x10E9/L 01/24/2022 8:34 AM CDT [facility] RDW-CV 15.3(H) 12.1 - 14.9 % 01/24/2022 8:34 AM CDT [facility] MPV 11.5 9.4 - 12.9 fl 01/24/2022 8:34 AM [facility] Neutrophils % 89.1(H) 44.0 - 73.0 % 01/24/2022 8:34 AM [facility] Lymphocytes % 3.4(L) 20.0 - 43.0 % 01/24/2022 8:34 AM [facility] Monocytes % 5.6 5.0 - 13.0 % 01/24/2022 8:34 AM CDT [facility] Eosinophils % 1.1 0.0 - 6.0 % 01/24/2022 8:34 AM [facility] Basophils % 0.1 0.0 - 2.0 % 01/24/2022 8:34 AM CDT [facility] Immature Granulocytes 0.7 0 - 1 % 01/24/2022 8:34 AM [facility] Neutrophil Absolute 18.66(H) 2.01 - 7.14 x10E9/L 01/24/2022 8:34 AM CDT [facility] Lymphocytes Absolute 0.71(L) 1.07 - 3.94 x10E9/L 01/24/2022 8:34 AM CDT [facility] Monocytes Absolute 1.17(H) 0.26 - 1.07 x10E9/L 01/24/2022 8:34 AM CDT [facility] Eosinophils Absolute 0.23 0 - 0.47 x10E9/L 01/24/2022 8:34 AM CDT [facility] Basophils Absolute 0.03 0 - 0.08 x10E9/L 01/24/2022 8:34 AM [facility] Immature Granulocytes Absolute 0.14(H) 0.00 - 0.06 x10E9/L 01/24/2022 8:34 AM CDT [facility] nRBC Auto 0 /100 WBC 01/24/2022 8:34 AM CDT [facility] Blood BLOOD SPECIMEN / Unknown Venipuncture / Unknown 01/24/2022 5:44 AM CDT 01/24/2022 8:00 AM CDT Abhi Barajas MD LAB - HEMATOLOGY ORDERABLES Pia fenton Result [facility] [address] [place] [address] * (ABNORMAL) URINALYSIS REFLEX MICROSCOPIC REFLEX CULTURE (01/24/2022 5:44 AM CDT) Color UA Lesli(A) Straw, Yellow 01/24/2022 8:37 AM [facility] Clarity UA Turbid(A) Clear 01/24/2022 8:37 AM [facility] Glucose UA Negative Negative 01/24/2022 8:37 AM [facility] Bilirubin UA Negative Negative 01/24/2022 8:37 AM [facility] Ketone UA Negative Negative 01/24/2022 8:37 AM [facility] Specific [place] UA 1.011 1.005 - 1.030 01/24/2022 8:37 AM [facility] Blood UA 2+(A) Negative 01/24/2022 8:37 AM [facility] pH UA 7.0 5.0 - 8.0 pH 01/24/2022 8:37 AM [facility] Protein UA 1+(A) Negative 01/24/2022 8:37 AM [facility] Urobilinogen UA Negative Negative mg/dL 01/24/2022 8:37 AM [facility] Nitrite UA Negative Negative 01/24/2022 8:37 AM CDT [facility] Leukocyte UA 3+(A) Negative 01/24/2022 8:37 AM CDT [facility] Urine Microscopy Urine microscopy to follow 01/24/2022 8:37 AM CDT [facility] Reflex Status Culture to follow 01/24/2022 8:37 AM CDT [facility] Urine URINE SPECIMEN OBTAINED BY CLEAN CATCH PROCEDURE / Unknown Collection / Unknown 01/24/2022 5:44 AM CDT 01/24/2022 8:00 AM CDT Narrative [facility] - 01/24/2022 8:37 AM CDT us Abhi Barajas MD LAB - URINALYSIS ORDERABLES Pia fenton Result [facility] [address] [place] [address] documented in this encounter Visit Diagnoses Not on filedocumented in this encounter
--- OUTSIDE RECORDS SUMMARY | 2025-01-16 03:07 | XMS_ITS | Encounter Summary ---
Author Organization [facility] Address [address] [place] [address] Care Team Providers Care Real Estate Administrative Assistant Name Role Phone Unavailable Primary Care Provider Unavailabl e Encounter Details Date Type Department Care Team (Late st Contact Info) Description 01/30/2022 Lab Requisition [facility] [address] [place] [address] [place] [address] [place] [address] Social History Tobacco Use Types Packs/Day Years Used Date Smoking Tobacco: Some Days Smokeless Tobacco: Never Alcohol Use Standard Drinks/Week Comments Yes 15 (1 standard drink = 0.6 oz pu re alcohol) Sex and Gender Information Value Date Recorded Sex Assigned at Not on file 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 Gender Identity Not on file Sexual [...] Diagnosis Comments CBC W AUTO DIFFERENTIAL STAT 01/30/2022 3:15 AM CDT COMPREHENSIVE METABOLIC PANEL STAT 01/30/2022 3:15 AM CDT documented in this encounter Results * (ABNORMAL) CBC WITH DIFFERENTIAL (01/30/2022 3:15 AM CDT) WBC 14.1(H) 4.4 - 10.7 x10E9/L 01/30/2022 10:16 AM CDT [facility] WBC Corrected 01/30/2022 10:16 AM CDT [facility] RBC 3.02(L) 3.80 - 5.40 x10E12/L 01/30/2022 10:16 AM CDT [facility] Hemoglobin 9.0(L) 12.0 - 17.6 gm/dL 01/30/2022 10:16 AM CDT [facility] Hematocrit 28.7(L) 35.2 - 51.7 % 01/30/2022 10:16 AM CDT [facility] MCV 95.0 80.7 - 98.3 fl 01/30/2022 10:16 AM CDT [facility] MCH 29.8 26.7 - 34.0 pg 01/30/2022 10:16 AM CDT [facility] MCHC 31.4 30.8 - 35.9 gm/dL 01/30/2022 10:16 AM CDT [facility] Platelet Count 402 153 - 416 x10E9/L 01/30/2022 10:16 AM CDT [facility] RDW-CV 15.8(H) 12.1 - 14.9 % 01/30/2022 10:16 AM CDT [facility] MPV 10.7 9.4 - 12.9 fl 01/30/2022 10:16 AM CDT [facility] Neutrophils % 84.8(H) 44.0 - 73.0 % 01/30/2022 10:16 AM CDT [facility] Lymphocytes % 6.2(L) 20.0 - 43.0 % 01/30/2022 10:16 AM CDT [facility] Monocytes % 6.3 5.0 - 13.0 % 01/30/2022 10:16 AM CDT [facility] Eosinophils % 1.6 0.0 - 6.0 % 01/30/2022 10:16 AM CDT [facility] Basophils % 0.2 0.0 - 2.0 % 01/30/2022 10:16 AM CDT [facility] Immature Granulocytes 0.9 0 - 1 % 01/30/2022 10:16 AM CDT [facility] Neutrophil Absolute 11.93(H) 2.01 - 7.14 x10E9/L 01/30/2022 10:16 AM CDT [facility] Lymphocytes Absolute 0.87(L) 1.07 - 3.94 x10E9/L 01/30/2022 10:16 AM CDT [facility] Monocytes Absolute 0.88 0.26 - 1.07 x10E9/L 01/30/2022 10:16 AM CDT [facility] Eosinophils Absolute 0.23 0 - 0.47 x10E9/L 01/30/2022 10:16 AM CDT [facility] Basophils Absolute 0.03 0 - 0.08 x10E9/L 01/30/2022 10:16 AM T [facility] Immature Granulocytes Absolute 0.12(H) 0.00 - 0.06 x10E9/L 01/30/2022 10:16 AM CDT [facility] nRBC Auto 0 /100 WBC 01/30/2022 10:16 AM T [facility] Blood BLOOD SPECIMEN / Unknown Venipuncture / Unknown 01/30/2022 3:15 AM CDT 01/30/2022 9:45 AM CDT us Thomas Espinal MD LAB - HEMATOLOGY ORDERABLES F inal Result [facility] [address] [place] [address] * (ABNORMAL) COMPREHENSIVE METABOLIC PANEL (01/30/2022 3:15 AM CDT) [facility] Glucose 88 70 - 105 mg/dL 01/30/2022 10:39 AM CDT [facility] Sodium 135(L) 136 - 145 mmol/L 01/30/2022 10:39 AM CDT [facility] Potassium 3.9 3.5 - 5.1 mmol/L 01/30/2022 10:39 AM CDT [facility] Chloride 100 98 - 107 mmol/L 01/30/2022 10:39 AM CDT [facility] CO2 23 23 - 31 mmol/L 01/30/2022 10:39 AM CDT [facility] Calcium 8.3(L) 8.4 - 10.4 mg/dL 01/30/2022 10:39 AM T [facility] Anion Gap 12 8 - 18 mmol/L 01/30/2022 10:39 AM CDT [facility] BUN 35(H) 8.9 - 20.6 mg/dL 01/30/2022 10:39 [facility] Creatinine 2.51(H) 0.72 - 1.25 mg/dL 01/30/2022 10:39 AM [facility] Alkaline Phosphatase 95 40 - 150 U/L 01/30/2022 10:39 AM CDT [facility] ALT 13 0 - 61 U/L 01/30/2022 10:39 AM CDT [facility] AST 18 5 - 34 U/L 01/30/2022 10:39 AM [facility] Protein Total 4.9(L) 6.4 - 8.3 gm/dL 01/30/2022 10:39 AM [facility] Albumin 2.4(L) 3.5 - 5.2 gm/dL 01/30/2022 10:39 AM [facility] Bilirubin Total 0.4 0.2 - 1.2 mg/dL 01/30/2022 10:39 AM [facility] eGFR by CKD-EPI 34(L) >=90 mL/min/1.7 3 m2 01/30/2022 10:39 AM CDT [facility] Blood BLOOD SPECIMEN / Unknown Venipuncture / Unknown 01/30/2022 3:15 AM CDT 01/30/2022 9:45 AM CDT Thomas Espinal MD LAB - CHEMISTRY ORDERABLES Fi nal Result [facility] [address] [place] [address] documented in this encounter Visit Diagnoses Not on filedocumented in this encounter
--- OUTSIDE RECORDS SUMMARY | 2025-01-16 03:07 | XMS_ITS | Clinical Summary ---
Author Organization [facility] Address [address] [place] [address] Care Team Providers Care Launderette Attendant Name Role Phone Clinic, Pcp Primary Care [...] week 08/21/2022 How often do you attend sabianism or roman catholic serv ices? Never 08/21/2022 Do you belong to any clubs o r organizations such as sabianism groups, unions, fraternal or athletic groups, or [...] place to sleep or slept in a alf (including now)? No 08/21/2022 Personal Safety Answer Date Recorded Have you ever been in or are you currently in a harmful physical or emotional relationship or is someone making you feel afraid or unsafe? 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 Gender Identity Not on file Sexual Orientation Not on file Obstetrics History Last Filed Vital Signs Vital Sign Reading [...] 03/22/2024 11:35 PM CDT Plan of Treatment Health Maintenance Due Date Last Done Comments Depression Screening 1989 Hepatitis C Screening 1989 DTaP/Tdap/Td Vaccine (2 - Tdap) 01/26/2000 11/05/1993 Varicella Vaccines (1 of 2 - 13+ 2-dose series) 2002 Hepatitis B Screening 2007 Regular Well Visit/Exam 18-64 2007 Covid-19 Vaccine ( season) 2024 07/27/2023, 08/19/2022, 02/25/2022, Additional history exists Influenza Vaccine (#1) 2024 HPV Vaccines Aged Out No longer eligi ble based on patient's age to complete this topic Pneumococcal vaccine <65 Aged Out No longer eligible based on patient's age to complete this topic Insurance [facility] [employer] BETTER [facility] Advance Directives For more information, please contact: [phone] Documents on File Type Date Recorded Patient Credit Collector Expl anation ADVANCE DIRECTIVE 08/26/2022 11:[address] - Phys Order for PT Preferences ADVANCE DIRECTIVE 11/30/2021 6:39 AM * Full Code (Latest Code Status on File) Date Activated Date Inactivated Comments 08/20/2022 9:29 PM 08/25/2022 8:09 PM Care Teams Launderette Attendant Relationship Specialty Start Date End Date Clinic, Pcp PCP - General 01/12/18
--- OUTSIDE RECORDS SUMMARY | 2025-01-16 03:07 | XMS_ITS | Encounter Summary ---
Author Organization [facility] Address [address] [place] [address] Care Team Providers Care Area Mechanic Name Role Phone Unavailable Primary Care Provider Unavailabl e Encounter Details Date Type Department Care Team (Late st Contact Info) Description 01/13/2022 Lab Requisition [facility] [address] [place] [address] [place] [address] [place] [address] Social History Tobacco Use Types Packs/Day Years Used Date Smoking Tobacco: Some Days Smokeless Tobacco: Never Alcohol Use Standard Drinks/Week Comments Yes 15 (1 standard drink = 0.6 oz pu re alcohol) Sex and Gender Information Value Date Recorded Sex Assigned at Not on file 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 Gender Identity Not on file Sexual Orientation [...] Diagnosis Comments CBC W AUTO DIFFERENTIAL STAT 01/13/2022 3:05 AM CDT COMPREHENSIVE METABOLIC PANEL STAT 01/13/2022 3:05 AM CDT documented in this encounter Results * (ABNORMAL) CBC WITH DIFFERENTIAL (01/13/2022 3:05 AM CDT) WBC 11.6(H) 4.4 - 10.7 x10E9/L 01/13/2022 11:18 AM CDT [facility] WBC Corrected 01/13/2022 11:18 AM CDT [facility] RBC 3.23(L) 3.80 - 5.40 x10E12/L 01/13/2022 11:18 AM CDT [facility] Hemoglobin 9.7(L) 12.0 - 17.6 gm/dL 01/13/2022 11:18 AM CDT [facility] Hematocrit 31.7(L) 35.2 - 51.7 % 01/13/2022 11:18 AM CDT [facility] MCV 98.1 80.7 - 98.3 fl 01/13/2022 11:18 AM CDT [facility] MCH 30.0 26.7 - 34.0 pg 01/13/2022 11:18 AM CDT [facility] MCHC 30.6(L) 30.8 - 35.9 gm/dL 01/13/2022 11:18 AM CDT [facility] Platelet Count 351 153 - 416 x10E9/L 01/13/2022 11:18 AM CDT [facility] RDW-CV 15.1(H) 12.1 - 14.9 % 01/13/2022 11:18 AM CDT [facility] MPV 11.8 9.4 - 12.9 fl 01/13/2022 11:18 AM CDT [facility] Neutrophils % 82.7(H) 44.0 - 73.0 % 01/13/2022 11:18 AM CDT [facility] Lymphocytes % 7.7(L) 20.0 - 43.0 % 01/13/2022 11:18 AM CDT [facility] Monocytes % 7.3 5.0 - 13.0 % 01/13/2022 11:18 AM CDT [facility] Eosinophils % 1.6 0.0 - 6.0 % 01/13/2022 11:18 AM CDT [facility] Basophils % 0.3 0.0 - 2.0 % 01/13/2022 11:18 AM CDT [facility] Immature Granulocytes 0.4 0 - 1 % 01/13/2022 11:18 AM CDT [facility] Neutrophil Absolute 9.56(H) 2.01 - 7.14 x10E9/L 01/13/2022 11:18 AM CDT [facility] Lymphocytes Absolute 0.89(L) 1.07 - 3.94 x10E9/L 01/13/2022 11:18 AM CDT [facility] Monocytes Absolute 0.84 0.26 - 1.07 x10E9/L 01/13/2022 11:18 AM CDT [facility] Eosinophils Absolute 0.19 0 - 0.47 x10E9/L 01/13/2022 11:18 AM CDT [facility] Basophils Absolute 0.03 0 - 0.08 x10E9/L 01/13/2022 11:18 AM CDT [facility] Immature Granulocytes Absolute 0.05 0.00 - 0.06 x10E9/L 01/13/2022 11:18 AM CDT [facility] nRBC Auto 0 /100 WBC 01/13/2022 11:18 AM T [facility] Blood BLOOD SPECIMEN / Unknown Venipuncture / Unknown 01/13/2022 3:05 AM CDT 01/13/2022 9:47 AM CDT us Thomas Espinal MD LAB - HEMATOLOGY ORDERABLES F inal Result [facility] [address] [place] [address] * (ABNORMAL) COMPREHENSIVE METABOLIC PANEL (01/13/2022 3:05 AM CDT) [facility] Glucose 90 70 - 105 mg/dL 01/13/2022 11:33 AM [facility] Sodium 137 136 - 145 mmol/L 01/13/2022 11:33 AM CDT [facility] Potassium 3.7 3.5 - 5.1 mmol/L 01/13/2022 11:33 AM [facility] Chloride 99 98 - 107 mmol/L 01/13/2022 11:33 AM [facility] CO2 26 23 - 31 mmol/L 01/13/2022 11:33 AM [facility] Calcium 8.1(L) 8.4 - 10.4 mg/dL 01/13/2022 11:33 AM [facility] Anion Gap 12 8 - 18 mmol/L 01/13/2022 11:33 AM [facility] BUN 8(L) 8.9 - 20.6 mg/dL 01/13/2022 11:33 AM [facility] Creatinine 0.79 0.72 - 1.25 mg/dL 01/13/2022 11:33 AM [facility] Alkaline Phosphatase 91 40 - 150 U/L 01/13/2022 11:33 AM [facility] ALT 26 0 - 61 U/L 01/13/2022 11:33 AM [facility] AST 23 5 - 34 U/L 01/13/2022 11:33 AM [facility] Protein Total 5.1(L) 6.4 - 8.3 gm/dL 01/13/2022 11:33 AM [facility] Albumin 2.6(L) 3.5 - 5.2 gm/dL 01/13/2022 11:33 AM [facility] Bilirubin Total 0.5 0.2 - 1.2 mg/dL 01/13/2022 11:33 AM [facility] eGFR by CKD-EPI >90 >=90 mL/min/1.7 3 m2 01/13/2022 11:33 AM [facility] Blood BLOOD SPECIMEN / Unknown Venipuncture / Unknown 01/13/2022 3:05 AM CDT 01/13/2022 9:47 AM CDT Thomas Espinal MD LAB - CHEMISTRY ORDERABLES [facility] Result [facility] [address] [place] [address] documented in this encounter Visit Diagnoses Not on filedocumented in this encounter
--- OUTSIDE RECORDS SUMMARY | 2025-01-16 03:07 | XMS_ITS | Encounter Summary ---
Author Organization [facility] Address [address] [place] [address] Care Team Providers Care Novelty Printing Machine Operator Name Role Phone Unavailable Primary Care Provider Unavailabl e Encounter Details Date Type Department Care Team (Late st Contact Info) Description 02/13/2022 Lab Requisition [facility] [address] [place] [address] [place] [address] [place] [address] Social History Tobacco Use Types Packs/Day Years Used Date Smoking Tobacco: Some Days Smokeless Tobacco: Never Alcohol Use Standard Drinks/Week Comments Yes 15 (1 standard drink = 0.6 oz pu re alcohol) Sex and Gender Information Value Date Recorded Sex Assigned at Not on file 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 Answer Date of Assessment Author No 12/06/2021 4:24 PM Leander aPz, JONI * Is person blind or have [...] Diagnosis Comments CBC W AUTO DIFFERENTIAL STAT 02/13/2022 4:49 AM CDT COMPREHENSIVE METABOLIC PANEL STAT 02/13/2022 4:49 AM CDT documented in this encounter Results * (ABNORMAL) CBC WITH DIFFERENTIAL (02/13/2022 4:49 AM CDT) WBC 10.8(H) 4.4 - 10.7 x10E9/L 02/13/2022 9:41 AM CDT [facility] WBC Corrected 02/13/2022 9:41 AM CDT [facility] RBC 2.66(L) 3.80 - 5.40 x10E12/L 02/13/2022 9:41 AM CDT [facility] Hemoglobin 7.4(L) 12.0 - 17.6 gm/dL 02/13/2022 9:41 AM CDT [facility] Hematocrit 25.5(L) 35.2 - 51.7 % 02/13/2022 9:41 AM CDT [facility] MCV 95.9 80.7 - 98.3 fl 02/13/2022 9:41 AM CDT [facility] MCH 27.8 26.7 - 34.0 pg 02/13/2022 9:41 AM CDT [facility] MCHC 29.0(L) 30.8 - 35.9 gm/dL 02/13/2022 9:41 AM CDT [facility] Platelet Count 291 153 - 416 x10E9/L 02/13/2022 9:41 AM CDT [facility] RDW-CV 15.9(H) 12.1 - 14.9 % 02/13/2022 9:41 AM CDT [facility] MPV 12.0 9.4 - 12.9 fl 02/13/2022 9:41 AM CDT [facility] Neutrophils % 82.5(H) 44.0 - 73.0 % 02/13/2022 9:41 AM CDT [facility] Lymphocytes % 8.6(L) 20.0 - 43.0 % 02/13/2022 9:41 AM CDT [facility] Monocytes % 6.4 5.0 - 13.0 % 02/13/2022 9:41 AM CDT [facility] Eosinophils % 1.7 0.0 - 6.0 % 02/13/2022 9:41 AM CDT [facility] Basophils % 0.2 0.0 - 2.0 % 02/13/2022 9:41 AM CDT [facility] Immature Granulocytes 0.6 0 - 1 % 02/13/2022 9:41 AM CDT [facility] Neutrophil Absolute 8.91(H) 2.01 - 7.14 x10E9/L 02/13/2022 9:41 AM CDT [facility] Lymphocytes Absolute 0.93(L) 1.07 - 3.94 x10E9/L 02/13/2022 9:41 AM T [facility] Monocytes Absolute 0.69 0.26 - 1.07 x10E9/L 02/13/2022 9:41 AM CDT [facility] Eosinophils Absolute 0.18 0 - 0.47 x10E9/L 02/13/2022 9:41 AM T [facility] Basophils Absolute 0.02 0 - 0.08 x10E9/L 02/13/2022 9:41 AM T [facility] Immature Granulocytes Absolute 0.07(H) 0.00 - 0.06 x10E9/L 02/13/2022 9:41 AM CDT [facility] nRBC Auto 0 /100 WBC 02/13/2022 9:41 AM [facility] Blood BLOOD SPECIMEN / Unknown Venipuncture / Unknown 02/13/2022 4:49 AM CDT 02/13/2022 9:19 AM CDT us Thomas Espinal MD LAB - HEMATOLOGY ORDERABLES F inal Result [facility] [address] [place] [address] * (ABNORMAL) COMPREHENSIVE METABOLIC PANEL (02/13/2022 4:49 AM CDT) [facility] Glucose 84 70 - 105 mg/dL 02/13/2022 10:06 AM [facility] Sodium 139 136 - 145 mmol/L 02/13/2022 10:06 AM CDT [facility] Potassium 4.1 3.5 - 5.1 mmol/L 02/13/2022 10:06 AM CDT [facility] Chloride 104 98 - 107 mmol/L 02/13/2022 10:06 AM T [facility] CO2 24 23 - 31 mmol/L 02/13/2022 10:06 AM [facility] Calcium 8.1(L) 8.4 - 10.4 mg/dL 02/13/2022 10:06 AM [facility] Anion Gap 11 8 - 18 mmol/L 02/13/2022 10:06 AM [facility] BUN 24(H) 8.9 - 20.6 mg/dL 02/13/2022 10:06 AM [facility] Creatinine 1.48(H) 0.72 - 1.25 mg/dL 02/13/2022 10:06 AM [facility] Alkaline Phosphatase 92 40 - 150 U/L 02/13/2022 10:06 AM [facility] ALT 18 0 - 61 U/L 02/13/2022 10:06 AM [facility] AST 18 5 - 34 U/L 02/13/2022 10:06 AM [facility] Protein Total 4.9(L) 6.4 - 8.3 gm/dL 02/13/2022 10:06 AM [facility] Albumin 2.4(L) 3.5 - 5.2 gm/dL 02/13/2022 10:06 AM [facility] Bilirubin Total 0.5 0.2 - 1.2 mg/dL 02/13/2022 10:06 AM [facility] eGFR by CKD-EPI 64(L) >=90 mL/min/1.7 3 m2 02/13/2022 10:06 AM CDT [facility] Blood BLOOD SPECIMEN / Unknown Venipuncture / Unknown 02/13/2022 4:49 AM CDT 02/13/2022 9:19 AM CDT Thomas Espinal MD LAB - CHEMISTRY ORDERABLES Fi nal Result [facility] [address] [place] [address] documented in this encounter Visit Diagnoses Not on filedocumented in this encounter
[2025-01-16 03:10] LABS: Basophils Percent Auto 0.2 % (0.2-1.2); Eosinophils Absolute Auto 0.1 K/mm3 (0-0.3); Eosinophils Percent Auto 1.3 % (0-4.4); Hematocrit 46.9 % (42.0-52.0); Immature Granulocyte Absolute 0.03 K/mm3 (0.00-0.031); Immature Granulocyte Percent A 0.3 % (0-0.5); Lymphocytes Absolute Auto 1.63 K/mm3 (0.9-3.2); Lymphocytes Percent Auto 15.4 % (18.3-44.2); Mean Corpuscular Hemoglobin 29.9 pg (26-34); Mean Corpuscular Volume 93.4 fl (80-100); Mean Platelet Volume 12.2 fl (7.4-10.4); Monocytes Absolute Auto 0.8 K/mm3 (0.1-0.6); Monocytes Percent Auto 7.1 % (2.6-8.5); Neutrophils Percent Auto 75.7 % (45.5-73.1); Platelet Count Result 240 k/mm3 (150-375); Red Blood Count 5.02 M/mm3 (4.6-6.20); Red Cell Distribution Width 13.5 % (11.5-14.5); White Blood Count 10.6 K/mm3 (4.5-10.0)
[2025-01-16 03:37] LABS: Alanine Aminotransferase 16 U/L (6-50); Alkaline Phosphatase 107 U/L (38-126); Anion Gap 10 mmol/L (4-12); Aspartate Amino Transferase 23 U/L (17-59); Bilirubin,Total 0.7 mg/dL (0.2-1.3); Blood Urea Nitrogen 13 mg/dL (9-20); Calcium 8.9 mg/dL (8.4-10.2); Carbon Dioxide 21 mmol/L (22-30); Chloride 106 mmol/L (98-107); Estimated CRCL calculation 152 ml/min; Estimated Glomerular Filt Rate > 60; Glucose 102 mg/dL (65-110); Lipase 54 U/L (23-300); Potassium 4.2 mmol/L (3.4-5.0); Sodium 137 mmol/L (137-145); Troponin I 0.075 ng/mL (0.000-0.034)
[2025-01-16 03:43] LABS: INR 1.2; Prothrombin Time 15.6 Seconds (11.1-14.7)
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
--- NOTE | 2025-01-16 06:02 | ECG_ITS ---
Test Date: 2025-01-16 06:12:15 Measurements Intervals [place] Rate: 75 P: 63 UT: 218 QRS: 0 QRSD: 105 T: 118 QT: 376 QTc: 422 Interpretive Statements SINUS RHYTHM WITH FIRST DEGREE AV BLOCK POSSIBLE LEFT ATRIAL ENLARGEMENT [-0.1mV P-WAVE IN V1/V2] ST DEVIATION AND MODERATE T-WAVE ABNORMALITY, CONSIDER LATERAL ISCHEMIA BASELINE ARTIFACT AFFECTS INTERPRETATION Compared to ECG 01/16/2025 03:02:23 NO SIGNIFICANT CHANGE Electronically Signed On 01-16-2025 10:51:58 CDT by Tate Danielson M.D.
[2025-01-16] MEDS: ASPIRIN 81 MG CHEWABLE TABLET 324 MG PO (06:22)
[2025-01-16 06:49] LABS: NT Pro B Type Natriuretic Pept 293 pg/mL (19.9-100)
[2025-01-16] MEDS: FUROSEMIDE INJ 40 MG/4 ML VIAL IV PUSH (06:51)
[2025-01-16 06:53] LABS: Troponin I 0.056 ng/mL (0.000-0.034)
--- NOTE | 2025-01-16 08:08 | PC.NURSE ---
Arrived to the floor via stretcher from the ER. Alert and oriented, able to answer questions appropriately. 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 Patient denies chest pain or discomfort at this time. Vital signs obtained and alarm security or surveillance monitor placed on patient. No acute distress noted at this time.
[2025-01-16 09:37] LABS: Troponin I 0.055 ng/mL (0.000-0.034)
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
[2025-01-16] MEDS: carvediloL 25 MG TABLET PO ×2 (12:18→21:12)
[2025-01-16] MEDS: PANTOPRAZOLE SODIUM IV 40 MG VIAL IV PUSH (12:18)
[2025-01-16] MEDS: APIXABAN 5 MG TABLET PO ×2 (12:18→21:12)
[2025-01-16] MEDS: DIVALPROEX SODIUM DR 250 MG TABEC 500 MG PO ×2 (12:18→21:12)
--- NOTE | 2025-01-16 14:52 | PCPTNOTE ---
Spoke with HospitalistPAU to remove therapy orders. Pt at baseline. Pt dependent and uses angel lift at baseline.
--- NOTE | 2025-01-16 18:11 | PC.NURSE ---
Report called to [place]. Verbalizes understanding and will be transferred to room 313 without issue.
--- NOTE | 2025-01-16 18:25 | PC.NURSE ---
pt recieved from IMU room 205 now in room 313
[2025-01-17] VITALS (9 sets, daily range): BP systolic 137–150; BP diastolic 83–97; PULSE 80–102; RESP 16–22; TEMP 35.9–36.4; O2SAT 92–100
--- NOTE | 2025-01-17 | ECHO_ITS ---
Patient Info Name: Danie Jonas Age: 34 years : 1990 Gender: Male Ht: 75 in Wt: 311 lbs BSA: 2.78 m2 HR: 86 bpm BP: 144 / 97 mmHg Technical Quality: Good, Poor Exam Date: 01/17/2025 1:58 PM Patient Status: I Admit Date: 01/16/2025 Exam Type: CA echo dop color flow w con Complete two-dimensional, color flow and Doppler transthoracic echocardiogram is performed with contrast to opacify the left ventricle and to improve the deliniation of the left ventricle endocardial borders. Staff Referring Physician: Brian Mendiola Director Of Content Marketing: Josseline Jonas Attending Provider: Greg Rodriges Contrast/Agitated Saline Contrast/Ag. Saline: Definity Amount: 3.00 ml Existing IV Access: Yes IV Access Condition: patent with no signs of infiltration Reason for Poor Study: patient body habitus Summary 1. Technically difficult study with limited views. 2. Left ventricular systolic function is mildly reduced, estimated at 40-45. 3. There is severely increased left ventricular wall thickness. 4. The left ventricular diastolic function is grade I diastolic dysfunction. 5. There is mild mitral valve regurgitation. 6. There is mild tricuspid valve regurgitation. Left Ventricle Left ventricular systolic function is mildly reduced, estimated at 40-45. There is severely increased left ventricular wall thickness. The left ventricular diastolic function is grade I diastolic dysfunction. Right Ventricle Right ventricular chamber dimension is not well visualized. Left Atria Left atrial chamber dimension is not well visualized. Right Atria Right atrial chamber dimension is not well visualized. Atrial Septum Intact interatrial septum visualized by color flow imaging. Aortic Valve The aortic valve is trileaflet. There is no aortic valve stenosis. There is no aortic valve regurgitation. Pulmonic Valve The pulmonic valve is not well visualized. Mitral Valve There is mild mitral valve regurgitation. Tricuspid Valve There is mild tricuspid valve regurgitation. Pericardium/Pleural There is no pericardial effusion. Inferior Vena Cava Inferior vena cava is not well visualized. Aorta The aortic root size at the sinus of Valsalva is normal. Left Ventricular Outflow Tract Name Value Normal LVOT 2D LVOT Diameter 2.1 cm LVOT Doppler LVOT Peak Velocity 64 cm/s LVOT Peak Gradient 2 mmHg LVOT Mean Gradient 1 mmHg LVOT VTI 11 cm LVOT VTI/AV VTI Ratio 0.8 LVOT Stroke Volume 39 ml LVOT CO 9.8 l/min LVOT CI 3.5 l/min/m2 Pulmonic Valve Name Value Normal PV Doppler PV Peak Velocity 109 cm/s PV Peak Gradient 5 mmHg Mitral Valve Name Value Normal MV Diastolic Function MV E Peak Velocity 50 cm/s MV A Peak Velocity 34 cm/s MV E/A 1.5 MV Decel Time (PW) 158 ms MV Annular TDI MV E/e' (Septal) 7.2 MV E/e' (Lateral) 5.8 MV E/e' (Average) 6.5 Tricuspid Valve Name Value Normal TV Regurgitation Doppler TR Peak Velocity 153 cm/s TR Peak Gradient 9 mmHg Estimated PAP/RSVP RV Systolic Pressure 19 mmHg <36 TV Annular TDI TV Lateral Carol s' Velocity 9.3 cm/s >=9.5 Aorta Name Value Normal Ascending Aorta Ao Root Diameter (MM) 3.2 cm Ao Root Diam Index (MM) 1.1 cm/m2 Aortic Valve Name Value Normal AV Doppler AV Peak Velocity 83 cm/s AV Peak Gradient 3 mmHg AV Mean Gradient 2 mmHg AV VTI 15 cm AV Area (Cont Eq VTI) 2.6 cm2 >=3.0 AV Area (Cont Eq Keith) 2.6 cm2 AV DI (Keith) 0.77 AV Regurgitation 2D LVOT Area 3.4 cm2 Ventricles Name Value Normal LV Dimensions 2D/MM IVS Diastolic Thickness (2D) 2.1 cm 0.6-1.0 LVID Diastole (2D) 4.3 cm 4.2-5.8 LVIW Diastolic Thickness (2D) 1.5 cm 0.6-1.0 LVID Systole (2D) 3.4 cm 2.5-4.0 LVOT Diameter 2.1 cm LV Mass (2D Cubed) 351.62 g 88.00-224.00 LV Mass Index (2D Cubed) 126 g/m2 49-115 Relative Wall Thickness (2D) 0.69 <=0.42 LV Fractional Shortening/Ejection Fraction 2D/MM LV Fractional Shortening (2D) 21 % 25-43 LV EF (2D Teichholz) 43 % LV Diastolic Volume (4C MOD) 117 ml LV EF (4C MOD) 80 % LV Diastolic Volume (2C MOD) 78 ml LV EF (2C MOD) 58 % LV Diastolic Volume (BP MOD) 98 ml 62-150 LV Diastolic Volume Index (BP MOD) 35 ml/m2 34-74 LV Systolic Volume (BP MOD) 28 ml 21-61 LV Systolic Volume Index (BP MOD) 10 ml/m2 11-31 LV EF (BP MOD) 72 % 52-72 LV Diastolic Length (4C) 9.5 cm LV Systolic Length (4C) 7.6 cm LV Stroke Volume (4C MOD) 93 ml RV Dimensions 2D/MM RVID Diastole (2D) 3.9 cm 2.1-3.5 Atria Name Value Normal LA Dimensions LA Dimension (MM) 3.2 cm 3.0-4.0 Report Signatures
[2025-01-17 06:06] LABS: Basophils Percent Auto 0.4 % (0.2-1.2); Eosinophils Absolute Auto 0.1 K/mm3 (0-0.3); Hematocrit 43.1 % (42.0-52.0); Hemoglobin 13.5 g/dL (14.0-18.0); Immature Granulocyte Absolute 0.05 K/mm3 (0.00-0.031); Immature Granulocyte Percent A 0.5 % (0-0.5); Lymphocytes Absolute Auto 1.63 K/mm3 (0.9-3.2); Lymphocytes Percent Auto 17.3 % (18.3-44.2); Mean Corpuscular HGB Conc 31.3 g/dl (32-36); Mean Corpuscular Hemoglobin 30.1 pg (26-34); Mean Platelet Volume 12.3 fl (7.4-10.4); Monocytes Absolute Auto 0.9 K/mm3 (0.1-0.6); Monocytes Percent Auto 9.5 % (2.6-8.5); Neutrophils Absolute Auto 6.7 K/mm3 (1.3-6.7); Neutrophils Percent Auto 71.3 % (45.5-73.1); Platelet Count Result 194 k/mm3 (150-375); Red Blood Count 4.49 M/mm3 (4.6-6.20); Red Cell Distribution Width 13.6 % (11.5-14.5); White Blood Count 9.4 K/mm3 (4.5-10.0)
[2025-01-17 06:14] LABS: Alanine Aminotransferase 13 U/L (6-50); Albumin Level 3.6 g/dL (3.5-5.1); Alkaline Phosphatase 91 U/L (38-126); Anion Gap 6 mmol/L (4-12); Aspartate Amino Transferase 16 U/L (17-59); Bilirubin,Total 0.8 mg/dL (0.2-1.3); Blood Urea Nitrogen 15 mg/dL (9-20); Calcium 8.4 mg/dL (8.4-10.2); Carbon Dioxide 26 mmol/L (22-30); Chloride 107 mmol/L (98-107); Estimated CRCL calculation 131 ml/min; Estimated Glomerular Filt Rate > 60; Glucose 96 mg/dL (65-110); Magnesium 1.6 mg/dL (1.6-2.3); Potassium 3.7 mmol/L (3.4-5.0); Sodium 139 mmol/L (137-145)
[2025-01-17] MEDS: SERTRALINE HCL 50 MG TABLET PO (09:16)
[2025-01-17] MEDS: carvediloL 25 MG TABLET PO ×2 (09:16→20:39)
[2025-01-17] MEDS: NIFEdipine 30 MG TAB.ER.24 60 MG PO (09:16)
[2025-01-17] MEDS: DIVALPROEX SODIUM DR 250 MG TABEC 500 MG PO ×2 (09:16→20:39)
[2025-01-17] MEDS: APIXABAN 5 MG TABLET PO ×2 (09:16→20:39)
[2025-01-17] MEDS: FUROSEMIDE INJ 40 MG/4 ML VIAL IV PUSH (09:16)
[2025-01-17] MEDS: PANTOPRAZOLE SODIUM IV 40 MG VIAL IV PUSH (09:21)
--- NOTE | 2025-01-17 09:36 | P.PNCA_ITS ---
Progress Note: A&P Assessment and Plan (1) Chest pain: Code(s): R07.9 - Chest pain, unspecified Status: Acute (2) Elevated troponin: Code(s): R79.89 - Other specified abnormal findings of blood chemistry Status: Acute (3) A-fib: Qualifiers: Atrial fibrillation type: unspecified Qualified Code(s): I48.91 - Unspecified atrial fibrillation Code(s): I48.91 - Unspecified atrial fibrillation Status: Acute Plan 34 year man who is paraplegic secondary to stroke and paroxysmal atrial fibrillation presented with chest pain Chest pain -appears pleuritic in nature -troponin is inconsistent with acute coronary syndrome and are chronically elevated. -TTE shows mild LV dysfunction with EF 40-45% * Continue coreg * He does not appear volume overloaded, furosemide can be discontinued. Left lower extremity swelling -Dopplers negative for DVT Paroxysmal atrial fibrillation -continue Eliquis 5 mg p.o. b.i.d. Cardiology will sign off please call with questions. Subjective Date/time seen: 01/17/25 09:36 Interval history: Cardiology follow up visit Feels well today. No shortness of breath or chest pain. Review of Systems Cardiovascular: Cardiovascular: Reports as per HPI Respiratory: Respiratory: Reports as per HPI Exam Const: General: comfortable HENMT: Mouth: Yes moist mucous membranes Eyes: EOM: EOMs intact bilaterally Neck: Neck: no JVD Resp: Effort & Inspection: normal respiratory effort Auscultation: clear to auscultation bilaterally Cardio: Rate: regular rate Rhythm: regular rhythm Extrem: Other: Left leg edema Objective Data Vital Signs Vital Signs: Vital Signs - 24 hr 01/16/25 10:00 01/16/25 12:00 01/16/25 12:00 Temperature 37.4 C Pulse Rate 81 83 83 Respiratory Rate 18 18 Blood Pressure 154/106 H Pulse Oximetry 97 97 Oxygen Delivery Room Air 01/16/25 12:00 01/16/25 12:18 01/16/25 14:00 Temperature Pulse Rate 77 83 84 Respiratory Rate Blood Pressure Pulse Oximetry Oxygen Delivery 01/16/25 16:00 01/16/25 16:00 01/16/25 16:00 Temperature 36.9 C Pulse Rate 84 81 80 Respiratory Rate 18 20 Blood Pressure 180/108 H Pulse Oximetry 97 98 Oxygen Delivery Room Air 01/16/25 18:00 01/16/25 20:00 01/16/25 20:00 Temperature 36.4 C L Pulse Rate 84 84 Respiratory Rate 20 Blood Pressure 147/89 H Pulse Oximetry 97 Oxygen Delivery Room Air 01/16/25 20:00 01/17/25 00:00 01/17/25 00:00 Temperature 36.4 C L Pulse Rate 85 88 87 Respiratory Rate 22 H Blood Pressure 150/96 H Pulse Oximetry 98 Oxygen Delivery 01/17/25 04:00 01/17/25 04:00 01/17/25 08:00 Temperature 35.9 C L Pulse Rate 93 97 Respiratory Rate 22 H Blood Pressure 144/97 H Pulse Oximetry 98 Oxygen Delivery Room Air Intake/Output Intake/Output: Intake & Output 01/14/25 01/15/25 01/16/25 01/17/25 23:59 23:59 23:59 23:59 Intake Total 1080 100 Output Total 1150 400 Balance -70 -300 Meds/Results Medications: Active Medications Generic Name Dose Route Start Last Admin Trade Name Freq PRN Reason Stop Dose Admin Apixaban 5 mg 01/16/25 12:00 01/17/25 09:16 Apixaban 5 Mg Tablet PO 5 mg Q12HR WOOD Administration Carvedilol 25 mg 01/16/25 11:45 01/17/25 09:16 Carvedilol 25 Mg Tablet PO 25 mg Q12HR WOOD Administration Divalproex Sodium 500 mg 01/16/25 11:45 01/17/25 09:[address] 250 Mg Tabec PO 500 mg Q12HR WOOD Administration Furosemide 40 mg 01/17/25 09:00 01/17/25 09:16 Furosemide Inj 40 Mg/4 Ml Vial IV PUSH 40 mg DAILY WOOD Administration Nifedipine 60 mg 01/17/25 09:00 01/17/25 09:16 Nifedipine 30 Mg Tab.Er.24 PO 60 mg DAILY WOOD Administration Pantoprazole Sodium 40 mg 01/17/25 09:00 01/17/25 09:21 Pantoprazole Sodium Iv 40 Mg Vial IV PUSH 40 mg QAM WOOD Administration Perflutren Lipid Microsphere 0 ml 01/16/25 11:43 Perflutren Lipid Microspheres 1.5 Ml Vial Diluted To 10 Ml Total Volume IV PUSH 01/19/25 11:43 ONCE PRN adequate visualization Protocol Polyethylene Glycol 17 gm 01/17/25 09:00 01/17/25 09:16 Polyethylene Glycol 3350 17 Gm Powd.Pack PO Not Given DAILY WOOD Sertraline HCl 50 mg 01/17/25 09:00 01/17/25 09:16 Sertraline Hcl 50 Mg Tablet PO 50 mg DAILY WOOD Administration Tizanidine HCl 4 mg 01/16/25 11:43 Tizanidine Hcl 4 Mg Tablet PO Q8H PRN Muscle Spasm Radiology Results: ITS Impressions Chest X-Ray 01/16/25 08:10 IMPRESSION: Highly suggestive of cardiomegaly with cardiac decompensation and pulmonary edema. Superimposed pneumonia is not excluded. Venous Doppler Study 01/16/25 13:47 IMPRESSION: No deep venous thrombosis within the right lower extremity. Noncompressibility and absence of flow within the left peroneal and posterior tibial veins, as detailed above. Chest/Abdomen/Pelvis CTA 01/16/25 14:20 IMPRESSION: No pulmonary embolus. No aortic dissection. Retained gastric contents within the stomach which is minimally distended. Bibasilar atelectasis. Fatty infiltration of the liver, which is not enlarged. Splenomegaly. Labs Labs: Laboratory Results - last 24 hr 01/16/25 01/17/25 08:58 05:46 WBC 9.4 RBC 4.49 L Hgb 13.5 L Hct 43.1 MCV 96.0 MCH 30.1 MCHC 31.3 L RDW 13.6 Plt Count 194 MPV 12.3 H Immature Gran % (Auto) 0.5 Neut % (Auto) 71.3 Lymph % (Auto) 17.3 L [place] % (Auto) 9.5 H Eos % (Auto) 1.0 Baso % (Auto) 0.4 Lymph # (Auto) 1.63 [place] # (Auto) 0.9 H Eos # (Auto) 0.1 Baso # (Auto) 0.0 Abs Immat Gran (auto) 0.05 H Absolute Neuts (auto) 6.7 Absolute Nucleated RBC 0.000 Nucleated RBC % 0.0 Sodium 139 Potassium 3.7 Chloride 107 Carbon Dioxide 26 Anion Gap 6 BUN 15 Creatinine 1.05 Estim Creat Clear Calc 131 Estimated GFR > 60 Glucose 96 Calcium 8.4 Magnesium 1.6 Total Bilirubin 0.8 AST 16 L ALT 13 Alkaline Phosphatase 91 Troponin I 0.055 H* Total Protein 7.0 Albumin 3.6
[2025-01-17] MEDS: PERFLUTREN LIPID MICROSPHERES 1.5 ML VIAL DILUTED TO 10 ML TOTAL VOLUME IV PUSH (14:25)
--- NOTE | 2025-01-17 14:51 | IVDEFINITY ---
Prior to administration of IV Definity the patient was educated on the risks and benefits of the imaging enhancing agent including potential adverse side effects. The patient verbalized understanding. Allergies were verified. No exclusion criteria were identified and at least one of the following inclusion criteria were met: 1) physician request, 2) patient technically difficult to image (per the [place] [employer] guidelines of two or more segments not discernable within the apical view), or 3) questionable left ventricular function. ?
--- NOTE | 2025-01-17 15:32 | P.PNIM_ITS ---
Progress Note: A&P Assessment and Plan (1) Essential hypertension: Code(s): I10 - Essential (primary) hypertension Status: Acute (2) Acute exacerbation of CHF (congestive heart failure): Code(s): I50.9 - Heart failure, unspecified Status: Acute (3) Elevated troponin: Code(s): R79.89 - Other specified abnormal findings of blood chemistry Status: Acute (4) Obesity: Code(s): E66.9 - Obesity, unspecified Status: Acute (5) Acute epigastric pain: Code(s): R10.13 - Epigastric pain Status: Acute (6) Gastro-esophageal reflux disease without esophagitis: Code(s): K21.9 - Gastro-esophageal reflux disease without esophagitis Status: Acute (7) Paraplegia: Code(s): G82.20 - Paraplegia, unspecified Status: Acute (8) COPD (chronic obstructive pulmonary disease): Code(s): J44.9 - Chronic obstructive pulmonary disease, unspecified Status: Acute Plan This is a 34-year-old male history of atrial fibrillation left hemiplegia from stroke in the past presented with chest pain that started suddenly in the evening yesterday does not radiate associated shortness of breath but no nausea vomiting. He resides in a [facility] care since his stroke. In the ED his vitals were stable. He done in the tri as was negative for any acute ischemic changes. Chest x-ray showed cardiomegaly with bilateral patchy opacities suggestive of cardiac decompensation and pulmonary edema. Superimposed pneumonia is not excluded. Laboratory workup revealed a WBC of 10.6 hemoglobin 15 platelet count 240. Chem panel with the normal electrolytes bicarb of 21 creatinine of 0.9 blood glucose was 102. Lipase normal at 54 initial troponin elevated at 0.075. Serial troponins 0.056-0.055. BNP of 293. He is admitted in this setting for further treatment. Chest pain/epigastric pain. Mildly elevated troponin with flat trend. CTA chest negative for PE or aortic dissection. CT abdomen pelvis showed retained gastric contents within stomach which is minimally distended. Bibasilar atelectasis splenomegaly and fatty infiltration of the liver.. Continue PPI. Elevated troponin with flat trend. Echo with EF 40-45% severely increased left ventricular wall thickness. Grade 1 diastolic dysfunction mild MR mild TR. History of stroke with left-sided weakness Lower extremity edema: Venous duplex with non compressibility and absence of flow within the left peroneal and posterior tibial vein noted suggestive of DVT. He is already on Eliquis and will be continued same. Likely chronic DVT [facility] Acute on chronic diastolic congestive heart failure. IV Lasix daily. Atrial fibrillation chronic on anticoagulation COPD CKD Hypertension DVT prophylaxis on Eliquis Code status full code [facility] Subjective Date/time seen: 01/17/25 15:32 Interval history: Chest pain is improved. Nausea vomiting. Tolerating diet. Review of Systems Review of Systems: All systems reviewed & are unremarkable except as noted in HPI and below Exam Narrative: GENERAL: The patient is well developed, with morbid obesity, not in acute distress HEENT: Nonicteric sclerae, PERRLA, EOMI. Oropharynx clear. Moist mucous membranes. Conjunctivae appear well perfused. CHEST: Chest wall is tender on left precordium HEART: Regular rate and rhythm without murmur, rubs, or gallops LUNGS: Clear to auscultation bilaterally. no respiratory distress ABDOMEN: Soft, positive bowel sounds, mild tender epigastric area,, no organomegaly. SKIN: No rash, no excessive bruising, petechiae, or purpura. NEUROLOGIC: Cranial nerves II-XII intact, alert and oriented x 3, left hemiparesis EXTREMITIES: Left lower extremity edema noted, no cyanosis or clubbing Objective Data Vital Signs Vital Signs: Vital Signs - 24 hr 01/16/25 16:00 01/16/25 16:00 01/16/25 16:00 Temperature 98.5 F Pulse Rate 84 81 80 Respiratory Rate 18 20 Blood Pressure 180/108 H Pulse Oximetry 97 98 Oxygen Delivery Room Air 01/16/25 18:00 01/16/25 20:00 01/16/25 20:00 Temperature 97.5 F L Pulse Rate 84 84 Respiratory Rate 20 Blood Pressure 147/89 H Pulse Oximetry 97 Oxygen Delivery Room Air 01/16/25 20:00 01/17/25 00:00 01/17/25 00:00 Temperature 97.5 F L Pulse Rate 85 88 87 Respiratory Rate 22 H Blood Pressure 150/96 H Pulse Oximetry 98 Oxygen Delivery 01/17/25 04:00 01/17/25 04:00 01/17/25 08:00 Temperature 96.6 F L Pulse Rate 93 97 Respiratory Rate 22 H Blood Pressure 144/97 H Pulse Oximetry 98 Oxygen Delivery Room Air 01/17/25 09:45 01/17/25 14:34 Temperature 97.0 F L 97.0 F L Pulse Rate 87 81 Respiratory Rate 18 18 Blood Pressure 137/85 143/94 H Pulse Oximetry 100 98 Oxygen Delivery Intake/Output Intake/Output: Intake & Output 01/14/25 01/15/25 01/16/25 01/17/25 23:59 23:59 23:59 23:59 Intake Total 1080 580 Output Total 1150 1300 Balance -70 -720 Meds/Results Medications: Active Medications Generic Name Dose Route Start Last Admin Trade Name Freq PRN Reason Stop Dose Admin Apixaban 5 mg 01/16/25 12:00 01/17/25 09:16 Apixaban 5 Mg Tablet PO 5 mg Q12HR WOOD Administration Carvedilol 25 mg 01/16/25 11:45 01/17/25 09:16 Carvedilol 25 Mg Tablet PO 25 mg Q12HR WOOD Administration Divalproex Sodium 500 mg 01/16/25 11:45 01/17/25 09:[address] 250 Mg Tabec PO 500 mg Q12HR WOOD Administration Furosemide 40 mg 01/17/25 09:00 01/17/25 09:16 Furosemide Inj 40 Mg/4 Ml Vial IV PUSH 40 mg DAILY WOOD Administration Nifedipine 60 mg 01/17/25 09:00 01/17/25 09:16 Nifedipine 30 Mg Tab.Er.24 PO 60 mg DAILY WOOD Administration Pantoprazole Sodium 40 mg 01/17/25 09:00 01/17/25 09:21 Pantoprazole Sodium Iv 40 Mg Vial IV PUSH 40 mg QAM WOOD Administration Polyethylene Glycol 17 gm 01/17/25 09:00 01/17/25 09:16 Polyethylene Glycol 3350 17 Gm Powd.Pack PO Not Given DAILY WOOD Sertraline HCl 50 mg 01/17/25 09:00 01/17/25 09:16 Sertraline Hcl 50 Mg Tablet PO 50 mg DAILY WOOD Administration Tizanidine HCl 4 mg 01/16/25 11:43 Tizanidine Hcl 4 Mg Tablet PO Q8H PRN Muscle Spasm Radiology Results: ITS Impressions Chest X-Ray 01/16/25 08:10 IMPRESSION: Highly suggestive of cardiomegaly with cardiac decompensation and pulmonary dorian ma. Superimposed pneumonia is not excluded. Venous Doppler Study 01/16/25 13:47 IMPRESSION: No deep venous thrombosis within the right lower extremity. Noncompressibility and absence of flow within the left peroneal and posterior tibial veins, as detailed above. Chest/Abdomen/Pelvis CTA 01/16/25 14:20 IMPRESSION: No pulmonary embolus. No aortic dissection. Retained gastric contents within the stomach which is minimally distended. Bibasilar atelectasis. Fatty infiltration of the liver, which is not enlarged. Splenomegaly. Labs Labs: Laboratory Results - last 24 hr 01/17/25 05:46 WBC 9.4 RBC 4.49 L Hgb 13.5 L Hct 43.1 MCV 96.0 MCH 30.1 MCHC 31.3 L RDW 13.6 Plt Count 194 MPV 12.3 H Immature Gran % (Auto) 0.5 Neut % (Auto) 71.3 Lymph % (Auto) 17.3 L [place] % (Auto) 9.5 H Eos % (Auto) 1.0 Baso % (Auto) 0.4 Lymph # (Auto) 1.63 [place] # (Auto) 0.9 H Eos # (Auto) 0.1 Baso # (Auto) 0.0 Abs Immat Gran (auto) 0.05 H Absolute Neuts (auto) 6.7 Absolute Nucleated RBC 0.000 Nucleated RBC % 0.0 Sodium 139 Potassium 3.7 Chloride 107 Carbon Dioxide 26 Anion Gap 6 BUN 15 Creatinine 1.05 Estim Creat Clear Calc 131 Estimated GFR > 60 Glucose 96 Calcium 8.4 Magnesium 1.6 Total Bilirubin 0.8 AST 16 L ALT 13 Alkaline Phosphatase 91 Total Protein 7.0 Albumin 3.6
[2025-01-17] MEDS: HYDROcodone/acetaminophen (*CRX) 5-325 MG TABLET 1 TAB PO ×2 (16:45→20:39)
[2025-01-17] MEDS: MAG HYDROX/AL HYDROX/SIMETH 30 ML UDC PO (16:48)
[2025-01-18] VITALS (7 sets, daily range): BP systolic 125–147; BP diastolic 79–90; PULSE 73–91; RESP 16–20; TEMP 36.1–36.6; O2SAT 96–100
[2025-01-18 06:30] LABS: Basophils Percent Auto 0.2 % (0.2-1.2); Eosinophils Absolute Auto 0.2 K/mm3 (0-0.3); Eosinophils Percent Auto 2.1 % (0-4.4); Hematocrit 43.2 % (42.0-52.0); Hemoglobin 13.5 g/dL (14.0-18.0); Immature Granulocyte Absolute 0.03 K/mm3 (0.00-0.031); Immature Granulocyte Percent A 0.3 % (0-0.5); Lymphocytes Absolute Auto 1.68 K/mm3 (0.9-3.2); Lymphocytes Percent Auto 19.5 % (18.3-44.2); Mean Corpuscular HGB Conc 31.3 g/dl (32-36); Mean Corpuscular Hemoglobin 29.9 pg (26-34); Mean Corpuscular Volume 95.6 fl (80-100); Mean Platelet Volume 12.5 fl (7.4-10.4); Monocytes Absolute Auto 0.7 K/mm3 (0.1-0.6); Neutrophils Percent Auto 69.9 % (45.5-73.1); Platelet Count Result 198 k/mm3 (150-375); Red Blood Count 4.52 M/mm3 (4.6-6.20); Red Cell Distribution Width 13.6 % (11.5-14.5); White Blood Count 8.6 K/mm3 (4.5-10.0)
[2025-01-18 06:48] LABS: Alanine Aminotransferase 13 U/L (6-50); Albumin Level 3.6 g/dL (3.5-5.1); Alkaline Phosphatase 84 U/L (38-126); Anion Gap 9 mmol/L (4-12); Aspartate Amino Transferase 17 U/L (17-59); Bilirubin,Total 0.5 mg/dL (0.2-1.3); Blood Urea Nitrogen 15 mg/dL (9-20); Calcium 8.6 mg/dL (8.4-10.2); Carbon Dioxide 26 mmol/L (22-30); Chloride 104 mmol/L (98-107); Estimated CRCL calculation 143 ml/min; Estimated Glomerular Filt Rate > 60; Glucose 82 mg/dL (65-110); Magnesium 1.7 mg/dL (1.6-2.3); Potassium 3.4 mmol/L (3.4-5.0); Sodium 139 mmol/L (137-145)
[2025-01-18] MEDS: polyethylene glycoL 3350 17 GM POWD.PACK PO (09:33)
[2025-01-18] MEDS: PANTOPRAZOLE SODIUM IV 40 MG VIAL IV PUSH (09:34)
[2025-01-18] MEDS: FUROSEMIDE INJ 40 MG/4 ML VIAL IV PUSH (09:34)
[2025-01-18] MEDS: SERTRALINE HCL 50 MG TABLET PO (09:34)
[2025-01-18] MEDS: carvediloL 25 MG TABLET PO (09:34)
[2025-01-18] MEDS: DIVALPROEX SODIUM DR 250 MG TABEC 500 MG PO (09:34)
[2025-01-18] MEDS: NIFEdipine 30 MG TAB.ER.24 60 MG PO (09:36)
[2025-01-18] MEDS: APIXABAN 5 MG TABLET PO (09:37)
--- NOTE | 2025-01-18 11:27 | P.DS_ITS ---
DS: Admitting Diagnosis Discharge Date 01/18/25 Admitting Diagnosis Chest pain DS: Discharge Diagnosis Discharge Diagnosis (1) Essential hypertension: Code(s): I10 - Essential (primary) hypertension Status: Acute (2) Acute exacerbation of CHF (congestive heart failure): Code(s): I50.9 - Heart failure, unspecified Status: Acute (3) Elevated troponin: Code(s): R79.89 - Other specified abnormal findings of blood chemistry Status: Acute (4) Obesity: Code(s): E66.9 - Obesity, unspecified Status: Acute (5) Acute epigastric pain: Code(s): R10.13 - Epigastric pain Status: Acute (6) Gastro-esophageal reflux disease without esophagitis: Code(s): K21.9 - Gastro-esophageal reflux disease without esophagitis Status: Acute (7) Paraplegia: Code(s): G82.20 - Paraplegia, unspecified Status: Acute (8) COPD (chronic obstructive pulmonary disease): Code(s): J44.9 - Chronic obstructive pulmonary disease, unspecified Status: Acute Plan This is a 34-year-old male history of atrial fibrillation left hemiplegia from stroke in the past presented with chest pain that started suddenly in the evening yesterday does not radiate associated shortness of breath but no nausea vomiting. He resides in a alf ever care since his stroke. In the ED his vitals were stable. He done in the tri as was negative for any acute ischemic changes. Chest x-ray showed cardiomegaly with bilateral patchy opacities suggestive of cardiac decompensation and pulmonary edema. Superimposed pneumonia is not excluded. Laboratory workup revealed a WBC of 10.6 hemoglobin 15 platelet count 240. Chem panel with the normal electrolytes bicarb of 21 creatinine of 0.9 blood glucose was 102. Lipase normal at 54 initial troponin elevated at 0.075. Serial troponins 0.056-0.055. BNP of 293. He is admitted in this setting for further treatment. Chest pain/epigastric pain. Mildly elevated troponin with flat trend. CTA chest negative for PE or aortic dissection. CT abdomen pelvis showed retained gastric contents within stomach which is minimally distended. Bibasilar atelectasis splenomegaly and fatty infiltration of the liver.. Continue PPI. Elevated troponin with flat trend. Echo with EF 40-45% severely increased left ventricular wall thickness. Grade 1 diastolic dysfunction mild MR mild TR. History of stroke with left-sided weakness Lower extremity edema: Venous duplex with non compressibility and absence of flow within the left peroneal and posterior tibial vein noted suggestive of DVT. He is already on Eliquis and will be continued same. Likely chronic DVT alf resident Acute on chronic diastolic congestive heart failure. IV Lasix daily. Atrial fibrillation chronic on anticoagulation COPD CKD Hypertension DVT prophylaxis on Eliquis Code status full code alf resident DS: Summary Hospital Course Hospital Course: patient is 34 y/o AA male with paraplegic 2/2 stroke and with history PAF presented with c/o CP, patient has chronically elevated tropes and this visit no significant change and seen by repertoire manager and does not suspect ACS, his ECHO showed mild reduce EF 40-45% and he appears euvolemic, will stop furosemide patient is clinically stable and his CP is resolved, and no other c/o, will discharge patient today. Time Spent with Patient Time attestation: Total time spent providing and/or coordinating discharge services: Exam Narrative: Patient is comfortable, NAD HEENT: eyes are clear and none icteric LUNGS:CTA HEART: RR S1S2 ABD: BS+, Soft and nontender Lower extremities: no edema SKIN: nonjaundiced Neuro: grossly intact. paraplegic DS: Data Data Completed and Pending Labs on day of discharge: Labs from last 24 hours 01/18/25 05:55 WBC 8.6 RBC 4.52 L Hgb 13.5 L Hct 43.2 MCV 95.6 MCH 29.9 MCHC 31.3 L RDW 13.6 Plt Count 198 MPV 12.5 H Immature Gran % (Auto) 0.3 Neut % (Auto) 69.9 Lymph % (Auto) 19.5 [place] % (Auto) 8.0 Eos % (Auto) 2.1 Baso % (Auto) 0.2 Lymph # (Auto) 1.68 [place] # (Auto) 0.7 H Eos # (Auto) 0.2 Baso # (Auto) 0.0 Abs Immat Gran (auto) 0.03 Absolute Neuts (auto) 6.0 Absolute Nucleated RBC 0.000 Nucleated RBC % 0.0 Sodium 139 Potassium 3.4 Chloride 104 Carbon Dioxide 26 Anion Gap 9 BUN 15 Creatinine 0.96 Estim Creat Clear Calc 143 Estimated GFR > 60 Glucose 82 Calcium 8.6 Magnesium 1.7 Total Bilirubin 0.5 AST 17 ALT 13 Alkaline Phosphatase 84 Total Protein 7.0 Albumin 3.6 Discharge Plan Discharge Attending physician on discharge: Greg Rodriges Consulting providers: Arnoldo Choi; Brian Mendiola; Tate Danielson; Katrina Fernández; Rodrick Clinton; Flory Trotter; Lawrence Cabrera Discharging Clinician: Nisha Jacobs Patient Disposition: [facility] Skilled Nursing/Asst Living Activity: as tolerated Diet: heart healthy Discharge Instructions: patient to follow up with his primary care provider as soon as possible. patient to follow up with his cardiology as scheduled. Patient Instructions: Antibiotic Form Patient Language: Greenlandic Stand Alone Forms: General Discharge Information Follow-up/Referrals: Katrina Fernández, BILL CHECKER-C [Advanced Practice Nurse] - 4 Weeks PHYSICIAN,AUTOMATION TECHNOLOGIST [Primary Care Provider] - Discharge Medications: Continued carvedilol 25 mg tablet 25 mg PO Q12H tizanidine 4 mg tablet 4 mg PO Q8H PRN (Reason: Muscle Spasm) divalproex 500 mg tablet,delayed release (DR/EC) 500 mg PO Q12H Eliquis 5 mg tablet 5 mg PO BID polyethylene glycol 3350 [Miralax] 17 gram Powder In Packet 17 g PO DAILY Qty: 30 0RF sertraline 50 mg tablet 50 mg PO DAILY nifedipine 60 mg tablet extended release 24hr 60 mg PO DAILY Qty: 30 0RF Date of admission: 01/16/25 06:57 Primary Care Provider: PHYSICIAN,AUTOMATION TECHNOLOGIST Admitting Provider: Greg Rodriges Attending physician on admission: Nisha Jacobs Condition: Stable
[2025-01-18] MEDS: POTASSIUM CHLORIDE 20 MEQ PACKET (FOR LIQUID) 40 MEQ PO (14:34)
== END 2025-01-18 17:10 ==
LOC: ANHED 06:40 → ANH3MEDSUR 01-18 10:36 → ANHIMU 01-19 07:19
PROVIDERS: Internal Medicine; Admitting Provider General Practice; Emergency Provider Emergency Medicine; Visit Provider Family Medicine
DX: R07.9 Chest pain, unspecified (principal); R10.13 Epigastric pain; R79.89 Other specified abnormal findings of blood chemistry; I48.0 Paroxysmal atrial fibrillation; I13.0 Hypertensive heart and chronic kidney disease with heart failure and stage 1 through stage 4 chronic kidney disease, or unspecified chronic kidney disease; I50.33 Acute on chronic diastolic (congestive) heart failure; N18.9 Chronic kidney disease, unspecified; R60.0 Localized edema; J44.9 Chronic obstructive pulmonary disease, unspecified; I69.354 Hemiplegia and hemiparesis following cerebral infarction affecting left non-dominant side; G82.20 Paraplegia, unspecified; K21.9 Gastro-esophageal reflux disease without esophagitis; Z79.01 Long term (current) use of anticoagulants; Z79.899 Other long term (current) drug therapy; Z87.891 Personal history of nicotine dependence
CPT/HCPCS: 36415; 71045; 71275; 74174; 80053; 83690; 83735; 83880; 84484; 85025; 85610; 85730; 93005; 93970; 96374; 96375; 96376; 99285; A9270; C8929; G0378; G0379; J1938; J2470; Q9957; Q9967